=== PATIENT | female | born 2000 | race Caucasian/White ===

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

== ENCOUNTER → 2018-05-08 11:21 | Outpatient (CLI) | payer OTHER, SELFPAY ==
[2018-05-11 03:05] LABS: Clam <0.10 kU/L (Class 0); Codfish <0.10 kU/L (Class 0); Corn <0.10 kU/L (Class 0); Egg, White <0.10 kU/L (Class 0); Milk (Cow) <0.10 kU/L (Class 0); Peanut <0.10 kU/L (Class 0); SCALLOP <0.10 kU/L (Class 0); SESAME SEED <0.10 kU/L (Class 0); Shrimp <0.10 kU/L (Class 0); Soybean <0.10 kU/L (Class 0); Walnut, (Food) <0.10 kU/L (Class 0); Wheat <0.10 kU/L (Class 0)
[2018-05-11 16:38] LABS: Gluten <0.10 kU/L (Class 0)
== END ==
PROVIDERS: Family Provider Family Medicine; PCP Family Medicine; Visit Provider Otolaryngology Otolaryngology/Facial Plastic Surgery
DX: T78.40XA Allergy, unspecified, initial encounter (principal)
CPT/HCPCS: 36415; 86003

== ENCOUNTER 2018-09-22 10:00 | Outpatient (RCR) | payer OTHER, SELFPAY ==
--- NOTE | 2018-03-16 11:03 | HP.PTEVAL_ITS ---
Patient's Visit Information JOSE EDUARDO PRINCE is a 18 year old F referred to Physical Therapy by Nahid Fernandez with a diagnosis of TMJ syndrome. Date of Evaluation: 03/16/18 Physical Therapist: Vidal Nuñez - Visit Plan Frequency: 1x/Week Duration: 4-6 Weeks Plan: Start with rocobaddo exercises, DN, UT, SCM stretcing. Progressing to postural strengthening as tolerated. Pt. to start with rocobaddo exercises on own, cervical spine exercises. Progress DN and postural strengthening as tolerated. - Subjective Subjective: Pt. is here today for her initial evaluation with diagnosis of TMJ mostly on L side. Pt. has been having issues for ~1.5 years. Pt. has previously teated with stretching, exercise and DN with good success. She just finished up her college exams and already reports reduced symptoms. Pt. reports no JUNG, pain is mostly when she chews. Pt. also reports increased pain with studying. Pt. denies N/T. Pt. is hopeful to reduce symptoms in order to eat without pain, study without pain, get back to all recraetional activities without issues. - Pain L TMJ Pain Intensity (Out of 10): 3 Pain Intensity Range: 1, 7 - Objective POSTURE: Pt. has slight FH position in sitting. Pt. has slight rounded shoulders. Pt. is able to correct with Vcing. PALPATION: Pt. has increased tenderness at L UT, bilateral levator scapulea, bilateral sub occipitals, L SCM and L TMJ. NEUROLOGICAL: PT. has normal sensation throughout face and BUEs. Pt. has normal DTR of bilateral UEs. ROM: CERVICAL SPINE: flexion- nil loss NE , ext min loss NE, SB nil loss bilat NE, rotation nil loss NE. Pt. has full B shoulder ROM without increase in symptoms. Pt. has sight deviation of mandable to L side with opening. No clicking felt with opening and closing. - Special Tests Cervical Sitting: Protrusion - Mechanical Response: No effect Cervical Sitting: Protrusion - Symptoms During Testing: No effect Cervical Sitting: Protrusion - Symptoms After Testing: No effect Cervical Sitting: Retraction - Mechanical Response: No effect Cervical Sitting: Retraction - Symptoms During Testing: No effect Cervical Sitting: Retraction - Symptoms After Testing: No effect Comments:: tightness noted Cervical Sitting: Retraction-Extension - Mechanical Response: No effect Cerv Sitting: Retraction-Extension - Symptoms During Testing: No effect Cerv Sitting: Retraction-Extension - Symptoms After Testing: No effect Comments:: tightness noted - Goals Goal 1:: Pt. to be I with HEP. Goal Time Frame: 4-6 Weeks Goal 2:: Pt. to report 0/10 pain while sleeping increasing her quality of life. Goal Time Frame: 4-6 Weeks Goal 3:: Pt. to eat without increase in L TMJ symptoms. Goal Time Frame: 4-6 Weeks Goal 4:: Pt. to maintain improved posture of thoracic spine and cervical spine throughout therapy sessing indicating increased postural awareness. Goal Time Frame: 4-6 Weeks - Rehabilitation Potential Physical Therapy Diagnosis: Pt. has signs and symptoms consistent with TMD. Pt. most likely and a stress and postural component with her symptoms. Pt. tends to have increased pain during studying, but tends to flex forward with studying for longer periods of time. Pt. has tighness in B UT and bilateral SCM. Pt. would benefit from PT to progress rocobaddo exercises, DN, stretching and postural awareness to reduce symptoms. Rehabilitation Potential: Excellent - Anticipated Interventions Patient/Client Instruction: Educate patient on: Condition, Plan of Care, Risk Factors, Benefits of Fitness Program For the Purpose of:: To improve decision making, To facilitate caregiver knowledge, To improve self management, To prevent re-injury, To improve ability to perform tasks related to life management, To improve tolerance to ADL's Therapeutic Exercise to Include: Strength training, Postural training, Flexibilty training For the Purpose of:: To decrease pain, To increase ROM, To improve nutrient delivery to tissue, To increase oxygenation perfusion, To improve muscle performance and motor function, To improve health of tissue, To decrease soft tissue restriction, To increase flexibility/ROM Manual Therapy Techniques to Include: Trigger point massage, Mobilization, Passive ROM, Functional dry needling, Soft tissue mobilization For the Purpose of:: To decrease pain, To increase ROM, To improve nutrient delivery to tissue, To increase oxygenation perfusion, To improve muscle performance and motor function Thank you for the opportunity to evaluate your patient. For Medicare and Medicare HMO plans, please review the plan of care and approve it. It will need to be FAXED BACK to us at [phone] for Medicare purposes. Please let me know if there are questions or concerns regarding this plan of care. Physician Signature: Date:
--- NOTE | 2018-11-28 17:24 | HP.PT.NRP ---
HP - Discharge Summary (1) - Patient Information JOSE EDUARDO PRINCE was seen in my office for initial evaluation on 03/16/18. The following Plan of Care was established for this patient: Initial Frequency: 1x/Week Initial Duration: 4-6 Weeks - Anticipated Interventions Patient/Client Instruction: Educate patient on: Condition, Plan of Care, Risk Factors, Benefits of Fitness Program For the Purpose of:: To improve decision making, To facilitate caregiver knowledge, To improve self management, To prevent re-injury, To improve ability to perform tasks related to life management, To improve tolerance to ADL's Therapeutic Exercise to Include: Strength training, Postural training, Flexibilty training For the Purpose of:: To decrease pain, To increase ROM, To improve nutrient delivery to tissue, To increase oxygenation perfusion, To improve muscle performance and motor function, To improve health of tissue, To decrease soft tissue restriction, To increase flexibility/ROM Manual Therapy Techniques to Include: Trigger point massage, Mobilization, Passive ROM, Functional dry needling, Soft tissue mobilization For the Purpose of:: To decrease pain, To increase ROM, To improve nutrient delivery to tissue, To increase oxygenation perfusion, To improve muscle performance and motor function This patient was last seen in our office 09/22/18. Pertinent comments regarding their Physical therapy will appear below: Pt. was seen for her TMD issues. Pt. was treated with DN, manual PT and exercises. Pt. was seen for 3 visits. Pt. returned to school and has not been back to PT since. Pt. will be DC from PT at this point in time. At this point I will be discontinuing this patient from physical therapy. I would be happy to see this patient again in the future if found appropriate by the physician. Thank you! Vidal Nuñez, MICHAELT
== END 2018-09-22 19:00 | disposition home or self-care (01) ==
LOC: PT 10:00
PROVIDERS: Family Provider Family Medicine; PCP Family Medicine; Visit Provider Family Medicine
DX: M26.609 Unspecified temporomandibular joint disorder, unspecified side (principal)
CPT/HCPCS: 97161

== ENCOUNTER 2020-02-28 14:30 | Outpatient (RCR) | payer SELFPAY ==
[2019-06-05 09:24] VITALS: BMI 31.9
--- NOTE | 2020-04-08 08:41 | HP.PTDCNRP_ITS ---
JOSE EDUARDO PRINCE was seen in my office for initial evaluation on 09/05/19. The following Plan of Care was established for this patient: Patient/Client Instruction: Educate patient on: Condition, Plan of Care, Risk Factors, Benefits of Fitness Program For the Purpose of:: To facilitate caregiver knowledge, To improve self manageme nt, To prevent re-injury, To improve ability to perform tasks related to life management, To improve tolerance to ADL's Manual Therapy Techniques to Include: Mobilization, Passive ROM, Functional dry needling For the Purpose of:: To decrease pain, To decrease swelling/inflammation, To increase ROM, To improve nutrient delivery to tissue This patient was last seen in our office . Pertinent comments regarding their Physical therapy will appear below: Dry Needling d/c At this point I will be discontinuing this patient from physical therapy. I would be happy to see this patient again in the future if found appropriate by the physician. Thank you! MICHAEL CorneliusT
== END 2020-02-28 19:00 | disposition home or self-care (01) ==
LOC: PT 14:30
PROVIDERS: Family Provider Family Medicine; PCP Family Medicine
DX: S93.402D Sprain of unspecified ligament of left ankle, subsequent encounter (principal)

== ENCOUNTER 2021-03-26 14:30 | Outpatient (RCR) | payer OTHER, SELFPAY ==
[2020-04-02 12:48] VITALS: BMI 31.9
== END 2021-03-26 19:00 | disposition home or self-care (01) ==
LOC: PT 14:30
PROVIDERS: PCP Family Medicine
DX: R68.84 Jaw pain (principal); M54.2 Cervicalgia

== ENCOUNTER 2021-07-10 11:00 | Outpatient (RCR) | payer OTHER, SELFPAY ==
[2021-04-21 14:37] VITALS: BMI 31.9
--- NOTE | 2021-10-20 16:45 | HP.PT.NRP ---
JOSE EDUARDO PRINCE was seen in my office for initial evaluation on . The following Plan of Care was established for this patient: This patient was last seen in our office 07/10/21. Pertinent comments regarding their Physical therapy will appear below: Pt. was seen in PT for self pay DN. Pt. has not been seen in several months and will be DC from PT at this point in time. At this point I will be discontinuing this patient from physical therapy. I would be happy to see this patient again in the future if found appropriate by the physician. Thank you! Vidal Nuñez, MICHAELT
== END 2021-07-10 19:00 | disposition home or self-care (01) ==
LOC: PT 11:00
PROVIDERS: PCP Family Medicine
DX: Z00.00 Encounter for general adult medical examination without abnormal findings (principal)

== ENCOUNTER → 2021-07-17 11:04 | Outpatient (CLI) | payer OTHER, SELFPAY ==
[2021-07-17 15:43] LABS: Absolute Neutrophil Count 3.8 X10^3/uL (2.0-7.7); Basophil# 0.01 X10^3/uL; Basophil% 0.2 % (0-1); Eosinophil# 0.04 X10^3/uL; Eosinophils% 0.7 % (0-5); Hematocrit 39.8 % (37-47); Hemoglobin 12.8 g/dL (12.0-15.0); Lymphocyte % 25.6 % (19-41); Mean Corp Hgb Conc 32.2 g/dL (32-36); Mean Corpuscular Hgb 29.8 pg (27.0-32.0); Mean Corpuscular Volume 92.8 fL (81-99); Mean Platelet Vol. 10.9 fl (6.2-12.0); Monocyte# 0.49 X10^3/uL; Monocyte% 8.4 % (0-10); NRBC Flagged by Analyzer 0 % (0-5); Neutrophil # 3.79 X10^3/uL (2.7-7.7); Neutrophil % 64.8 % (47-70); Platelet Count 240 K/mm3 (150-450); RBC Distribution Width CV 12.8 % (11.6-14.6); RBC Distribution Width SD 43.7 fl (35.1-43.9); Red Blood Count 4.29 M/mm3 (4.2-5.4); White Blood Count 5.9 K/mm3 (4.4-11.0)
[2021-07-17 17:01] LABS: ALB/GLOB Ratio 0.9 RATIO (0.9-2.4); AST(SGOT) 16 U/L (15-37); Alanine Aminotransfer ALT/SGPT 25 U/L (13-56); Albumin, Serum 3.7 g/dL (3.2-5.0); Alkaline Phosphatase 46 U/L (45-117); Anion Gap 5 (5-15); BUN 15 mg/dL (7-18); BUN/Creat Ratio 22.8 RATIO (10-20); Calcium,Total 9.2 mg/dL (8.5-10.1); Chloride 106 mmol/L (98-107); Cholesterol 156 mg/dL (200); Creatinine, Serum 0.66 mg/dL (0.55-1.02); EST Glomerular Filtration Rate 118 mL/min (>60); Est Glom Filt Rate - Afr Amer 143 mL/min (>60); Glucose 86 mg/dL (74-106); High Density Lipoprotein 46 mg/dL; Potassium 3.7 mmol/L (3.5-5.1); Protein, Total 7.7 g/dL (6.4-8.2); Sodium Level 137 mmol/L (136-145); Thyroid Stim Hormone (TSH) 1.02 uIU/mL (0.358-3.74); Triglycerides 103 mg/dL; Very Low Density Lipoprotein 21 mg/dL (5-40)
== END ==
PROVIDERS: PCP Family Medicine; Referring Provider Family Medicine; Visit Provider Family Medicine
DX: Z00.00 Encounter for general adult medical examination without abnormal findings (principal)
CPT/HCPCS: 36415; 80053; 80061; 84443; 85025

== ENCOUNTER → 2022-08-13 | Outpatient (CLI) | payer OTHER, SELFPAY ==
[2022-08-13 15:53] LABS: Vitamin B12 301 pg/mL (211-911); Vitamin D,25 Hydroxy 39.3 ng/mL
[2022-08-13 16:23] LABS: Free T3 2.2 pg/mL (2.18-3.98); T4 Free Direct 0.93 ng/dL (0.76-1.46); Thyroid Stim Hormone (TSH) 1.26 uIU/mL (0.358-3.74)
== END | disposition home or self-care (01) ==
PROVIDERS: PCP Family Medicine
DX: R53.83 Other fatigue (principal)
CPT/HCPCS: 36415; 82306; 82607; 82746; 84439; 84443; 84481

== ENCOUNTER → 2023-07-07 | Outpatient (CLI) | payer OTHER, SELFPAY ==
[2023-07-07 15:24] LABS: Hematocrit 38.6 % (37-47); Hemoglobin 12.5 g/dL (12.0-15.0); Mean Corp Hgb Conc 32.4 g/dL (32-36); Mean Corpuscular Volume 92.6 fL (81-99); Mean Platelet Vol. 10.5 fl (6.2-12.0); Platelet Count 297 K/mm3 (150-450); RBC Distribution Width CV 12.7 % (11.6-14.6); RBC Distribution Width SD 43.1 fl (35.1-43.9); Red Blood Count 4.17 M/mm3 (4.2-5.4); White Blood Count 7.9 K/mm3 (4.4-11.0)
[2023-07-07 16:06] LABS: Vitamin D,25 Hydroxy 52.2 ng/mL
[2023-07-07 16:23] LABS: Hemoglobin A1c 4.9 % (3.8-5.6)
[2023-07-07 16:43] LABS: AST(SGOT) 18 U/L (15-37); Alanine Aminotransfer ALT/SGPT 24 U/L (13-56); Albumin, Serum 3.9 g/dL (3.2-5.0); Alkaline Phosphatase 61 U/L (45-117); Anion Gap 9 (5-15); BUN 13 mg/dL (7-18); BUN/Creat Ratio 15.9 RATIO (10-20); Chloride 110 mmol/L (98-107); Cholesterol 174 mg/dL (200); Creatinine, Serum 0.82 mg/dL (0.55-1.02); EST Glomerular Filtration Rate 90 mL/min (>60); Est Glom Filt Rate - Afr Amer 109 mL/min (>60); Globulin 3.9 g/dL (2.2-4.2); Glucose 90 mg/dL (74-106); High Density Lipoprotein 55 mg/dL; Potassium 3.6 mmol/L (3.5-5.1); Protein, Total 7.8 g/dL (6.4-8.2); Sodium Level 136 mmol/L (136-145); Thyroid Stim Hormone (TSH) 1.99 uIU/mL (0.358-3.74); Triglycerides 116 mg/dL; Very Low Density Lipoprotein 23 mg/dL (5-40)
[2023-07-08 09:10] LABS: Insulin 23.7 mU/L (2.6-37.6)
== END | disposition home or self-care (01) ==
PROVIDERS: PCP Family Medicine; Visit Provider Nurse Practitioner Family
DX: F41.9 Anxiety disorder, unspecified (principal); Z13.220 Encounter for screening for lipoid disorders; Z13.29 Encounter for screening for other suspected endocrine disorder; Z13.1 Encounter for screening for diabetes mellitus; E66.9 Obesity, unspecified; E28.2 Polycystic ovarian syndrome
CPT/HCPCS: 36415; 80053; 80061; 82306; 83036; 83525; 84443; 85027

== ENCOUNTER 2023-08-02 08:50 | Outpatient (RCR) | payer OTHER, SELFPAY | END 2023-08-06 23:59 | LOC: NS 08:50 | PROVIDERS: PCP Family Medicine; Referring Provider Nurse Practitioner Family; Visit Provider Nurse Practitioner Family | DX: E28.2 Polycystic ovarian syndrome (principal); F41.9 Anxiety disorder, unspecified; F32.A Depression, unspecified; E66.9 Obesity, unspecified; Z68.31 Body mass index [BMI] 31.0-31.9, adult | CPT/HCPCS: 97802 ==

== ENCOUNTER 2023-08-29 10:32 | Outpatient (RCR) | payer OTHER, SELFPAY | END 2023-09-06 23:59 | LOC: NS 10:32 | PROVIDERS: PCP Family Medicine; Referring Provider Nurse Practitioner Family; Visit Provider Nurse Practitioner Family | DX: Z71.3 Dietary counseling and surveillance (principal); E28.2 Polycystic ovarian syndrome; F41.9 Anxiety disorder, unspecified; F32.A Depression, unspecified; E66.9 Obesity, unspecified; Z68.31 Body mass index [BMI] 31.0-31.9, adult | CPT/HCPCS: 97803 ==

== ENCOUNTER → 2023-09-21 | Outpatient (CLI) | payer OTHER, SELFPAY ==
[2023-09-21 11:09] LABS: Rheumatoid Factor < 10.0 IU/mL (<15)
[2023-09-21 11:14] LABS: Erythrocyte Sedimentation Rate 25 mm/hr (0-30)
[2023-09-22 12:09] LABS: ANTINUCLEAR ANTIBODIES DIRECT Positive (Negative)
[2023-09-22 13:08] LABS: Lyme Scn Total Ab w/Rflx Negative (Negative)
== END | disposition home or self-care (01) ==
PROVIDERS: PCP Family Medicine; Visit Provider Nurse Practitioner Family
DX: M25.50 Pain in unspecified joint (principal)
CPT/HCPCS: 36415; 85652; 86038; 86431; 86618

== ENCOUNTER → 2023-12-06 | Outpatient (CLI) | payer OTHER, SELFPAY ==
[2023-12-06 15:28] LABS: EXAGEN MAILED SPECIMEN
[2023-12-06 18:04] LABS: Absolute Lymphocyte Count 2.87 X10^3/uL (0.83-4.51); Absolute Neutrophil Count 6.9 X10^3/uL (2.0-7.7); Basophil# 0.03 X10^3/uL; Basophil% 0.3 % (0-1); Eosinophil# 0.13 X10^3/uL; Eosinophils% 1.2 % (0-5); Hematocrit 39.6 % (37-47); Hemoglobin 12.9 g/dL (12.0-15.0); Lymphocyte # 2.87 X10^3/ul (0.83-4.51); Lymphocyte % 27.3 % (19-41); Mean Corp Hgb Conc 32.6 g/dL (32-36); Mean Platelet Vol. 10.7 fl (6.2-12.0); Monocyte% 5.7 % (0-10); NRBC Flagged by Analyzer 0 % (0-5); Neutrophil # 6.86 X10^3/uL (2.7-7.7); Neutrophil % 65.2 % (47-70); Platelet Count 299 K/mm3 (150-450); RBC Distribution Width SD 42.3 fl (35.1-43.9); Red Blood Count 4.45 M/mm3 (4.2-5.4); White Blood Count 10.5 K/mm3 (4.4-11.0)
[2023-12-06 18:11] LABS: International Normalized Ratio 0.9; Prothrombin Time (Protime)PT. 12.4 SECONDS (11.7-14.9)
[2023-12-06 18:12] LABS: Partial Thromboplast Time 28.4 Seconds (24.1-36.2)
[2023-12-06 18:16] LABS: Erythrocyte Sedimentation Rate 27 mm/hr (0-30)
[2023-12-06 18:24] LABS: ALB/GLOB Ratio 0.9 RATIO (0.9-2.4); AST(SGOT) 13 U/L (15-37); Alanine Aminotransfer ALT/SGPT 22 U/L (13-56); Albumin, Serum 3.9 g/dL (3.2-5.0); Alkaline Phosphatase 60 U/L (45-117); Anion Gap 7 (5-15); BUN 14 mg/dL (7-18); BUN/Creat Ratio 17.4 RATIO (10-20); Chloride 109 mmol/L (98-107); EST Glomerular Filtration Rate 92 mL/min (>60); Est Glom Filt Rate - Afr Amer 111 mL/min (>60); Globulin 4.2 g/dL (2.2-4.2); Glucose 90 mg/dL (74-106); Potassium 3.8 mmol/L (3.5-5.1); Protein, Total 8.1 g/dL (6.4-8.2); Sodium Level 136 mmol/L (136-145)
[2023-12-06 18:55] LABS: Hepatitis B Surface Antibody Reactive; Hepatitis B Surface Antigen Non-Reactive (Nonreactive); Hepatitis C Antibody Non-Reactive (Nonreactive)
[2023-12-09 06:10] LABS: Dilute Prothrombin Time (dPT) 40.3 sec (0.0-47.6); Dilute Russell Viper Venom 34.3 sec (0.0-47.0); Hexagonal Phase Phospholipid 3 sec (0-11); Interpretation Comment: (.); PTT-LA 33.5 sec (0.0-43.5); Thrombin Time 23.7 sec (0.0-23.0); dPT Confirm Ratio 1.79 Ratio (0.00-1.34)
== END | disposition home or self-care (01) ==
LOC: MTLAB 14:26
PROVIDERS: PCP Family Medicine; Referring Provider Internal Medicine Rheumatology; Visit Provider Internal Medicine Rheumatology
DX: M06.4 Inflammatory polyarthropathy (principal); M79.7 Fibromyalgia; R76.8 Other specified abnormal immunological findings in serum
CPT/HCPCS: 36415; 80053; 85025; 85598; 85610; 85652; 85670; 85730; 86140; 86706; 86803; 87340

== ENCOUNTER → 2023-12-09 | Outpatient (CLI) | payer OTHER, SELFPAY ==
[2023-12-09 12:40] LABS: Color, Urine Yellow (Yellow); Glucose, Dipstick Normal (Normal); Ketone-Dipstick Negative (Negative); Leukocyte Esterase-Dipstick 25 /ul (Negative); Nitrite-Dipstick Negative (Negative); Occult Blood-Urine Negative /ul (Negative); Protein-Dipstick Negative (Negative); Urine Bilirubin Dipstick Negative (Negative); Urine Clarity Sl. Cloudy (Clear); Urine Urobilinogen Normal (Normal)
[2023-12-09 12:49] LABS: Protein, Urine (Random) 15.8 mg/dL (<11.9); Protein:Creat Ratio 115 mg/g CRE (0-200)
== END | disposition home or self-care (01) ==
LOC: MTLAB 10:12
PROVIDERS: PCP Family Medicine; Referring Provider Internal Medicine Rheumatology; Visit Provider Internal Medicine Rheumatology
DX: M06.4 Inflammatory polyarthropathy (principal); M79.7 Fibromyalgia; R76.8 Other specified abnormal immunological findings in serum
CPT/HCPCS: 81002; 82570; 84156

== ENCOUNTER → 2024-01-03 | Outpatient (CLI) | payer OTHER, SELFPAY ==
--- NOTE | 2024-01-03 11:43 | RAD_ITS ---
EXAM: XR LEFT FOOT COMPLETE, 3 OR MORE VIEWS CLINICAL INDICATION: left foot injury TECHNIQUE: Frontal, lateral and oblique views of the left foot. COMPARISON: No relevant prior studies available. FINDINGS: BONES/JOINTS: No acute abnormality. SOFT TISSUES: Normal. No soft tissue swelling or gas. No radiopaque foreign body. RAD/Foot min 3 Views IMPRESSION: Intact left foot. Electronically Signed: Nathanael Cook MD at 11:57 EST ,
--- OUTSIDE RECORDS SUMMARY | 2024-01-03 21:01 | XMS RPT_ITS | CCD ---
Author Name Unknown Address [address] [place] [address] Organization [facility] Care Team Providers Care Epic [facility] Specialists Name Role Phone Kayley Winter LPN Unavailable Unavailab Kayley Schultz LPN Unavailable Unavailab le Dianna Peoples LPN Unavailable [phone] Kayley Winter LPN Unavailable Unavailab le Unavailable Primary Care Provider Unavailnatividad e Unavailable Primary Care Provider UnavailAugustina Bateman MD Primary Care Provider YANELI GAYLE Attending Unavailable AUGUSTINA ABRAHAM Primary Care Unavailable YANELI GAYLE Attending Unavailable AUGUSTINA ABRAHAM Primary Care Unavailable YANELI GAYLE Attending Unavailable AUGUSTINA ABRAHAM Primary Care Unavailable YANELI GAYLE Attending Unavailable YANELI GAYLE Attending Unavailable Allergies Allergy Classification Reported Allergen(s) Allergy Type Date of Onset Reaction(s) Facility (4 sources) acetaminophen / HYDROcodone drug allergy 7 [facility] Work Phone: (4 sources) STINGING INSECTS; Translations: [STINGING INSECTS] allergy to substance 7 [facility] Work Phone: (11 sources) Acetaminophen / HYDROcodone; Translations: [HYDROCODONE-ACETA MINOPHEN] Drug Allergy 3 Vomiting [facility] Work Phone: (11 sources) Bahraini elm pollen extract; Translations: [TREE POLLEN-GUINEAN ELM] Drug Allergy 8 Unknown [facility] (11 sources) Cat; Translations: [CATS] Allergy to substance 8 Unknown [facility] (11 sources) Dust; Translations: [DUST] Allergy to substance 8 Unknown [facility] (11 sources) Feather; Translations: [FEATHERS] Drug Allergy 8 Unknown [facility] (11 sources) [place] pollen; Translations: [WEED POLLEN] Drug Allergy 8 Unknown [facility] (11 sources) Bees; Translations: [BEES] Allergy to substance 8 Swelling [facility] (11 sources) [place]; Translations: [OAK] Drug Allergy 8 Unknown [facility] Medications Current Medications Medication Drug Class(es) Dates Sig (Normalized) Sig (Original) metFORMIN hydrochloride 500 mg oral tablet (4 sources) Biguanide Start: 08-26-2023 End: 03-20-2024 take 31-31.9 tablets by mouth twice daily metFORMIN (GLUCOPHAGE) 500 mg tablet Indications: Polycystic ovarian syndrome , Class 1 obesity with body mass index (BMI) of 31.0 to 31.9 in adult, unspecified obesity type, unspecified whether serious comorbidity present Take 2 tablets by mouth two times a day with meals. 360 tablet 1 09/22/2023 03/20/2024 Active Completed/Discontinued Medications Medication Drug Class(es) Dates Sig (Normalized) Sig (Original) [id number] 200 actuat albuterol 0.09 mg/actuat metered dose inhaler (6 sources) beta2-Adrenergic Agonist Start: 01-04-2018 End: 06-30-2023 take 1-2 puff(s) by inhalation every four hours as needed for wheezing albuterol HFA (PROAIR HFA) 90 mcg/actuation inhaler Inhale 1-2 Puffs as instructed every 4 hours as needed for Wheezing/Shortness of Breath. 1 Inhaler 0 01/04/2018 06/30/2023 Discontinued (Other) Problems Active Problems Problem Classification Problem Date Documented Da te Episodic/Chronic Anxiety disorders (15 sources) Mixed anxiety and depressive disorder; Translations: [Anxiety disorder, unspecified] Onset: 06-22-2018 03-17-2019 Chronic Asthma (12 sources) Exercise-induced asthma; Translations: [Exercise induced bronchospasm] Onset: 01-30-2014 01-30-2014 Chronic Contraceptive and procreative management (4 sources) Oral contraception; Translations: [Encounter for surveillance of contraceptive pills] Episodic Menstrual disorders (10 sources) Irregular periods; Translations: [Irregular menstruation, unspecified] Onset: 08-11-2012 08-11-2012 Chronic Miscellaneous mental health disorders (5 sources) Binge eating disorder; Translations: [Binge eating disorder] Onset: 12-15-2023 06-30-2023 Chronic Mood disorders (1 source) Seasonal affective disorder; Translations: [Other recurrent depressive disorders] 12-15-2023 Chronic Mood disorders (1 source) Mood disorders; Translations: [Anxiety and depression] Onset: 03-17-2019 Other endocrine disorders (14 sources) Polycystic ovary syndrome; Translations: [Polycystic ovarian syndrome] Onset: 03-17-2019 03-17-2019 Chronic Other endocrine disorders (1 source) Polycystic ovarian syndrome; Translations: [Polycystic ovarian syndrome] Onset: 03-17-2019 Chronic Other gastrointestinal disorders (10 sources) Irritable bowel syndrome; Translations: [Mixed irritable bowel syndrome] Onset: 03-17-2019 03-17-2019 Chronic Other nutritional; endocrine; and metabolic disorders (10 sources) Obese class II; Translations: [Obesity, unspecified] Onset: 04-16-2019 04-16-2019 Chronic Other nutritional; endocrine; and metabolic disorders (5 sources) Obesity; Translations: [Obesity, unspecified] 06-30-2023 Chronic Other nutritional; endocrine; and metabolic disorders (1 source) Obesity, unspecified; Translations: [Class 1 obesity with body mass index (BMI) of 31.0 to 31.9 in adult, unspecified obesity type, unspecified whether serious comorbidity present] Onset: 12-15-2023 Chronic Other nutritional; endocrine; and metabolic disorders (1 source) Body mass index (BMI) 31.0-31.9, adult; Translations: [Class 1 obesity with body mass index (BMI) of 31.0 to 31.9 in adult, unspecified obesity type, unspecified whether serious comorbidity present] Onset: 12-15-2023 Chronic Other upper respiratory infections (10 sources) Chronic sinusitis; Translations: [Chronic sinusitis, unspecified] Onset: 09-12-2017 06-08-2018 Chronic Past or Other Problems Problem Classification Problem Date Documented Date Episodic/Chronic Allergic reactions (10 sources) Nummular eczema; Translations: [Nummular dermatitis] Onset: 06-08-2018 06-08-2018 Episodic Disorders of teeth and jaw (10 sources) Temporomandibular joint disorder; Translations: [Unspecified temporomandibular joint disorder, unspecified side] Onset: 01-13-2018 06-08-2018 Episodic Immunizations and screening for infectious disease (7 sources) Patient encounter status; Translations: [Encounter for screening for infections with a predominantly sexual mode of transmission] Onset: 06-03-2023 Episodic Other nutritional; endocrine; and metabolic disorders (10 sources) Weight gain; Translations: [Abnormal weight gain] Onset: 03-17-2019 03-17-2019 Episodic Other screening for suspected conditions (not mental disorders or infectious disease) (6 sources) Encounter for screening for diseases of the blood and blood-forming organs and certain disorders involving the immune mechanism; Translations: [Encounter for screening for nutritional disorder] Onset: 06-03-2023 Episodic Other skin disorders (10 sources) Excessive sweating; Translations: [Generalized hyperhidrosis] Onset: 03-21-2012 03-21-2012 Episodic Other upper respiratory infections (4 sources) Sinusitis; Translations: [Chronic sinusitis, unspecified] Onset: 08-06-2017 08-06-2017 Episodic Otitis media and related conditions (4 sources) Acute secretory otitis media; Translations: [Other acute nonsuppurative otitis media, bilateral] Onset: 08-06-2017 08-06-2017 Episodic Ovarian cyst (20 sources) Cyst of ovary; Translations: [Unspecified ovarian cyst, unspecified side] Onset: 08-15-2012 08-15-2012 Episodic Residual codes; unclassified (10 sources) Family history of Factor V Leiden mutation; Translations: [Family history of diseases of the blood and blood-forming organs and certain disorders involving the immune mechanism] Onset: 06-19-2015 06-19-2015 Episodic Spondylosis; intervertebral disc disorders; other back problems (10 sources) Chronic low back pain; Translations: [Chronic left-sided low back pain without sciatica] Onset: 07-02-2016 07-02-2016 Episodic Results Test Name Value Interpretation Reference Range Facil ity Vital Signs Date Time Vital Sign Value Performing Clinician Cyndie benoit 12-15-2023 10:33-0500 Body weight 83.1 kg Yaneli Gayle APRN.DIRECTOR CARD Work Phone: [facility] 12-15-2023 10:33-0500 Diastolic blood pressure 66 mm[Hg] Yaneli Adamshrie HOU[employer]Y TE[employer].DIRECTOR CARD Work Phone: [facility] 12-15-2023 10:33-0500 Heart rate 95 /min Yaneli Adamshrie [employer].DIRECTOR CARD Work Phone: [facility] 12-15-2023 10:33-0500 SaO2% (BldA) [Mass fraction] 98 % Yaneli Adamshrie [employer].DIRECTOR CARD Work Phone: [facility] 12-15-2023 10:33-0500 Systolic blood pressure 108 mm[Hg] Yaneli Gayle [employer] TE[employer].DIRECTOR CARD Work Phone: [facility] 09-22-2023 08:24-0500 Body weight 84.82 kg Yaneli Gayle [employer].DIRECTOR CARD Work Phone: [facility] 09-22-2023 08:24-0500 Diastolic blood pressure 64 mm[Hg] Yaneli Gayle [employer].DIRECTOR CARD Work Phone: [facility] 09-22-2023 08:24-0500 Heart rate 95 /min Yaneli Gayle [employer].DIRECTOR CARD Work Phone: [facility] 09-22-2023 08:24-0500 SaO2% (BldA) [Mass fraction] 99 % Yaneli Adamshrie [employer].DIRECTOR CARD Work Phone: [facility] 09-22-2023 08:24-0500 Systolic blood pressure 106 mm[Hg] Yaneli Gayle [employer].DIRECTOR CARD Work Phone: [facility] 08-26-2023 07:59-0400 Body weight 88.45 kg Yaneli Admashrie [employer].DIRECTOR CARD Work Phone: [facility] 08-26-2023 07:59-0400 Diastolic blood pressure 76 mm[Hg] Yaneli Gayle [employer].DIRECTOR CARD Work Phone: [facility] 08-26-2023 07:59-0400 Heart rate 90 /min Yaneli Adamshrie [employer].DIRECTOR CARD Work Phone: [facility] 08-26-2023 07:59-0400 SaO2% (BldA) [Mass fraction] 98 % Yaneli Gayle APRN.DIRECTOR CARD Work Phone: [facility] 08-26-2023 07:59-0400 Systolic blood pressure 112 mm[Hg] Yaneli Gayle APRN.DIRECTOR CARD Work Phone: [facility] 06-30-2023 13:05-0400 Body height 165.1 cm Yaneli Gayle APRN.DIRECTOR CARD Work Phone: [facility] 06-30-2023 13:05-0400 Body weight 89.45 kg Yaneli Gayle APRN.DIRECTOR CARD Work Phone: [facility] 06-30-2023 13:05-0400 Diastolic blood pressure 70 mm[Hg] Yaneli Gayle APRN.DIRECTOR CARD Work Phone: [facility] 06-30-2023 13:05-0400 Heart rate 94 /min Yaneli Gayle APRN.DIRECTOR CARD Work Phone: [facility] 06-30-2023 13:05-0400 SaO2% (BldA) [Mass fraction] 96 % Yaneli Gayle APRN.DIRECTOR CARD Work Phone: [facility] 06-30-2023 13:05-0400 Systolic blood pressure 108 mm[Hg] Yaneli Gayle APRN.DIRECTOR CARD Work Phone: [facility] 05-19-2022 07:57-0400 Body height 162.6 cm Yaneli Gayle APRN.DIRECTOR CARD Work Phone: [facility] 05-19-2022 07:57-0400 Body weight 82.19 kg Yaneli Gayle APRN.DIRECTOR CARD Work Phone: [facility] 05-19-2022 07:57-0400 Diastolic blood pressure 70 mm[Hg] Yaneli Gayle APRN.DIRECTOR CARD Work Phone: [facility] 05-19-2022 07:57-0400 Systolic blood pressure 120 mm[Hg] Yaneli Gayle APRN.DIRECTOR CARD Work Phone: [facility] 08-06-2017 10:44-0400 BMI (Body Mass Index) 30.55 kg/m2 Kayley Winter LPN [facility] Work Phone: 08-06-2017 10:44-0400 Body Temperature 98.1 [degF] Kayley Winter LPN [facility] Work Phone: 08-06-2017 10:44-0400 BP Diastolic 68 mm[Hg] Kayley Winter LPN [facility] Work Phone: 08-06-2017 10:44-0400 BP Systolic 102 mm[Hg] Kayley Winter LPN [facility] Work Phone: 08-06-2017 10:44-0400 Height 165.1 cm Kayley Winter LPN [facility] Work Phone: 08-06-2017 10:44-0400 Pulse (Heart Rate) 101 /min Kayley Winter LPN [facility] Work Phone: 08-06-2017 10:44-0400 Respiratory Rate 16 /min Kayley Winter LPN [facility] Work Phone: 08-06-2017 10:44-0400 Weight 83.28 kg Kayley Winter LPN [facility] Work Phone: Encounters Encounter Date Encounter Type Care Provider Facility Start: 12-15-2023 End: 12-15-2023 ambulatory AUGUSTINA Rickey [facility] Facility:[facility] Start: 12-15-2023 End: 12-15-2023 Patient encounter procedure Yaneli Gayle APRN.CNP Work Phone: OB/Gynecology Procedures Date Procedure Procedure Detail Performing Clinician Start: 08-21-2019 Adult depression screening assessment Yaneli Gayle APRN.CNP Work Phone: Plan of Treatment Date Care Activity Detail Author Start: 06-20-2028 Urine microalbumin profile [facility] Start: 06-03-2026 PAP TESTING PAP TESTING [facility] Start: 06-03-2026 Screening for malignant neoplasm of cervix Pap Testing [facility] Start: 07-08-2023 Influenza vaccination [facility] Start: 06-10-2023 PAP TESTING PAP TESTING [facility] Start: 07-08-2022 Influenza vaccination [facility] Start: 02-24-2022 ANNUAL PCP TEAM CHRONIC DISEASE VISIT ANNUAL PCP TEAM CHRONIC DISEASE VISIT [facility] Start: 06-10-2021 CHLAMYDIA SCREENING (18-24) CHLAMYDIA SCREENING (18-24) [facility] Start: 06-10-2021 GC (GONORRHEA) SCREENING (18-24) GC (GONORRHEA) SCREENING (18-24) [facility] Start: 11-20-2020 ANNUAL PCP TEAM CHRONIC DISEASE VISIT ANNUAL PCP TEAM CHRONIC DISEASE VISIT [facility] Start: 08-21-2020 Adult depression screening assessment DEPRESSION SCREENING [facility] Start: 08-06-2017 End: 08-06-2017 Appointment Appointment [facility] Work Phone: Start: 2017 ONE PNEUMOVAX PRIOR TO AGE 65 ONE PNEUMOVAX PRIOR TO AGE 65 [facility] Start: 02-13-2016 HEPATITIS C SCREENING HEPATITIS C SCREENING [facility] Start: 02-13-2016 Hepatitis C screening Hepatitis C Screening [facility] Start: 02-13-2016 HIV SCREENING HIV SCREENING [facility] Start: 02-13-2016 HIV screening HIV Screening [facility] Start: 02-13-2012 PEDS TO ADULT TRANSITION ANNUAL ASSESSMENT PEDS TO ADULT TRANSITION ANNUAL ASSESSMENT [facility] Start: 2010 PEDS TO ADULT TRANSITION INITIAL DISCUSSION PEDS TO ADULT TRANSITION INITIAL DISCUSSION [facility] Start: 02-13-2008 MENINGOCOCCAL B: Consider based on risk (1 of 2 - Risk Bexsero 2-dose series) MENINGOCOCCAL B: Consider based on risk (1 of 2 - Risk Bexsero 2-dose series) [facility] Start: 02-13-2004 PNEUMOCOCCAL (1 - PCV) PNEUMOCOCCAL (1 - PCV) [facility] Start: 02-13-2004 [facility] Start: 2003 COVID-19 VACCINE (1) COVID-19 VACCINE (1) [facility] Start: 1998 COVID-19 VACCINE (#1) COVID-19 VACCINE (#1) [facility] Chlamydia trachomatis+Neisseria gonorrhoeae DNA [Presence] in Unspecified specimen by SANJEEV with probe detection GC/CHLAMYDIA DNA DET Lab Routine Screen for STD (sexually transmitted disease) Ordered: 05/19/2022 [facility] Work Phone: Immunizations Immunization Date Immunization Notes Care Provider Rufino millan 09-13-2022 influenza virus vacc ine, unspecified formulation Yaneli Gayle APRN.DIRECTOR CARD Work Phone: [facility] 08-22-2019 influenza, seasonal, injectable Yaneli Gayle APRN.DIRECTOR CARD Work Phone: [facility] 06-20-2018 tetanus toxoid, redu pati diphtheria toxoid, and acellular pertussis vaccine, adsorbed Yaneli Gayle APRN.DIRECTOR CARD Work Phone: [facility] 07-02-2016 meningococcal polysaccharide (groups A, C, Y and W-135) diphtheria toxoid conjugate vaccine (MCV4P) Yaneli Gayle APRN.DIRECTOR CARD Work Phone: [facility] 06-19-2015 human papilloma viru s vaccine, quadrivalent Yaneli Rowanie HOU[employer].DIRECTOR CARD Work Phone: [facility] 06-11-2014 human papilloma viru s vaccine, quadrivalent Yaneli Adamshrie [employer].DIRECTOR CARD Work Phone: [facility] Work Phone: 12-27-2013 human papilloma viru s vaccine, quadrivalent Yaneli Gayle [employer].DIRECTOR CARD Work Phone: [facility] 12-27-2013 varicella virus vaccine Yaneli Gayle APRN.DIRECTOR CARD Work Phone: [facility] 09-25-2013 influenza virus vacc ine, live, attenuated, for intranasal use Yaneli Gayle APRN.DIRECTOR CARD Work Phone: [facility] 10-25-2011 influenza virus vacc ine, unspecified formulation Yaneli Gayle [employer].DIRECTOR CARD Work Phone: [facility] 08-26-2010 influenza virus vacc ine, live, attenuated, for intranasal use Yaneli Gayle APRN.DIRECTOR CARD Work Phone: [facility] Work Phone: 04-20-2010 meningococcal polysaccharide vaccine (MPSV4) Yaneli Gayle APRN.DIRECTOR CARD Work Phone: [facility] 04-20-2010 tetanus toxoid, redu pati diphtheria toxoid, and acellular pertussis vaccine, adsorbed Yaneli Gayle APRN.DIRECTOR CARD Work Phone: [facility] 09-23-2009 influenza virus vacc ine, unspecified formulation Yaneli Gayle APRN.DIRECTOR CARD Work Phone: [facility] Work Phone: 08-27-2008 influenza virus vacc ine, unspecified formulation Yaneli Gayle APRN.DIRECTOR CARD Work Phone: [facility] 03-25-2005 haemophilus influenz ae type b vaccine, HbOC conjugate Yaneli Gayle APRN.DIRECTOR CARD Work Phone: [facility] 10-15-2003 influenza virus vacc ine, whole virus Yaneli Gayle APRN.DIRECTOR CARD Work Phone: [facility] 06-17-2003 diphtheria, tetanus toxoids and acellular pertussis vaccine Yaneli Gayle APRN.DIRECTOR CARD Work Phone: [facility] 06-17-2003 measles, mumps and rubella virus vaccine Yaneli Gayle APRN.DIRECTOR CARD Work Phone: [facility] 06-17-2003 poliovirus vaccine, inactivated Yaneli Gayle APRN.DIRECTOR CARD Work Phone: [facility] 05-16-2002 pneumococcal conjuga te vaccine, 7 valent Yaneli Gayle APRN.DIRECTOR CARD Work Phone: [facility] 08-21-1999 diphtheria, tetanus toxoids and acellular pertussis vaccine Yaneli Gayle APRN.DIRECTOR CARD Work Phone: [facility] 08-21-1999 poliovirus vaccine, inactivated Yaneli Gayle APRN.DIRECTOR CARD Work Phone: [facility] 06-01-1999 measles, mumps and rubella virus vaccine Yaneli Gayle APRN.DIRECTOR CARD Work Phone: [facility] 06-01-1999 varicella virus vaccine Yaneli Gayle APRN.DIRECTOR CARD Work Phone: [facility] 1998 diphtheria, tetanus toxoids and acellular pertussis vaccine Yaneli Gayle HOU[employer] TE[employer].DIRECTOR CARD Work Phone: [facility] 1998 haemophilus influenz ae type b vaccine, HbOC conjugate Yaneli Gayle HOU[employer].DIRECTOR CARD Work Phone: [facility] 1998 hepatitis B vaccine, pediatric or pediatric/adolescent dosage Yaneli Gayle HOU[employer] TE[employer].DIRECTOR CARD Work Phone: [facility] 1998 diphtheria, tetanus toxoids and acellular pertussis vaccine Yaneli Gayle HOURLY TE[employer].DIRECTOR CARD Work Phone: [facility] 1998 haemophilus influenz ae type b vaccine, HbOC conjugate Yaneli Gayle HOURLY TE[employer].DIRECTOR CARD Work Phone: [facility] 1998 poliovirus vaccine, inactivated Yaneli Gayle HOURLY TE[employer].DIRECTOR CARD Work Phone: [facility] 1998 diphtheria, tetanus toxoids and acellular pertussis vaccine Yaneli Gayle HOURLY TE[employer].DIRECTOR CARD Work Phone: [facility] 1998 haemophilus influenz ae type b vaccine, HbOC conjugate Yaneli Gayle HOU[employer] TE[employer].DIRECTOR CARD Work Phone: [facility] 1998 hepatitis B vaccine, pediatric or pediatric/adolescent dosage Yaneli Gayle HOURLY TE[employer].DIRECTOR CARD Work Phone: [facility] 1998 poliovirus vaccine, inactivated Yaneli Gayle HOU[employer] TE[employer].DIRECTOR CARD Work Phone: [facility] 1998 hepatitis B vaccine, pediatric or pediatric/adolescent dosage Yaneli Gayle HOU[employer]Y TE[employer].DIRECTOR CARD Work Phone: [facility] Payers Date Payer Category Payer Private Health Insurance CJ [employer]ATHI [facility] [id number] 2022-Present [phone] [address] [place] [address] [facility] [id number] 2022 Private Health Insurance [id number] 2021 Unknown MMO MMO TPA [id number] 2021-Present [address] [place] [address] PPO [id number] 2016 Unknown MMO MMO [employer] [id number] 2016-Present [phone] [address] [place] [address] PPO [id number] 2016 Unknown [id number] 2016 Unknown [id number] Social History Date Type Detail Facility Start: 03-26-2011 End: 06-03-2023 Tobacco smoking status NHIS Never smoked tobacco [facility] Work Phone: Start: 06-10-2020 End: 12-15-2023 Alcohol intake Current non-drinker of alcohol (finding) [facility] Start: 05-02-2020 End: 06-10-2020 History SDOH Alcohol Frequency 2 [facility] Start: 05-02-2020 End: 06-10-2020 History SDOH Alcohol Std Drinks 1 [facility] Start: 06-10-2020 History SDOH Social Connections Phone 5 [facility] Start: 06-10-2020 History SDOH Social Connections Living 7 [facility] Start: 06-10-2020 History SDOH Physica l Activity DPW 4 [facility] Start: 06-10-2020 Education 17 [facility] Start: 1998 Sex Assigned At Not on file C [facility] Start: 03-26-2011 End: 06-03-2023 Tobacco use and exposure Smokeless tobacco non-user [facility] Work Phone: Start: 06-10-2020 End: 06-30-2023 History of Social function [facility] Work Phone: Start: 06-10-2020 End: 06-30-2023 Social connection and isolation panel [facility] Work Phone: Do you belong to any clubs or organizations such as congregational groups, unions, fraternal or athletic groups, or school groups? Yes [facility] Work Phone: Are you now , , , , never or living with a partner? Never [facility] Work Phone: How often to you hav e a drink containing alcohol? Monthly or less [facility] Work Phone: How many standard dr inks containing alcohol do you have on a typical day? 1 or 2 [facility] Work Phone: How often do you hav e 6 or more drinks on 1 occasion? Never [facility] Work Phone: How hard is it for y ou to pay for the very basics like food, housing, medical care, and heating Not hard at all [facility] Work Phone: Do you feel stress - tense, restless, nervous, or anxious, or unable to sleep at night because your mind is troubled all the time - these days [OSQ] Not at all [facility] Work Phone: (I/We) worried wheth er (my/our) food would run out before (I/we) got money to buy more. Never true [facility] Work Phone: In the past 12 month s, was there a time when you were not able to pay the mortgage or rent on time? No [facility] Clinical Notes 06-08-2018 to 12-15-2023 Patient InstructionsYaneli Gayle APRN.DIRECTOR CARD - 12/15/2023 10:30 AM Yaneli Renee APRN.JOHN - 09/22/2023 8:30 AM ESTPatient Yaneli Guzmán APRN.CNP - 08/26/2023 8:00 AM EDT Note Date & Type Note Facility 12-15-2023 Note HNO ID: [id number] Author: YANELI GAYLE APRN.DIRECTOR CARD Service: ? Author Type: Nurse Practitioner Type: Progress Notes Filed: 12/15/2023 20:38 Note Text: Some documentation from previous visit of 09/22/2023 was copied and pasted, documentation has been reviewed and edited as necessary for today's visit. Patient Summary: Jose Eduardo is a 23 year old Female who presents for follow-up evaluation of obesity/weight management to treat PCOS, BED, anxiety., depression and prevent related co-morbidities. In our previous visits we have discussed lifestyle intervention including a nutrition recommendations and physical activity optimization. Her last office visit was 3 month ago. Assessment/plan from last visit: [facility] nutrition - seeing every 3 months Phentermine 37.5 mg every morning Topiramate 50 mg in the morning is most effective Metformin - 1 gm breakfast and dinner BED - no episodes with topiramate but feels increase in thoughts when depressed Has had some anxiety and depression but has worsening symptoms this winter and suspects she has seasonal affective disorder. Interval History B - Fairlife 30 gm protein shake or 3 eggs with 1/2 shake S - none or meat stick L - chicken and veg OR tuna packet and Triple Zero yogurt S - vegetables and sometimes yogurt with Ranch or cottage cheese D - chicken, vegetables occasional Soups S - none Fluids - Lemon water, Zevia She feels the medications is helping to decreases appetite. 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 Thinks may have a deviated septum to be evaluated by PCP Weight loss since last vist: 4 lbs for total of 14 lbs weight loss 12/15/2023 183 lbs phentermine 37.5 mg bupropion SAD 09/22/2023 187 lb BMI 31.12 08/26/2022 195 lb Phentermine 37.5 mg , Metformin 06/30/2023 197 lb BMI 32.82 WC 36 in Phentermine 15, Topiramate 5% weight loss = 187 lbs, 10% weight loss = 177 lbs Phentermine Start date: ?06/30/2023 Start weight: ?197 lbs. Dose: 15mg capsule. Increased to 37.5 mg 12/15/2023 -- Patient reports suppression of her appetite and increase in satiety since starting -- Patient reports no side effects Topiramate Start date: ?06/30/2023 Start weight: ?197 lbs. Dose:25 mg am and afternoon. Increased to 50 mg bid 12/15/2023 -- Patient reports suppression of her appetite and increase in satiety since starting with mild CrCl cannot be calculated (Patient's most recent lab result is older than the maximum 180 days allowed.). PAST MEDICAL HISTORY PAST MEDICAL HISTORY Diagnosis Date Anxiety state Cysts of both ovaries 03/17/2019 Excessive sweating 03/21/2012 Exercise-induced asthma 01/30/2014 Family history of factor V Leiden mutation 06/19/2015 Polycystic ovarian syndrome 03/17/2019 suspected Post concussion syndrome 09/17/2014 Visual disturbance 09/17/2014 CURRENT MEDICATIONS Current Outpatient Medications Medication Sig Dispense Refill flaxseed oil (OMEGA 3 ORAL) Take by mouth. loratadine (CLARITIN ORAL) Take by mouth. Phentermine HCl 37.5 mg tablet Take 1 tablet by mouth daily before breakfast for 30 days. 30 tablet 0 metFORMIN (GLUCOPHAGE) 500 mg tablet Take 1 tablet by mouth two times a day with meals. 180 tablet 0 topiramate (TOPAMAX) 50 mg tablet Take 0.5 tablets by mouth twice daily. 90 tablet 0 Drospirenone-Ethinyl Estradiol (JESUS, 28,) 3-0.03 mg per tablet Take 1 tablet by mouth once daily. 84 tablet 4 MULTI-VITAMIN TAB Take one(1) tablet daily. 0 No current facility-administered medications for this visit. 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 Assessment/Plan: Jose Eduardo Prince is a 23 year old yo with Class I obesity who presented today for follow up for supervised weight loss to treat and prevent related co-morbidities. ASSESSMENT/PLAN: 1. Polycystic ovarian syndrome - ICD9: 256.4, ICD10: E28.2 (primary diagnosis) - METFORMIN 500 MG TABLET 2. Binge-eating disorder, in full remission, mild - ICD9: 307.1, ICD10: F50.81 -Increased thoughts of binge eating so topiramate is increased to 50 mg twice a day - PHENTERMINE 37.5 MG TABLET - TOPIRAMATE 50 MG twice a day 3. Anxiety and depression - ICD9: 300.00, 311, ICD10: F41.9, F32.A -- BUPROPION HCL SR 150 MG TABLET,12 HR SUSTAINED-RELEASE 4. Seasonal affective disorder (HCC) - ICD9: 296.99, ICD10: F33.8 - BUPROPION HCL SR 150 MG TABLET,12 HR SUSTAINED-RELEASE 5. Class 1 obesity with body mass in (more content not included)... [facility] 12-15-2023 Instructions Yaneli Gayle APRN.DIRECTOR CARD - 12/15/2023 11:09 AM EST AM PM (early afternoon) Week 1 Bupropion SR 150 mg (1 tablet) None Week 2 Bupropion SR 150 mg (1 tablet) Bupropion SR 150 mg (1 tablet) Bupropion is a medicine that is used to treat depression and to prevent weight gain in people who are trying to quit smoking. -- avoid caffeinated beverages (i.e. coffee, tea, sports-drinks, etc) and be aware of the stimulant effects of inhalers, decongestants, etc. -- Take 1 tablet in the morning for 1-2 weeks, then increase to 1 tablet 2 times per day (in the morning and early afternoon). If you experience any adverse side effects you may decrease or stop at anytime. If you take it too late in the afternoon it may cause insomnia. Does Wellbutrin cause weight loss? It can. Bupropion (the generic form of Wellbutrin) was initially prescribed as an antidepressant. It is the only antidepressant associated with weight loss (Simone-Pedrero, 2019). Healthcare providers noticed that mostly pleasant side effect, and today bupropion is sometimes prescribed as part of a medication for weight loss (naltrexone/bupropion, brand name Contrave), as well as a stop-smoking aid (brand name Zyban). As far as the evidence that bupropion by itself causes weight loss: A 2016 study that analyzed the long-term weight loss effect of various antidepressant medications found that non-smokers who took bupropion lost 7.1 pounds over two years. (This effect was not seen in smokers). Users of the other antidepressants in the study gained weight (Guadalupe, 2016). Bupropion seems to be effective for weight-loss maintenance as well. A 2012 study found that obese adults who took bupropion SR (standard release) in 300mg or 400mg doses lost 7.2% and 10% of their body weight, respectively, over 24 weeks and maintained that weight loss at 48 weeks (Tl, 2012). And a 2019 review of 27 studies on antidepressants and weight gain found that antidepressant use increases body weight by an average of 5%--except bupropion, which is associated with weight loss (Karime, 2019). https://STWA.co/health-guide/ayahb rycoy-yzc-uznfmd-loss/ Bupropion: Patient drug information [employer] Online for additional drug information, tools, and databases. Copyright 6736-8071 [employer]. All rights reserved. Contributor Disclosures (For additional information see Bupropion: Drug information and see Bupropion: Pediatric drug information ) You must carefully read the Consumer Information Use and Disclaimer below in order to understand and correctly use this information. Brand Names: US Aplenzin; Forfivo XL; Wellbutrin SR; Wellbutrin XL; Zyban [DSC] Brand Names: Tierney MYLAN-BuPROPion XL; ODAN Bupropion SR; PMS-BuPROPion SR [DSC]; TARO-Bupropion XL; TEVA-Bupropion XL; Wellbutrin SR; Wellbutrin XL; Zyban Warning Drugs like this one have raised the chance of suicidal thoughts or actions in children and young adults. The risk may be greater in people who have had these thoughts or actions in the past. All people who take this drug need to be watched closely. Call the doctor right away if signs like low mood (depression), nervousness, restlessness, grouchiness, panic attacks, or changes in mood or actions are new or worse. Call the doctor right away if any thoughts or actions of suicide occur. What is this drug used for? It is used to treat low mood (depression). It is used to prevent seasonal affective disorder (SAD). It is used to help you stop smoking. It may be given to you for other reasons. Talk with the doctor. What do I need to tell my doctor BEFORE I take this drug? If you are allergic to this drug; any part of this drug; or any other drugs, foods, or substances. Tell your doctor about the allergy and what signs you had. If you have ever had seizures. If you drink a lot of alcohol and you stop drinking all of a sudden. If you use certain other drugs like drugs for seizures or anxiety and you stop using them all of a sudden. If you have ever had an eating problem like anorexia or bulimia. If you have any of these health problems: Kidney disease or liver disease. If you have taken certain drugs for depression or Parkinson's disease in the last 14 days. This includes isocarboxazid, phenelzine, tranylcypromine, selegiline, or rasagiline. Very high blood pressure may happen. If you are taking any of these drugs: Linezolid or methylene blue. If you are taking another drug that has the same drug in it. This is not a list of all drugs or health problems that interact with this drug. Tell your doctor and pharmacist about all of your drugs (prescription or OTC, natural products, vitamins) and health problems. You must check to make sure that it is safe for you to take this drug with all of your drugs and health problems. Do not start, stop, or change the dose of any drug without checking with your doctor. What are some things I need to know or do while I take this drug? For all patients taking this drug: Tell all of your health care providers that you take this drug. This includes your doctors, nurses, pharmacists, and dentists. Avoid driving and doing other tasks or actions that call for you to be alert or have clear eyesight until you see how this drug affects you. This drug may affect certain lab tests. Tell all of your health care providers and lab workers that you take this drug. Do not stop taking this drug all of a sudden without calling your doctor. You may have a greater risk of side effects. If you need to stop this drug, you will want to slowly stop it as ordered by your doctor. High blood pressure has happened with this drug. Have your blood pressure checked as you have been told by your doctor. This drug may raise the chance of seizures. The risk may be higher in people who take higher doses, have certain health problems, or take certain other drugs. People who suddenly stop drinking a lot of alcohol or suddenly stop taking certain drugs (like drugs used for anxiety, sleep, or seizures) may also have a higher risk. Talk to your doctor to see if you have a greater chance of seizures. Avoid drinking alcohol while taking this drug. Talk with your doctor before you use marijuana, other forms of cannabis, or prescription or OTC drugs that may slow your actions. It may take several weeks to see the full effects. This drug is not approved for use in children. Talk with the doctor. If you are 65 or older, use this drug with care. You could have more side effects. Tell your doctor if you are , plan on getting , or are breast-feeding. You will need to talk about the benefits and risks to you and the baby. If you smoke: Not all products are approved for use to help stop smoking. Talk with the doctor to make sure that you have the right product. New or worse mental, mood, or behavior problems have happened when bupropion has been used to stop smoking. These problems include thoughts of suicide or murder, depression, forceful actions, fury, anxiety, and anger. These problems have happened in people with and without a history of mental or mood problems. Talk with the doctor. What are some side effects that I need to call my doctor about right away? WARNING/CAUTION: Even though it may be rare, some people may have very bad and sometimes deadly side effects when taking a drug. Tell your doctor or get medical help right away if you have any of the following signs or symptoms that may be related to a very bad side effect: Signs of an allergic reaction, like rash; hives; itching; red, swollen, blistered, or peeling skin with or without fever; wheezing; tightness in the chest or throat; trouble breathing, swallowing, or talking; unusual hoarseness; or swelling of the mouth, face, lips, tongue, or throat. Signs of high blood pressure like very bad headache or dizziness, passing out, or change in eyesight. Feeling confused, not able to focus, or change in behavior. Hallucinations (seeing or hearing things that are not there). If seizures are new or worse after starting this drug. Chest pain or pressure, a fast heartbeat, or an abnormal heartbeat. Swelling. Shortness of breath. Change in hearing. Ringing in ears. Passing urine more often. Swollen gland. Trouble moving around. Some people may have a higher chance of eye problems with this drug. Your doctor may want you to have an eye exam to see if you have a higher chance of these eye problems. Call your doctor right away if you have eye pain, change in eyesight, or swelling or redness in or around the eye. A severe skin reaction (Schafer-Sunny syndrome/toxic epidermal necrolysis) may happen. It can cause severe health problems that may not go away, and sometimes . Get medical help right away if you have signs like red, swollen, blistered, or peeling skin (with or without fever); red or irritated eyes; or sores in your mouth, throat, nose, or eyes. What are some other side effects of this drug? All drugs may cause side effects. However, many people have no side effects or only have minor side effects. Call your doctor or get medical help if any of these side effects or any other side effects bother you or do not go away: All products: Dizziness or headache. Constipation, diarrhea, stomach pain, upset stomach, throwing up, or feeling less hungry. Shakiness. Feeling nervous and excitable. Strange or odd dreams. Gas. Dry mouth. Trouble sleeping. Muscle or joint pain. Nose or throat irritation. Sweating a lot. A change in weight without trying. Extended-release tablets: For some brands, you may see the tablet shell in your stool. For these brands, this is normal and not a cause for concern. If you have questions, talk with your doctor. These are not all of the side effects that may occur. If you have questions about side effects, call your doctor. Call your doctor for medical advice about side effects. You may report side effects to your national health agency. How is this drug best taken? Use this drug as ordered by your doctor. Read all information given to you. Follow all instructions closely. For all uses of this drug: Do not take this drug more often than you are told. This may raise the risk of seizures. Be sure you know how far apart to take your doses. Take in the morning if taking once a day. Take with or without food. If you are not able to sleep, do not take this drug too close to bedtime. Talk with your doctor. Swallow whole. Do not chew, break, or crush. Keep taking this drug as you have been told by your doctor or other health care provider, even if you feel well. If you have trouble swallowing, talk with your doctor. For stopping smoking: You may take this drug for 1 week before you stop smoking. Nicotine products and counseling may be used at the same time for best results. If you have not been able to quit smoking after taking this drug for 12 weeks, talk with your doctor. You may have signs of nicotine withdrawal when you try to quit smoking even when using drugs like this one to help you quit smoking. There are many signs of nicotine withdrawal. Rarely depression and suicidal thoughts have happened in people trying to quit smoking. Talk with your doctor. What do I do if I miss a dose? Skip the missed dose and go back to your normal time. Do not take 2 doses at the same time or extra doses. How do I store and/or throw out this drug? Store at room temperature protected from light. Store in a dry place. Do not store in a bathroom. Keep all drugs in a safe place. Keep all drugs out of the reach of children and pets. Throw away unused or drugs. Do not flush down a toilet or pour down a drain unless you are told to do so. Check with your pharmacist if you have questions about the best way to throw out drugs. There may be drug take-back programs in your area. General drug facts If your symptoms or health problems do not get better or if they become worse, call your doctor. Do not share your drugs with others and do not take anyone else's drugs. Some drugs may have another patient information leaflet. If you have any questions about this drug, please talk with your doctor, nurse, pharmacist, or other health care provider. If you think there has been an overdose, call your poison control center or get medical care right away. Be ready to tell or show what was taken, how much, and when it happened. Last Reviewed [id number] Consumer Information Use and Disclaimer This generalized information is a limited summary of diagnosis, treatment, and/or medication information. It is not meant to be comprehensive and should be used as a tool to help the user understand and/or assess potential diagnostic and treatment options. It does NOT include all information about conditions, treatments, medications, side effects, or risks that may apply to a specific patient. It is not intended to be medical advice or a substitute for the medical advice, diagnosis, or treatment of a health care provider based on the health care provider's examination and assessment of a patient's specific and unique circumstances. Patients must speak with a health care provider for complete information about their health, medical questions, and treatment options, including any risks or benefits regarding use of medications. This information does not endorse any treatments or medications as safe, effective, or approved for treating a specific patient. [employer] and its affiliates disclaim any warranty or liability relating to this information or the use thereof. The use of this information is governed by the Terms of Use, available at https://www.Gracious Eloise.Interview Rocket/en /know/tprbxkwm-demnqfliuwovt-mte ms. 2021 [employer]. and its affiliates and/or licensors. All rights reserved. documented in this encounter [facility] 12-15-2023 History of Presen t illness Narrative Some documentation from previous visit of 09/22/2023 was copied and pasted, documentation has been reviewed and edited as necessary for today's visit. Patient Summary: Jose Eduardo is a 23 year old Female who presents for follow-up evaluation of obesity/weight management to treat PCOS, BED, anxiety., depression and prevent related co-morbidities. In our previous visits we have discussed lifestyle intervention including a nutrition recommendations and physical activity optimization. Her last office visit was 3 month ago. Assessment/plan from last visit: [facility] nutrition - seeing every 3 months Phentermine 37.5 mg every morning Topiramate 50 mg in the morning is most effective Metformin - 1 gm breakfast and dinner BED - no episodes with topiramate but feels increase in thoughts when depressed Has had some anxiety and depression but has worsening symptoms this winter and suspects she has seasonal affective disorder. Interval History B - Fairlife 30 gm protein shake or 3 eggs with 1/2 shake S - none or meat stick L - chicken and veg OR tuna packet and Triple Zero yogurt S - vegetables and sometimes yogurt with Ranch or cottage cheese D - chicken, vegetables occasional Soups S - none Fluids - Lemon water, Zevia She feels the medications is helping to decreases appetite. 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 Thinks may have a deviated septum to be evaluated by PCP Weight loss since last vist: 4 lbs for total of 14 lbs weight loss 12/15/2023 183 lbs phentermine 37.5 mg bupropion SAD 09/22/2023 187 lb BMI 31.12 08/26/2022 195 lb Phentermine 37.5 mg , Metformin 06/30/2023 197 lb BMI 32.82 WC 36 in Phentermine 15, Topiramate 5% weight loss = 187 lbs, 10% weight loss = 177 lbs Phentermine Start date: ?06/30/2023 Start weight: ?197 lbs. Dose: 15mg capsule. Increased to 37.5 mg 12/15/2023 -- Patient reports suppression of her appetite and increase in satiety since starting -- Patient reports no side effects Topiramate Start date: ?06/30/2023 Start weight: ?197 lbs. Dose:25 mg am and afternoon. Increased to 50 mg bid 12/15/2023 -- Patient reports suppression of her appetite and increase in satiety since starting with mild CrCl cannot be calculated (Patient's most recent lab result is older than the maximum 180 days allowed.). PAST MEDICAL HISTORY PAST MEDICAL HISTORY Diagnosis Date Anxiety state Cysts of both ovaries 03/17/2019 Excessive sweating 03/21/2012 Exercise-induced asthma 01/30/2014 Family history of factor V Leiden mutation 06/19/2015 Polycystic ovarian syndrome 03/17/2019 suspected Post concussion syndrome 09/17/2014 Visual disturbance 09/17/2014 CURRENT MEDICATIONS Current Outpatient Medications Medication Sig Dispense Refill flaxseed oil (OMEGA 3 ORAL) Take by mouth. loratadine (CLARITIN ORAL) Take by mouth. Phentermine HCl 37.5 mg tablet Take 1 tablet by mouth daily before breakfast for 30 days. 30 tablet 0 metFORMIN (GLUCOPHAGE) 500 mg tablet Take 1 tablet by mouth two times a day with meals. 180 tablet 0 topiramate (TOPAMAX) 50 mg tablet Take 0.5 tablets by mouth twice daily. 90 tablet 0 Drospirenone-Ethinyl Estradiol (JESUS, 28,) 3-0.03 mg per tablet Take 1 tablet by mouth once daily. 84 tablet 4 MULTI-VITAMIN TAB Take one(1) tablet daily. 0 No current facility-administered medications for this visit. 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 ASSESSMENT/PLAN: 1. Polycystic ovarian syndrome - ICD9: 256.4, ICD10: E28.2 (primary diagnosis) - METFORMIN 500 MG TABLET 2. Binge-eating disorder, in full remission, mild - ICD9: 307.1, ICD10: F50.81 -Increased thoughts of binge eating so topiramate is increased to 50 mg twice a day - PHENTERMINE 37.5 MG TABLET - TOPIRAMATE 50 MG twice a day 3. Anxiety and depression - ICD9: 300.00, 311, ICD10: F41.9, F32.A -- BUPROPION HCL SR 150 MG TABLET,12 HR SUSTAINED-RELEASE 4. Seasonal affective disorder (HCC) - ICD9: 296.99, ICD10: F33.8 - BUPROPION HCL SR 150 MG TABLET,12 HR SUSTAINED-RELEASE 5. Class 1 obesity with body mass index (BMI) of 31.0 to 31.9 in adult, unspecified obesity type, unspecified whether serious comorbidity present - ICD9: 278.00, V85.31, ICD10: E66.9, Z68.31 Weight decreasing - TOPIRAMATE 50 MG twice a day - PHENTERMINE 37.5 MG TABLET Patient has met the weight loss requirement of 5% TBW in initial 3 months using phentermine without any adverse side effects. Pt has responded well and would like to continue use for weight management. She understands that continued use is off label for [facility] management of weight control. The patient is currently enrolled in a diet and exercise program The patient has no known history of contraindications The patient is free from drug or ETHO abuse The patient is not or and is aware not to become while using this medication OARS was reviewed. PDMP website checked and validated. All prescriptions have been APPROPRIATELY filled. No suspicious activity was identified. - METFORMIN 500 MG TABLET Agreeable to begin Metformin 500 mg with dinner daily x 1 week. If tolerating will increase to 2 tablets with dinner daily. - whole food low-carb diet with 30 g of protein 3 times a day and 30 g of carbs at lunch and dinner only. Given tracking log. - Given 15 gram carb whole food and protein suggestion list. - Given protein snack ideas - continue to include and increase exercise. Prescription instructions reviewed with patient as applicable. Potential red flag symptoms discussed with the patient. Reviewed appropriate action plan to take if red flag symptoms occur. Patient agreeable to treatment plan. Follow up in 3 months. Yaneli Gayle APRN.CNP Advanced Education from the [employer] Medical Decision Making: Problems: Moderate: 1+ chronic illnesses with change Risk: Moderate: Drug management and Moderate risk from testing/treatment Medical Decision Making Level: 4 - Moderate documented in this encounter [facility] 09-22-2023 Note HNO ID: [id number] Author: Yaneli Gayle APRN.CNP Service: ? Author Type: Nurse Practitioner Type: Progress Notes Filed: 09/22/2023 1:06 PM Note Text: Some documentation from previous visit of 08/26/2023 was copied and pasted, documentation has been reviewed and edited as necessary for today's visit. Patient Summary: Jose Eduardo is a 23 year old Female who presents for follow-up evaluation of obesity/weight management to treat PCOS, BED, anxiety., depression and prevent related co-morbidities. In our previous visits we have discussed lifestyle intervention including a nutrition recommendations and physical activity optimization. Her last office visit was 1 month ago. Assessment/plan from last visit: [facility] nutrition has had 2 visits Phentermine 37.5 mg Topiramate 25 mg am and afternoon Metformin - 500 mg bid BED - no episodes with topiramate Interval History B - Fairlife 30 gm protein shake or egg cups with cottage cheese S - none or meat stick L - Salad with chicken or steak Skinny Girl dressing OR tuna packet and Triple Zero yogurt S - vegetables and sometimes yogurt with Ranch or cottage cheese D - chicken, vegetables occasional Soups S - none Fluids - Lemon water, Diet Coke She feels the medications is helping to decreases appetite. 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 Thinks may have a deviated septum to be evaluated by PCP Weight loss since last vist: 8 lbs for total of 10 lbs 09/22/2023 187 lb BMI 31.12 08/26/2022 195 lb Phentermine 37.5 mg , Metformin 06/30/2023 197 lb BMI 32.82 WC 36 in Phentermine 15, Topiramate 5% weight loss = 187 lbs, 10% weight loss = 177 lbs Phentermine Start date: ?06/30/2023 Start weight: ?197 lbs. Dose: 15mg capsule -- Patient reports suppression of her appetite and increase in satiety since starting -- Patient reports no side effects Topiramate Start date: ?06/30/2023 Start weight: ?197 lbs. Dose:25 mg am and afternoon -- Patient reports suppression of her appetite and increase in satiety since starting with mild CrCl cannot be calculated (Patient's most recent lab result is older than the maximum 180 days allowed.). PAST MEDICAL HISTORY Diagnosis Date Anxiety state Cysts of both ovaries 03/17/2019 Excessive sweating 03/21/2012 Exercise-induced asthma 01/30/2014 Family history of factor V Leiden mutation 06/19/2015 Polycystic ovarian syndrome 03/17/2019 suspected Post concussion syndrome 09/17/2014 Visual disturbance 09/17/2014 Current Outpatient Medications Medication Sig Dispense Refill flaxseed oil (OMEGA 3 ORAL) Take by mouth. loratadine (CLARITIN ORAL) Take by mouth. Phentermine HCl 37.5 mg tablet Take 1 tablet by mouth daily before breakfast for 30 days. 30 tablet 0 metFORMIN (GLUCOPHAGE) 500 mg tablet Take 1 tablet by mouth two times a day with meals. 180 tablet 0 topiramate (TOPAMAX) 50 mg tablet Take 0.5 tablets by mouth twice daily. 90 tablet 0 Drospirenone-Ethinyl Estradiol (JESUS, 28,) 3-0.03 mg per tablet Take 1 tablet by mouth once daily. 84 tablet 4 MULTI-VITAMIN TAB Take one(1) tablet daily. 0 No current facility-administered medications for this visit. 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 Assessment/Plan: Jose Eduardo Prince is a 23 year old yo with Class I obesity who presented today for follow up for supervised weight loss to treat and prevent related co-morbidities. ASSESSMENT/PLAN: 1. Polycystic ovarian syndrome - ICD9: 256.4, ICD10: E28.2 (primary diagnosis) - METFORMIN 500 MG TABLET 2. Binge-eating disorder, in full remission, mild - ICD9: 307.1, ICD10: F50.81 - Continue topiramate - PHENTERMINE 37.5 MG TABLET 3. Anxiety and depression - ICD9: 300.00, 311, ICD10: F41.9, F32.A - follow with psychiatrist 4. Class 1 obesity with body mass index (BMI) of 31.0 to 31.9 in adult, unspecified obesity type, unspecified whether serious comorbidity present - ICD9: 278.00, V85.31, ICD10: E66.9, Z68.31 Weight decreasing - continue topiramate - PHENTERMINE 37.5 MG TABLET Patient has met the weight loss requirement of 5% TBW in initial 3 months using phentermine without any adverse side effects. Pt has responded well and would like to continue use for weight management. She understands that continued use is off label for intermediate manager management of weight control. The patient is currently enrolled in a diet and exercise program The patient has no known history (more content not included)... [facility] 09-22-2023 History of Presen t illness Narrative Some documentation from previous visit of 08/26/2023 was copied and pasted, documentation has been reviewed and edited as necessary for today's visit. Patient Summary: Jose Eduardo is a 23 year old Female who presents for follow-up evaluation of obesity/weight management to treat PCOS, BED, anxiety., depression and prevent related co-morbidities. In our previous visits we have discussed lifestyle intervention including a nutrition recommendations and physical activity optimization. Her last office visit was 1 month ago. Assessment/plan from last visit: [facility] nutrition has had 2 visits Phentermine 37.5 mg Topiramate 25 mg am and afternoon Metformin - 500 mg bid BED - no episodes with topiramate Interval History B - Fairlife 30 gm protein shake or egg cups with cottage cheese S - none or meat stick L - Salad with chicken or steak Skinny Girl dressing OR tuna packet and Triple Zero yogurt S - vegetables and sometimes yogurt with Ranch or cottage cheese D - chicken, vegetables occasional Soups S - none Fluids - Lemon water, Diet Coke She feels the medications is helping to decreases appetite. 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 Thinks may have a deviated septum to be evaluated by PCP Weight loss since last vist: 8 lbs for total of 10 lbs 09/22/2023 187 lb BMI 31.12 08/26/2022 195 lb Phentermine 37.5 mg , Metformin 06/30/2023 197 lb BMI 32.82 WC 36 in Phentermine 15, Topiramate 5% weight loss = 187 lbs, 10% weight loss = 177 lbs Phentermine Start date: ?06/30/2023 Start weight: ?197 lbs. Dose: 15mg capsule -- Patient reports suppression of her appetite and increase in satiety since starting -- Patient reports no side effects Topiramate Start date: ?06/30/2023 Start weight: ?197 lbs. Dose:25 mg am and afternoon -- Patient reports suppression of her appetite and increase in satiety since starting with mild CrCl cannot be calculated (Patient's most recent lab result is older than the maximum 180 days allowed.). PAST MEDICAL HISTORY Diagnosis Date Anxiety state Cysts of both ovaries 03/17/2019 Excessive sweating 03/21/2012 Exercise-induced asthma 01/30/2014 Family history of factor V Leiden mutation 06/19/2015 Polycystic ovarian syndrome 03/17/2019 suspected Post concussion syndrome 09/17/2014 Visual disturbance 09/17/2014 Current Outpatient Medications Medication Sig Dispense Refill flaxseed oil (OMEGA 3 ORAL) Take by mouth. loratadine (CLARITIN ORAL) Take by mouth. Phentermine HCl 37.5 mg tablet Take 1 tablet by mouth daily before breakfast for 30 days. 30 tablet 0 metFORMIN (GLUCOPHAGE) 500 mg tablet Take 1 tablet by mouth two times a day with meals. 180 tablet 0 topiramate (TOPAMAX) 50 mg tablet Take 0.5 tablets by mouth twice daily. 90 tablet 0 Drospirenone-Ethinyl Estradiol (JESUS, 28,) 3-0.03 mg per tablet Take 1 tablet by mouth once daily. 84 tablet 4 MULTI-VITAMIN TAB Take one(1) tablet daily. 0 No current facility-administered medications for this visit. 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 ASSESSMENT/PLAN: 1. Polycystic ovarian syndrome - ICD9: 256.4, ICD10: E28.2 (primary diagnosis) - METFORMIN 500 MG TABLET 2. Binge-eating disorder, in full remission, mild - ICD9: 307.1, ICD10: F50.81 - Continue topiramate - PHENTERMINE 37.5 MG TABLET 3. Anxiety and depression - ICD9: 300.00, 311, ICD10: F41.9, F32.A - follow with psychiatrist 4. Class 1 obesity with body mass index (BMI) of 31.0 to 31.9 in adult, unspecified obesity type, unspecified whether serious comorbidity present - ICD9: 278.00, V85.31, ICD10: E66.9, Z68.31 Weight decreasing - continue topiramate - PHENTERMINE 37.5 MG TABLET Patient has met the weight loss requirement of 5% TBW in initial 3 months using phentermine without any adverse side effects. Pt has responded well and would like to continue use for weight management. She understands that continued use is off label for intermediate manager management of weight control. The patient is currently enrolled in a diet and exercise program The patient has no known history of contraindications The patient is free from drug or ETHO abuse The patient is not or and is aware not to become while using this medication OARS was reviewed. PDMP website checked and validated. All prescriptions have been APPROPRIATELY filled. No suspicious activity was identified. - METFORMIN 500 MG TABLET Agreeable to begin Metformin 500 mg with dinner daily x 1 week. If tolerating will increase to 2 tablets with dinner daily. - whole food low-carb diet with 30 g of protein 3 times a day and 30 g of carbs at lunch and dinner only. Given tracking log. - Given 15 gram carb whole food and protein suggestion list. - Given protein snack ideas - continue to include and increase exercise. Prescription instructions reviewed with patient as applicable. Potential red flag symptoms discussed with the patient. Reviewed appropriate action plan to take if red flag symptoms occur. Patient agreeable to treatment plan. Follow up in 3 months. Yaneli Gayle APRN.CNP Advanced Education from the [employer]esity [employer] Medical Decision Making: Problems: Moderate: 1+ chronic illnesses with change Risk: Moderate: Drug management and Moderate risk from testing/treatment Medical Decision Making Level: 4 - Moderate documented in this encounter [facility] 08-26-2023 Note HNO ID: [id number] Author: Yaneli Gayle APRN.CNP Service: ? Author Type: Nurse Practitioner Type: Progress Notes Filed: 08/26/2023 5:29 PM Note Text: Some documentation from previous visit of 06/30/2023 was copied and pasted, documentation has been reviewed and edited as necessary for today's visit. Patient Summary: Jose Eduardo is a 23 year old Female who presents for follow-up evaluation of obesity/weight management to treat PCOS, BED, anxiety., depression and prevent related co-morbidities. In our previous visits we have discussed lifestyle intervention including a nutrition recommendations and physical activity optimization. Her last office visit was 2 months ago. Assessment/plan from last visit: [facility] nutrition Phentermine 15 mg Topiramate 25 mg am and afternoon BED - no episodes with topiramate Interval History B - Fairlife 30 gm protein shake S - none L - Salad with chicken or steak Skinny Girl dressing and Triple Zero yogurt S - vegetables and sometimes yogurt with Ranch or cottage cheese D - Zucchini lasagne homemade or beef vegetable soup or Taco soup or if home - vegetables, meat and cheese S - none Fluids - Lemon water, Diet Coke She feels the medications is helping to decreases appetite. 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 Thinks may have a deviated septum to be evaluated by PCP Weight loss since last vist: 2 lbs 08/26/2022 195 lb Phentermine 37.5 mg 06/30/2023 197 lb BMI 32.82 WC 36 in Phentermine 15, Topiramate 5% weight loss = 187 lbs, 10% weight loss = 177 lbs Phentermine Start date: ?06/30/2023 Start weight: ?197 lbs. Dose: 15mg capsule -- Patient reports suppression of her appetite and increase in satiety since starting -- Patient reports no side effects Topiramate Start date: ?06/30/2023 Start weight: ?197 lbs. Dose:25 mg am and afternoon -- Patient reports suppression of her appetite and increase in satiety since starting with mild CrCl cannot be calculated (Patient's most recent lab result is older than the maximum 180 days allowed.). PAST MEDICAL HISTORY Diagnosis Date Anxiety state Cysts of both ovaries 03/17/2019 Excessive sweating 03/21/2012 Exercise-induced asthma 01/30/2014 Family history of factor V Leiden mutation 06/19/2015 Polycystic ovarian syndrome 03/17/2019 suspected Post concussion syndrome 09/17/2014 Visual disturbance 09/17/2014 Current Outpatient Medications Medication Sig Dispense Refill flaxseed oil (OMEGA 3 ORAL) Take by mouth. loratadine (CLARITIN ORAL) Take by mouth. topiramate (TOPAMAX) 50 mg tablet Take 0.5 tablets by mouth twice daily. 90 tablet 0 Drospirenone-Ethinyl Estradiol (JESUS, 28,) 3-0.03 mg per tablet Take 1 tablet by mouth once daily. 84 tablet 4 MULTI-VITAMIN TAB Take one(1) tablet daily. 0 Phentermine HCl 37.5 mg tablet Take 1 tablet by mouth daily before breakfast for 30 days. 30 tablet 0 metFORMIN (GLUCOPHAGE) 500 mg tablet Take 1 tablet by mouth two times a day with meals. 180 tablet 0 No current facility-administered medications for this visit. 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 Office Visit on 06/03/2023 Component Date Value Ref Range Status Case Report 06/03/2023 Final Value:Gynecologic Cytology Report Case: [id number] Authorizing Provider: Yaneli Gayle APRN.DIRECTOR CARD Collected: 06/03/2023 11:57 AM Ordering Location: OB/Gynecology Received: 06/03/2023 12:27 PM First Screen: Kiya Ulrich, CT, ASCP Specimen: Pap Test, ThinPrep, Cervix Specimen Adequacy 06/03/2023 Satisfactory for interpretation Final Interpretation 06/03/2023 Negative for intraepithelial lesion or malignancy. Final Clinical History 06/03/2023 Routine Exam Final LMP 06/03/2023 Final Value:03/18/2023 HPV Reflex 06/03/2023 HPV if Atypical Final Pap Disclaimer 06/03/2023 Final Value:This result contains rich text formatting which cannot be displayed here. PAP Rotary Swaging Machine Operator Comment 06/03/2023 Final Value:This result contains rich text formatting which cannot be displayed here. Performing Lab 06/03/2023 Final Value:This result contains rich text formatting which cannot be displayed here. Assessment/Plan: Jose Eduardo Prince is a 23 year old yo with Class I obesity who presented today for follow up for supervised weight loss to treat and prevent related co-morbidities. ASSESSMENT/PLAN: 1. Polycystic ovarian syndrome - ICD9: 256.4, ICD10: E28.2 (primary diagnosi (more content not included)... [facility] 08-26-2023 Instructions Yaneli Gayle APRN.[facility] - 08/26/2023 8:34 AM EDT - Whole food low-carb diet with 30 g of protein 3 times a day and 30 g of carbs at lunch and dinner only. Meals - protein is a goal and carbohydrates are a limit. Snacks - all protein or more protein than carbs Use tracking log as a worksheet and bring with you to your next appointment. Protein - no carbs Egg 1 large - 6g Egg white 1 large 3.6g 3 oz is approximately the size of a deck of cards and equals 21 g protein Beef, Chicken, [place], Pork, Sylvester 1 oz 7g Fish, Tuna Fish 1 oz 7g Seafood (Crabmeat, Shrimp, Lobster) 1 oz 6g Protein shakes (read labels) Premier Protein or generic [employer] Equate, Aldi Elevate, [employer] High Performance- 30g protein & 1g carb - meal replacement Premier Protein plant protein powder - 25 gm protein, 0 suger/2 carb Vanilla and chocolate (not a meal replacement) Fairlife 30 gram protein - 30g protein & 3g carb BOOST Glucose Control Max 30g Protein Nutritional Drink - 30g protein & 1 carb - meal replacement Slimfast High Protein - 20g protein & 1g carb Ensure Max Protein Nutrition Shake 30g protein & 2 carb Protein AND carbs Beef/Laporte Jerky 1 oz dried 10-15g protein - check carb count, can be high if sugar added Slim Davy - 6 gm protein and 4 net carb Great Value original turkey sausage sticks - 7 gm protein and 2 gm carb Imitation Crab Meat 1 oz - 2g protein & 4g carb Milk, skim 2% or 1% 8 oz - 8g protein & 12g carb Chadian yogurt Full Fat Chadian Yogurt 1 cup - 20.4g protein & 9.1g carb 2% Chadian Yogurt 1 cup - 22.7g protein & 9.1g carb 0% (fat-free) Chadian Yogurt - 1 cup 24g protein & 9.3g carb :ratio, KETO Friendly Dairy Snack 1 single svg - 15g protein & 2g carb :ratio Protein 1 single svg - 25g protein & 8g carb Dannon Light + Fit 1 single csvg - 12g protein & 9g carb Two Good Lowfat [place] Yogurt, [place], Lower Sugar - 12g protein & 2g carb [place]os Triple Zero Chadian Nonfat Yogurt 1 single svg - 15g protein & 7g carb Cheese each oz Brie 5.9g protein & 0.1g carb Cheddar Cheese 7g protein & 0.4g carb Mozzarella Cheese 6.3g protein & 0.6g carb Gurdeep Cheese 6.7g protein & 0.7g carb Parmesan Cheese 10g protein & 0.9g carb Cream Cheese 1.7g protein & 1.2g carb Feta 4g protein & 1.2g carb Zambian Cheese 7.6g protein & 1.5g carb Velasquez s Low Fat Cottage Cheese 1/2cup 12g protein & 4g carb Legumes Lentils cup 9g protein & 20g carb Sierra beans cup 7g protein & 20g carb Kidney, Black, [place], Cannellini beans cup 8g protein & 20g carb Soybeans 1/2 c 14g protein & 8.5g carb Peanut butter, natural 2 Tbsp 7-8g protein & 4g net carbs, 190 calories [place] milk, unsweetened 8 oz 1g protein & 2g carb Soy milk 8 oz 3.5g protein & 1.6g carb Tofu 1/2 cup 10g protein & 2.3g carb Nuts and Seeds per oz Pumpkin Seeds - 6.9g protein & 5g carb Almonds - 5.9g protein & 6.1g carb Beadle Seeds - 5.8g protein & 5.6g carb Pistachios - 5.8g protein & 7.8g carb Cashews - 5.1g protein & 9.2g carb Walnuts - 4.3g protein & 3.8g carb Hazelnuts - 4.2g protein & 4.7g carb Kiester Nuts - 4.0g protein & 3.4g carb Pecans - 2.6g protein & 3.9g carb Peanuts - 7g protein & 4.6g carb 30 High Protein Snack Ideas 1. Jerky 2. Tornado mix without or minimal dried fruit 3. [place] roll-ups 4. Chadian yogurt 5. Veggies and yogurt dip 6. Tuna 7. Hard-boiled eggs 8. Peanut butter celery sticks 9. No-bake energy bites 10. Cheese slices/ Cheese Stick 11. Handful of almonds 12. Roasted chickpeas 13. Hummus and veggies 14. Cottage Cheese 15. Celery/fruit with peanut butter 16. Beef sticks (Grass-fed, natural ingredients) 17. Protein bars 18. Canned [place] 19. Aidan pudding 20. Homemade granola - rolled oats, nuts, and a little sweetener - 1/4 cup serving 21. Pumpkin seeds 22. Nut butter 23. Protein shakes 24. Edamame 25. Avocado and chicken salad 26. Fruit and nut bars - natural ingredients without added sugar. 27. Lentil salad 28. Overnight oatmeal 29. Egg muffins 30. Leftover protein or lunch meat <15 gram carb fruit options Berries have the lowest sugar content 1/2 cup diced honeydew melon - 8 carbs 1/2 cup diced watermelon - 6 carbs One half medium grapefruit - 10.5 carbs 1 medium orange -15.5 carbs 1 medium peach -14.5 carbs 1/2 cup fresh cranberries - 6.5 carbs 1 medium plum -7.5 carbs 1/2 cup raspberries -7.5 carbs 1 medium Elinor -9 carbs 1/2 cup fresh pineapple -11 carbs 1 medium nectarine - 15 carbs 1/2 cup blueberries - 11 carbs - may actually help you lose weight 1 medium kiwi without skin - 11 carbs 1/2 cup fresh cherries -11 carbs 1 medium tangerine -12 carbs 1/2 cup sliced latrell -14 carbs 1/2 medium banana 1/2 c grapes 1/2 medium apple - 12.5 carbs 1/2 c strawberries - 12.7 carbs 5 (FIVE) gram carb vegetable options 1 cup raw OR cup cooked: Asparagus Cabbage Spinach Peppers Green beans Carrots Tomato Pike Sharp sprouts Cauliflower Lettuce Snap peas Broccoli Eggplant Zucchini Turnips Spaghetti squash 15 gram carb vegetable options cup cooked green peas cup cooked corn or hominy corn on the cob, large (5 oz) cup cooked sweet potato, plain cup cooked potato, plain 1 small potato or sweet potato 1 cup winter squash (pumpkin, acorn, butternut) 1 cup marinara or pasta sauce - check label cup tomato juice cup tomato puree Beans, Seeds, Nuts cup cooked beans (kidney, turner, red, green, etc.) cup cooked lentils cup baked beans 4 tablespoons nut butter METFORMIN Dosing -- Begin Metformin 500 mg with dinner daily x 1 week. If you are experiencing any GI side effects, do not increase dose for 1-4 weeks. If tolerating, you can increase to 2 tablets with dinner daily. Taking the medication with food will help. -- if you experience any GI upset (Nausea, diarrhea, bloating, gas) you can go back to 1 tablet or hold the medication until it resolves. Once you are tolerating the medication you can try increasing it again. -- we can discuss increasing the dose further at your follow up visit. -- Metformin can interfere with the absorption of B12 in your food, please add a B12 1,000-2,400 mcg supplement and I suggest having it checked every 1-2 years Using Metformin for weight loss: Metformin helps to lower blood glucose levels by reducing the amount of glucose produced and released by the liver, and by increasing insulin sensitivity. It has now been proven to prevent or delay diabetes. Metformin and Type 2 Diabetes Prevention Diabetes Spectrum (diabetesjournals.org) Large cohort studies have shown weight loss benefits associated with metformin therapy. Emerging evidence suggests that metformin-associated weight loss is due to modulation of hypothalamic appetite-regulatory centers, alteration in the gut microbiome, and reversal of consequences of aging. Metformin is also being explored in the management of obesity s sequelae such as hepatic steatosis, obstructive sleep apnea and osteoarthritis. Effectiveness of metformin on weight loss in non-diabetic individuals with obesity - PubMed (nih.gov) Is metformin a wonder drug? - [facility] Common side effects of this medication include nausea, changes in bowel habits, abdominal discomfort, and flatulence. Taking the medication with food will help. Side effects also typically get better with time. Rarely, a severe side effect called lactic acidosis can occur. If you experience malaise, muscle aches, difficulty breathing, or severe abdominal pain, please seek immediate medical attention. Metformin: Patient drug information Warning Rarely, metformin may cause too much lactic acid in the blood (lactic acidosis). The risk is higher in people who have kidney problems, liver problems, heart failure, use alcohol, or take other drugs like topiramate. The risk is also higher in people who are 65 or older and in people who are having surgery, an exam or test with contrast, or other procedures. If lactic acidosis happens, it can lead to other health problems and can be deadly. Kidney tests may be done while taking this drug. Do not take this drug if you have a very bad infection, low oxygen, or a lot of fluid loss (dehydration). Call your doctor right away if you have signs of too much lactic acid in the blood (lactic acidosis) like fast breathing, fast or slow heartbeat, a heartbeat that does not feel normal, very bad upset stomach or throwing up, feeling very sleepy, shortness of breath, feeling very tired or weak, very bad dizziness, feeling cold, or muscle pain or cramps. What is this drug used for? It is used to lower blood sugar in patients with high blood sugar (diabetes), treatment for PCOS, What do I need to tell my doctor BEFORE I take this drug? If you are allergic to this drug; any part of this drug; or any other drugs, foods, or substances. Tell your doctor about the allergy and what signs you had. If you have any of these health problems: Acidic blood problem, kidney disease, or liver disease. If you have had a recent heart attack or stroke. If you are not able to eat or drink like normal, including before certain procedures or surgery. If you are having an exam or test with contrast or have had one within the past 48 hours, talk with your doctor. This is not a list of all drugs or health problems that interact with this drug. Tell your doctor and pharmacist about all of your drugs (prescription or OTC, natural products, vitamins) and health problems. You must check to make sure that it is safe for you to take this drug with all of your drugs and health problems. Do not start, stop, or change the dose of any drug without checking with your doctor. What are some things I need to know or do while I take this drug? All products: Tell all of your health care providers that you take this drug. This includes your doctors, nurses, pharmacists, and dentists. Talk with your doctor before you drink alcohol. Do not drive if your blood sugar has been low. There is a greater chance of you having a crash. Check your blood sugar as you have been told by your doctor. Have blood work checked as you have been told by the doctor. Talk with the doctor. It may be harder to control blood sugar during times of stress such as fever, infection, injury, or surgery. A change in physical activity, exercise, or diet may also affect blood sugar. Follow the diet and workout plan that your doctor told you about. If diarrhea happens or you are throwing up, call your doctor. You will need to drink more fluids to keep from losing too much fluid. Be careful in hot weather or while being active. Drink lots of fluids to stop fluid loss. Long-term treatment with metformin may lead to low vitamin B-12 levels. If you have ever had low vitamin B-12 levels, talk with your doctor. If you are 65 or older, use this drug with care. You could have more side effects. There is a chance of in people of childbearing age who have not been ovulating. If you want to avoid , use control while taking this drug. Tell your doctor if you are , plan on getting , or are breast-feeding. You will need to talk about the benefits and risks to you and the baby. What are some side effects that I need to call my doctor about right away? WARNING/CAUTION: Even though it may be rare, some people may have very bad and sometimes deadly side effects when taking a drug. Tell your doctor or get medical help right away if you have any of the following signs or symptoms that may be related to a very bad side effect: Signs of an allergic reaction, like rash; hives; itching; red, swollen, blistered, or peeling skin with or without fever; wheezing; tightness in the chest or throat; trouble breathing, swallowing, or talking; unusual hoarseness; or swelling of the mouth, face, lips, tongue, or throat. It is common to have stomach problems like upset stomach, throwing up, or diarrhea when you start taking this drug. If you have stomach problems later during treatment, call your doctor right away. This may be a sign of an acid health problem in the blood (lactic acidosis). Low blood sugar can happen. The chance may be raised when this drug is used with other drugs for diabetes. Signs may be dizziness, headache, feeling sleepy or weak, shaking, fast heartbeat, confusion, hunger, or sweating. Call your doctor right away if you have any of these signs. Follow what you have been told to do for low blood sugar. This may include taking glucose tablets, liquid glucose, or some fruit juices. What are some other side effects of this drug? All drugs may cause side effects. However, many people have no side effects or only have minor side effects. Call your doctor or get medical help if any of these side effects or any other side effects bother you or do not go away: Stomach pain or heartburn. Gas. Diarrhea, upset stomach, or throwing up. Feeling tired or weak. Headache. These are not all of the side effects that may occur. If you have questions about side effects, call your doctor. Call your doctor for medical advice about side effects. You may report side effects to your national health agency. How is this drug best taken? Use this drug as ordered by your doctor. Read all information given to you. Follow all instructions closely. All products: Take with meals. Keep taking this drug as you have been told by your doctor or other health care provider, even if you feel well. documented in this encounter [facility] 08-26-2023 History of Presen t illness Narrative Images from the original note were not included. Some documentation from previous visit of 06/30/2023 was copied and pasted, documentation has been reviewed and edited as necessary for today's visit. Patient Summary: Jose Eduardo is a 23 year old Female who presents for follow-up evaluation of obesity/weight management to treat PCOS, BED, anxiety., depression and prevent related co-morbidities. In our previous visits we have discussed lifestyle intervention including a nutrition recommendations and physical activity optimization. Her last office visit was 2 months ago. Assessment/plan from last visit: [facility] nutrition Phentermine 15 mg Topiramate 25 mg am and afternoon BED - no episodes with topiramate Interval History B - Fairlife 30 gm protein shake S - none L - Salad with chicken or steak Skinny Girl dressing and Triple Zero yogurt S - vegetables and sometimes yogurt with Ranch or cottage cheese D - Zucchini lasagne homemade or beef vegetable soup or Taco soup or if home - vegetables, meat and cheese S - none Fluids - Lemon water, Diet Coke She feels the medications is helping to decreases appetite. 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 Thinks may have a deviated septum to be evaluated by PCP Weight loss since last vist: 2 lbs 08/26/2022 195 lb Phentermine 37.5 mg 06/30/2023 197 lb BMI 32.82 WC 36 in Phentermine 15, Topiramate 5% weight loss = 187 lbs, 10% weight loss = 177 lbs Phentermine Start date: ?06/30/2023 Start weight: ?197 lbs. Dose: 15mg capsule -- Patient reports suppression of her appetite and increase in satiety since starting -- Patient reports no side effects Topiramate Start date: ?06/30/2023 Start weight: ?197 lbs. Dose:25 mg am and afternoon -- Patient reports suppression of her appetite and increase in satiety since starting with mild CrCl cannot be calculated (Patient's most recent lab result is older than the maximum 180 days allowed.). PAST MEDICAL HISTORY Diagnosis Date Anxiety state Cysts of both ovaries 03/17/2019 Excessive sweating 03/21/2012 Exercise-induced asthma 01/30/2014 Family history of factor V Leiden mutation 06/19/2015 Polycystic ovarian syndrome 03/17/2019 suspected Post concussion syndrome 09/17/2014 Visual disturbance 09/17/2014 Current Outpatient Medications Medication Sig Dispense Refill flaxseed oil (OMEGA 3 ORAL) Take by mouth. loratadine (CLARITIN ORAL) Take by mouth. topiramate (TOPAMAX) 50 mg tablet Take 0.5 tablets by mouth twice daily. 90 tablet 0 Drospirenone-Ethinyl Estradiol (JESUS, 28,) 3-0.03 mg per tablet Take 1 tablet by mouth once daily. 84 tablet 4 MULTI-VITAMIN TAB Take one(1) tablet daily. 0 Phentermine HCl 37.5 mg tablet Take 1 tablet by mouth daily before breakfast for 30 days. 30 tablet 0 metFORMIN (GLUCOPHAGE) 500 mg tablet Take 1 tablet by mouth two times a day with meals. 180 tablet 0 No current facility-administered medications for this visit. 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 [employer] Current Contraception: combined hormonal contraceptives Obesity ROS/ FHx GEN: Fatigue:yes Symptoms of PCOS: yes BP 112/76 Pulse 90 Wt 195 lb (88.5 kg) LMP 08/21/2023 (Exact Date) SpO2 98% BMI 32.45 kg/m Office Visit on 06/03/2023 Component Date Value Ref Range Status Case Report 06/03/2023 Final Value:Gynecologic Cytology Report Case: [id number] Authorizing Provider: Yaneli Gayle APRN.DIRECTOR CARD Collected: 06/03/2023 11:57 AM Ordering Location: OB/Gynecology Received: 06/03/2023 12:27 PM First Screen: Kiya Ulrich, YANA, ASCP Specimen: Pap Test, ThinPrep, Cervix Specimen Adequacy 06/03/2023 Satisfactory for interpretation Final Interpretation 06/03/2023 Negative for intraepithelial lesion or malignancy. Final Clinical History 06/03/2023 Routine Exam Final LMP 06/03/2023 Final Value:03/18/2023 HPV Reflex 06/03/2023 HPV if Atypical Final Pap Disclaimer 06/03/2023 Final Value:This result contains rich text formatting which cannot be displayed here. PAP Rotary Swaging Machine Operator Comment 06/03/2023 Final Value:This result contains rich text formatting which cannot be displayed here. Performing Lab 06/03/2023 Final Value:This result contains rich text formatting which cannot be displayed here. Assessment/Plan: Jose Eduardo Prince is a 23 year old yo with Class I obesity who presented today for follow up for supervised weight loss to treat and prevent related co-morbidities. ASSESSMENT/PLAN: 1. Polycystic ovarian syndrome - ICD9: 256.4, ICD10: E28.2 (primary diagnosis) - METFORMIN 500 MG TABLET 2. Binge-eating disorder, in full remission, mild - ICD9: 307.1, ICD10: F50.81 - Continue topiramate - PHENTERMINE 37.5 MG TABLET 3. Anxiety and depression - ICD9: 300.00, 311, ICD10: F41.9, F32.A - follow with psychiatrist 4. Class 1 obesity with body mass index (BMI) of 31.0 to 31.9 in adult, unspecified obesity type, unspecified whether serious comorbidity present - ICD9: 278.00, V85.31, ICD10: E66.9, Z68.31 Weight decreasing - continue topiramate - PHENTERMINE 37.5 MG TABLET The patient is currently enrolled in a diet and exercise program The patient has no known history of contraindications The patient is free from drug or ETHO abuse The patient is not or and is aware not to become while using this medication OARS was reviewed. PDMP website checked and validated. All prescriptions have been APPROPRIATELY filled. No suspicious activity was identified. - METFORMIN 500 MG TABLET Agreeable to begin Metformin 500 mg with dinner daily x 1 week. If tolerating will increase to 2 tablets with dinner daily. We discussed common side effects of this medication including nausea, changes in bowel habits, abdominal discomfort, and flatulence. Discussed taking it with food and complication of lactic acidosis and signs/symptoms and medication handout given. Further instructed that if she experiences malaise, muscle aches, difficulty breathing, or severe abdominal pain to seek immediate medical attention. - Recommended whole food low-carb diet with 30 g of protein 3 times a day and 30 g of carbs at lunch and dinner only. Given tracking log. - Given 15 gram carb whole food and protein suggestion list. - Given protein snack ideas - continue to include and increase exercise. Prescription instructions reviewed with patient as applicable. Potential red flag symptoms discussed with the patient. Reviewed appropriate action plan to take if red flag symptoms occur. Patient agreeable to treatment plan. Follow up in 4 weeks. Yaneli Gayle APRN.CNP Medical Decision Making: Problems: Moderate: 1+ chronic illnesses with change Risk: Moderate: Drug management and Moderate risk from testing/treatment Medical Decision Making Level: 4 - Moderate documented in this encounter [facility] 08-02-2023 Miscellaneous Notes Pt called and d/t scheduling conflict she had to cancel her appointment and had to reschedule. Pt will be out of medication prior to her appointment. See pending order below and further advise. Kandice Okeefe LPN documented in this encounter [facility] 06-30-2023 Note HNO ID: [id number] Author: Yaneli Gayle APRN.JOHN Service: ? Author Type: Nurse Practitioner Type: Progress Notes Filed: 06/30/2023 4:34 PM Note Text: Jose Eduardo Prince is a 23 year old female with obesity who presents for an initial evaluation of overweight/obesity to treat and prevent co-morbidities and is interested in combination of behavioral and pharmacological. Motivation for seeking treatment for the disease of overweight/obesity : Feels like weight is a large part of depression and wants to feel more comfortable in her body Goal weight: 170 then 150 Lowest recall weight: 175 Highest recall weight: 230 Patient identified barriers to weight loss: lack of energy, depression/anxierty Weight History: She reports a family history of obesity and adolescence weight gain. She states her weight gain is related to the following factors, including exposure to a weight gain promoting medication, Depo Provera, weight gain of 30 lbs with bupropion , reduced physical activity, and consumption of unhealthy foods. - Last Wt 06/03/23 : 189 lb 6.4 oz (85.9 kg) 5% weight loss = 180 lbs, 10% weight loss = 170 lbs WEIGHT GRAPH: Diet/Nutrition overview: Awake - 0530 or 0830 B - IF S - none L - [id number] Salad with vegetables, cheese, chicken, HB with Ranch dressing OR [employer] and raw vegetables and grapes at work; leftovers if at home Water or Diet Coke S - sometimes a granola bar D - 2000 Large variance- spaghetti, burgers/bun, green sharp casserole, Big Mac salad with sweet corn/veg and fruit. Water S - none Fluids - Water, Diet Coke 0 min carbonated drinks Quality of diet: 24hr recall suggests fairly healthy diet. Characterization of diet:Structured. Physical Testing Supervisor of impaired eating habits:excessive hunger, lack of satiety, mindlessness , boredom, emotion, and stress Craving: ice cream Eating Disorder binge eating - successfully treated with topiramate and fluoxetine by previous digital imaging specialist BINGE EATING ASSESSMENT: Before medications A. Recurrent episodes of binge eating. An episode is characterized by: 1. Eating a larger amount of food than normal during a short period of time (within any two hour period): Y 2. Lack of control over eating during the binge episode (i.e. the feeling that one cannot stop eating): Y B. Binge eating episodes are associated with three or more of the followin. Eating until feeling uncomfortably full: Y 2. Eating large amounts of food when not physically hungry: Y 3. Eating much more rapidly than normal: Y 4. Eating alone because you are embarrassed by how much you're eating: Y 5. Feeling disgusted, depressed, or guilty after overeating:Y THREE ASSOCIATED SYMPTOMS MET? Y C. Marked distress regarding binge eating is present: Y D. Binge eating occurs, on average, at least 1 days a week for three months: N E. The binge eating is not associated with the regular use of inappropriate compensatory behavior (i.e. purging, excessive exercise, etc.) and does not occur exclusively during the course of bulimia nervosa or anorexia nervosa.N PATIENT MEETS ABOVE CRITERIA FOR BINGE EATING DISORDER: Y in remission Severity: Mild 1-3 x per week Moderate 4-7 x per week Severe 8-13 x per week Extreme 14+ per week Sleep: Duration: 7-8 hours, wakes up a lot during night. Thinks may have a deviated septum to be evaluated by PCP. ISRRAEL NO ; CPAP NO Stress: Stress:yes , Cause:Work Obesity Related Comorbidities: Prior Weight Loss Surgery:No PAST MEDICAL HISTORY Diagnosis Date Anxiety state Cysts of both ovaries 03/17/2019 Excessive sweating 03/21/2012 Exercise-induced asthma 01/30/2014 Family history of factor V Leiden mutation 06/19/2015 Polycystic ovarian syndrome 03/17/2019 suspected Post concussion syndrome 09/17/2014 Visual disturbance 09/17/2014 PAST SURGICAL HISTORY Procedure Laterality Date PAST SURGICAL HISTORY OF 11/06/2009 ganglion cyst left wrist FAMILY HISTORY Problem Relation Age of Onset Hypothyroidism Mother Cancer Maternal Grandmother Thyroid CA Cancer Maternal Grandfather Thyroid CA Diabetes Maternal Grandfather other (factor V) Maternal Grandfather Colon Cancer Paternal Grandmother Heart Paternal Grandfather Asthma Maternal Aunt Asthma Paternal Uncle Social History Tobacco Use Smoking status: Never Smokeless tobacco: Never Vaping Use Vaping Use: Never used Substance Use Topics Alcohol use: No Drug use: No Medications: Topiramate discontinued 2 weeks ago by psychiatrist who wants to start over with evaluation and medications Weight Promoting Medications: Other antidepressants Diet/weight loss History: Past weight loss attempts? . Meter Maker and Low Carbohydrate diet, Qsymia - lost significant weight and then regained when discontinued. Also felt more focused on Qsymia Exercise: Regular exercise: yes treadmill 3 days a week for 30 minutes Strength/re (more content not included)... [facility] 06-30-2023 History of Presen t illness Narrative Images from the original note were not included. Jose Eduardo Prince is a 23 year old female with obesity who presents for an initial evaluation of overweight/obesity to treat and prevent co-morbidities and is interested in combination of behavioral and pharmacological. Motivation for seeking treatment for the disease of overweight/obesity : Feels like weight is a large part of depression and wants to feel more comfortable in her body Goal weight: 170 then 150 Lowest recall weight: 175 Highest recall weight: 230 Patient identified barriers to weight loss: lack of energy, depression/anxierty Weight History: She reports a family history of obesity and adolescence weight gain. She states her weight gain is related to the following factors, including exposure to a weight gain promoting medication, Depo Provera, weight gain of 30 lbs with bupropion , reduced physical activity, and consumption of unhealthy foods. - Last Wt 06/03/23 : 189 lb 6.4 oz (85.9 kg) 5% weight loss = 180 lbs, 10% weight loss = 170 lbs WEIGHT GRAPH: Diet/Nutrition overview: Awake - 0530 or 0830 B - IF S - none L - [id number] Salad with vegetables, cheese, chicken, HB with Ranch dressing OR [employer] and raw vegetables and grapes at work; leftovers if at home Water or Diet Coke S - sometimes a granola bar D - 2000 Large variance- spaghetti, burgers/bun, green sharp casserole, Big Mac salad with sweet corn/veg and fruit. Water S - none Fluids - Water, Diet Coke 0 min carbonated drinks Quality of diet: 24hr recall suggests fairly healthy diet. Characterization of diet:Structured. Physical Testing Supervisor of impaired eating habits:excessive hunger, lack of satiety, mindlessness , boredom, emotion, and stress Craving: ice cream Eating Disorder binge eating - successfully treated with topiramate and fluoxetine by previous digital imaging specialist BINGE EATING ASSESSMENT: Before medications A. Recurrent episodes of binge eating. An episode is characterized by: 1. Eating a larger amount of food than normal during a short period of time (within any two hour period): Y 2. Lack of control over eating during the binge episode (i.e. the feeling that one cannot stop eating): Y B. Binge eating episodes are associated with three or more of the followin. Eating until feeling uncomfortably full: Y 2. Eating large amounts of food when not physically hungry: Y 3. Eating much more rapidly than normal: Y 4. Eating alone because you are embarrassed by how much you're eating: Y 5. Feeling disgusted, depressed, or guilty after overeating:Y THREE ASSOCIATED SYMPTOMS MET? Y C. Marked distress regarding binge eating is present: Y D. Binge eating occurs, on average, at least 1 days a week for three months: N E. The binge eating is not associated with the regular use of inappropriate compensatory behavior (i.e. purging, excessive exercise, etc.) and does not occur exclusively during the course of bulimia nervosa or anorexia nervosa.N PATIENT MEETS ABOVE CRITERIA FOR BINGE EATING DISORDER: Y in remission Severity: Mild 1-3 x per week Moderate 4-7 x per week Severe 8-13 x per week Extreme 14+ per week Sleep: Duration: 7-8 hours, wakes up a lot during night. Thinks may have a deviated septum to be evaluated by PCP. ISRRAEL NO ; CPAP NO Stress: Stress:yes , Cause:Work Obesity Related Comorbidities: Prior Weight Loss Surgery:No PAST MEDICAL HISTORY Diagnosis Date Anxiety state Cysts of both ovaries 03/17/2019 Excessive sweating 03/21/2012 Exercise-induced asthma 01/30/2014 Family history of factor V Leiden mutation 06/19/2015 Polycystic ovarian syndrome 03/17/2019 suspected Post concussion syndrome 09/17/2014 Visual disturbance 09/17/2014 PAST SURGICAL HISTORY Procedure Laterality Date PAST SURGICAL HISTORY OF 11/06/2009 ganglion cyst left wrist FAMILY HISTORY Problem Relation Age of Onset Hypothyroidism Mother Cancer Maternal Grandmother Thyroid CA Cancer Maternal Grandfather Thyroid CA Diabetes Maternal Grandfather other (factor V) Maternal Grandfather Colon Cancer Paternal Grandmother Heart Paternal Grandfather Asthma Maternal Aunt Asthma Paternal Uncle Social History Tobacco Use Smoking status: Never Smokeless tobacco: Never Vaping Use Vaping Use: Never used Substance Use Topics Alcohol use: No Drug use: No Medications: Topiramate discontinued 2 weeks ago by psychiatrist who wants to start over with evaluation and medications Weight Promoting Medications: Other antidepressants Diet/weight loss History: Past weight loss attempts? . Meter Maker and Low Carbohydrate diet, Qsymia - lost significant weight and then regained when discontinued. Also felt more focused on Qsymia Exercise: Regular exercise: yes treadmill 3 days a week for 30 minutes Strength/resistance exercise:intermittently 3 days a week low amount of weight Barriers to regular exercise? no Work-related activity:Active. 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 Contraception: combined hormonal contraceptives Obesity ROS/ FHx GEN: Fatigue:yes CV: h/o palpitations/cardiac arrhythmia, Chest pain: no HTN: no PULM: Asthma:no GI: GERD:no ; Gallstones:no ; Fatty liver disease:no Pancreatitis: no MSK: Joint Pain:no : Nephrolithiasis: no Symptoms of PCOS: yes NEURO: Migraines/JUNG: no; H/o seizures: no Glaucoma:no; Cataracts no Symptoms of or History of pseudotumor cerebri:no Family or personal History of MEN2 or Medullary thyroid cancer: no PE BP 108/70 Pulse 94 Ht 5' 5 (1.651 m) Wt 197 lb 3.2 oz (89.4 kg) LMP 03/18/2022 SpO2 96% BMI 32.82 kg/m Weight Circumference: 36 inches GENERAL: Female in NAD. Mixed central and gluteofemoral adiposity. SKIN: acanthosis nigricans no, Skin tags: no Hirsutism: no HEENT: PERRL, No supraclavicular adiposity. No dorsal adiposity. RESPIRATORY: CBTA CARDIAC: RRR ABDOMEN: Protuberant ; EXTREMITIES: peripheral edema: no Results: reviewed with the patient Office Visit on 06/03/2023 Component Date Value Ref Range Status Case Report 06/03/2023 Final Value:Gynecologic Cytology Report Case: [id number] Authorizing Provider: Yaneli Gayle APRN.DIRECTOR CARD Collected: 06/03/2023 11:57 AM Ordering Location: OB/Gynecology Received: 06/03/2023 12:27 PM First Screen: Mojgan, Kiya, CT, ASCP Specimen: Pap Test, ThinPrep, Cervix Specimen Adequacy 06/03/2023 Satisfactory for interpretation Final Interpretation 06/03/2023 Negative for intraepithelial lesion or malignancy. Final Clinical History 06/03/2023 Routine Exam Final LMP 06/03/2023 Final Value:03/18/2023 HPV Reflex 06/03/2023 HPV if Atypical Final Pap Disclaimer 06/03/2023 Final Value:This result contains rich text formatting which cannot be displayed here. PAP Rotary Swaging Machine Operator Comment 06/03/2023 Final Value:This result contains rich text formatting which cannot be displayed here. Performing Lab 06/03/2023 Final Value:This result contains rich text formatting which cannot be displayed here. Impression: Jose Eduardo Prince is a 23 year old Female with Class I obesity (Body mass index is 32.82 kg/m .) who has adolescent obesity with several periods of weight loss followed by weight gain . The causes of her obesity are multifactorial, biological, psychological and social and environmental. Specific factors include exposure to weight gain promoting medication(s) , increased consumption of high calorie/process foods, suboptimal physical activity, and inadequate sleep duration. She has no weight-related medical comorbidities which increase her cardiovascular mortality risk. There are additional metabolic obesity complications including PCOS. Other medical conditions as above. Regarding her lifestyle, as above, she has a few behavioral contributors ; her physical activity is suboptimal. Overall, it is clear that her quality of life is mildly compromised by her weight. It is likely a combination of weight loss therapies will be needed. She appears motivated today. 1. Polycystic ovarian syndrome - ICD9: 256.4, ICD10: E28.2 (primary diagnosis) Hemoglobin A1c, CMP, insulin assay -Consider metformin - CONSULT TO NUTRITION THERAPY - Whole food balanced protein low-carb nutrition 2. Binge-eating disorder, in full remission, mild - ICD9: 307.1, ICD10: F50.81 - TOPIRAMATE 50 MG TABLET 3. Anxiety and depression - ICD9: 300.00, 311, ICD10: F41.9, F32.A - CONSULT TO NUTRITION THERAPY -Her psychiatric [facility] is no longer practicing and she is now seeing a psychiatrist in same office and wants to start over with her medications. All medications were discontinued and she has a follow-up with psychiatrist in 1 month. 4. Screening for deficiency anemia - ICD9: V78.1, ICD10: Z13.0 -CBC 5. Encounter for vitamin deficiency screening - ICD9: V77.99, ICD10: Z13.21 Vitamin D level 6. Screening for diabetes mellitus - ICD9: V77.1, ICD10: Z13.1 Hemoglobin A1c, CMP, insulin assay 7. Exercise-induced asthma - ICD9: 493.81, ICD10: J45.990 -Well-controlled 8. Screening cholesterol level - ICD9: V77.91, ICD10: Z13.220 Lipid panel 9. Screening for thyroid disorder - ICD9: V77.0, ICD10: Z13.29 TSH 10. Class 1 obesity with body mass index (BMI) of 31.0 to 31.9 in adult, unspecified obesity type, unspecified whether serious comorbidity present - ICD9: 278.00, V85.31, ICD10: E66.9, Z68.31 - TOPIRAMATE 50 MG TABLET -restarted to manage binge eating disorder. May need to resume fluoxetine which was discontinued by the psychiatrist. Topiramate. Discussed risks/benefits with the patient. Patient aware that this is an off-label use of the medication. Begin with 25 mg at bedtime and will increase to 2 tablets as tolerated. Will notify me if experiencing any adverse effects. Denies history of kidney stones, seizures or glaucoma. No hx of migraines No history of poor sleep. Advised not to mix with alcohol. Educated on increased risk for drowsiness, dizziness, fatigue, kidney stones, osteoporosis and increased eye pressure. Patient of childbearing age. Discussed the risk of defects with topiramate and the need for double control methods as well as regular tests. Contraception: RAPHAEL - PHENTERMINE 15 MG CAPSULE Phentermine. Risk/benefits discussed at length including potential side effects of increased anxiety, insomnia, increased heart rate, and increased blood pressure. I have asked the patient to monitor blood pressure and avoid any stimulants (in the form of caffeinated beverages like coffee, tea, sports drinks) initially. Patient denies history of arrhythmias, coronary artery disease (atherosclerosis), heart failure, pulmonary hypertension, stroke, valvular heart disease (prolapse, regurgitation, stenosis). The patient is currently enrolled in a diet and exercise program The patient has no known history of contraindications The patient is free from drug or ETHO abuse The patient is not or and is aware not to become while using this medication OARS was reviewed. PDMP website checked and validated. All prescriptions have been APPROPRIATELY filled. No suspicious activity was identified. - CONSULT TO NUTRITION THERAPY -consult [facility] nutrition Whole food balanced protein low-carb nutrition -- Based on the severity and resistance of the obesity/overweight with co-morbidities, I believe a combination of behavioral and pharmacological intervention is the best and most appropriate intermediate manager therapeutic option. -- We discussed several strategies to track food intake and increase mindfulness around eating while will decrease calorie intake. She was counseled on the following: Eating primarily whole foods. Limit carbs, especially processed carbs. Do not drink your calories 30 grams of protein for breakfast decreases your hunger during the day by up to 40 % Premier Protein or generic 30 gm protein 1 gm sugar Walk for 15 minutes immediately a meal. -- Encouraged the patient to improve her physical activity. Although cardiovascular exercise is most beneficial for weight loss initially, we discussed healthy muscle from a combination of resistance training and cardiovascular exercise is the best mcfp plan. An overall goal of 150-200 minutes per week of exercise has been effective in weight loss and maintenance. -- Reviewed that monitoring weight daily and food intake can have a positive impact on overall weight loss and maintenance of weight loss. Activity tracking can be used to stay on target for exercise however should not be used to reward oneself She understands that there can be limitations of pharmacotherapy due to contraindications, side effects and cost. Patient was told to contact her insurance company to see what AOMs and supervised behavioral medical appointments are currently covered. Patient understands she will have more success when following a healthy lifestyle. We reviewed continued use of online tracking of daily weights, food journal and if desired physical activity. We reviewed that during management she is to report any concerning side effects of any pharmacotherapy she is placed on. She understands that she will need routine follow up in the office. Prior to any virtual visits in the future she will need to check her Blood pressure, weight, and pulse. -- follow-up visit in 4 weeks for management of above interventions Yaneli Gayle APRN.JOHN I spent a total of 75 minutes on the date of the service which included preparing to see the patient, [id number] patient care, completing clinical documentation, obtaining and/or reviewing separately obtained history, performing a medically appropriate examination, counseling and educating the patient/family/caregiver, and ordering medications, tests, or procedures. documented in this encounter [facility] 06-30-2023 Instructions Yaneli Gayle APRN.CNP - 06/30/2023 7:04 AM EDT Images from the original note were not included. Weight Management: You have taken the initiative to become a healthier version of yourself and to decrease the risks that come with the diagnosis of obesity or being overweight. We are happy to help you along this journey but know this is a lifetime commitment to yourself. Losing just 3-10 % of your body weight can decrease your risks of many other serious diseases like diabetes, heart disease, osteoarthritis, hypertension, cancer and so many others. During this time you will have triumphs, setbacks and plateaus- your body will fight against you but we are here to give you the tools and the resources to continue to reach your goals. We recommend during this time that you track your weight daily or at least five times per week as well as tracking your nutrition. You may track your activity but do not use hitting your fitness goals as a reward system as this can derail your success. We recommend weekly physical activity of 150-200 min/week-although physical exercise can help with maintaining weight loss it adds only a little benefit for intermediate manager weight loss success. However, exercise can have many other benefits including improving mental health and cardiovascular health. Do not feel overwhelmed- we will discuss this more at your visits. Our time will be limited with each visit but we will try to touch on factors that are important to you and to your overall goals. We will try to set a goal at the end of each visit and then decide on what we want to accomplish with your upcoming visits. On your After Visit Summary (AVS), we will provide you with information that may be useful during this journey so please remember to read the information given. Check your AVS a few days after your appointment because we may have added more information specifically for you. Remember that if you are placed on medications, they are tools that can help you succeed but you must put in the work. Your nutrition will be the main factor. There are medications that work well for some and not for others- so it may take time to find the right combination for your body's needs. Please remember that factors such as other health co-morbidities one might have, as well as insurance coverage, will play a factor in determining which medications you can take. Most of the newer medications that are all the craze ,injectables, may not be covered or will only be covered if you fail months of oral medications- so please be patient with the process. It would be beneficial for you to determine what your insurance covers as far as Anti-Obesity Medications (AOMs), Nutritional Counseling, behavioral intervention and weight loss surgery. Please call your health insurance prior to your first appointment and write down coverage for each of those therapies. Most importantly, remember that ultimately our goal is to help you get to a healthier weight which will decrease your overall health risks. We will work together as a team and try to reach your personalized goals as well. We appreciate that you have entrusted us with your health and know that we are committed to this process with you. Obesity Obesity is a disease that affects nearly one-third of the adult [place] population (approximately 60 million). The number of overweight and obese Americans has continued to increase since 1960, a trend that is not slowing down. Today, 64.5 percent of adult Americans (about 127 million) are categorized as being overweight or obese. Each year, obesity causes at least 300,000 excess deaths in the [place] and healthcare costs of [place] adults with obesity amount to approximately $100 billion. (AOA) Obesity is a complex, multi-factorial chronic disease involving: Environmental (social and cultural) The tendency toward obesity is a result of our environment: lack of physical activity along with high-calorie, low-cost foods. Home, work, school, and even the community can inhibit a healthy lifestyle. Genetic (Hereditary plays a large role in determining how susceptible people are to overweight and obesity). Genes also influence how the body ferrer calories for energy and stores fat. Physiologic, metabolic, behavioral (eating too many calories while not getting enough exercise) and psychological components. It is the second leading cause of preventable in the [place] Behavioral changes brought on by economic development, modernization and urbanization have been linked to the rise in global obesity. Calculating BMI Body Mass Index (BMI) is a measurement tool used to determine excess body weight. Overweight is defined as a BMI of 25 or more, obesity is 30 or more, and severe obesity is 40 or more. You can visit www.nhlbi.nih.gov to estimate your BMI. Obesity Related Health Conditions The morbidity and mortality risk from being overweight is proportional to its degree. Individuals with morbid obesity, therefore, have the highest risk for developing numerous illnesses that often reduce mobility and quality of life due to their excess weight. In particular, type 2 diabetes, gallbladder disease and osteoarthritis have been found to increase concurrently with higher BMI. Premature , a 20-year shorter life span, has also been found in individuals with morbid obesity. All of the systems that make the body function are affected by morbid obesity. Type 2 diabetes Gallbladder disease and gallstones Liver disease Osteoarthritis, a disease in which the joints deteriorate. This is possibly the result of excess weight on the joints. Gout, another disease affecting the joints Pulmonary (breathing) problems, including sleep apnea in which a person can stop breathing for a short time during sleep Reproductive problems in women, including menstrual irregularities and infertility Gastroesophageal reflux/heartburn Hypertension Heart Disease Depression Psychological disorders/social impairments Urinary Stress Incontinence Obesity is also linked to higher rates of certain types of cancer. Obese men are more likely than non-obese men to from cancer of the colon, rectum, or prostate. Obese women are more likely than non-obese women to from cancer of the gallbladder, breast, uterus, cervix, or ovaries https://my.[facility].org/h ealt/diseases/61666-bxcmnx-wcec balwqb-usadbot-nnmrleclr Nutrition - Eat primarily whole foods. Limit carbs, especially processed carbs. - Do not drink your calories - 30 grams of protein for first meal of the day decreases your hunger during the day by up to 40 % Premier Protein or generic 30 gm protein 1 gm sugar - Walk for 15 minutes immediately a meal. Sincerely, Gillian Miller MD, FACOG & Yaneli Gayle, DIRECTOR CARD TOPIRAMATE -- Take one tablet (25mg) every night for 2 weeks -- Then increase to 2 tablets at bedtime (50 mg) if there is no change in your appetite, cravings or weight. Or can move them up to dinner time- or you can do 25 mg in the am and 25 mg in the evening if it doesn't make you tired. -- You can take the tablet it at night at first (because of potential sleepiness side effects), but then you can take earlier around dinner after you have started the medication for a few days. You also may be able to take it in the morning if easier. -- We may increase the dose to 3 tablets (75mg) a few weeks later if there is no change with 2 tablets (50mg), either 1 in the morning, then 2 in the evening at dinner or bedtime or 3 (75 mg) in the evening. The maximum is usually 50 mg in the am and 50 mg in the evening or 100 mg in the evening and continue to increase the medication in this way (usually no more than 150mg). If at any point you are feeling the effects of the medication you can stay at that dose or if you experience side effects you can decrease it to the previous dose. -- Please see the handout to review the potential side effects and to explain this further -- Please let me know if you experience any changes in your vision, worsening depression or mood problems, or an increase in suicidal thoughts or behaviors. --This medication should NOT be combined with alcohol. Risks of drinking alcohol while taking this medication include mental and psychological side effects, including confusion, dizziness, drowsiness, and depression. -- There is an increased risk for oral clefts when topiramate is used in the first trimester of . -- There is a possible decrease in contraceptive efficacy when using estrogen-containing control with topiramate, please use a back up form of control such as condoms and monitor for throughout treatment. -- If you decide that you would like to get or if you have any of these side effects please let me know and we can safely discontinue the medication. - If you are on loop diuretic or thiazide diuretic we will want to monitor your potassium level, especially if you have a history of low potassium. - It is important to taper off of this medication when we finished with treatment, typically decreasing the dose 25 mg a week. Stopping Topiramate abruptly can cause irritability, anxiety and difficulty concentrating. -- The exact mechanism of topiramate on energy balance regulation is not clearly understood. Topiramate affects body mass index, fasting krndoeu-bn-ulhuetn ratio, and serum leptin and cortisol levels. It has shown to improve hypothalamic insulin and leptin signaling and action and reduce obesity in mice. These changes may be nguyễn factors in weight loss due to topiramate. Topiramate (toe pyre a mate) What are the common names? Topamax Why is this medication prescribed? Topiramate is an anti-epileptic medications which has been approved by the FDA for patients 10 years of age or older for treatment of seizures. However, topiramate also has other uses such as the treatment of migraines. It also causes decrease in appetite and weight loss. The mechanism of weight loss is thought to be through inhibition of mitochondrial enzymes involved in energy expenditure and metabolism. Topiramate may work by helping you feel less hungry, less driven to eat, more satisfied with less food. What special precautions should I follow? Before having topiramate prescribed, tell your doctor and pharmacist: If you have allergies to any component of topiramate If you are , plan to become , are breast-feeding, or if you become while taking topiramate What are the warnings and precautions for this medication? Immediately discontinue the medicine and seek medical help if you have severe cognitive/neuropsychiatric adverse symptoms or eye symptoms. Cognitive/neuropsychiatric adverse events: symptoms may include confusion, psychomotor slowing, difficulty with concentration/attention, difficulty with memory, speech or language problems, particularily word-finding difficulties, somnolence or fatigue Acute myopia and secondary angle closure glaucoma, usually within 1 month of starting treatment: symptoms may include blurred vision, redness and/or pain in the eye Oligohydrosis (decrease sweating) and hyperthermia (elevation in body temperature) Increase in suicidal behavior or ideation Metabolic acidosis, non-gap hyperchloremic (decreased serum bicarbonate below normal levels) resulting in hyperventilation or fatigue Kidney stones Paresthesias (numbness or tingling in hands or feet) Ataxia Dizziness Increase in urination frequency Drug interactions. Use of monamine oxidase inhibitors (MAOI s), valproic acid, Caution use with dehydration or diarrheal illness, hepatic or renal impairment In case of emergency/overdose In case of overdose, call your local poison control center at or call local emergency services at [phone]. What other information should I know? Keep all appointments with your doctor and the laboratory. Do not let anyone else take your medication. Topiramate use needs to be monitored closely. Prescriptions may be refilled only a limited number of times. Keep a written list of all of your prescription and nonprescription (nhvl-rhy-bqryyxa) medicines, in addition to vitamins, minerals, or other dietary supplements. How should I monitor while on this medication? Your doctor will check your baseline kidney function and electrolytes prior to starting this medication, then periodically. Continue to improve your dietary and physical activity habits as the combination works best while on this medication. Start out by taking the medication at bedtime as it can cause fatigue and sleepiness. Be sure to eat regular meals. Less hunger does not make it appropriate to skip meals. Make sure to have an eye exam, including the pressure in your eyes (intra-ocular pressure), once a year. What should I do if I forget a dose? Skip the missed dose and continue your regular dosing schedule the next day. Do not take a double dose to make up for a missed one. Sources [facility]: http://www.ncbi.nlm.nih.gov/pubm edhealth/ONS7931922/ Drugs.com http://www.drugs.com/pro/topiram ate.html PHENTERMINE -- Please take tablet or capsule as directed. May need to decrease dose or stop if uncontrolled BP or sustained elevated pulse. -- Please monitor your blood pressure (either purchase BP cuff, or go to pharmacy to check your BP at a local pharmacy). Please avoid any stimulants (in the form of caffeinated beverages like coffee, tea, sports drinks) and caution with decongestants. We will require an updated blood pressure and heart rate at follow up visits (this includes virtual visits). -- Please monitor for , if at any point you become please stop the medication. THIS IS A SUMMARY OF OUR DISCUSSION ABOUT THIS MEDICATION. PLEASE READ IT IS IMPORTANT FOR YOUR WEIGHT LOSS PLAN Per updated [place] state rules, initially, a one month supply of phentermine is prescribed. You will need to be seen every month for the first 3 months for follow-up and to assess effectiveness with a total 5% weight loss in that 3 month period. If the phentermine is effective for you, treatment with phentermine can continue with a one month supply of phentermine prescribed at a time with 2 refills. You, the patient, are responsible for making an appointment to see a provider within 12 weeks in order to get a refill of this medication. It is imperative that you get this (and future) phentermine prescriptions within 7 days as pharmacists will NOT refill prescriptions outside this 7 day window per State law. Phentermine can only be prescribed for a 3 month interval at a time. You are aware of the following statements per the [facility] pharmacy board rules. 1. Timely refills are required 2. Every 12 weeks office visits are required. 3. ALL prescriptions need to be filled within 7 days of the written prescription 4. Refills need to be done EVEN IF there is medication still available ? Phentermine (fen ter meen) What are the common names? Adipex-P, Ionamin Why is this medication prescribed? Phentermine was approved by the FDA in 1959 for short term weight loss. It works by decreasing appetite. Phentermine is absorbed by the body and travels to the appetite center of the brain. It works by helping you feel less hungry, less driven to eat, more satisfied with less food. I ve heard about fen-phen. Will phentermine affect my heart? The two drug combination fenfluramine/phentermine, usually called fen-phen, became popular in the early as a diet pill. However, it was withdrawn by the FDA in late 1996 after studies which showed that fenfluramine can cause fatal pulmonary hypertension and heart valve problems. Phentermine is not a combination medication and does not contain the compound fenfluramine. What special precautions should I follow? Before having phentermine prescribed, tell your doctor and pharmacist: If you have allergies to any component of phentermine If you are , plan to become , are breast-feeding, or if you become while taking phentermine What are the absolute contraindications? Stroke or Transient Ischemic Attacks Cardiac arrhythmias or Atrial fibrillation Coronary artery disease Seizure Disorder Uncontrolled blood pressure Angina Congestive Heart Failure Valvular Heart Disease or primary pulmonary hypertension Drug interactions. Use of monamine oxidase inhibitors (MAOI s) What are the side effects of phentermine? Immediately discontinue the medicine and seek medical help if you have severe symptoms such as chest pain, shortness of breath, feeling faint, ability to think clearly, eye pain or other visual symptoms: Palpitations (strong or rapid heartbeat) Difficulty sleeping or falling asleep Elevated blood pressure Dry mouth Anxiety or agitation Getting a stimulant/or hyper effect or jitteriness-(Usually goes away after a few days or weeks) Glaucoma In case of emergency/overdose In case of overdose, call your local poison control center at or call local emergency services at [phone]. What other information should I know? Keep all appointments with your doctor and the laboratory. Do not let anyone else take your medication. Phentermine is a controlled substance. It is FDA approved for up to 3 months. Prescriptions may be refilled only a limited number of times. Keep a written list of all of your prescription and nonprescription (khlt-jon-bcbgxre) medicines, in addition to vitamins, minerals, or other dietary supplements. If you are taking the extended-release (long-acting) tablets, do not split, chew, or crush them tablet. There are some tablets that can be crushed and mixed with food Alcohol can make the side effects of phentermine worse How should I monitor while on this medication? Please check your blood pressure (BP) and resting pulse weekly (twice a week in the first 2 weeks). If the BP is over 140/90 (either one), or if the resting pulse is over 96 per minute (count for 10 seconds and multiply by 6), then stop the medication and call your doctor. Continue to improve your dietary and physical activity habits as the combination works best while on this medication. Start out by taking the medication in the morning at least 30 minutes prior to meals. If the effect seems to wear off by dinner time, try taking it later in the morning, but taking too late may result in trouble falling asleep. Be sure to eat regular meals. Less hunger does not make it appropriate to skip meals. Monitor your caffeine intake and use of decongestants as they may worsen the effects of phentermine Make sure to have an eye exam, including the pressure in your eyes (intra-ocular pressure), once a year. What should I do if I forget a dose? Skip the missed dose and continue your regular dosing schedule the next day. Do not take a double dose to make up for a missed one. Sources [facility] Consumer Medication Info: http://www.ncbi.nlm.nih.gov/pubm edhealth/NXS5418197/ AMA patient handouts: http://www.amaassn.org/ama1/pub/ upload/mm/433/phrxsurgery.pdf Drugs.com: http://www.drugs.com/pro/phenter mine.html documented in this encounter [facility] 06-03-2023 Note HNO ID: [id number] Author: Yaneli Gayle APRN.JOHN Service: ? Author Type: Nurse Practitioner Type: Progress Notes Filed: 06/03/2023 12:16 PM Note Text: User Experience Lead offered: Patient declines. Zamudio is a 23 year old who presents for an annual gynecologic exam with complaints, some spotting after fluoxetine was added to venlafaxine . 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 Menses: cycles every 3 months and 5 days of flow. Mild cramping Contraception: combined hormonal contraceptives HPV vaccine: Yes Last Pap: 2019 normal HPV: NA History of abnormal pap: No Last mammogram: never Sexually active: Not x 1.5 year History of STDS: None Patient concerns for STD exposure: No. Time with current partner: no current partner Some documentation from previous visit of 05/19/2022 was copied and pasted, documentation has been reviewed and edited as necessary for today's visit. OB History T0 L0 SAB0 IAB0 Ectopic0 Multiple0 Live Births0 Prawn Trawler Hand History LMP: 03/18/2022, Having periods Age at Menarche: Age at First : Age at Menopause: Prawn Trawler Hand History Comments: Sexual Activity: Not Currently; Male Contraception: Pill, Condom PAST MEDICAL HISTORY Diagnosis Date Anxiety state Excessive sweating 03/21/2012 Exercise-induced asthma 01/30/2014 Post concussion syndrome 09/17/2014 Visual disturbance 09/17/2014 PAST SURGICAL HISTORY Procedure Laterality Date PAST SURGICAL HISTORY OF 11/06/2009 ganglion cyst left wrist FAMILY HISTORY Problem Relation Age of Onset Hypothyroidism Mother Cancer Maternal Grandmother Thyroid CA Cancer Maternal Grandfather Thyroid CA Diabetes Maternal Grandfather other (factor V) Maternal Grandfather Colon Cancer Paternal Grandmother Heart Paternal Grandfather Asthma Maternal Aunt Asthma Paternal Uncle SOCIAL HISTORY Social History Tobacco Use Smoking status: Never Smokeless tobacco: Never Vaping Use Vaping Use: Never used Substance Use Topics Alcohol use: No Drug use: No REVIEW OF SYSTEMS Abdomen: No abdominal pain, nausea, vomiting, diarrhea, or constipation. No bloating, early satiety, indigestion, or increased flatulence. Bladder: No dysuria, gross hematuria, urinary frequency, urinary urgency, or incontinence. Breast: No breast lumps, nipple d/c, overlying skin changes, redness or skin retraction. Allergies and current medication updated:Yes EXAM: BP 100/60 Ht 5' 5 (1.65m) Wt 189 lb 6.4 oz (85.9kg) LMP 03/18/2022 BMI 31.52 kg/(m2). GENERAL: pleasant, female in no apparent distress HEENT: Normocephalic, atraumatic, mucus membranes moist, and no lesions NECK: Supple, full range of motion, no adenopathy, and thyroid normal DERMATOLOGY: Normal, without lesions, non-icteric, and non-hirsute BREAST: soft, non-tender, symmetric, no dominant mass, normal nipple-areolar complex, no lymphadenopathy, and no nipple discharge CHEST: Normal inspiratory effort ABDOMEN: soft, non-tender, and no masses PELVIC: external genitalia normal, normal Bartholin's glands, urethra, [place]'s glands, no vulvar lesions, no cervical lesions, good vaginal support, physiologic discharge present, normal appearing perineal body and perianal region BIMANUAL: uterus normal size, shape and consistency, no adnexal masses, and non-tender RECTOVAGINAL: deferred. NEURO: alert and oriented x3,exam grossly non-focal EXTREMITIES: normal ASSESSMENT/PLAN: 1) Health maintenance: Pap done with reflex HPV. Nutrition, exercise and routine health maintenance exams reviewed. HPV vaccine: completed series 2. Class 1 obesity with body mass index (BMI) of 31.0 to 31.9 in adult, unspecified obesity type, unspecified whether serious comorbidity present - ICD9: 278.00, V85.31, ICD10: E66.9, Z68.31 - weight increasing. Taking venlafaxine and fluoxetine. - Discussed medical weight management. 3) Contraception: combined hormonal contraceptives. Contraceptive options reviewed and information provided. 4) STD screening: Declined STD check. 5) Follow up one year or sooner as needed Yaneli Gayle APRN.CNP [facility] 11-30-2022 Miscellaneous Notes Last annual with AG 05/19/22. Needs mail order pharmacy now for insurance. Requested Prescriptions Pending Prescriptions Disp Refills ENSKYCE 0.15-0.03 mg per tablet 84 tablet 1 Sig: Take 1 tablet by mouth once daily. RX INSTRUCTIONS: Patient aware RX will be sent to pharmacy. No need to notify patient. Clarisa Duron RN documented in this encounter [facility] 05-19-2022 Miscellaneous Notes Noted. 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 Patient called and states she always got her prescription through [facility] previously. Patient is going to call [facility] and find out the singh difference and will then call us back and let us know how she would like to proceed. Ebonie Jordan RN Please clarify with pt. The prescription was marked LUCIO, I asked her if this what she wanted and she said yes. But please explain about the difference in singh. Yaneli Gayle APRN.DIRECTOR CARD Henrry from [facility] pharmacy calling about Enskyce rx today. Asking if that really was meant to be LUCIO? Patient was previously on Apri and Enskyce is a lot more expensive for patient. Call pharmacy back at [phone]. Clarisa Duron RN documented in this encounter [facility] 05-19-2022 History of Presen t illness Narrative Jose Eduardo is a 22 year old who presents for an annual gynecologic exam without complaints. 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 Menses: cycles every 3 months and 5 days of flow. Mild cramping Contraception: combined hormonal contraceptives HPV vaccine: Yes Last Pap: 2019 normal HPV: NA History of abnormal pap: No Last mammogram: never Sexually active: Not x 6 months History of STDS: None Patient concerns for STD exposure: No. Time with current partner: no current partner Pain with intercourse: No Postcoital bleeding: No documentation from previous visit of 06/10/2020 was copied and pasted, documentation has been reviewed and edited as necessary for today's visit. OB History T0 L0 SAB0 IAB0 Ectopic0 Multiple0 Live Births0 Prawn Trawler Hand History LMP: 05/19/2022, Having periods Age at Menarche: Age at First : Age at Menopause: Prawn Trawler Hand History Comments: Sexual Activity: Yes; Male Contraception: Pill, Condom PAST MEDICAL HISTORY Diagnosis Date Anxiety state Excessive sweating 03/21/2012 Exercise-induced asthma 01/30/2014 NEGATIVE MEDICAL HISTORY Post concussion syndrome 09/17/2014 Visual disturbance 09/17/2014 PAST SURGICAL HISTORY Procedure Laterality Date PAST SURGICAL HISTORY OF 11/06/2009 ganglion cyst left wrist FAMILY HISTORY Problem Relation Age of Onset Thyroid Mother Cancer Maternal Grandmother Thyroid CA Cancer Maternal Grandfather Thyroid CA Diabetes Maternal Grandfather other (factor V) Maternal Grandfather Colon Cancer Paternal Grandmother Heart Paternal Grandfather Asthma Maternal Aunt Asthma Paternal Uncle SOCIAL HISTORY Social History Tobacco Use Smoking status: Never Smoker Smokeless tobacco: Never Used Vaping Use Vaping Use: Never used Substance Use Topics Alcohol use: No Drug use: No REVIEW OF SYSTEMS Abdomen: No abdominal pain, nausea, vomiting, diarrhea, or constipation. No bloating, early satiety, indigestion, or increased flatulence. Bladder: No dysuria, gross hematuria, urinary frequency, urinary urgency, or incontinence. Breast: No breast lumps, nipple d/c, overlying skin changes, redness or skin retraction. Allergies and current medication updated:Yes EXAM: BP 120/70 Ht 5' 4 (1.63m) Wt 181 lb 3.2 oz (82.2kg) LMP 05/19/2022 BMI 31.09 kg/(m^2). GENERAL: pleasant, female in no apparent distress HEENT: Normocephalic, atraumatic, mucus membranes moist and no lesions NECK: Supple, full range of motion, no adenopathy and thyroid normal DERMATOLOGY: Normal, without lesions, non-icteric and non-hirsute BREAST: soft, non-tender, symmetric, no dominant mass, normal nipple-areolar complex, no lymphadenopathy and no nipple discharge CHEST: Normal inspiratory effort ABDOMEN: soft, non-tender and no masses PELVIC: external genitalia normal, normal Bartholin's glands, urethra, [place]'s glands, no vulvar lesions, no cervical lesions, good vaginal support, physiologic discharge present, normal appearing perineal body and perianal region BIMANUAL: uterus normal size, shape and consistency, no adnexal masses and non-tender RECTOVAGINAL: deferred. NEURO: alert and oriented x3,exam grossly non-focal EXTREMITIES: normal ASSESSMENT/PLAN: 1) Health maintenance: Pap/HPV up to date. Nutrition, exercise and routine health maintenance exams reviewed. HPV vaccine: completed series 2) Contraception: combined hormonal contraceptives. Contraceptive options reviewed and information provided. 3) STD screening: Accepted STD check for Gonorrhea and Chlamydia. 4) Follow up one year or sooner as needed Yaneli Gyale APRN.JOHN documented in this encounter [facility] 05-11-2022 Miscellaneous Notes rx sent to pharmacy listed. Kandice Okeefe LPN Pt calling and stated that she has an appt for her yearly exam on 05/19/22 but is needing to start a new pack of pills this weekend. Pt asking to have an rx sent to pharmacy listed. Kandice Okeefe LPN documented in this encounter [facility] 2022 Miscellaneous Notes Patient has yearly exam scheduled ob 03/02/2022. Will need 1 pack of ocp to get her through to appointment. documented in this encounter [facility] documented as of this encounter (statuses as of 2022) [facility]08-02-2018 History of Past illness Narrative* Problem Noted Date Resolved Date Tinea corporis 06/08/2018 06/08/2018 Acute nonsuppurative otitis media 08/06/2017 06/08/2018 Sinusitis 08/06/2017 06/08/2018 Post concussion syndrome 09/17/2014 015 Visual disturbance 09/17/2014 06/19/2015 Heart murmur 04/20/2010 06/19/2015 Closed fracture of unspecified phalanx or phalan ges of hand 02/16/2010 06/19/2015 Ganglion, unspecified 06/24/2008 06/19/2015 Cervicalgia 06/16/2007 06/19/2015 documented as of this encounter (statuses as of 05/11/2022) [facility] History of Past illness Narrative* Problem Noted Date Resolved Date Tinea corporis 06/08/2018 06/08/2018 Acute nonsuppurative otitis media 08/06/2017 06/08/2018 Sinusitis 08/06/2017 06/08/2018 Post concussion syndrome 09/17/2014 015 Visual disturbance 09/17/2014 06/19/2015 Heart murmur 04/20/2010 06/19/2015 Closed fracture of unspecified phalanx or phalan ges of hand 02/16/2010 06/19/2015 Ganglion, unspecified 06/24/2008 06/19/2015 Cervicalgia 06/16/2007 06/19/2015 documented as of this encounter (statuses as of 05/19/2022) [facility] History of Past illness Narrative* Problem Noted Date Resolved Date Tinea corporis 06/08/2018 06/08/2018 Acute nonsuppurative otitis media 08/06/2017 06/08/2018 Sinusitis 08/06/2017 06/08/2018 Post concussion syndrome 09/17/2014 015 Visual disturbance 09/17/2014 06/19/2015 Heart murmur 04/20/2010 06/19/2015 Closed fracture of unspecified phalanx or phalan ges of hand 02/16/2010 06/19/2015 Ganglion, unspecified 06/24/2008 06/19/2015 Cervicalgia 06/16/2007 06/19/2015 documented as of this encounter (statuses as of 05/19/2022) [facility] History of Past illness Narrative* Problem Noted Date Resolved Date Tinea corporis 06/08/2018 06/08/2018 Acute nonsuppurative otitis media 08/06/2017 06/08/2018 Sinusitis 08/06/2017 06/08/2018 Post concussion syndrome 09/17/2014 015 Visual disturbance 09/17/2014 06/19/2015 Heart murmur 04/20/2010 06/19/2015 Closed fracture of unspecified phalanx or phalan ges of hand 02/16/2010 06/19/2015 Ganglion, unspecified 06/24/2008 06/19/2015 Cervicalgia 06/16/2007 06/19/2015 documented as of this encounter (statuses as of 11/30/2022) [facility] History of Past illness Narrative* Problem Noted Date Diagnosed Date Resolved Date Tinea corporis 06/08/2018 06/08/2018 Acute nonsuppurative otitis media 08/06/2017 06/08/2018 Sinusitis 08/06/2017 06/08/2018 Post concussion syndrome 09/17/2014 Visual disturbance 09/17/2014 5 Heart murmur 04/20/2010 06/19/2015 Closed fracture of unspecifi ed phalanx or phalanges of hand 02/16/2010 06/19/2015 Ganglion, unspecified 06/24/20082014 Cervicalgia 06/16/2007 06/19/2015 documented as of this encounter (statuses as of 07/01/2023) [facility] History of Past illness Narrative* Problem Noted Date Diagnosed Date Resolved Date Tinea corporis 06/08/2018 06/08/2018 Acute nonsuppurative otitis media 08/06/2017 06/08/2018 Sinusitis 08/06/2017 06/08/2018 Post concussion syndrome 09/17/2014 Visual disturbance 09/17/2014 5 Heart murmur 04/20/2010 06/19/2015 Closed fracture of unspecifi ed phalanx or phalanges of hand 02/16/2010 06/19/2015 Ganglion, unspecified 06/24/20082014 Cervicalgia 06/16/2007 06/19/2015 documented as of this encounter (statuses as of 08/06/2023) [facility] History of Past illness Narrative* Problem Noted Date Diagnosed Date Resolved Date Tinea corporis 06/08/2018 06/08/2018 Acute nonsuppurative otitis media 08/06/2017 06/08/2018 Sinusitis 08/06/2017 06/08/2018 Post concussion syndrome 09/17/2014 Visual disturbance 09/17/2014 5 Heart murmur 04/20/2010 06/19/2015 Closed fracture of unspecifi ed phalanx or phalanges of hand 02/16/2010 06/19/2015 Ganglion, unspecified 06/24/20082014 Cervicalgia 06/16/2007 06/19/2015 documented as of this encounter (statuses as of 08/27/2023) [facility] History of Past illness Narrative* Problem Noted Date Diagnosed Date Resolved Date Tinea corporis 06/08/2018 06/08/2018 Acute nonsuppurative otitis media 08/06/2017 06/08/2018 Sinusitis 08/06/2017 06/08/2018 Post concussion syndrome 09/17/2014 Visual disturbance 09/17/2014 5 Heart murmur 04/20/2010 06/19/2015 Closed fracture of unspecifi ed phalanx or phalanges of hand 02/16/2010 06/19/2015 Ganglion, unspecified 06/24/20082014 Cervicalgia 06/16/2007 06/19/2015 documented as of this encounter (statuses as of 09/22/2023) [facility] History of Past illness Narrative* Problem Noted Date Diagnosed Date Resolved Date Tinea corporis 06/08/2018 06/08/2018 Acute nonsuppurative otitis media 08/06/2017 06/08/2018 Sinusitis 08/06/2017 06/08/2018 Post concussion syndrome 09/17/2014 Visual disturbance 09/17/2014 5 Heart murmur 04/20/2010 06/19/2015 Closed fracture of unspecifi ed phalanx or phalanges of hand 02/16/2010 06/19/2015 Ganglion, unspecified 06/24/20082014 Cervicalgia 06/16/2007 06/19/2015 documented as of this encounter (statuses as of 12/16/2023) [facility] Diagnosis Surveillance for control, oral contraceptives Surveillance of previously prescribed contraceptive pill [facility] Diagnosis Surveillance for control, oral contraceptives Surveillance of previously prescribed contraceptive pill [facility] Diagnosis Encounter for gynecological examination (general) (routine) without abnormal findings- Primary Surveillance for control, oral contraceptives Surveillance of previously prescribed contraceptive pill Screen for STD (sexually transmitted disease) Screening examination for venereal disease [facility] Diagnosis Surveillance for control, oral contraceptives Surveillance of previously prescribed contraceptive pill [facility] Diagnosis Polycystic ovarian syndrome- Primary Polycystic ovaries Binge-eating disorder, in full remission, mild Anxiety and depression Dysthymic disorder Screening for deficiency anemia Screening for other and unspecified deficiency anemia Encounter for vitamin deficiency screening Screening for other and unspecified endocrine, nutritional, metabolic, and immunity disorders Screening for diabetes mellitus Exercise-induced asthma Exercise induced bronchospasm Screening cholesterol level Screening for lipoid disorders Screening for thyroid disorder Class 1 obesity with body mass index (BMI) of 31.0 to 31.9 in adult, unspecified obesity type, unspecified whether serious comorbidity present [facility] Diagnosis Class 1 obesity with body mass index (BMI) of 31.0 to 31.9 in adult, unspecified obesity type, unspecified whether serious comorbidity present documented in this encounter [facility] note* Diagnosis Polycystic ovarian syndrome- Primary Polycystic ovaries Binge-eating disorder, in full remission, mild Anxiety and depression Dysthymic disorder Class 1 obesity with body mass index (BMI) of 31.0 to 31.9 in adult, unspecified obesity type, unspecified whether serious comorbidity present documented in this encounter [facility] note* Diagnosis Polycystic ovarian syndrome- Primary Polycystic ovaries Binge-eating disorder, in full remission, mild Anxiety and depression Dysthymic disorder Class 1 obesity with body mass index (BMI) of 31.0 to 31.9 in adult, unspecified obesity type, unspecified whether serious comorbidity present [facility] Diagnosis Polycystic ovarian syndrome- Primary Polycystic ovaries Binge-eating disorder, in full remission, mild Anxiety and depression Dysthymic disorder Seasonal affective disorder (HCC) Other specified episodic mood disorder Class 1 obesity with body mass index (BMI) of 31.0 to 31.9 in adult, unspecified obesity type, unspecified whether serious comorbidity present documented in this encounter [facility] Reason for Referral Specialty Diagnoses / Procedures Referred By Nellie t Referred To Contact Nutrition Diagnoses Polycystic ovarian syndrome Anxiety and depression Class 1 obesity with body mass index (BMI) of 31.0 to 31.9 in adult, unspecified obesity type, unspecified whether serious comorbidity present Procedures CONSULT TO NUTRITION THERAPY MEDICAL NUTRITION ASSMT&IVNTJ INDIV EACH 15 [place] MEDICAL NUTRITION ASSMT&IVNTJ INDIV EACH 15 [place] MEDICAL NUTRITION ASSMT&IVNTJ INDIV EACH 15 [place] MEDICAL NUTRITION ASSMT&IVNTJ INDIV EACH 15 [place] Yaneli Gayle, JALEN.DIRECTOR CARD [address] [place] [address] Referral ID Status Reason Start Date Expiration Date Visits Requested Visits Authorized [id number] Authorized PCP Requested Referral 06/30/2023 06/29/2024 1 1 Summary Purpose Family History No Family History Records Found Advance Directives No Advanced Directives Records Found Additional Source Comments Source Comments (unrecognize d section and content) In the event this informatio n is protected by the Federal Confidentiality of Alcohol and Drug Abuse Patient Records regulations: The Federal rules restrict any use of the information to criminally investigate or prosecute any alcohol or drug abuse patient.[facility] event this information is protected by the Federal Confidentiality of Alcohol and Drug Abuse Patient Records regulations: The Federal rules restrict any use of the information to criminally investigate or prosecute any alcohol or drug abuse patient.[facility] HospitalIn the event this information is protected by the Federal Confidentiality of Alcohol and Drug Abuse Patient Records regulations: The Federal rules restrict any use of the information to criminally investigate or prosecute any alcohol or drug abuse patient.[facility] HospitalIn the event this information is protected by the Federal Confidentiality of Alcohol and Drug Abuse Patient Records regulations: The Federal rules restrict any use of the information to criminally investigate or prosecute any alcohol or drug abuse patient.[facility] HospitalIn the event this information is protected by the Federal Confidentiality of Alcohol and Drug Abuse Patient Records regulations: The Federal rules restrict any use of the information to criminally investigate or prosecute any alcohol or drug abuse patient.[facility] HospitalIn the event this information is protected by the Federal Confidentiality of Alcohol and Drug Abuse Patient Records regulations: The Federal rules restrict any use of the information to criminally investigate or prosecute any alcohol or drug abuse patient.[facility] HospitalIn the event this information is protected by the Federal Confidentiality of Alcohol and Drug Abuse Patient Records regulations: The Federal rules restrict any use of the information to criminally investigate or prosecute any alcohol or drug abuse patient.[facility] HospitalIn the event this information is protected by the Federal Confidentiality of Alcohol and Drug Abuse Patient Records regulations: The Federal rules restrict any use of the information to criminally investigate or prosecute any alcohol or drug abuse patient.[facility] HospitalIn the event this information is protected by the Federal Confidentiality of Alcohol and Drug Abuse Patient Records regulations: The Federal rules restrict any use of the information to criminally investigate or prosecute any alcohol or drug abuse patient.[facility] HospitalIn the event this information is protected by the Federal Confidentiality of Alcohol and Drug Abuse Patient Records regulations: The Federal rules restrict any use of the information to criminally investigate or prosecute any alcohol or drug abuse patient.[facility] Reason for Visit (unrecogniz ed section and content) Reason Onset Date Comments Refill Request 05/07/2022 Refill Request 05/11/2022 Reason Comments [facility] Specialty Diagnoses / Procedures Referred By Nellie parker Referred To Contact [facility] Diagnoses Annual exam Procedures OFFICE/OUTPATIENT ESTABLISHED HIGH MDM 40-54 MIN Ashlie Olson MD [facility] [address] [place] [address] Referral ID Status Reason Start Date Expiration Date Visits Re quested Visits Authorized [id number] Closed 05/07/2022 11/06/2022 1 1 Reason Comments Medication Question Reason Onset Date Comments Refill Request 11/30/2022 Reason Onset Date Comments Weight Management 06/30/2023 Reason Onset Date Comments Refill Request 08/02/2023 Refill Request 08/05/2023 Reason Comments Weight Management Follow up Reason Comments Weight Management Care Teams (unrecognized sec tion and content) [facility] Relationship Specialty Start Date End Date Augustina Abraham MD [address] [place] [address] PCP - General Family Medicine 06/30/23 [facility] Relationship Specialty Start Date End Date Augustina Abraham MD [address] [place] [address] PCP - General Family Medicine 06/30/23 [facility] Relationship Specialty Start Date End Date Augustina Abraham MD [address] [place] [address] PCP - General Family Medicine 06/30/23 [facility] Relationship Specialty Start Date End Date Augustina Abraham MD [address] [place] [address] PCP - General Family Medicine 06/30/23 INFORMATION SOURCE (unrecogn ized section and content) FOR RECORDS PERTAINING TO PATIENTS WHO ARE OR HAVE BEEN ENROLLED IN A CHEMICAL DEPENDENCY/SUBSTANCEABUSE PROGRAM, SOME INFORMATION MAY BE OMITTED. This clinical summary was aggregated from multiple sources. Caution should be exercised in using it in the provision of clinical care. This summary normalizes information from multiple sources, and as a consequence, information in this document may materially change the coding, format and clinical context of patient data. In addition, data may be omitted in some cases. CLINICAL DECISIONS SHOULD BE BASED ON THE PRIMARY CLINICAL RECORDS. [employer] [facility]. provides no warranty or guarantee of the accuracy or completeness of information in this document.
== END | disposition home or self-care (01) ==
PROVIDERS: PCP Family Medicine; Referring Provider Physician Assistant; Visit Provider Physician Assistant
DX: S99.922A Unspecified injury of left foot, initial encounter (principal); X58.XXXA Exposure to other specified factors, initial encounter
CPT/HCPCS: 73630

== ENCOUNTER 2024-02-16 13:00 | Outpatient (RCR) | payer SELFPAY ==
--- NOTE | 2024-02-14 10:14 | HP.PT.NRP ---
Patient Information Patient Information: JOSE EDUARDO PRINCE was seen in my office for initial evaluation on . The following Plan of Care was established for this patient: Last Seen Last Seen: This patient was last seen in our office 09/20/23. Pertinent comments regarding their Physical therapy will appear below: Pt. was seen for self pay DN. Pt. has not been back in several months and will be DC at this point in time. At this point I will be discontinuing this patient from physical therapy. I would be happy to see this patient again in the future if found appropriate by the physician. Thank you! Vidal Nuñez, MICHAELT
== END 2024-02-16 19:00 | disposition home or self-care (01) ==
LOC: PT 13:00
PROVIDERS: PCP Family Medicine
DX: M26.602 Left temporomandibular joint disorder, unspecified (principal)

== ENCOUNTER 2024-04-10 08:37 | Outpatient (RCR) | payer SELFPAY ==
--- NOTE | 2024-07-10 18:03 | HP.PT.NRP ---
Patient Information Patient Information: JOSE EDUARDO PRINCE was seen in my office for initial evaluation on . The following Plan of Care was established for this patient: Last Seen Last Seen: This patient was last seen in our office . Pertinent comments regarding their Physical therapy will appear below: Dry Needling- d/c chart At this point I will be discontinuing this patient from physical therapy. I would be happy to see this patient again in the future if found appropriate by the physician. Thank you! MICHAEL CorneliusT
== END 2024-04-10 19:00 | disposition home or self-care (01) ==
LOC: PT 08:37
PROVIDERS: PCP Family Medicine
DX: M54.2 Cervicalgia (principal); R68.84 Jaw pain

== ENCOUNTER 2024-10-23 11:30 | Outpatient (RCR) | payer OTHER, SELFPAY | END 2024-10-23 19:00 | disposition home or self-care (01) | LOC: PT 11:30 | PROVIDERS: PCP Family Medicine | DX: Z00.00 Encounter for general adult medical examination without abnormal findings (principal) ==

== ENCOUNTER → 2025-08-07 | Outpatient (CLI) | payer OTHER, SELFPAY ==
[2025-08-07 18:02] LABS: Hematocrit 37.9 % (37-47); Hemoglobin 12.4 g/dL (12.0-15.0); Immature Granulocytes Count 0.050 X10^3/uL (0.0-0.0); Mean Corp Hgb Conc 32.7 g/dL (32-36); Mean Corpuscular Volume 91.3 fL (81-99); Mean Platelet Vol. 10.1 fl (6.2-12.0); NRBC Flagged by Analyzer 0 % (0-5); Platelet Count 332 K/mm3 (150-450); RBC Distribution Width CV 13.2 % (11.6-14.6); RBC Distribution Width SD 43.8 fl (35.1-43.9); Red Blood Count 4.15 M/mm3 (4.2-5.4); White Blood Count 11.3 K/mm3 (4.4-11.0)
[2025-08-07 18:30] LABS: AST(SGOT) 21 U/L (<=31); Alanine Aminotransfer ALT/SGPT 17 U/L (<=34); Albumin, Serum 4.3 g/dL (3.5-5.0); Alkaline Phosphatase 48 U/L (35-104); Anion Gap 12 (5-15); BUN 9 mg/dL (4-19); BUN/Creat Ratio 10.7 RATIO (10-20); Calcium,Total 9.3 mg/dL (7.6-11.0); Carbon Dioxide 20.5 mmol/L (21.0-32.0); Chloride 105 mmol/L (98-108); Globulin 2.8 g/dL (2.2-4.2); Glucose 76 mg/dL (70-99); Magnesium 2.2 mg/dL (1.5-2.2); Potassium 4.3 mmol/L (3.3-5.1)
== END | disposition home or self-care (01) ==
LOC: MFPLAB 14:44
PROVIDERS: PCP Family Medicine; Visit Provider Nurse Practitioner Family
DX: R00.2 Palpitations (principal)
CPT/HCPCS: 36415; 80053; 83735; 84443; 85025

== ENCOUNTER → 2025-09-22 11:19 | Outpatient (REF) | payer OTHER, SELFPAY ==
[2025-09-22 11:19] VITALS: BP 124/82; PULSE 92; RESP 16; TEMP 526.1; TEMP 979; O2SAT 100; BMI 28.3
--- NOTE | 2025-09-22 11:43 | EDS_ITS ---
HPI History of Present Illness Chief Complaint: Occup Expose Narrative Narrative: Patient is a 25-year-old female with no known significant past medical history who presents to the emergency department with a chief complaint of having applesauce and Prozac spit in her face from a patient upstairs. States that her work made her come down here to be evaluated. She has no complaints at this point time states that she rinsed her eye out well. To her knowledge the patient does not have HIV or hepatitis. PFSH PFS Medical History Contusion of left foot Home Medications Medication Instructions Recorded Last Taken Type amoxicillin 500 mg capsule 500 mg PO Q12H #14 caps Unknown Rx Allergy/AdvReac Type Severity Reaction Status Date / Time acetaminophen (From Vicodin) Allergy Unknown Verified 09/22/25 11:19 hydrocodone (From Vicodin) Allergy Unknown Verified 09/22/25 11:19 Social History Smoking Status: Never smoker alcohol intake: never ROS ROS ED ROS Narrative Constitutional: Denies any fevers or chills Eyes: Denies eye pain or double vision Neurological: Denies any numbness, weeks, tingling Skin: Denies any rashes or lesions EXAM Physical Exam Narrative Exam Narrative: General: Patient was lying in bed rest comfortably did not appear to be in acute distress Head: Atraumatic, normocephalic Eyes: PERRL bilaterally, EOMI bilateral, no conjunctival injection noted Neck: Soft, supple, trachea midline Cardiovascular: Regular rate Extremities: +5/5 strength in the bilateral lower extremities Neurological: Patient following commands that she was at [facility] years 2024 Skin: Warm, dry, tact no rashes or lesions noted Const Vital Signs: 09/22/25 11:19 Temperature 979 F H Temperature Source Oral Pulse Rate 92 Respiratory Rate 16 Blood Pressure 124/82 H Blood Pressure Mean 96 Pulse Ox 100 Oxygen Delivery Method Room Air MDM MDM MDM Narrative Medical decision making narrative: Patient is a 25-year-old female who presents to the emergency department with a chief complaint of occupational exposure to the patient's spit. On the differential diagnose includes but not limited to applesauce to the eye, conjunctival irritation, HIV exposure although low suspicion for this based on patient's description. Patient was advised to follow-up on the blood work that was obtained here in the emergency department and return with worsening symptoms or any concerns. She is agreeable to plan all question concerns answered she was discharged home in stable condition Discharge Plan Triage Chief Complaint: Occup Expose ED Provider: Henrry Porter Dx/Rx/DC Orders Clinical Impression: Occupational exposure in workplace, Encounter for medical screening examination Instructions: ED Eye Exposure, Chemical Prescriptions: No Action amoxicillin 500 mg capsule 500 mg PO Q12H Qty: 14 0RF Primary Care Provider: Arnoldo Cunningham Referrals: Arnoldo Cunningham MD [Primary Care Provider, Family Practice] Activity Restrictions/Additional Instructions: Follow-up with your doctor in outpatient setting. Follow-up on blood work results. Return with worsening symptoms or other concerns Print Language: Burmese Disposition Disposition: Home, Self Care
--- OUTSIDE RECORDS SUMMARY | 2025-09-22 11:56 | XMS RPT_ITS | CCD ---
Author Organization [facility] Care Team Providers Care Ball Points Inspector Name Role Phone Kayley Winter LPN Unavailable Unavailab le Kayley Winter LPN Unavailable Unavailab le [place] PROGRAM ASSOCIATE, Dianna N Unavailable Kayley Winter LPN Unavailable Unavailab le Unavailable Primary Care Provider Unavailnatividad reyes Unavailable Primary Care Provider UnavailAugustina Bateman MD Primary Care Provider Dr. Augustina Abraham Primary Care Provider [phone] Dr. Augustina Abraham Referring Provider YUNIER Genao Attending Provider Dr. Augustina Abraham Primary Care Provider Dr. Augustina Abraham Referring Provider YUNIER Genao Attending Provider Augustina Abraham MD Primary Care Provider Dr. Augustina Abraham MD Primary Care Provider [phone] Referred, Self Attending Provider Unavailable Referred, Self Referring Provider Unavailable YANELI DOWLING Attending Unavailable AUGUSTINA ABRAHAM Primary Care Unavailable YANELI DOWLING Referring Unavailable AUGUSTINA ABRAHAM Primary Care Unavailable AUGUSTINA ABRAHAM Primary Care Unavailable YANELI DOWLING Attending Unavailable YANELI DOWLING Attending Unavailable AUGUSTINA ABRAHAM Primary Care Unavailable YANELI DOWLING Attending Unavailable AUGUSTINA ABRAHAM Primary Care Unavailable AUGUSTINA ABRAHAM Primary Care Unavailable GINA CARRILLO Attending Unavailable YANELI DOWLING Referring Unavailable YANELI DOWLING Attending Unavailable AUGUSTINA ABRAHAM Primary Care Unavailable Dr. Augustina Abraham MD Primary Care Physician Assessment, Health Risk Attending Physician Unav ailable Bernadette CAR WORKER-C, Se[place] Attending Physician [phone] Referred, Self Attending Unavailable Referred, Self Referring Unavailable Augustina Abraham Primary Care Unavailable Seble Fleming NP Attending Unavailable Augustina Abraham Primary Care Unavailable Assessment, Health Risk Attending Unavaila ble Augustina Abraham Primary Care Unavailable Allergies Allergy Classification Reported Allergen(s) Allergy Type Date of Onset Reaction(s) Facility (4 sources) acetaminophen / HYDROcodone drug allergy 7 [facility] Work Phone: (4 sources) STINGING INSECTS; Translations: [STINGING INSECTS] allergy to substance 7 [facility] Work Phone: (9 sources) Acetaminophen Drug Allergy 1 Unknown [facility] (9 sources) HYDROcodone Drug Allergy 1 Unknown [facility] (20 sources) Acetaminophen / HYDROcodone; Translations: [HYDROCODONE-ACETA MINOPHEN] Drug Allergy 3 Vomiting [facility] Work Phone: (20 sources) Citizen Of [place] elm pollen extract; Translations: [TREE POLLEN-GIBRALTARIAN ELM] Drug Allergy 8 Unknown [facility] (20 sources) Cat; Translations: [CATS] Allergy to substance 8 [facility] (20 sources) Dust; Translations: [DUST] Allergy to substance 8 Unknown [facility] (20 sources) Feather; Translations: [FEATHERS] Drug Allergy 8 Unknown [facility] (20 sources) Walnut pollen; Translations: [WEED POLLEN] Drug Allergy 8 Unknown [facility] (20 sources) Bees; Translations: [BEES] Allergy to substance 8 Swelling [facility] (20 sources) [place]; Translations: [OAK] Drug Allergy 8 Unknown [facility] (1 source) Acetaminophen Drug Allergy 4 [facility] Repository (1 source) HYDROcodone Drug Allergy 4 [facility] Repository Medications Current Medications Medication Drug Class(es) Dates Sig (Normalized) Sig (Original) amoxicillin 500 mg oral capsule (2 sources) Penicillin-class Antibacterial Start: 04-26-2024 take 1 capsule by mouth every twelve hours 12 hr buPROPion hydrochloride 150 mg extended release oral tablet (15 sources) Aminoketone Start: 06-21-2025 End: 12-18-2025 take 1 tablet by mouth twice daily buPROPion SR (WELLBUTRIN SR) 150 mg 12 hr tablet Indications: Anxiety and depression , Seasonal affective disorder , History of obesity Take 1 tablet by mouth two times a day. 180 tablet 1 06/21/2025 12/18/2025 Active Start: 03-14-2024 End: 10-02-2025 take 1 tablet by mouth once daily in the morning buPROPion SR (WELLBUTRIN SR) 150 mg 12 hr tablet Indications: Anxiety and depression , Seasonal affective disorder , History of obesity Take 1 tablet by mouth every morning. 90 tablet 1 04/05/2025 06/21/2025 Discontinued Start: 12-15-2023 End: 03-14-2024 take 31-31.9 tablets by mouth twice daily buPROPion SR (WELLBUTRIN SR) 150 mg 12 hr tablet Indications: Anxiety and depression , Class 1 obesity with body mass index (BMI) of 31.0 to 31.9 in adult, unspecified obesity type, unspecified whether serious comorbidity present , Seasonal affective disorder (HCC) Take 1 tablet by mouth two times a day. 180 tablet 0 12/15/2023 03/14/2024 Discontinued Comment on above: Take 1 tablet by fernanda th two times a day. celecoxib 100 mg oral capsule (8 sources) Nonsteroidal Anti-inflammatory Drug Start: 07-30-20 24 take 1 capsule by mouth once daily celecoxib (CELEBREX) 100 mg capsule Take 100 mg by mouth once daily. 07/30/2024 Active drospirenone / Ethinyl Estradiol (17 sources) Progestin, Estrogen Start: 06-06-20 25 take 1 tablet by mouth once daily Drospirenone-Ethinyl Estradiol (ANNIA, Ysabel,) 3-0.03 mg per tablet Indications: Surveillance for control, oral contraceptives Take 1 tablet by mouth once daily. FOR CONTINUOUS USE. 112 tablet 5 06/06/2025 Active Start: 06-05-2024 End: 06-06-2025 take 1 tablet by mouth once daily Drospirenone-Ethinyl Estradiol (ANNIA, 28,) 3-0.03 mg per tablet Indications: Surveillance for control, oral contraceptives Take 1 tablet by mouth once daily. FOR CONTINUOUS USE. 112 tablet 5 06/05/2024 06/06/2025 Discontinued Start: 06-05-2024 take 1 tablet by fernanda th once daily Drospirenone-Ethinyl Estradiol (ANNIA, 28,) 3-0.03 mg per tablet Indications: Surveillance for control, oral contraceptives Take 1 tablet by mouth once daily. FOR CONTINUOUS USE. 112 tablet 5 06/05/2024 Active Start: 06-03-2023 End: 06-05-2024 take 1 tablet by mouth once daily Drospirenone-Ethinyl Estradiol (ANNIA, 28,) 3-0.03 mg per tablet Indications: Surveillance for control, oral contraceptives Take 1 tablet by mouth once daily. 84 tablet 4 06/03/2023 06/05/2024 Discontinued Start: 06-03-2023 take 1 tablet by fernanda th once daily Drospirenone-Ethinyl Estradiol (ANNIA, 28,) 3-0.03 mg per tablet Indications: Surveillance for control, oral contraceptives Take 1 tablet by mouth once daily. 84 tablet 4 06/03/2023 Active Comment on above: Take 1 tablet by fernanda th once daily. Loratadine (14 sources) loratadine (CLAR ITIN ORAL) Take by mouth. Active loratadine (CLAR ITIN ORAL) Take by mouth. 0 Active Comment on above: Take by mouth. 24 hr metFORMIN hydrochloride 750 mg extended release oral tablet (18 sources) Biguanide Start: 09-26-2024 End: 10-02-2025 take 1 tablet by mouth twice daily at mealtime metFORMIN ER (GLUCOPHAGE XR) 750 mg 24 hr tablet Indications: Polycystic ovarian syndrome , History of obesity Take 1 tablet by mouth two times a day with meals. 180 tablet 1 04/05/2025 10/02/2025 Active Start: 08-26-2023 End: 09-26-2024 take 31-31.9 tablets by mouth twice daily metFORMIN (GLUCOPHAGE) 500 mg tablet Indications: Polycystic ovarian syndrome , Class 1 obesity with body mass index (BMI) of 31.0 to 31.9 in adult, unspecified obesity type, unspecified whether serious comorbidity present Take 2 tablets by mouth two times a day with meals. 360 tablet 1 03/14/2024 09/26/2024 Discontinued Comment on above: Take 1 tablet by fernanda th two times a day with meals. Take 2 tablets by mo uth two times a day with meals. MULTI-VITAMIN TAB (20 sources) Start: 02-17-2007 MULTI-VITAMIN TAB Take one(1) tablet daily. 0 02/17/2007 Active Comment on above: Take one(1) tablet d aily. [place] (Nk) (6 sources) Start: 04-21-2021 [place] (Nk) A ctive April 21, 2021 12:00am Start: 04-21-2021 [place] (Nk) A ctive April 20, 2021 11:00pm oxymetazoline hydrochloride 10 mg/ml topical cream (10 sources) Start: 05-31-2024 RHOFADE 1 % crea once daily. 05/31/2024 Active phentermine hydrochloride 37.5 mg oral tablet (20 sources) Sympathomimetic Amine Anorectic Start: 04-05-2025 End: 10-02-2025 take 1 tablet by mouth once daily before breakfast Phentermine HCl 37.5 mg tablet Indications: Binge-eating disorder, in full remission, mild , Anxiety and depression , History of obesity Take 1 tablet by mouth daily before breakfast for 90 days. Patient should start on July 04, 2025. 90 tablet 07/04/2025 10/02/2025 Active Start: 09-26-2024 End: 12-25-2024 take 1 tablet by mouth once daily before breakfast Phentermine HCl 37.5 mg tablet Indications: Binge-eating disorder, in full remission, mild , Anxiety and depression , History of obesity Take 1 tablet by mouth daily before breakfast for 90 days. 90 tablet 09/26/2024 12/25/2024 Active Start: 08-26-2023 End: 09-11-2024 take 31-31.9 tablets by mouth once daily Phentermine HCl 37.5 mg tablet Indications: Binge-eating disorder, in full remission, mild , Anxiety and depression , Class 1 obesity with body mass index (BMI) of 31.0 to 31.9 in adult, unspecified obesity type, unspecified whether serious comorbidity present Take 1 tablet by mouth daily before breakfast for 90 days. 90 tablet 0 03/14/2024 06/13/2024 Discontinued Start: 08-02-2023 End: 09-01-2023 take 31-31.9 capsules by mouth once daily Phentermine HCl 15 mg capsule Indications: Class 1 obesity with body mass index (BMI) of 31.0 to 31.9 in adult, unspecified obesity type, unspecified whether serious comorbidity present Take 1 capsule by mouth daily before breakfast for 30 days. 30 capsule 0 08/02/2023 08/26/2023 Discontinued Start: 06-30-2023 End: 07-30-2023 take 31-31.9 capsules by mouth once daily Phentermine HCl 15 mg capsule Indications: Class 1 obesity with body mass index (BMI) of 31.0 to 31.9 in adult, unspecified obesity type, unspecified whether serious comorbidity present Take 1 capsule by mouth daily before breakfast for 30 days. 30 capsule 0 06/30/2023 07/30/2023 Active End: 09-26-2024 take 1 capsule by mouth once daily before breakfast Phentermine HCl 37.5 mg capsule Take 37.5 mg by mouth daily before breakfast. 09/26/2024 Discontinued Comment on above: Take 1 capsule by mo uth daily before breakfast for 30 days. Take 1 tablet by fernanda th daily before breakfast for 30 days. Take 1 tablet by fernanda th daily before breakfast for 90 days. topiramate 25 mg oral tablet (20 sources) Start: 03-14-2024 End: 10-02-2025 take 1 tablet by mouth twice daily topiramate (TOPAMAX) 25 mg tablet Indications: Binge-eating disorder, in full remission, mild , History of obesity Take 1 tablet by mouth two times a day. 180 tablet 1 04/05/2025 10/02/2025 Active Start: 12-15-2023 End: 03-14-2024 take 31-31.9 tablets by mouth twice daily topiramate (TOPAMAX) 50 mg tablet Indications: Binge-eating disorder, in full remission, mild , Class 1 obesity with body mass index (BMI) of 31.0 to 31.9 in adult, unspecified obesity type, unspecified whether serious comorbidity present Take 1 tablet by mouth two times a day. 180 tablet 0 12/15/2023 03/14/2024 Discontinued Start: 09-22-2023 End: 12-21-2023 take 31-31.9 tablets by mouth twice daily topiramate (TOPAMAX) 25 mg tablet Indications: Binge-eating disorder, in full remission, mild , Class 1 obesity with body mass index (BMI) of 31.0 to 31.9 in adult, unspecified obesity type, unspecified whether serious comorbidity present Take 1 tablet by mouth two times a day. 180 tablet 0 09/22/2023 12/15/2023 Discontinued Start: 06-02-2023 End: 09-28-2023 take 31-31.9 tablets by mouth twice daily topiramate (TOPAMAX) 50 mg tablet Indications: Class 1 obesity with body mass index (BMI) of 31.0 to 31.9 in adult, unspecified obesity type, unspecified whether serious comorbidity present , Binge-eating disorder, in full remission, mild Take 0.5 tablets by mouth twice daily. 90 tablet 0 06/30/2023 09/22/2023 Discontinued Comment on above: Take 0.5 tablets by mouth twice daily. Take 1 tablet by fernanda th two times a day. Completed/Discontinued Medications Medication Drug Class(es) Dates Sig (Normalized) Sig (Original) [id number] 200 actuat albuterol 0.09 mg/actuat metered dose inhaler (6 sources) beta2-Adrenergic Agonist Start: 01-04-2018 End: 06-30-2023 take 1-2 puff(s) by inhalation every four hours as needed for wheezing albuterol HFA (PROAIR HFA) 90 mcg/actuation inhaler Inhale 1-2 Puffs as instructed every 4 hours as needed for Wheezing/Shortness of Breath. 1 Inhaler 0 01/04/2018 06/30/2023 Discontinued (Other) Comment on above: Inhale 1-2 Puffs as instructed every 4 hours as needed for Wheezing/Shortness of Breath. amoxicillin 875 mg / clavulanate 125 mg oral tablet (4 sources) Penicillin-class Antibacterial Start: 08-06-2017 AUGMENTIN 875-125 MG TABS 1 pill q 12 hours AMOXICILLIN-POT CLAVULANATE [id number] Celestine Hilton PA-C Start: 08-06-2017 AUGMENTIN 875- 125 MG TABS 1 pill q 12 hours AMOXICILLIN-POT CLAVULANATE [id number] Celestine Hilton PA-C azithromycin 250 mg oral tablet (8 sources) Macrolide Antimicrobial Start: 04-21-2021 End: 04-26-2024 take 2-5 tablets by mouth once daily Azithromycin 250 mg tablet Discontinued 0 PO .COMPLEX 6 0 April 21, 2021 12:00am April 26, 2024 2:22pm take 500 mg today (day 1), then 250 mg for 4 days (days 2-5) PO betamethasone 0.5 mg/ml / clotrimazole 10 mg/ml topical lotion (8 sources) Azole Antifungal, Corticosteroid Start: 12-19-2017 End: 01-16-2018 Clotrimazole-Beta methasone 1-0.05 % lotion Discontinued 1 NMA TOPICAL TWICE A DAY December 19, 2017 1:00am January 15, 2018 1:00am January 16, 2018 12:07am Start: 12-19-2017 End: 01-16-2018 Clotrimazole-Betamethasone D iscontinued 1 APPLIC TOPICAL TWICE A DAY December 19, 2017 1:00am January 16, 2018 12:07am Desogestrel / Ethinyl Estradiol (9 sources) Progestin, Estrogen Start: 11-30-2022 take 1 tablet by mouth once daily ENSKYCE 0.15-0.03 mg per tablet Indications: Surveillance for control, oral contraceptives Take 1 tablet by mouth once daily. 84 tablet 1 11/30/2022 Active Start: 05-19-2022 End: 11-30-2022 take 1 tablet by mouth once daily ENSKYCE 0.15-0.03 mg per tablet Indications: Surveillance for control, oral contraceptives Take 1 tablet by mouth once daily. 84 tablet 4 05/19/2022 11/30/2022 Discontinued Start: 05-19-2022 take 1 tablet by fernanda th once daily ENSKYCE 0.15-0.03 mg per tablet Indications: Surveillance for control, oral contraceptives Take 1 tablet by mouth once daily. 84 tablet 4 05/19/2022 Active Start: 05-07-2022 End: 05-19-2022 take 1 tablet by mouth once daily ENSKYCE 0.15-0.03 mg per tablet Indications: Surveillance for control, oral contraceptives Take 1 tablet by mouth once daily. 84 tablet 0 05/07/2022 05/19/2022 Discontinued Start: 05-07-2022 take 1 tablet by fernanda th once daily ENSKYCE 0.15-0.03 mg per tablet Indications: Surveillance for control, oral contraceptives Take 1 tablet by mouth once daily. 84 tablet 0 05/07/2022 Active Start: 03-02-2022 End: 05-07-2022 take 1 tablet by mouth once daily ENSKYCE 0.15-0.03 mg per tablet Indications: Surveillance for control, oral contraceptives Take 1 tablet by mouth once daily. 84 tablet 3 03/02/2022 05/07/2022 Discontinued Start: 2022 take 1 tablet by fernanda th once daily ENSKYCE 0.15-0.03 mg per tablet Indications: Surveillance for control, oral contraceptives Take 1 tablet by mouth once daily. 28 tablet 0 2022 Active Start: 11-20-2021 End: 2022 take 1 tablet by mouth once daily ENSKYCE 0.15-0.03 mg per tablet Indications: Surveillance for control, oral contraceptives Take 1 tablet by mouth once daily. 84 tablet 0 11/20/2021 2022 Discontinued Comment on above: Take 1 tablet by fernanda th once daily. flaxseed oil (OMEGA 3 ORAL) (5 sources) End: 06-05-2024 flaxseed oil (OMEGA 3 ORAL) Take by mouth. 0 06/05/2024 Discontinued (Other) flaxseed oil (OM EGA 3 ORAL) Take by mouth. 0 Active Comment on above: Take by mouth. fluconazole 150 mg oral tablet (4 sources) Azole Antifungal Start: 7 DIFLUCAN 150 MG TABS 1 pill as needed FLUCONAZOLE [id number] Celestine Hilton PA-C FLUoxetine 20 mg oral capsule (9 sources) Serotonin Reuptake Inhibitor Start: 0 End: 3 take 1 capsule by mouth once daily FLUoxetine (PROZAC) 20 mg capsule Indications: Situational mixed anxiety and depressive disorder Take 1 capsule by mouth once daily. 30 capsule 11 09/25/2020 08/26/2023 Discontinued (Other) Start: 09-18-2020 take 1 capsule by mo uth once daily FLUoxetine (PROZAC) 10 mg capsule Indications: Situational mixed anxiety and depressive disorder Take 1 capsule by mouth once daily for 7 days. 7 capsule 0 09/18/2020 Active Comment on above: Take 1 capsule by mo ut once daily for 7 days. Take 1 capsule by mo ut once daily. hydroxychloroquine sulfate 200 mg oral tablet (4 sources) Antimalarial, Antirheumatic Agent Start: 05-31-2024 End: 12-20-2024 PLAQUENIL 200 mg tablet two times a day. 05/31/2024 12/20/2024 Discontinued hydrOXYzine hydrochloride 10 mg oral tablet (6 sources) Antihistamine Start: 04-07-2023 End: 08-26-2023 hydrOXYzine HCl (ATARAX) 10 mg tablet End: 08-26-2023 hydroxyzine pamoate (VISTARI L ORAL) Take by mouth. 10-40mg tid, as needed 0 08/26/2023 Discontinued (Other) hydroxyzine pamo ate (VISTARIL ORAL) Take by mouth. 10-40mg tid, as needed 0 Active Comment on above: Take by mouth. 10-40 mg tid, as needed oseltamivir 75 mg oral capsule (8 sources) Neuraminidase Inhibitor Start: 01-11-20 End: 01-16-20 20 take 1 capsule by mouth once daily Oseltamivir (Tamiflu) 75 mg capsule Discontinued 75 mg PO DAILY 5 5 0 January 11, 2020 1:00am January 15, 2020 12:00am January 16, 2020 12:07am 24 hr phentermine 7.5 mg / topiramate 46 mg extended release oral capsule (4 sources) Sympathomimetic Amine Anorectic Start: 02-01-20 take 1 capsule by mouth once daily phentermine-topirama te ER (QSYMIA) 7.5-46 mg 24 Hr Capsule Indications: Obesity, Class II, BMI 35-39.9 Take 1 capsule by mouth once daily for 30 days. Do not start before March 31, 2021. 30 capsule 0 03/31/2021 Active Comment on above: Take 1 capsule by mo [facility] once daily for 30 days. Do not start before January 31, 2021. Take 1 capsule by mo [facility] once daily for 30 days. Do not start before March 01, 2021. Take 1 capsule by mo [facility] once daily for 30 days. Do not start before April 30, 2021. Take 1 capsule by [facility] once daily for 30 days. Do not start before March 31, 2021. PROBIOTIC PRODUCT (1 source) Start: 08-06-20 17 PROBIOTIC DAILY CAPS as directed PROBIOTIC PRODUCT [id number] Kayley N Moy PROGRAM ASSOCIATE PROBIOTIC PRODUCT (3 sources) Start: 08-06-20 17 PROBIOTIC DAILY CAPS as directed PROBIOTIC PRODUCT [id number] Kayley N Moy PROGRAM ASSOCIATE Start: 08-06-2017 PROBIOTIC MAEVE Y CAPS as directed PROBIOTIC PRODUCT [id number] Kayley N Moy PROGRAM ASSOCIATE venlafaxine 100 mg oral tablet (3 sources) Serotonin and Norepinephrine Reuptake Inhibitor End: 08-26-2023 venlafaxine (EFFEXOR) 100 mg tablet Take 100 mg by mouth once daily. Patient takes 125mg at night 0 08/26/2023 Discontinued (Other) Comment on above: Take 100 mg by mouth once daily. Patient takes 125mg at night Problems Active Problems Problem Classification Problem Date Documented Da te Episodic/Chronic Abdominal pain (6 sources) Left lower quadrant pain; Translations: [Left lower quadrant pain] Onset: 05-20-2025 05-20-2025 Episodic Acute bronchitis (9 sources) Acute bronchitis; Translations: [Acute bronchitis, unspecified] 04-21-2021 Episodic Allergic reactions (20 sources) Nummular eczema; Translations: [Nummular dermatitis] Onset: 06-08-2018 06-08-2018 Episodic Anxiety disorders (20 sources) Mixed anxiety and depressive disorder; Translations: [Anxiety disorder, unspecified] Onset: 06-22-2018 03-17-2019 Chronic Asthma (20 sources) Exercise-induced asthma; Translations: [Exercise induced bronchospasm] Onset: 01-30-2014 01-30-2014 Chronic Cardiac dysrhythmias (1 source) Palpitations; Translations: [Palpitations] Onset: 08-14-2025 Episodic Contraceptive and procreative management (7 sources) Oral contraception; Translations: [Encounter for surveillance of contraceptive pills] Onset: 06-06-2025 Episodic Genitourinary symptoms and ill-defined conditions (2 sources) Dysuria; Translations: [Dysuria] Onset: 05-20-2025 05-20-2025 Episodic Headache; including migraine (9 sources) Headache; Translations: [Headache] 09-27-2021 Episodic Immunizations and screening for infectious disease (10 sources) Contact with and (suspected) exposure to other viral communicable diseases; Translations: [Exposure to influenza] Episodic Menstrual disorders (20 sources) Irregular periods; Translations: [Irregular menstruation, unspecified] Onset: 08-11-2012 08-11-2012 Chronic Miscellaneous mental health disorders (20 sources) Psychogenic headache; 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] Onset: 06-13-2024 09-27-2018 Chronic Mood disorders (18 sources) Seasonal affective disorder; Translations: [Other recurrent depressive disorders] Onset: 06-13-2024 12-15-2023 Chronic Mood disorders (1 source) Mood disorders; Translations: [Anxiety and depression] Onset: 03-17-2019 Mycoses (20 sources) Tinea corporis; Translations: [Tinea corporis] Onset: 06-08-2018 Resolved: 06-08-2018 12-19-2017 Episodic Other aftercare (1 source) Long-term current use of drug therapy; Translations: [Other senior marketing data analyst (current) drug therapy] 09-25-2024 Episodic Other endocrine disorders (20 sources) Polycystic ovary syndrome; Translations: [Polycystic ovarian syndrome] Onset: 03-17-2019 03-17-2019 Chronic Other endocrine disorders (1 source) Polycystic ovarian syndrome; Translations: [Polycystic ovarian syndrome] Onset: 03-17-2019 Chronic Other female genital disorders (1 source) Vaginal discharge; Translations: [Other specified noninflammatory disorders of vagina] 05-20-2025 Episodic Other female genital disorders (1 source) Vaginal odor; Translations: [Other specified noninflammatory disorders of vagina] 05-20-2025 Episodic Other female genital disorders (1 source) Pruritus of vagina; Translations: [Other specified noninflammatory disorders of vagina] 05-20-2025 Episodic Other female genital disorders (3 sources) Other specified noninflammatory disorders of vagina; Translations: [Vaginal discharge] Onset: 05-20-2025 Episodic Other gastrointestinal disorders (20 sources) Irritable bowel syndrome; Translations: [Mixed irritable bowel syndrome] Onset: 03-17-2019 03-17-2019 Chronic Other nutritional; endocrine; and metabolic disorders (20 sources) Obese class II; Translations: [Obesity, unspecified] Onset: 04-16-2019 04-16-2019 Chronic Other nutritional; endocrine; and metabolic disorders (6 sources) Obesity; Translations: [Obesity, unspecified] 06-30-2023 Chronic Other screening for suspected conditions (not mental disorders or infectious disease) (5 sources) Patient encounter status; Translations: [Encounter for screening for diseases of the blood and blood-forming organs and certain disorders involving the immune mechanism] 06-30-2023 Episodic Other upper respiratory infections (20 sources) Sinusitis; Translations: [Chronic sinusitis, unspecified] Onset: 08-06-2017 Resolved: 06-08-2018 06-08-2018 Chronic Other upper respiratory infections (20 sources) Sinusitis; Translations: [Upper respiratory infection] Onset: 08-06-2017 08-06-2017 Episodic Otitis media and related conditions (17 sources) Acute secretory otitis media; Translations: [Other acute nonsuppurative otitis media, unspecified ear] Onset: 08-06-2017 Resolved: 06-08-2018 08-06-2017 Episodic Sprains and strains (18 sources) Sprain of ankle; Translations: [Sprain of unspecified ligament of left ankle, initial encounter] 03-29-2019 Episodic Superficial injury; contusion (6 sources) Contusion of left foot; Translations: [Contusion of left foot, initial encounter] 01-03-2024 Episodic Unclassified (1 source) Binge-eating disorder, in full remission, mild; Translations: [Binge-eating disorder, in full remission, mild] Onset: 06-13-2024 Viral infection (9 sources) Disease caused by 2019-nCoV; Translations: [COVID-19] 09-27-2021 Episodic Past or Other Problems Problem Classification Problem Date Documented Date Episodic/Chronic Blindness and vision defects (11 sources) Visual disturbance; Translations: [Unspecified visual disturbance] Onset: 09-17-2014 Resolved: 06-19-2015 06-19-2015 Episodic Delirium, dementia, and amnestic and other cognitive disorders (11 sources) Postconcussion syndrome; Translations: [Postconcussional syndrome] Onset: 09-17-2014 Resolved: 06-19-2015 06-19-2015 Chronic Disorders of teeth and jaw (20 sources) Temporomandibular joint disorder; Translations: [Unspecified temporomandibular joint disorder, unspecified side] Onset: 01-13-2018 06-08-2018 Episodic Fracture of upper limb (11 sources) Closed fracture of one or more phalanges of hand; Translations: [Fracture of unspecified phalanx of unspecified finger, initial encounter for closed fracture] Onset: 02-16-2010 Resolved: 06-19-2015 06-19-2015 Episodic Heart valve disorders (11 sources) Heart murmur; Translations: [Cardiac murmur, unspecified] Onset: 04-20-2010 Resolved: 06-19-2015 06-19-2015 Episodic Other aftercare (1 source) Other longterm (current) drug therapy; Translations: [Encounter for long-term (current) use of medications] Onset: 09-26-2024 Episodic Other connective tissue disease (11 sources) Ganglion cyst; Translations: [Ganglion, unspecified site] Onset: 06-24-2008 Resolved: 06-19-2015 06-19-2015 Episodic Other nutritional; endocrine; and metabolic disorders (13 sources) Weight gain; Translations: [Abnormal weight gain] Onset: 03-17-2019 03-17-2019 Episodic Other nutritional; endocrine; and metabolic disorders (14 sources) H/O: obesity; Translations: [Personal history of other endocrine, nutritional and metabolic disease] Onset: 06-13-2024 06-13-2024 Episodic Other nutritional; endocrine; and metabolic disorders (8 sources) Weight increased; Translations: [Abnormal weight gain] Onset: 03-17-2019 03-17-2019 Episodic Other nutritional; endocrine; and metabolic disorders (1 source) Personal history of other endocrine, nutritional and metabolic disease; Translations: [History of obesity] Onset: 06-13-2024 Episodic Other skin disorders (20 sources) Excessive sweating; Translations: [Generalized hyperhidrosis] Onset: 03-21-2012 03-21-2012 Episodic Ovarian cyst (20 sources) Cyst of ovary; Translations: [Unspecified ovarian cyst, unspecified side] Onset: 08-15-2012 08-15-2012 Episodic Residual codes; unclassified (20 sources) Family history of Factor V Leiden mutation; Translations: [Family history of diseases of the blood and blood-forming organs and certain disorders involving the immune mechanism] Onset: 06-19-2015 06-19-2015 Episodic Spondylosis; intervertebral disc disorders; other back problems (20 sources) Chronic low back pain; Translations: [Chronic left-sided low back pain without sciatica] Onset: 06-16-2007 Resolved: 06-19-2015 07-02-2016 Episodic Results Test Name Value Interpretation Reference Range Facility Absolute lymphocyte countOrd ered By: Seble Fleming on 08-07-2025 Lymphocytes Auto (Unsp spec) [#/Vol] 2.60 10*3/uL 0.83-4.51 [facility] Absolute neutrophil countOrd ered By: Seblestu Fleming on 08-07-2025 Neutrophils (Bld) [#/Vol] 8.0 10*3/uL High 2.0-7.7 [facility] Anion gap in Serum or Plasma Ordered By: Seblestu Fleming on 08-07-2025 Anion gap [Moles/Vol] 12 mmol/L 5- [facility] Automated lymphocyte count a s percentage of total leukocytesOrdered By: Seble Fleming on 08-07-2025 Lymphocytes/100 WBC Auto (Unsp spec) 23.1 % 19- [facility] BUN/creatinine ratioOrdered By: [facility]-2025 Urea nitrogen/Creatinine [Mass ratio] 10.7 mg/mg 10- [facility] Basophil percentageOrdered B y: Seble Fleming on 08-07-2025 Basophils/100 WBC (Bld) 0.3 % 0-1 [facility] Bilirubin, totalOrdered By: Seblestu Fleming on 08-07-2025 Bilirubin [Mass/Vol] 0.25 mg/dL 0.00-1.30 [facility] CBC W/Diff, Automatedon Absolute Lymph 2.60 X10 3/uL Normal 0.83-4.51 [facility] Comment on above: Order Comment: Order Date: 08/07/25 Order Info: 0184-1 - CBCD Performed By: #### L 500.4050, L100.0100, L501.5200, L501.9520 #### [facility] Laboratory [facility] [place], [address] Absolute Neut 8.0 X10 3/uL High 2.0-7.7 [facility] Comment on above: Order Comment: Order Date: 08/07/25 Order Info: 0184-1 - CBCD Performed By: #### L 500.4050, L100.0100, L501.5200, [id number] #### [facility] [address] [place], [address] Basophils/100 WBC (Bld) 0.3 % Normal 0-1 [facility] Comment on above: Order Comment: Order Date: 08/07/25 Order Info: 0184-1 - CBCD Performed By: #### L 500.4050, L100.0100, L501.5200, [id number] #### [facility] [address] [place], [address] Eosinophils/100 WBC (Bld) 0.2 % Normal 0-5 [facility] Comment on above: Order Comment: Order Date: 08/07/25 Order Info: 0184-1 - CBCD Performed By: #### L 500.4050, L100.0100, L501.5200, [id number] #### [facility] [address] [place], [address] Erythrocyte distribution width (RBC) [Ratio] 13.2 % Normal 11.6-14.6 [facility] Comment on above: Order Comment: Order Date: 08/07/25 Order Info: 0184-1 - CBCD Performed By: #### L 500.4050, L100.0100, L501.5200, [id number] #### [facility] [address] [place], [address] Hematocrit (Bld) [Volume fraction] 37.9 % Normal 37-47 [facility] Comment on above: Order Comment: Order Date: 08/07/25 Order Info: 0184-1 - CBCD Performed By: #### L 500.4050, L100.0100, L501.5200, [id number] #### [facility] [address] [place], [address] Hemoglobin (Bld) [Mass/Vol] 12.4 g/dL Normal 12.0-15.0 [facility] Comment on above: Order Comment: Order Date: 08/07/25 Order Info: 0184-1 - CBCD Performed By: #### L 500.4050, L100.0100, L501.5200, [id number] #### [facility] [address] [place], [address] IG% 0.400 Normal 0.0-0.9 [facility] Comment on above: Order Comment: Order Date: 08/07/25 Order Info: [id number]- - CBCD Result Comment: IG% - Immature Granulocytes (promyelocytes, myelocytes and metamyelocytes) > 1% indicates that a LEFT SHIFT is Present. Performed By: #### L 500.4050, L100.0100, L501.5200, [id number] #### [facility] [address] [place], [address] Lymphocytes/100 WBC (Bld) 23.1 % Normal 19-41 [facility] Comment on above: Order Comment: Order Date: 08/07/25 Order Info: 0184-1 - CBCD Performed By: #### L 500.4050, L100.0100, L501.5200, [id number] #### [facility] [address] [place], [address] MCH (RBC) [Entitic mass] 29.9 pg Normal 27.0-32.0 [facility] Comment on above: Order Comment: Order Date: 08/07/25 Order Info: 0184-1 - CBCD Performed By: #### L 500.4050, L100.0100, L501.5200, [id number] #### [facility] [address] [place], [address] MCHC (RBC) [Mass/Vol] 32.7 g/dL Normal 32-36 [facility] Comment on above: Order Comment: Order Date: 08/07/25 Order Info: 0184-1 - CBCD Performed By: #### L 500.4050, L100.0100, L501.5200, [id number] #### [facility] [address] [place], [address] MCV (RBC) [Entitic vol] 91.3 fL Normal 81-99 [facility] Comment on above: Order Comment: Order Date: 08/07/25 Order Info: 0184-1 - CBCD Performed By: #### L 500.4050, L100.0100, L501.5200, [id number] #### [facility] [address] [place], [address] Monocytes/100 WBC (Bld) 5.2 % Normal 0-10 [facility] Comment on above: Order Comment: Order Date: 08/07/25 Order Info: 0184-1 - CBCD Performed By: #### L 500.4050, L100.0100, L501.5200, [id number] #### [facility] [address] [place], [address] Neutrophils/100 WBC (Bld) 70.8 % High 47-70 [facility] Comment on above: Order Comment: Order Date: 08/07/25 Order Info: 0184-1 - CBCD Performed By: #### L 500.4050, L100.0100, L501.5200, [id number] #### [facility] [address] [place], [address] Nucleated RBC (Bld) [#/Vol] 0 10*3/uL Normal 0-5 [facility] Comment on above: Order Comment: Order Date: 08/07/25 Order Info: 0184-1 - CBCD Performed By: #### L 500.4050, L100.0100, L501.5200, [id number] #### [facility] [address] [place], [address] Platelet mean volume (Bld) [Entitic vol] 10.1 fL Normal 6.2-12.0 [facility] Comment on above: Order Comment: Order Date: 08/07/25 Order Info: 0184-1 - CBCD Performed By: #### L 500.4050, L100.0100, L501.5200, [id number] #### [facility] [address] [place], [address] Platelets (Bld) [#/Vol] 332 10*3/uL Normal 150-450 [facility] Comment on above: Order Comment: Order Date: 08/07/25 Order Info: 0184-1 - CBCD Performed By: #### L 500.4050, L100.0100, L501.5200, [id number] #### [facility] [address] [place], [address] RBC (Bld) [#/Vol] 4.15 10*6/uL Low 4.2-5.4 [facility] Comment on above: Order Comment: Order Date: 08/07/25 Order Info: 0184-1 - CBCD Performed By: #### L 500.4050, L100.0100, L501.5200, [id number] #### [facility] [address] [place], [address] RDW SD 43.8 fl Normal 35.1-43.9 [facility] Comment on above: Order Comment: Order Date: 08/07/25 Order Info: 0184-1 - CBCD Performed By: #### L 500.4050, L100.0100, L501.5200, [id number] #### [facility] [address] [place], [address] WBC (Bld) [#/Vol] 11.3 10*3/uL High 4.4-11.0 [facility] Comment on above: Order Comment: Order Date: 08/07/25 Order Info: 0184-1 - CBCD Performed By: #### L 500.4050, L100.0100, L501.5200, [id number] #### [facility] [address] [place], [address] Carbon dioxide, total [Moles /volume] in Central venous bloodOrdered By: Seble Fleming on 08-07-2025 CO2 [Moles/Vol] 20.5 mmol/L Low 21.0-32.0 [facility] Chloride assayOrdered By: Mitchell Flmeing on 08-07-2025 Chloride [Moles/Vol] 105 mmol/L 98-108 [facility] Comprehensive Metabolic Prof ilon 08-07-2025 Albumin [Mass/Vol] 4.3 g/dL Normal 3.5-5.0 [facility] Comment on above: Order Comment: Order Date: 08/07/25 Order Info: 0786-1 - CMP Order Info: [id number] - MG Order Info: 3016-3 - TSH Performed By: #### L 500.4050, L100.0100, L501.5200, [id number] #### [facility] [address] [place], [address] Albumin/Globulin [Mass ratio] 1.6 {ratio} Normal 0.9-2.4 [facility] Comment on above: Order Comment: Order Date: 08/07/25 Order Info: 0786-1 - CMP Order Info: [id number] - MG Order Info: 3016-3 - TSH Performed By: #### L 500.4050, L100.0100, L501.5200, [id number] #### [facility] [address] [place], [address] ALK PHOS 48 U/L Normal 35-104 [facility] Comment on above: Order Comment: Order Date: 08/07/25 Order Info: 0786-1 - CMP Order Info: [id number] - MG Order Info: 3016-3 - TSH Performed By: #### L 500.4050, L100.0100, L501.5200, [id number] #### [facility] [address] [place], [address] ALT [Catalytic activity/Vol] 17 U/L Normal <=34 [facility] Comment on above: Order Comment: Order Date: 08/07/25 Order Info: 0786-1 - CMP Order Info: [id number] - MG Order Info: 3016-3 - TSH Performed By: #### L 500.4050, L100.0100, L501.5200, [id number] #### [facility] [address] [place], [place], [id number] AST [Catalytic activity/Vol] 21 U/L Normal <=31 [facility] Comment on above: Order Comment: Order Date: 08/07/25 Order Info: 0786-1 - CMP Order Info: [id number] - MG Order Info: 3016-3 - TSH Performed By: #### L 500.4050, L100.0100, L501.5200, [id number] #### [facility] [address] [place], [address] Bilirubin [Mass/Vol] 0.25 mg/dL Normal 0.00-1.30 [facility] Comment on above: Order Comment: Order Date: 08/07/25 Order Info: 0786-1 - CMP Order Info: [id number] - MG Order Info: 3016-3 - TSH Performed By: #### L 500.4050, L100.0100, L501.5200, [id number] #### [facility] [address] [place], [address] BUN/CRE 10.7 RATIO Normal 10-20 [facility] Comment on above: Order Comment: Order Date: 08/07/25 Order Info: 0786-1 - CMP Order Info: [id number] - MG Order Info: 3015-3 - TSH Performed By: #### L 500.4050, L100.0100, L501.5200, [id number] #### [facility] [address] [place], [address] Calcium [Mass/Vol] 9.3 mg/dL Normal 7.6-11.0 [facility] Comment on above: Order Comment: Order Date: 08/07/25 Order Info: [id number] - CMP Order Info: [id number] - MG Order Info: 3 - TSH Performed By: #### L 500.4050, L100.0100, L501.5200, [id number] #### [facility] [address] [place], [address] Chloride [Moles/Vol] 105 mmol/L Normal 98-108 [facility] Comment on above: Order Comment: Order Date: 08/07/25 Order Info: 0786-1 - CMP Order Info: [id number] - MG Order Info: 3013 - TSH Performed By: #### L 500.4050, L100.0100, L501.5200, [id number] #### [facility] [address] [place], [address] CO2 [Moles/Vol] 20.5 mmol/L Low 21.0-32.0 [facility] Comment on above: Order Comment: Order Date: 08/07/25 Order Info: 0786-1 - CMP Order Info: [id number] - MG Order Info: 301-3 - TSH Performed By: #### L 500.4050, L100.0100, L501.5200, L501.9520 #### [facility] [address] [place], [address] Creatinine [Mass/Vol] 0.86 mg/dL Normal 0.70-1.20 [facility] Comment on above: Order Comment: Order Date: 08/07/25 Order Info: 0786-1 - CMP Order Info: [id number] - MG Order Info: 3016-3 - TSH Performed By: #### L 500.4050, L100.0100, L501.5200, [id number] #### [facility] [address] [place], [address] GAP 12 Normal 5-15 [facility] Comment on above: Order Comment: Order Date: 08/07/25 Order Info: 0786-1 - CMP Order Info: [id number] - MG Order Info: 3015-3 - TSH Performed By: #### L 500.4050, L100.0100, L501.5200, L501.9520 #### [facility] [address] [place], [address] GFR/1.73 sq M.predicted among non-blacks MDRD (S/P/Bld) [Vol rate/Area] 95 mL/min/{1.73_m2} Normal >60 [facility] Comment on above: Order Comment: Order Date: 08/07/25 Order Info: 0786-1 - CMP Order Info: [id number] - MG Order Info: 3015-3 - TSH Result Comment: mL/m in/1.73m2 CKD-EPI Creatinine Equation (2020) Performed By: #### L 500.4050, L100.0100, L501.5200, L501.9520 #### [facility] [address] [place], [address] Globulin (S) [Mass/Vol] 2.8 g/dL Normal 2.2-4.2 [facility] Comment on above: Order Comment: Order Date: 08/07/25 Order Info: 0786-1 - CMP Order Info: [id number] - MG Order Info: 3016-3 - TSH Performed By: #### L 500.4050, L100.0100, L501.5200, L501.9520 #### [facility] [address] [place], [address] Glucose [Mass/Vol] 76 mg/dL Normal 70-99 [facility] Comment on above: Order Comment: Order Date: 08/07/25 Order Info: 0786-1 - CMP Order Info: [id number] - MG Order Info: 3015-3 - TSH Performed By: #### L 500.4050, L100.0100, L501.5200, L501.9520 #### [facility] [address] [place], [address] Potassium [Moles/Vol] 4.3 mmol/L Normal 3.3-5.1 [facility] Comment on above: Order Comment: Order Date: 08/07/25 Order Info: 0786-1 - CMP Order Info: [id number] - MG Order Info: 3 - TSH Performed By: #### L 500.4050, L100.0100, L501.5200, L501.9520 #### [facility] [address] [place], [address] Sodium [Moles/Vol] 137 mmol/L Normal 133-145 [facility] Comment on above: Order Comment: Order Date: 08/07/25 Order Info: 0786-1 - CMP Order Info: [id number] - MG Order Info: 3 - TSH Performed By: #### L 500.4050, L100.0100, L501.5200, L501.9520 #### [facility] [address] [place], [address] T PROT 7.1 g/dL Normal 5.9-8.4 [facility] Comment on above: Order Comment: Order Date: 08/07/25 Order Info: 0786-1 - CMP Order Info: [id number] - MG Order Info: 3 - TSH Performed By: #### L 500.4050, L100.0100, L501.5200, L501.9520 #### [facility] [address] [place], [address] Urea nitrogen [Mass/Vol] 9 mg/dL Normal 4-19 [facility] Comment on above: Order Comment: Order Date: 08/07/25 Order Info: 0786-1 - CMP Order Info: [id number] - MG Order Info: 3016-3 - TSH Performed By: #### L 500.4050, L100.0100, L501.5200, L501.9520 #### [facility] [address] [place], [address] Eosinophil percentageOrdered By: Seble Fleming on 08-07-2025 Eosinophils/100 WBC (Bld) 0.2 % 0-5 [facility] Erythrocyte distribution wid th ratioOrdered By: Seblestu Fleming on 08-07-2025 Erythrocyte distribution width (RBC) [Ratio] 13.2 % 11.6-14.6 [facility] Erythrocyte distribution wid th standard deviationOrdered By: Melvin Bernadette on 08-07-2025 Erythrocyte distribution width (RBC) [Ratio] 43.8 fl 35.1-43.9 [facility] Glomerular filtration rate ( GFR) estimation/1.73 sq m using serum, plasma, or whole bOrdered By: Seblestu Fleming on 08-07-2025 GFR/1.73 sq M.predicted among non-blacks MDRD (S/P/Bld) [Vol rate/Area] 95 mL/min/{1.73_m2} >60 [facility] Comment on above: mL/min/1.73m2 CKD-EP I Creatinine Equation (2020) Hematocrit Auto (Bld) [Volum e fraction]Ordered By: Seble Fleming on 08-07-2025 Hematocrit (Bld) [Volume fraction] 37.9 % 37-47 [facility] Hemoglobin measurementOrdere d By: Seblestu Fleming on 08-07-2025 Hemoglobin (Bld) [Mass/Vol] 12.4 g/dL 12.0-15.0 [facility] Immature granulocytes/100 WB C Auto (Bld)Ordered By: Seble Fleming on 08-07-2025 Immature granulocytes/100 WBC (Bld) 0.400 % 0.0-0.9 [facility] Comment on above: IG% - Immature Granu locytes (promyelocytes, myelocytes and metamyelocytes) > 1% indicates that a LEFT SHIFT is Present. Laboratory - Chemistry and C hemistry - challengeOrdered By: Seble Fleming on 08-07-2025 AST [Catalytic activity/Vol] 21 U/L <32 [facility] MCV (mean corpuscular volume ) determinationOrdered By: Seble Fleming on 08-07-2025 MCV (RBC) [Entitic vol] 91.3 fL 81-99 [facility] Magnesiumon 08-07-2025 Magnesium [Mass/Vol] 2.2 mg/dL Normal 1.5-2.2 [facility] Comment on above: Order Comment: Order Date: 08/07/25 Order Info: [id number] - CMP Order Info: [id number] - MG Order Info: [id number] - TSH Performed By: #### L 500.4050, L100.0100, L501.5200, L501.9520 #### [facility] [address] [place] [address], [address] Magnesium measurement (mass/ volume)Ordered By: Seble Fleming on 08-07-2025 Magnesium (Unsp spec) [Mass/Vol] 2.2 mg/dL 1.5-2.2 [facility] Mean corpuscular hemoglobin (MCH) determinationOrdered By: Seble Fleming on 08-07-2025 MCH (RBC) [Entitic mass] 29.9 pg 27.0-32.0 [facility] Mean corpuscular hemoglobin concentration (MCHC) determinationOrdered By: Seble Fleming on 08-07-2025 MCHC (RBC) [Mass/Vol] 32.7 g/dL 32-36 [facility] Mean platelet volume determi nationOrdered By: Seble Fleming on 08-07-2025 Platelet mean volume (Bld) [Entitic vol] 10.1 fL 6.2-12.0 [facility] Monocyte percentageOrdered B y: Seble Fleming on 08-07-2025 Monocytes/100 WBC (Bld) 5.2 % 0-10 [facility] Neutrophil percentageOrdered By: Seble Fleming on 08-07-2025 Neutrophils/100 WBC (Bld) 70.8 % High 47-70 [facility] Nucleated red blood cell per centageOrdered By: Seble Fleming on 08-07-2025 Nucleated RBC/100 WBC (Bld) [Ratio] 0 % 0-5 [facility] Platelet countOrdered By: Mitchell Fleming on 08-07-2025 Platelets (Bld) [#/Vol] 332 10*3/uL 150-450 [facility] Potassium measurement (mass/ volume)Ordered By: Seble Fleming on 08-07-2025 Potassium (Unsp spec) [Mass/Vol] 4.3 mmol/L 3.3-5.1 [facility] RBC Auto (Bld) [#/Vol]Ordere d By: Seble Fleming on 08-07-2025 RBC (Bld) [#/Vol] 4.15 10*6/uL Low 4.2-5.4 [facility] Serum creatinine measurement (mass/volume)Ordered By: Seble Fleming on 08-07-2025 Creatinine [Mass/Vol] 0.86 mg/dL 0.70-1.20 [facility] Serum globulin measurementOr dered By: Seble Fleming on 08-07-2025 Globulin (S) [Mass/Vol] 2.8 g/dL 2.2-4.2 [facility] Serum glucose measurement (m ass/volume)Ordered By: Seble Fleming on 08-07-2025 Glucose [Mass/Vol] 76 mg/dL 70-99 [facility] Serum or plasma alanine palma otransferase (ALT) measurementOrdered By: Seble Fleming on 08-07-2025 ALT [Catalytic activity/Vol] 17 U/L <35 [facility] Serum or plasma albumin iveth urement (mass/volume)Ordered By: Seble Fleming on 08-07-2025 Albumin [Mass/Vol] 4.3 g/dL 3.5-5.0 [facility] Serum or plasma albumin/glob ulin mass ratioOrdered By: Seble Fleming on 08-07-2025 Albumin/Globulin [Mass ratio] 1.6 {ratio} 0.9-2.4 [facility] Serum or plasma alkaline tiffanie sphatase measurementOrdered By: Seble Fleming on 08-07-2025 ALP [Catalytic activity/Vol] 48 U/L 35-104 [facility] Serum or plasma calcium iveth urement (mass/volume)Ordered By: Seble Fleming on 08-07-2025 Calcium [Mass/Vol] 9.3 mg/dL 7.6-11.0 [facility] Serum or plasma urea nitroge n measurement (mass/volume)Ordered By: Seble Fleming on 08-07-2025 Urea nitrogen [Mass/Vol] 9 mg/dL 4-19 [facility] Sodium levelOrdered By: Seble Fleming on 08-07-2025 Sodium [Moles/Vol] 137 mmol/L 133-145 [facility] TSH DL <= 0.005 mIU/L QnOrde red By: Seble Fleming on 08-07-2025 TSH Qn 1.760 uIU/mL 0.300-4.200 [facility] Thyroid Stim Hormone (TSH)on 08-07-2025 TSH 1.760 uIU/mL Normal 0.300-4.200 [facility] Comment on above: Order Comment: Order Date: 08/07/25 Order Info: [id number] - CMP Order Info: [id number] - MG Order Info: [id number] - TSH Performed By: #### L 500.4050, L100.0100, L501.5200, L501.9520 #### [facility] [place], [address] Total proteinOrdered By: Nena Fleming on 08-07-2025 Protein [Mass/Vol] 7.1 g/dL 5.9-8.4 [facility] White blood cell (WBC) count Ordered By: Seble Fleming on 08-07-2025 WBC (Bld) [#/Vol] 11.3 10*3/uL High 4.4-11.0 [facility] Absolute lymphocyte countOrd ered By: HEALTH ASSESSMENT on 07-01-2025 Lymphocytes Auto (Unsp spec) [#/Vol] 2.32 10*3/uL 0.83-4.51 [facility] Absolute neutrophil countOrd ered By: HEALTH ASSESSMENT on 07-01-2025 Neutrophils (Bld) [#/Vol] 5.2 10*3/uL 2.0-7.7 [facility] Absolute nucleated red blood cell countOrdered By: HEALTH ASSESSMENT on 07-01-2025 Nucleated RBC (Bld) [#/Vol] 0.00 10*3/uL 0-5 [facility] Anion gap in Serum or Plasma Ordered By: HEALTH ASSESSMENT on 07-01-2025 Anion gap [Moles/Vol] 12 mmol/L 5- [facility] BUN/creatinine ratioOrdered By: HEALTH ASSESSMENT on 07-01-2025 Urea nitrogen/Creatinine [Mass ratio] 14.8 mg/mg 10- [facility] Bilirubin directOrdered By: HEALTH ASSESSMENT on 07-01-2025 Bilirubin.direct [Mass/Vol] 0.10 mg/dL 0.00-0.30 [facility] Bilirubin, totalOrdered By: HEALTH ASSESSMENT on 07-01-2025 Bilirubin [Mass/Vol] 0.25 mg/dL 0.00-1.30 [facility] CBC, Employeeon 07-01-2025 Absolute Lymph 2.32 X10 3/uL Normal 0.83-4.51 [facility] Comment on above: Performed By: #### L 100.0200, L400.0100, L500.2900 #### [facility] [address] [place], [address] Absolute Neut 5.2 X10 3/uL Normal 2.0-7.7 [facility] Comment on above: Performed By: #### L 100.0200, L400.0100, L500.2900 #### [facility] [address] [place], [address] Basophils/100 WBC (Bld) 0.4 % Normal 0-1 [facility] Comment on above: Performed By: #### L 100.0200, L400.0100, L500.2900 #### [facility] [address] [place], [address] Eosinophils/100 WBC (Bld) 0.6 % Normal 0-5 [facility] Comment on above: Performed By: #### L 100.0200, L400.0100, L500.2900 #### [facility] [address] [place], [address] Erythrocyte distribution width (RBC) [Ratio] 12.5 % Normal 11.6-14.6 [facility] Comment on above: Performed By: #### L 100.0200, L400.0100, L500.2900 #### [facility] [address] [place], [address] Hematocrit (Bld) [Volume fraction] 39.0 % Normal 37-47 [facility] Comment on above: Performed By: #### L 100.0200, L400.0100, L500.2900 #### [facility] [address] [place], [address] Hemoglobin (Bld) [Mass/Vol] 12.9 g/dL Normal 12.0-15.0 [facility] Comment on above: Performed By: #### L 100.0200, L400.0100, L500.2900 #### [facility] [address] [place], [address] Lymphocytes/100 WBC (Bld) 28.6 % Normal 19-41 [facility] Comment on above: Performed By: #### L 100.0200, L400.0100, L500.2900 #### [facility] [address] [place], [address] MCH (RBC) [Entitic mass] 30.1 pg Normal 27.0-32.0 [facility] Comment on above: Performed By: #### L 100.0200, L400.0100, L500.2900 #### [facility] [address] [place], [address] MCHC (RBC) [Mass/Vol] 33.1 g/dL Normal 32-36 [facility] Comment on above: Performed By: #### L 100.0200, L400.0100, L500.2900 #### [facility] [address] [place], [address] MCV (RBC) [Entitic vol] 91.1 fL Normal 81-99 [facility] Comment on above: Performed By: #### L 100.0200, L400.0100, L500.2900 #### [facility] [address] [place], [address] Monocytes/100 WBC (Bld) 6.5 % Normal 0-10 [facility] Comment on above: Performed By: #### L 100.0200, L400.0100, L500.2900 #### [facility] [address] [place], [address] Neutrophils/100 WBC (Bld) 63.7 % Normal 47-70 [facility] Comment on above: Performed By: #### L 100.0200, L400.0100, L500.2900 #### [facility] [address] [place], [address] NRBC # 0.00 10 3/uL Normal 0-5 [facility] Comment on above: Performed By: #### L 100.0200, L400.0100, L500.2900 #### [facility] [address] [place], [address] Nucleated RBC (Bld) [#/Vol] 0 10*3/uL Normal 0-5 [facility] Comment on above: Performed By: #### L 100.0200, L400.0100, L500.2900 #### [facility] [address] [place], [address] Platelet mean volume (Bld) [Entitic vol] 10.3 fL Normal 6.2-12.0 [facility] Comment on above: Performed By: #### L 100.0200, L400.0100, L500.2900 #### [facility] [address] [place], [address] Platelets (Bld) [#/Vol] 284 10*3/uL Normal 150-450 [facility] Comment on above: Performed By: #### L 100.0200, L400.0100, L500.2900 #### [facility] [address] [place], [address] RBC (Bld) [#/Vol] 4.28 10*6/uL Normal 4.2-5.4 [facility] Comment on above: Performed By: #### L 100.0200, L400.0100, L500.2900 #### [facility] [address] [place], [address] RDW SD 41.4 fl Normal 35.1-43.9 [facility] Comment on above: Performed By: #### L 100.0200, L400.0100, L500.2900 #### [facility] [address] [place], [address] WBC (Bld) [#/Vol] 8.1 10*3/uL Normal 4.4-11.0 [facility] Comment on above: Performed By: #### L 100.0200, L400.0100, L500.2900 #### [facility] [address] [place], [address] Calculated very low density lipoprotein (VLDL) cholesterol measurementOrdered By: HEALTH ASSESSMENT on 07-01-2025 Calculated very low density lipoprotein (VLDL) cholesterol measurement 20 mg/dL 5-40 [facility] Carbon dioxide, total [Moles /volume] in Central venous bloodOrdered By: HEALTH ASSESSMENT on 07-01-2025 CO2 [Moles/Vol] 21.9 mmol/L 21.0-32.0 [facility] Chloride assayOrdered By: ALTH ASSESSMENT on 07-01-2025 Chloride [Moles/Vol] 106 mmol/L 98-108 [facility] Employee Profileon LDH 133 U/L Normal 84-246 [facility] Comment on above: Performed By: #### L 100.0200, L400.0100, L500.2900 #### [facility] [address] [place], [address] Phosphate [Mass/Vol] 2.7 mg/dL Normal 2.7-4.5 [facility] Comment on above: Performed By: #### L 100.0200, L400.0100, L500.2900 #### [facility] [address] [place], [address] URIC 3.5 mg/dL Normal 2.6-6.0 [facility] Comment on above: Result Comment: The drugs N-Acetylcysteine and Metamizole may falsely depress this assay. Performed By: #### L 100.0200, L400.0100, L500.2900 #### [facility] [address] [place], [address] Erythrocyte distribution wid th ratioOrdered By: HEALTH ASSESSMENT on 07-01-2025 Erythrocyte distribution width (RBC) [Ratio] 12.5 % 11.6-14.6 [facility] Erythrocyte distribution wid th standard deviationOrdered By: HEALTH ASSESSMENT on 07-01-2025 Erythrocyte distribution width (RBC) [Ratio] 41.4 fl 35.1-43.9 [facility] Glomerular filtration rate ( GFR) estimation/1.73 sq m using serum, plasma, or whole bOrdered By: HEALTH ASSESSMENT on 07-01-2025 GFR/1.73 sq M.predicted among non-blacks MDRD (S/P/Bld) [Vol rate/Area] 98 mL/min/{1.73_m2} >60 [facility] Comment on above: mL/min/1.73m2 CKD-EP I Creatinine Equation (2020) Hematocrit Auto (Bld) [Volum e fraction]Ordered By: HEALTH ASSESSMENT on 07-01-2025 Hematocrit (Bld) [Volume fraction] 39.0 % 37-47 [facility] Hemoglobin measurementOrdere d By: HEALTH ASSESSMENT on 07-01-2025 Hemoglobin (Bld) [Mass/Vol] 12.9 g/dL 12.0-15.0 [facility] LDL calc ser/plasOrdered By: HEALTH ASSESSMENT on 07-01-2025 Cholesterol in LDL [Mass/Vol] 80 mg/dL [facility] Comment on above: Xqbtitfwjw=774-970 m g/dL & Higher Bytd=260 mg/dL or greaterFriedwald Equation for LDL-C Laboratory - Chemistry and C hemistry - challengeOrdered By: HEALTH ASSESSMENT on 07-01-2025 AST [Catalytic activity/Vol] 17 U/L <32 [facility] Lactate dehydrogenase (LDH) measurementOrdered By: HEALTH ASSESSMENT on 07-01-2025 LDH [Catalytic activity/Vol] 133 U/L 84-246 [facility] MCV (mean corpuscular volume ) determinationOrdered By: HEALTH ASSESSMENT on 07-01-2025 MCV (RBC) [Entitic vol] 91.1 fL 81-99 [facility] Mean corpuscular hemoglobin (MCH) determinationOrdered By: HEALTH ASSESSMENT on 07-01-2025 MCH (RBC) [Entitic mass] 30.1 pg 27.0-32.0 [facility] Mean corpuscular hemoglobin concentration (MCHC) determinationOrdered By: HEALTH ASSESSMENT on 07-01-2025 MCHC (RBC) [Mass/Vol] 33.1 g/dL 32-36 [facility] Mean platelet volume determi nationOrdered By: HEALTH ASSESSMENT on 07-01-2025 Platelet mean volume (Bld) [Entitic vol] 10.3 fL 6.2-12.0 [facility] Neutrophil percentageOrdered By: HEALTH ASSESSMENT on 07-01-2025 Neutrophils/100 WBC (Bld) 63.7 % 47-70 [facility] Nucleated red blood cell per centageOrdered By: HEALTH ASSESSMENT on 07-01-2025 Nucleated RBC/100 WBC (Bld) [Ratio] 0 % 0-5 [facility] Platelet countOrdered By: HE ALTH ASSESSMENT on 07-01-2025 Platelets (Bld) [#/Vol] 284 10*3/uL 150-450 [facility] Potassium measurement (mass/ volume)Ordered By: HEALTH ASSESSMENT on 07-01-2025 Potassium (Unsp spec) [Mass/Vol] 4.2 mmol/L 3.3-5.1 [facility] RBC Auto (Bld) [#/Vol]Ordere d By: HEALTH ASSESSMENT on 07-01-2025 RBC (Bld) [#/Vol] 4.28 10*6/uL 4.2-5.4 [facility] Screening total cholesterol/ high density lipoprotein (HDL) cholesterol ratioOrdered By: HEALTH ASSESSMENT on 07-01-2025 Cholesterol.total/Karina sterol in HDL [Mass ratio] 2.62 {ratio} [facility] Serum creatinine measurement (mass/volume)Ordered By: HEALTH ASSESSMENT on 07-01-2025 Creatinine [Mass/Vol] 0.84 mg/dL 0.70-1.20 [facility] Serum globulin measurementOr dered By: HEALTH ASSESSMENT on 07-01-2025 Globulin (S) [Mass/Vol] 2.9 g/dL 2.2-4.2 [facility] Serum glucose measurement (m ass/volume)Ordered By: HEALTH ASSESSMENT on 07-01-2025 Glucose [Mass/Vol] 79 mg/dL 70-99 [facility] Serum or plasma alanine palma otransferase (ALT) measurementOrdered By: HEALTH ASSESSMENT on 07-01-2025 ALT [Catalytic activity/Vol] 15 U/L <35 [facility] Serum or plasma albumin iveth urement (mass/volume)Ordered By: HEALTH ASSESSMENT on 07-01-2025 Albumin [Mass/Vol] 4.3 g/dL 3.5-5.0 [facility] Serum or plasma albumin/glob ulin mass ratioOrdered By: HEALTH ASSESSMENT on 07-01-2025 Albumin/Globulin [Mass ratio] 1.4 {ratio} 0.9-2.4 [facility] Serum or plasma alkaline tiffanie sphatase measurementOrdered By: HEALTH ASSESSMENT on 07-01-2025 ALP [Catalytic activity/Vol] 51 U/L 35-104 [facility] Serum or plasma calcium iveth urement (mass/volume)Ordered By: HEALTH ASSESSMENT on 07-01-2025 Calcium [Mass/Vol] 9.3 mg/dL 7.6-11.0 [facility] Serum or plasma cholesterol in HDL measurement (mass/volume)Ordered By: HEALTH ASSESSMENT on 07-01-2025 Cholesterol in HDL [Mass/Vol] 62 mg/dL >40 [facility] Comment on above: National Cholesterol Education Program (NCEP) guidelines:<40 mg/dL: Low HDL-cholesterol (major risk factor for CHD)>= 60 mg/dL: High HDL-cholesterol (negative risk factor for CHD)HDL-cholesterol is affected by a number of factors, e.g. smoking, exercise, hormones, sex and age. Serum or plasma cholesterol measurement (mass/volume)Ordered By: HEALTH ASSESSMENT on 07-01-2025 Cholesterol [Mass/Vol] 162 mg/dL <[address] [facility] Comment on above: Cholesterol level, D esirable <200 mg/dLBorderline high cholesterol 200-239 mg/dLHigh cholesterol >=240 mg/dLRecommendations of the NCEP Adult Treatment Panel for the following risk-cutoff thresholds for the [place] population. Serum or plasma urea nitroge n measurement (mass/volume)Ordered By: HEALTH ASSESSMENT on 07-01-2025 Urea nitrogen [Mass/Vol] 12 mg/dL 4-19 [facility] Serum or plasma uric acid me asurement (mass/volume)Ordered By: [facility] ASSESSMENT on 07-01-2025 Urate [Mass/Vol] 3.5 mg/dL 2.6-6.0 [facility] Comment on above: The drugs N-Acetylcy steine and Metamizole may falsely depress this assay. Sodium levelOrdered By: [facility] ASSESSMENT on 07-01-2025 Sodium [Moles/Vol] 140 mmol/L 133-145 [facility] Total proteinOrdered By: [facility] ASSESSMENT on 07-01-2025 Protein [Mass/Vol] 7.2 g/dL 5.9-8.4 [facility] Triglycerides measurementOrd ered By: HEALTH ASSESSMENT on 07-01-2025 Triglyceride [Mass/Vol] 100 mg/dL <199 [facility] Comment on above: The drugs N-Acetylcy steine and Metamizole may falsely depress this assay. Normal range: <150 mg/dLBorderline High: 150-199 mg/dLHigh: 200-499 mg/dLVery High: >500 mg/dL Urinalysis, Employeeon 07-01 BILIRUBIN URINE Normal Negative [facility] Comment on above: Order Comment: Urine , Random Result Comment: UTO Performed By: #### L 100.0200, L400.0100, L500.2900 #### [facility] [address] [place], [address] Clarity (U) Normal Clear [facility] Comment on above: Order Comment: Urine , Random Result Comment: UTO Performed By: #### L 100.0200, L400.0100, L500.2900 #### [facility] [address] [place], [address] Color (U) Normal Yellow [facility] Comment on above: Order Comment: Urine , Random Result Comment: UTO Performed By: #### L 100.0200, L400.0100, L500.2900 #### [facility] [address] [place], [address] GLUCOSE, UR Normal Normal [facility] Comment on above: Order Comment: Urine , Random Result Comment: UTO Performed By: #### L 100.0200, L400.0100, L500.2900 #### [facility] [address] [place], [address] KETONE UR Normal Negative [facility] Comment on above: Order Comment: Urine , Random Result Comment: UTO Performed By: #### L 100.0200, L400.0100, L500.2900 #### [facility] [address] [place], [address] LEUK ESTERASE Normal Negative [facility] Comment on above: Order Comment: Urine , Random Result Comment: UTO Performed By: #### L 100.0200, L400.0100, L500.2900 #### [facility] [address] [place], [address] Nitrite Ql (U) Normal Negative [facility] Comment on above: Order Comment: Urine , Random Result Comment: UTO Performed By: #### L 100.0200, L400.0100, L500.2900 #### [facility] [address] [place], [address] OCCULT BLOOD-UR Normal Negative [facility] Comment on above: Order Comment: Urine , Random Result Comment: UTO Performed By: #### L 100.0200, L400.0100, L500.2900 #### [facility] [address] [place], [address] pH UR Normal 5.0 - 8.0 [facility] Comment on above: Order Comment: Urine , Random Result Comment: UTO Performed By: #### L 100.0200, L400.0100, L500.2900 #### [facility] [address] [place], [address] PROT DIPSTX Normal Negative [facility] Comment on above: Order Comment: Urine , Random Result Comment: UTO Performed By: #### L 100.0200, L400.0100, L500.2900 #### [facility] [address] [place], [address] SP.GR. DIPSTX Normal 1.002-1.030 [facility] Comment on above: Order Comment: Urine , Random Result Comment: UTO Performed By: #### L 100.0200, L400.0100, L500.2900 #### [facility] [address] [place], [address] UR Preservative Normal [facility] Comment on above: Order Comment: Urine , Random Result Comment: UTO Performed By: #### L 100.0200, L400.0100, L500.2900 #### [facility] [address] [place], [address] UROBILI Normal Normal [facility] Comment on above: Order Comment: Urine , Random Result Comment: UTO Performed By: #### L 100.0200, L400.0100, L500.2900 #### [facility] [place], [address] White blood cell (WBC) count Ordered By: HEALTH ASSESSMENT on 07-01-2025 WBC (Bld) [#/Vol] 8.1 10*3/uL 4.4-11.0 [facility] CNOVon 06-21-2025 CNOV Office Visit (BILL) JOSE EDUARDO PRINCE ([id number]) 2000 F Date Time Provider Department 06/21/25 9:30 AM YANELI DOWLING During your visit today, we recorded the following information about you: Pulse Blood pressure Weight 94/minute 115/78 74.4 kg Yaneli Dowling APRN.DICE TABLE PERSON 06/21/2025 9:17 AM Signed - Whole food balanced protein, controlled carbohydrate nutrition plan - 30 g of protein 3 times a day and up to 30 g of carbs at lunch and dinner only. 1st meal of the day- 30g protein with limit of 2 gm carbohydrates. Premier Protein or generic 30 gm protein 1 gm sugar 2. 2-3 eggs and some unbreaded meat and/or cheese. 3. 2-3 eggs and 1/2 of protein shake or one of the yogurts below: :ratio, KETO Friendly Dairy Snack 1 single svg - 15g protein AND 2g carb Two Good Lowfat Thai Yogurt, Lower Sugar - 12g protein AND 2g carb No fruit, vegetables, bread, grain, other brands of yogurt, Smoothies, etc. Lunch and dinner - 30 gm protein is the goal with less than 30 gm carbohydrates All snacks and meals - all protein or more protein than carbs Protein - no carbs Egg 1 large - 6g Egg white 1 large 3.6g 3 oz is approximately the size of a deck of cards and equals 21 g protein so 4 oz is 28 gm protein Beef, Chicken, Avon, Pork, Sylvester 1 oz 7g Fish, Tuna Fish 1 oz 7g (Starkist tuna packet 2.6 oz 17 gm protein) Seafood (Crabmeat, Shrimp, Lobster) 1 oz 6g Protein shakes (read labels) Premier Protein or generic [employer] Equate, [employer] High Performance- 30g protein AND 2g carb Premier Protein powder or generic- 30 g protein, 1g carb Fairlife 30 gram protein - 30g protein AND 3g carb BOOST Glucose Control Max 30g Protein Nutritional Drink - 30g protein AND 1g carb Nurri 30g protein 2g carb Slimfast High Protein - 20g protein AND 1g carb Ensure Max Protein Nutrition Shake 30g protein AND 2g carb OWYN plant based 100 % vegan no dairy, soy, wheat/gluten 32g protein 0 net carb Premier Protein plant protein powder - 25g protein, 0 sugar/2g carb Vanilla and chocolate Genius Gourmet Sparkling Clear water ([employer]) 30g protein <1 carb Protein AND carbs Beef/Avon Jerky 1 oz dried 10-15g protein - check carb count, can be high if sugar added Slim Davy - 6 gm protein and 4 net carb Great Value original turkey sausage sticks - 7 gm protein and 2 gm carb Eddie (at [employer]) Original smoked sausage sticks - 8 gm protein and 0 carb Imitation Crab Meat 1 oz - 2g protein AND 4g carb Milk, skim 2% or 1% 8 oz - 8g protein AND 12g carb Fairlife 2% milk 8 oz -13g protein AND 6g carb Thai yogurt Full Fat Thai Yogurt 1 cup - 20.4g protein AND 9.1g carb 2% Thai Yogurt 1 cup - 22.7g protein AND 9.1g carb 0% (fat-free) Thai Yogurt - 1 cup 24g protein AND 9.3g carb Aldi Protein Thai yogurt single svg - 13/g15g protein AND 7g carb Chobani Zero Sugar single svg: - 12g protein AND 5g carb Dannon Thai Light + Fit 1 single svg - 12g protein AND 9g carb Oikos Pro single svg - 20g protein AND 8g carb Oikos Triple Zero Thai Nonfat Yogurt 1 single svg - 15g protein AND 7g carb :ratio, KETO Friendly Dairy Snack 1 single svg - 15g protein AND 2g carb :ratio Protein 1 single svg - 25g protein AND 8g carb Two Good Lowfat Thai Yogurt, [place], Lower Sugar - 12g protein AND 2g carb Yoplait Protein 1 single svg 15g protein AND 5g carb Dairy Free - [place] unsweetened Thai almond/soy 15g protein AND 3g carb Dairy Free - True Goodness by [employer] coconut-based yogurt alternative 1 g protein 1 g net carb 180 min Drinkable yogurts: Chobani drinkable 15g, 20g and 30g protein AND 18 carb (too many carbs for breakfast) Chobani Zero Sugar 10g protein 6g carbs 50 calories Oikos Pro drinkable yogurt 1 single svg - 23g protein AND 8g carb :ratio Protein 26g protein 9g carb Cheese each oz Brie 5.9g protein AND 0.1g carb Cheddar 7g protein AND 0.4g carb Gurdeep 6.7g protein AND 0.7g carb Cream Cheese 1.7g protein AND 1.2g carb DATAllegro Farms whipped Thai cream cheese (WM) 2 T 3g protein 2g carb Feta 4g protein AND 1.2g carb Mozzarella 6.3g protein AND 0.6g carb Parmesan 10g protein AND 0.9g carb Emir[place] 7.6g protein AND 1.5g carb Cottage Cheese 1/2 c Breakstone 2% 13g protein 7g carb Dorina 2% 13g protein 5 g carb Good Culture 2% 14g protein 3g carb Lactaid 13g protein 5g carb Velasquez?s Low Fat 12g protein AND 4g carb Legumes Lentils ? cup 9g protein AND 20g carb Carrasco beans ? cup 7g protein AND 20g carb Kidney, Black, [place], Cannellini beans ? cup 8g protein AND 20g carb Chickpeas 1/2 c 6g protein AND 15g carb Soybeans 1/2 c 14g complete protein AND 8.5g carb Vandergrift milk, unsweetened 8 oz 1g protein AND 2g carb Soy milk 8 oz 3.5g protein AND 1.6g carb Tofu 1/2 cup 10g protein AND 2.3g carb Peanut butter, natural 2 Tbsp 7-8g protein AND 4g ne (more content not included)... Normal [facility] Bacteria Ur Culton 5 Bacteria identified Cx Nom (U) ORGANISM ID: 1 10,000 -<50,000 CFU/ml Normal urogenital angela Normal [facility] Comment on above: Performed By: #### 6 30-4 ####[facility] LABCLIA [id number] [address] CNOVon 06-06-2025 CNOV Office Visit (OBPARISHWPrashanth) JOSE EDUARDO PRINCE ([id number]) 2000 F Date Time Provider Department 06/06/25 1:00 PM YANELI DOWLING During your visit today, we recorded the following information about you: Blood pressure Weight Height 126/84 76.2 kg 1.62 m Yaneli Dowling APRN.DICE TABLE PERSON 06/06/2025 6:43 PM Signed [employer] offered: Patient declines. Zamudio is a 25 year old who presents for an annual gynecologic exam with complaints of lleft-sided plate left lower quadrant pain which is improving but still present. Left-Sided Pain: - Reports experiencing left-sided pain, particularly when her bladder is full; pain subsides after emptying her bladder. Evaluated by Dr. Carrillo 2 weeks ago. (05/20/2025) Gonorrhea, Chlamydia, and Trichomonas: Negative Pelvic ultrasound was ordered - needs order faxed to [facility]. - Pain is more pronounced at work, where she often holds her bladder; less noticeable when not working. - Engages in weightlifting exercises. - Feels she may not be fully emptying her bladder at times. - Trace amounts of blood in her urine during the last two samples, not associated with her menstrual period. Menses: cycles every 4 months and 4-5 days of flow. Mild cramping. Contraception: combined hormonal contraceptives and condoms HPV vaccine: Yes Last Pap: 06/03/2023 normal HPV: NA History of abnormal pap: No Last mammogram: never Sexually active: Yes Time with current partner: 2 months History of STDS: None Patient concerns for STD exposure: No. STD testing negative 2 weeks ago Bothersome pelvic pain: Yes Some documentation from previous visit of 06/05/2024 was copied and pasted, documentation has been reviewed and edited as necessary for today's visit OB History Gravida0 Para0 Term0 Preterm0 AB0 Living0 SAB0 IAB0 Ectopic0 Multiple0 Live Births0 Applications Scientist History LMP: 04/03/2025 (Approximate), Having periods Age at Menarche: Age at First : Age at Menopause: Applications Scientist History Comments: Sexual Activity: Yes; Male Contraception: Pill, Condom PAST MEDICAL HISTORY Diagnosis Date Anxiety state Cysts of both ovaries 03/17/2019 Excessive sweating 03/21/2012 Exercise-induced asthma (HCC) 01/30/2014 Family history of factor V Leiden mutation 06/19/2015 Polycystic ovarian syndrome 03/17/2019 suspected Post concussion syndrome 09/17/2014 Visual disturbance 09/17/2014 PAST SURGICAL HISTORY Procedure Laterality Date ORAL SURGERY PROCEDURE PAST SURGICAL HISTORY OF 11/06/2009 ganglion cyst left wrist FAMILY HISTORY Problem Relation Age of Onset Hypothyroidism Mother Obesity Mother other (overweight) Father Cancer Maternal Grandmother Thyroid CA Cancer Maternal Grandfather Thyroid CA Diabetes Maternal Grandfather other (factor V) Maternal Grandfather Obesity Maternal Grandfather Colon Cancer Paternal Grandmother Obesity Paternal Grandfather Asthma Maternal Aunt Asthma Paternal Uncle SOCIAL HISTORY Social History Tobacco Use Smoking status: Never Smokeless tobacco: Never Vaping Use Vaping status: Never Used Substance Use Topics Alcohol use: No Drug use: No REVIEW OF SYSTEMS Gastrointestinal: (+) left lower abdominal pain, (-) constipation Genitourinary: (+) mild menstrual cramping, (+) hematuria, (+) sensation of incomplete bladder emptying Breast: No breast lumps, nipple d/c, overlying skin changes, redness or skin retraction. Allergies and current medication updated:Yes SENSITIVE EXAM: The sensitive examination was discussed with the Patient or Patient's Authorized Fixed Assets Accountant. As applicable, any other physician, advance practice provider, medical student, or other health professional student that will be observing or involved in the sensitive examination for educational or training purposes was discussed with the Patient or Authorized Fixed Assets Accountant. The Patient or Authorized Fixed Assets Accountant has agreed to proceed with the sensitive examination. (Sensitive examination includes inspection and/or palpation of the breasts, pelvis, prostate and anorectal regions). EXAM: BP 126/84 Ht 5' 3.78" (1.62m) Wt 168 lb (76.2kg) LMP 04/03/2025 BMI 29.04 kg/(m2). GENERAL: pleasant, female in no apparent [...] external genitalia normal, normal Bartholin's glands, urethra, Ozark's glands, no vulvar lesions, no cervical lesions, good vaginal support, physiologic discharge present, normal appearing perine (more content not included)... Normal [facility] Urinalysis complete panel (U )on 06-06-2025 Bacteria LM.HPF (Urine sed) [#/Area] Negative Negative /HPF [facility] Bilirubin Ql (U) Negative Negative [facility] Clarity (Unsp spec) Clear Clear [facility] Color (U) Yellow Yellow [facility] Epithelial cells LM.HPF (Urine sed) [#/Area] None Seen /HPF [facility] Glucose Test strip (U) [Mass/Vol] Negative Negative [facility] Hemoglobin Ql (U) Negative Negative [facility] Hyaline casts (Urine sed) [#/Area] 0 /[LPF] 0 /LPF [facility] Ketones Ql (U) Negative Negative [facility] Leukocyte esterase Test strip Ql (U) Negative Negative [facility] Nitrite Ql (U) Negative Negative [facility] pH (U) 6.5 [pH] 5.0 - 8.0 [facility] Protein (U) [Mass/Vol] Negative Negative Cl [facility] RBC LM.HPF (Urine sed) [#/Area] 0-2 /HPF 0-2 /HPF [facility] Specific gravity (U) [Rel density] 1.019 1.005 - 1.030 [facility] Urobilinogen Ql (U) 0.2 EU/dL 0.2-1.0 EU/dL [facility] WBC LM.HPF (Urine sed) [#/Area] 0-5 /HPF 0-5 /HPF [facility] This test was developed and its performance characteristics determined by [facility]'s [facility] [place] [facility] It has not been cleared or approved by the FDA. [facility] is regulated under CLIA as qualified to perform high-complexity testing. This test is used for clinical purposes. It should not be regarded as investigational or for research. [facility] Bacteria LM.HPF (Urine sed) [#/Area] Negative Normal Negative [facility] Comment on above: Order Comment: Speci men Type: URINE SPECIMENOrdering Facility: [facility] Address: [address] [place] [address] Performed By: #### 2 4356-8 ####[facility] LABIA [id number] [place] [address] [place] Bilirubin Ql (U) Negative Normal Negative [facility] Comment on above: Order Comment: Speci men Type: URINE SPECIMENOrdering Facility: [facility] Address: [address] [place] [address] Performed By: #### 2 4356-8 ####[facility] LABIA [id number] [place] [id number] [place] Clarity (Unsp spec) Clear Normal Clear [facility] Comment on above: Order Comment: Speci men Type: URINE SPECIMENOrdering Facility: [facility] Address: [address] [place] [address] Performed By: #### 2 4356-8 ####[facility] LABIA [id number] [place] [address] [place] Color (U) Yellow Normal Yellow [facility] Comment on above: Order Comment: Speci men Type: URINE SPECIMENOrdering Facility: [facility] Address: [address] [place] [address] Performed By: #### 2 4356-8 ####[facility] LABCLIA [id number] [address] [place] Epithelial cells LM.HPF (Urine sed) [#/Area] None Seen Normal [facility] Comment on above: Order Comment: Speci men Type: URINE SPECIMENOrdering Facility: [facility] Address: [address] [place] [address] Performed By: #### 2 4356-8 ####[facility] LABCLIA [id number] [address] [place] Glucose Test strip (U) [Mass/Vol] Negative Normal Negative [facility] Comment on above: Order Comment: Speci men Type: URINE SPECIMENOrdering Facility: [facility] Address: [address] [place] [address] Performed By: #### 2 4356-8 ####[facility] LABCLIA [id number] [address] [place] Hemoglobin Ql (U) Negative Normal Negative [facility] Comment on above: Order Comment: Speci men Type: URINE SPECIMENOrdering Facility: [facility] Address: [address] [place] [address] Performed By: #### 2 4356-8 ####[facility] LABCLIA [id number] [place] [address] [place] Hyaline casts (Urine sed) [#/Area] 0 /[LPF] Normal 0 /LPF [facility] Comment on above: Order Comment: Speci men Type: URINE SPECIMENOrdering Facility: [facility] Address: [address] [place] [address] Performed By: #### 2 4356-8 ####[facility] LABCLIA [id number] [address] [place] [address] [place] Ketones Ql (U) Negative Normal Negative [facility] Comment on above: Order Comment: Speci men Type: URINE SPECIMENOrdering Facility: [facility] Address: [address] [place] [address] Performed By: #### 2 4356-8 ####[facility] LABCLIA [id number] [address], [place] [address] [place] Leukocyte esterase Test strip Ql (U) Negative Normal Negative [facility] Comment on above: Order Comment: Speci men Type: URINE SPECIMENOrdering Facility: [facility] Address: [address] [place] [address] Performed By: #### 2 4356-8 ####[facility] LABCLIA [id number] [place] [address] [place] Nitrite Ql (U) Negative Normal Negative [facility] Comment on above: Order Comment: Speci men Type: URINE SPECIMENOrdering Facility: [facility] Address: [address] [place] [address] Performed By: #### 2 4356-8 ####[facility] LABCLIA [id number] [place] [address] [place] pH (U) 6.5 [pH] Normal 5.0-8.0 [facility] Comment on above: Order Comment: Speci men Type: URINE SPECIMENOrdering Facility: [facility] Address: [address] [place] [address] Performed By: #### 2 4356-8 ####[facility] LABCLIA [id number] [place] [address] [place] Protein (U) [Mass/Vol] Negative Normal Negative [facility] Comment on above: Order Comment: Speci men Type: URINE SPECIMENOrdering Facility: [facility] Address: [address] [place] [address] Performed By: #### 2 4356-8 ####[facility] LABCLIA [id number] [place] [address] [place] RBC LM.HPF (Urine sed) [#/Area] 0-2 /HPF Normal 0-2 /HPF [facility] Comment on above: Order Comment: Speci men Type: URINE SPECIMENOrdering Facility: [facility] Address: [address] [place] [address] Performed By: #### 2 4356-8 ####[facility] LABIA [id number] [place] [address] [place] Specific gravity (U) [Rel density] 1.019 Normal 1.005-1.030 [facility] Comment on above: Order Comment: Speci men Type: URINE SPECIMENOrdering Facility: [facility] Address: [address] [place] [address] Performed By: #### 2 4356-8 ####[facility] LABIA [id number] [place] [address] [place] Urobilinogen Ql (U) 0.2 EU/dL Normal 0.2-1.0 EU/dL [facility] Comment on above: Order Comment: Speci men Type: URINE SPECIMENOrdering Facility: [facility] Address: [address] [place] [address] Performed By: #### 2 4356-8 ####[facility] LABIA [id number] [place] [address] [place] WBC LM.HPF (Urine sed) [#/Area] 0-5 /HPF Normal 0-5 /HPF [facility] Comment on above: Order Comment: Speci men Type: URINE SPECIMENOrdering Facility: [facility] Address: [address] [place] [address] Performed By: #### 2 4356-8 ####[facility] LABIA [id number] [place] [id number] [facility] [place] 05-21-2025 CNPN Telephone (OBGYWM) PRINCEJOSE EDUARDO ([id number]) 2000 F Date Time Provider Department 05/21/25 GINA CARRILLO OBGYWPrashanth During your visit today, we recorded the following information about you: Allergies As of Date: 05/21/2025 Noted Allergy Reaction BEES 01/17/2018 7 - Swelling CATS 06/08/2018 16 - Unknown Comments: Had allergy testing done DUST 06/08/2018 16 - Unknown FEATHERS 06/08/2018 16 - Unknown OAK 06/08/2018 16 - Unknown TREE POLLEN-GIBRALTARIAN ELM 06/08/2018 16 - Unknown VICODIN (HYDROCODONE-ACETAMI NOPHE*02/20/2013 11 - Vomiting WEED POLLEN 06/08/2018 16 - Unknown Date Reviewed: 05/20/2025 Reviewed by: Gina Carrillo MD - Fully Assessed Reason for Visit: Orders [681] Primary Visit Diagnosis:Pelvic pain [R10.2] Order(s):URINALYSIS, WITH MICROSCOPIC [SQUAWMIC] Order #: [id number] FUTURE BACTERIAL CULTURE, URINE [SQURCUL] Order #: [id number] FUTURE Prescriptions as of 05/21/2025 - topiramate (TOPAMAX) 25 mg tablet Take 1 tablet by mouth two times a day. - buPROPion SR (WELLBUTRIN SR) 150 mg 12 hr tablet Take 1 tablet by mouth every morning. - metFORMIN ER (GLUCOPHAGE XR) 750 mg 24 hr tablet Take 1 tablet by mouth two times a day with meals. - Phentermine HCl 37.5 mg tablet Take 1 tablet by mouth daily before breakfast for 90 days. - celecoxib (CELEBREX) 100 mg capsule Take 100 mg by mouth once daily. - RHOFADE 1 % crea once daily. - Drospirenone-Ethinyl Estradiol (ANNIA, 28,) 3-0.03 mg per tablet Take 1 tablet by mouth once daily. FOR CONTINUOUS USE. - loratadine (CLARITIN ORAL) Take by mouth. - MULTI-VITAMIN TAB Take one(1) tablet daily. Problem List As Of Date 05/21/2025 Noted Resolved Cervicalgia [M54.2] 06/16/2007 06/19/2015 Ganglion, unspecified [M67.40] 06/24/2008 06/19/2015 Closed fracture of unspecified phalanx or phala*02/16/2010 06/19/2015 Heart murmur [R01.1] 04/20/2010 06/19/2015 Excessive sweating [R61] 03/21/2012 Irregular menses [N92.6] 08/11/2012 Ovarian cyst [N83.209] 08/15/2012 Well adolescent visit [Z00.129] 12/27/2013 Exercise-induced asthma [J45.990] 01/30/2014 Post concussion syndrome [F07.81] 09/17/2014 06/19/2015 Visual disturbance [H53.9] 09/17/2014 06/19/2015 Family history of factor V Leiden mutation [Z83*06/19/2015 Chronic left-sided low back pain without sciati*07/02/2016 Chronic sinusitis, unspecified [J32.9] 09/12/2017 Temporomandibular joint disorder [M26.609] 01/13/2018 Acute nonsuppurative otitis media [H65.199] 08/06/2017 06/08/2018 Sinusitis [J32.9] 08/06/2017 06/08/2018 Tinea corporis [B35.4] 06/08/2018 06/08/2018 Nummular eczema [L30.0] 06/08/2018 Anxiety and depression [F41.9, F32.A] 06/22/2018 Weight gain [R63.5] 03/17/2019 Irritable bowel syndrome with both constipation* 019 Cysts of both ovaries [N83.201, N83.202] 03/17/2019 Polycystic ovarian syndrome [E28.2] 03/17/2019 Obesity, Class II, BMI 35-39.9 [E66.812] 04/16/2019 Binge-eating disorder, in full remission, mild *06/13/2024 Seasonal affective disorder (HCC) [F33.8] 06/13/2024 History of obesity [Z86.39] 06/13/2024 Encounter Status:Closed by GINA CARRILLO on 05/21/25 Normal [facility] BACTERIAL VAGINOSIS NAATon 0 05-20-2025 Lactobacillus crispatus+gasseri+jense bianca + Gardnerella vaginalis + Atopobium vaginae rRNA SANJEEV+probe Ql (Vag fld) Not detected Normal Not detected [facility] Comment on above: Order Comment: Speci men Type: SWABOrdering Facility: [facility] Address: [address] [place] [address] Performed By: #### 3 6902-5, BVAMP ####[facility] LABCLIA [id number] [address] [place] C. trachomatis+N. gonorrhoea e DNA SANJEEV+probe Ql (Unsp spec)on 05-20-2025 C. trachomatis rRNA SANJEEV+probe Ql (Unsp spec) Not detected Normal Not detected [facility] Comment on above: Order Comment: Speci men Type: SWABOrdering Facility: [facility] Address: [address] [place] [address] Performed By: #### 3 6902-5, BVAMP ####[facility] LABCLIA [id number] [place] [address] [place] N. gonorrhoeae rRNA SANJEEV+probe Ql (Unsp spec) Not detected Normal Not detected [facility] Comment on above: Order Comment: Speci men Type: SWABOrdering Facility: [facility] Address: [address] [place] [address] Performed By: #### 3 6902-5, BVAMP ####[facility] LABCLIA [id number] [place] [address] [place] DILCIA/TRICHOMONAS NAATon 0 05-20-2025 C. glabrata RNA SANJEEV+probe Ql (Vag fld) Not detected Normal Not detected [facility] Comment on above: Order Comment: Speci men Type: SWABOrdering Facility: [facility] Address: [address] [place] [address] Performed By: #### C VTV ####[facility] LABCLIA [id number] [address] [place] Dilcia sp DNA SANJEEV+probe Ql (Vag fld) Not detected Normal Not detected [facility] Comment on above: Order Comment: Speci men Type: SWABOrdering Facility: [facility] Address: [address] [place] [address] Result Comment: The Dilcia species group target includes C. albicans, C. tropicalis, C. parapsilosis, and C. dubliniensis. Performed By: #### C VTV ####[facility] LABCLIA [id number] [address] [place] T. vaginalis DNA SANJEEV+probe Ql (Unsp spec) Not detected Normal Not detected [facility] Comment on above: Order Comment: Speci men Type: SWABOrdering Facility: [facility] Address: [address] [place] [address] Performed By: #### C VTV ####[facility] LABCLIA [id number] [address] [place] CNOVon 05-20-2025 CNOV Office Visit (OBGYWM) JOSE EDUARDO PRINCE ([id number]) 2000 F Date Time Provider Department 05/20/25 9:00 AM GINA CARRILLO OBROCIO During your visit today, we recorded the following information about you: Blood pressure Weight Last Period 120/78 75.7 kg 04/03/25 Gina Carrillo MD 05/20/2025 9:29 AM Signed Sweeper Brush Maker Machine offered: Patient declines. Jose Eduardo Prince is a 25 year old female who presents for problem visit - vaginal discharge. HPI: Had a new sexual partner 2 weeks ago. Experiencing a change in vaginal discharge. Vaginal itching and odor as well. 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 LLQ pain when her bladder is full. Once she voids the pain resolves. No pain today. No dysuria or hematuria. Denies fevers, chills, malaise, nausea, vomiting. On Annia for contraception. OB History Gravida0 Para0 Term0 Preterm0 AB0 Living0 SAB0 IAB0 Ectopic0 Multiple0 Live Births0 Applications Scientist History LMP: 04/03/2025 (Approximate), Having periods Age at Menarche: Age at First : Age at Menopause: Applications Scientist History Comments: Sexual Activity: Not Currently; Male Contraception: Pill, Condom PAST MEDICAL HISTORY Diagnosis Date Anxiety state Cysts of both ovaries 03/17/2019 Excessive sweating 03/21/2012 Exercise-induced asthma (HCC) 01/30/2014 Family history of factor V Leiden mutation 06/19/2015 Polycystic ovarian syndrome 03/17/2019 suspected Post concussion syndrome 09/17/2014 Visual disturbance 09/17/2014 PAST SURGICAL HISTORY Procedure Laterality Date ORAL SURGERY PROCEDURE PAST SURGICAL HISTORY OF 11/06/2009 ganglion cyst left wrist FAMILY HISTORY Problem Relation Age of Onset Hypothyroidism Mother Obesity Mother other (overweight) Father Cancer Maternal Grandmother Thyroid CA Cancer Maternal Grandfather Thyroid CA Diabetes Maternal Grandfather other (factor V) Maternal Grandfather Obesity Maternal Grandfather Colon Cancer Paternal Grandmother Obesity Paternal Grandfather Asthma Maternal Aunt Asthma Paternal Uncle Social History Tobacco Use Smoking status: Never Smokeless tobacco: Never Vaping Use Vaping status: Never Used Substance Use Topics Alcohol use: No Drug use: No Current Outpatient Medications Medication Sig topiramate (TOPAMAX) 25 mg tablet Take 1 tablet by mouth two times a day. buPROPion SR (WELLBUTRIN SR) 150 mg 12 hr tablet Take 1 tablet by mouth every morning. metFORMIN ER (GLUCOPHAGE XR) 750 mg 24 hr tablet Take 1 tablet by mouth two times a day with meals. Phentermine HCl 37.5 mg tablet Take 1 tablet by mouth daily before breakfast for 90 days. celecoxib (CELEBREX) 100 mg capsule Take 100 mg by mouth once daily. RHOFADE 1 % crea once daily. Drospirenone-Ethinyl Estradiol (ANNIA, 28,) 3-0.03 mg per tablet Take 1 tablet by mouth once daily. FOR CONTINUOUS USE. loratadine (CLARITIN ORAL) Take by mouth. MULTI-VITAMIN TAB Take one(1) tablet daily. No current facility-administere d medications for this visit. Allergies As of Date: 05/20/2025 Allergen Noted Reaction BEES 01/17/2018 Swelling CATS 06/08/2018 Unknown DUST 06/08/2018 Unknown FEATHERS 06/08/2018 Unknown OAK 06/08/2018 Unknown TREE POLLEN-GIBRALTARIAN ELM 06/08/2018 Unknown VICODIN [HYDROCODONE-ACETAMI NOPHE*02/20/2013 Vomiting WEED POLLEN 06/08/2018 Unknown Fully Assessed 05/20/2025 REVIEW OF SYSTEMS Expanded ROS: See HPi Allergies and current medication updated:Yes SENSITIVE EXAM: The sensitive examination was discussed with the Patient or Patient's Authorized Fixed Assets Accountant. As applicable, any other physician, advance practice provider, medical student, or other health professional student that will be observing or involved in the sensitive examination for educational or training purposes was discussed with the Patient or Authorized Fixed Assets Accountant. The Patient or Authorized Fixed Assets Accountant has agreed to proceed with the sensitive examination. (Sensitive examination includes inspection and/or palpation of the breasts, pelvis, prostate and anorectal regions). EXAM: BP 120/78 Wt 166 lb 12.8 oz (75.7kg) LMP 04/03/2025 GENERAL: pleasant, female in no apparent distress HEENT: Normocephalic and atraumatic NECK: full range of motion CHEST: Normal inspiratory effort ABDOMEN: soft, non-tender, and no masses PELVIC: external genitalia normal, normal Bartholin's glands, urethra, Ozark's glands, no vulvar lesions, no cervical lesions, good vaginal support, physiologic discharge present, normal appearing perineal body and perianal region BIMANUAL: uterus normal size, shape and consistency, no adnexal masses, non-tender, and no cervical motion tenderness NEURO: exam grossly non-focal EXTREMITIES: normal ASSESSMENT AND PLAN: Assessment AND Plan Vaginal discharge Orders: BACTERIAL VAGINOSIS NAAT DILCIA/TRICHOMONAS NAAT GO (more content not included)... Normal [facility] UA DIP, URINE (POC)on 2024 BILIRUBIN UA (POCT) Negative Negative [facility] CLARITY UA (POCT) Clear [facility] COLOR UA (POCT) Yellow [facility] GLUCOSE UA (POCT) Negative Negative mg/dL [facility] Hemoglobin Ql (U) Trace-intact Abnormal Negative [facility] Interpretation and review of laboratory results Abnormal [facility] KETONE UA (POCT) Negative Negative mg/dL [facility] LEUKOCYTES UA (POCT) Negative Negative [facility] NITRITE UA (POCT) Negative Negative [facility] PH UA (POCT) 7 4.5 - 8.0 [facility] Protein Ql (U) Negative Negative mg/dL [facility] SPECIFIC GRAVITY UA (POCT) 1.01 1.005 - 1.030 [facility] UROBILINOGEN UA (POCT) 0.2 Normal E.U./d L [facility] Location:[facility], [address], [place], [place], [id number] [place] [address] POINT OF CARE [facility] CNOVon 04-05-2025 CNOV Office Visit (OBGYWM) SURESHGRAYJOSE EDUARDO L ([id number]) 2000 F Date Time Provider Department 04/05/25 11:00 AM YANELI DOWLING During your visit today, we recorded the following information about you: Pulse Blood pressure Weight Last Period 90/minute 118/79 78.5 kg 02/01/25 Yaneli Dowling APRN.DICE TABLE PERSON 04/05/2025 7:57 PM Signed Some documentation from previous visit of 12/20/2024 was copied and pasted, documentation has been reviewed and edited as necessary for today's visit. Patient Summary: Jose Eduardo is a 25 year old Female who presents for follow-up evaluation of obesity/weight management to treat PCOS, BED, anxiety., depression and prevent related co-morbidities. In our previous visits we have discussed lifestyle intervention including a nutrition recommendations and physical activity optimization. Her last office visit was 3 months ago. Assessment/plan from last visit: - Metformin ER 750 mg twice a day - Phentermine 37.5 mg - sometimes takes 1/2 tablet - Topiramate 25-50 mg evening - Bupropion 150 mg -1 tablet in morning Mood improved with some cravings if she allows herself to get hungry. - BED - no episodes with topiramate Interval History A few times finds she is easily giving in to cravings or family going for ice cream and joining in. Is not mindful of choice of ice cream. Feels like she has gained muscle so not disappointed at weight gain Vacation - did not work out on vacation. Mindful of nutrition - happy with her choices. Diet changes B - Usually protein powder 25 gm with 4-5 carb and 1 egg and sometimes Fairlife 30 gm protein shake S - sometimes TZ yogurt or rare vegetables and yogurt with Ranch or cottage cheese or Quest chips or 17 gm protein bar L - chicken or tuna packet and lettuce and Quest chips and usually a raw veg, occasional Triple Zero yogurt if she did not have it as a snack S - occasionally TZ yogurt or rare vegetables and Thai yogurt with Ranch or cottage cheese or Quest chips or turkey sticks with cheese crisps D - protein, vegetables both low carb and starchy/zoodles or rare Bird's Eye Veggie Pasta with sauce or portion of protein pasta/rice S - none Fluids - Lemon water, [place], diet Coke, SF electrolyte drink Current Barriers: stress eating, grazing/irregular meal patterns on some work days, and food cue over-responsiveness if someone mentions ordering food or going out to eat/get ice cream She feels the medications help to control BED, increase fullness, decrease hunger. No SE. 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 Sleep: stable 7 hours, except for this week working some nights Weight loss since last vist: +2 lbs for total of 24 lbs weight loss Date: Weight: BMI: Medications: 03/15/2025 173 lb 29.54 12/20/2024 171 lb 29.19 09/26/2024 173 lb 29.54 Metformin ER 06/13/2024 169 lb 28.85 03/14/2024 172 lb 28.62 12/15/2023 183 lb phentermine 37.5 mg bupropion SAD 09/22/2023 187 lb 31.12 08/26/2023 195 lb Phentermine 37.5 mg , Metformin 06/30/2023 197 lb 32.82 WC 36 in Phentermine 15, Topiramate 5% weight loss = 187 lbs, 10% weight loss = 177 lbs Phentermine Start date: ?06/30/2023 Start weight: ?197 lbs. Dose: 15mg capsule, increased to 37.5 mg 12/15/2023 -- Patient reports suppression of her appetite and increase in satiety since starting -- Patient reports no side effects Topiramate Dose:25 mg -- Patient reports suppression of her appetite and increase in satiety since starting. Remission of BED SE: paresthesia if dose increased CrCl cannot be calculated (Patient's most recent lab result is older than the maximum 180 days allowed.). PAST MEDICAL HISTORY Diagnosis Date Anxiety state Cysts of both ovaries 03/17/2019 Excessive sweating 03/21/2012 Exercise-induced asthma 01/30/2014 Family history of factor V Leiden mutation 06/19/2015 Polycystic ovarian syndrome 03/17/2019 suspected Post concussion syndrome 09/17/2014 Visual disturbance 09/17/2014 Current Outpatient Medications Medication Sig Dispense Refill buPROPion SR (WELLBUTRIN SR) 150 mg 12 hr tablet Take 1 tablet by mouth every morning. 90 tablet 1 topiramate (TOPAMAX) 25 mg tablet Take 1 tablet by mouth two times a day. 180 tablet 1 metFORMIN ER (GLUCOPHAGE XR) 750 mg 24 hr tablet Take 1 tablet by mouth two times a day with meals. 180 tablet 1 celecoxib (CELEBREX) 100 mg capsule Take 100 mg by mouth once daily. RHOFADE 1 % crea once daily. Drospirenone-Ethinyl Estradiol (ANNIA, 28,) 3-0.03 mg per tablet Take 1 tablet by mouth once daily. FOR CONTINUOUS USE. 112 tablet 5 loratadine (CLARITIN OR (more content not included)... Normal [facility] CNOVon 12-20-2024 CNOV Office Visit (OBGYWM) JOSE EDUARDO PRINCE ([id number]) 2000 F Date Time Provider Department 12/20/24 10:00 AM YANELI DOWLING During your visit today, we recorded the following information about you: Pulse Blood pressure Weight Last Period 100/minute 124/84 77.6 kg 11/29/24 Yaneli Dowling APRN.CNP 12/20/2024 12:55 PM Signed Some documentation from previous visit of 09/26/2024 was copied and pasted, documentation has been reviewed and edited as necessary for today's visit. Patient Summary: Jose Eduardo is a 24 year old Female who presents for follow-up evaluation of obesity/weight management to treat PCOS, BED, anxiety., depression and prevent related co-morbidities. In our previous visits we have discussed lifestyle intervention including a nutrition recommendations and physical activity optimization. Her last office visit was 3 months ago. Assessment/plan from last visit: - Metformin ER 750 mg twice a day - Phentermine 37.5 mg - sometimes takes 1/2 tablet - Topiramate 25 mg evening - Bupropion 150 mg -1 tablet in evening. Mood improved with no cravings is having some cravings now. - BED - no episodes with topiramate Interval History B - Usually protein powder 25 gm with 4-5 carb and 1 egg and sometimes Fairlife 30 gm protein shake S - occasionally TZ yogurt or rare vegetables and yogurt with Ranch or cottage cheese or Quest chips L - chicken or tuna packet and lettuce and Quest chips and usually a raw veg, occasional Triple Zero yogurt if she did not have it as a snack S - occasionally TZ yogurt or rare vegetables and yogurt with Ranch or cottage cheese or Quest chips D - protein, vegetables both low carb and starchy/zoodles or Bird's Eye Veggie Pasta with sauce. Sometimes portion of protein pasta/rice or turkey sticks with cheese crisps S - rare popcorn Fluids - Lemon water, [place] Current Barriers: emotional eating and stress eating She feels the medications help to control BED, increase fullness, decrease hunger. No SE. 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 Sleep: stable 7 hours, except for this week working some nights Weight loss since last vist: -2 lbs for total of 26 lbs weight loss Date: Weight: BMI: Medications: 12/20/2024 171 lb 29.19 09/26/2024 173 lb 29.54 Metformin ER 06/13/2024 169 lb 28.85 03/14/2024 172 lb 28.62 12/15/2023 183 lb phentermine 37.5 mg bupropion SAD 09/22/2023 187 lb 31.12 08/26/2023 195 lb Phentermine 37.5 mg , Metformin 06/30/2023 197 lb 32.82 WC 36 in Phentermine 15, Topiramate 5% weight loss = 187 lbs, 10% weight loss = 177 lbs Phentermine Start date: ?06/30/2023 Start weight: ?197 lbs. Dose: 15mg capsule, increased to 37.5 mg 12/15/2023 -- Patient reports suppression of her appetite and increase in satiety since starting -- Patient reports no side effects Topiramate Dose:25 mg -- Patient reports suppression of her appetite and increase in satiety since starting. Remission of BED SE: paresthesia if dose increased Estimated Creatinine Clearance: 108.5 mL/min (based on SCr of 0.8 mg/dL). PAST MEDICAL HISTORY Diagnosis Date Anxiety state Cysts of both ovaries 03/17/2019 Excessive sweating 03/21/2012 Exercise-induced asthma 01/30/2014 Family history of factor V Leiden mutation 06/19/2015 Polycystic ovarian syndrome 03/17/2019 suspected Post concussion syndrome 09/17/2014 Visual disturbance 09/17/2014 Current Outpatient Medications Medication Sig Dispense Refill buPROPion SR (WELLBUTRIN SR) 150 mg 12 hr tablet Take 1 tablet by mouth every morning. 90 tablet 1 topiramate (TOPAMAX) 25 mg tablet Take 1 tablet by mouth two times a day. 180 tablet 1 Phentermine HCl 37.5 mg tablet Take 1 tablet by mouth daily before breakfast for 90 days. 90 tablet 0 metFORMIN ER (GLUCOPHAGE XR) 750 mg 24 hr tablet Take 1 tablet by mouth two times a day with meals. 180 tablet 1 celecoxib (CELEBREX) 100 mg capsule Take 100 mg by mouth once daily. RHOFADE 1 % crea once daily. Drospirenone-Ethinyl Estradiol (ANNIA, 28,) 3-0.03 mg per tablet Take 1 tablet by mouth once daily. FOR CONTINUOUS USE. 112 tablet 5 loratadine (CLARITIN ORAL) Take by mouth. MULTI-VITAMIN TAB Take one(1) tablet daily. 0 PLAQUENIL 200 mg tablet two times a day. (Patient not taking: Reported on 09/26/2024) No current facility-administere d medications for this visit. 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 Normal [facility] CNOVon 09-26-2024 JASENOV Office Visit (OBGYWPrashanth) JOSE EDUARDO PRINCE ([id number]) 2000 F Date Time Provider Department 09/26/24 9:30 AM YANELI DOWLING During your visit today, we recorded the following information about you: Pulse Blood pressure Weight Last Period 108/minute 122/64 78.5 kg 09/09/24 Yaneli Dowling APRN.JOHN 09/27/2024 6:55 AM Addendum Some documentation from previous visit of 06/13/2024 was copied and pasted, documentation has been reviewed and edited as necessary for today's visit. Patient Summary: Jose Eduardo is a 24 year old Female who presents for follow-up evaluation of obesity/weight management to treat PCOS, BED, anxiety., depression and prevent related co-morbidities. In our previous visits we have discussed lifestyle intervention including a nutrition recommendations and physical activity optimization. Her last office visit was 3 months ago. Assessment/plan from last visit: -Metformin 500 mg twice a day -Phentermine 37.5 mg - occasionally feels anxious so takes sometimes takes 1/2 tablet -Topiramate 25 mg evening -Bupropion 150 mg -1 tablet in morning. Mood improved with no cravings. - BED - no episodes with topiramate - increased anxiety, requests TSH Interval History Weight up 4 lbs but truly feels it is muscle B - Usually protein powder 25 gm with 4-5 carb and 1 egg and sometimes Fairlife 30 gm protein shake S - occasionally TZ yogurt L - chicken or tuna packet and lettuce and Quest chips and usually a raw veg, occasional Triple Zero yogurt if she did not have it as a snack S - rare vegetables and sometimes yogurt with Ranch or cottage cheese or Quest chips D - protein, vegetables both low carb and starchy/zoodles or Bird;s Eye Veggie Pasta with sauce. Sometimes portion of protein pasta/rice S - none Fluids - Lemon water, [place] Current Barriers: weather changes and therefore, food preferences She feels the medications help to decrease appetite. 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 Dose: 15mg capsule, increased to 37.5 mg 12/15/2023 -- Patient reports suppression of her appetite and increase in satiety since starting -- Patient reports no side effects Topiramate Dose:25 mg -- Patient reports suppression of her appetite and increase in satiety since starting. Remission of BED SE: paresthesia if dose increased CrCl cannot be calculated (Patient's most recent lab result is older than the maximum 180 days allowed.). PAST MEDICAL HISTORY Diagnosis Date Anxiety state Cysts of both ovaries 03/17/2019 Excessive sweating 03/21/2012 Exercise-induced asthma 01/30/2014 Family history of factor V Leiden mutation 06/19/2015 Polycystic ovarian syndrome 03/17/2019 suspected Post concussion syndrome 09/17/2014 Visual disturbance 09/17/2014 Current Outpatient Medications Medication Sig Dispense Refill PLAQUENIL 200 mg tablet two times a day. RHOFADE 1 % crea once daily. Drospirenone-Ethinyl Estradiol (ANNIA, 28,) 3-0.03 mg per tablet Take 1 tablet by mouth once daily. FOR CONTINUOUS USE. 112 tablet 5 topiramate (TOPAMAX) 25 mg tablet Take 1 tablet by mouth two times a day. 180 tablet 1 buPROPion SR (WELLBUTRIN SR) 150 mg 12 hr tablet Take 1 tablet by mouth every morning. 90 tablet 1 metFORMIN (GLUCOPHAGE) 500 mg tablet Take 2 tablets by mouth two times a day with meals. 360 tablet 1 loratadine (CLARITIN ORAL) Take by mouth. MULTI-VITAMIN TAB Take one(1) tablet daily. 0 No current facility-administere d medications for this visit. 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 Assessment/Plan: Jose Eduardo Prince is a 24 year old yo with Class I obesity who presented today for follow up for supervised weight loss to treat and prevent related co-morbidities. 1. Polycystic ovaria (more content not included)... Normal [facility] Comprehensive metabolic 2000 panelOrdered By: Bernie Jackson on 09-26-2024 Albumin [Mass/Vol] 4.7 g/dL 3.9 - 4.9 g/dL [facility] ALP [Catalytic activity/Vol] 57 U/L 34 - 123 U/L [facility] ALT [Catalytic activity/Vol] 12 U/L 7 - 38 U/L [facility] Anion gap [Moles/Vol] 17 mmol/L High 8 - 15 mmol/L [facility] AST [Catalytic activity/Vol] 17 U/L 13 - 35 U/L [facility] Bilirubin [Mass/Vol] 0.2 mg/dL 0.2 - 1 .3 mg/dL [facility] Calcium [Mass/Vol] 10.1 mg/dL 8.5 - 10. 2 mg/dL [facility] Chloride [Moles/Vol] 101 mmol/L 98 - 10 7 mmol/L [facility] CO2 [Moles/Vol] 15 mmol/L Low 22 - 30 mmol/L [facility] Creatinine [Mass/Vol] 0.80 mg/dL 0.58 - 0.96 mg/dL [facility] GFR/1.73 sq M.predicted among non-blacks MDRD (S/P/Bld) [Vol rate/Area] 104 mL/min/{1.73_m2} - PINF [facility] Comment on above: Estimated Glomerular Filtration Rate (eGFR) is calculated using the 2020 CKD-EPI creatinine equation. This equation utilizes serum creatinine, sex, and age as parameters. The creatinine assay has traceable calibration to isotope dilution-mass spectrometry. Refer to KDIGO guidelines for clinical interpretation. In patients with unstable renal function, e.g. those with acute kidney injury, the eGFR may not accurately reflect actual GFR. Glucose [Mass/Vol] 81 mg/dL 74 - 99 mg/dL [facility] Comment on above: The [place] Diabete s Association (ADA) provides guidance for cutoff values for fasting glucose and random glucose. The ADA defines fasting as no caloric intake for at least 8 hours. Fasting plasma glucose results between 100 to 125 mg/dL indicate increased risk for diabetes (prediabetes). Fasting plasma glucose results greater than or equal to 126 mg/dL meet the criteria for diagnosis of diabetes. In the absence of unequivocal hyperglycemia, results should be confirmed by repeat testing. In a patient with classic symptoms of hyperglycemia or hyperglycemic crisis, random plasma glucose results greater than or equal to 200 mg/dL meet the criteria for diagnosis of diabetes. Reference: Standards of Medical Care in Diabetes 2016, [place] Diabetes Association. Diabetes Care. 2016.39(Suppl 1). Interpretation and review of laboratory results Abnormal [facility] Potassium [Moles/Vol] 4.1 mmol/L 3.7 - 5.1 mmol/L [facility] Protein [Mass/Vol] 8.0 g/dL 6.3 - 8.0 g/dL [facility] Sodium [Moles/Vol] 133 mmol/L Low 136 - 144 mmol/L [facility] Urea nitrogen [Mass/Vol] 16 mg/dL 7 - 21 mg/dL [facility] Comprehensive metabolic 2000 panelon 09-26-2024 Albumin [Mass/Vol] 4.7 g/dL Normal 3.9-4.9 [facility] Comment on above: Order Comment: Speci men Type: BLOOD SPECIMENOrdering Facility: [facility] Address: [address] [place] [address] Performed By: #### 2 4323-8 ####[facility] [id number] [place] [address] [place] ALP [Catalytic activity/Vol] 57 U/L Normal 34-123 [facility] Comment on above: Order Comment: Speci men Type: BLOOD SPECIMENOrdering Facility: [facility] Address: [address] [place] [address] Performed By: #### 2 4323-8 ####[facility] [id number] [place] [address] [place] ALT [Catalytic activity/Vol] 12 U/L Normal 7-38 [facility] Comment on above: Order Comment: Speci men Type: BLOOD SPECIMENOrdering Facility: [facility] Address: [address] [place] [address] Performed By: #### 2 4323-8 ####[facility] [id number] [place] [address] [place] Anion gap [Moles/Vol] 17 mmol/L High 8-15 [facility] Comment on above: Order Comment: Speci men Type: BLOOD SPECIMENOrdering Facility: [facility] Address: [address] [place] [address] Performed By: #### 2 4323-8 ####[facility] MILLWNCLIA [id number] [place] [address] [place] AST [Catalytic activity/Vol] 17 U/L Normal 13-35 [facility] Comment on above: Order Comment: Speci men Type: BLOOD SPECIMENOrdering Facility: [facility] Address: [address] [place] [address] Performed By: #### 2 4323-8 ####[facility]ITALWNCL[facility] [id number] [place] [address] [place] Bilirubin [Mass/Vol] 0.2 mg/dL Normal 0.2-1.3 [facility] Comment on above: Order Comment: Speci men Type: BLOOD SPECIMENOrdering Facility: [facility] Address: [address] [place] [address] Performed By: #### 2 4323-8 ####[facility] [id number] [place] [address] [place] Calcium [Mass/Vol] 10.1 mg/dL Normal 8.5-10.2 [facility] Comment on above: Order Comment: Speci men Type: BLOOD SPECIMENOrdering Facility: [facility] Address: [address] [place] [address] Performed By: #### 2 4323-8 ####[facility] TIMWNCLIA [id number] [place] [address] [place] Chloride [Moles/Vol] 101 mmol/L Normal 98-107 [facility] Comment on above: Order Comment: Speci men Type: BLOOD SPECIMENOrdering Facility: [facility] Address: [address] [place] [address] Performed By: #### 2 4323-8 ####[facility] [id number] [place] [address] [place] CO2 [Moles/Vol] 15 mmol/L Low 22-30 [facility] Comment on above: Order Comment: Speci men Type: BLOOD SPECIMENOrdering Facility: [facility] Address: [address] [place] [address] Performed By: #### 2 4323-8 ####[facility] [id number] [place] [address] [place] Creatinine [Mass/Vol] 0.80 mg/dL Normal 0.58-0.96 [facility] Comment on above: Order Comment: Speci men Type: BLOOD SPECIMENOrdering Facility: [facility] Address: [address] [place] [address] Performed By: #### 2 4323-8 ####[facility] [id number] [place] [address] [facility] [place] Creatinine and Glomerular filtration rate.predicted panel (S/P/Bld) 104 mL/min/1.73m??? Normal >=60 [facility] Comment on above: Order Comment: Speci men Type: BLOOD SPECIMENOrdering Facility: [facility] Address: [address] [place] [address] Result Comment: Elysia mated Glomerular Filtration Rate (eGFR) is calculated using the 2020 CKD-EPI creatinine equation. This equation utilizes serum creatinine, sex, and age as parameters. The creatinine assay has traceable calibration to isotope dilution-mass spectrometry. Refer to KDIGO guidelines for clinical interpretation. In patients with unstable renal function, e.g. those with acute kidney injury, the eGFR may not accurately reflect actual GFR. Performed By: #### 2 4323-8 ####[facility] [id number] [place] [address] [place] Glucose [Mass/Vol] 81 mg/dL Normal 74-99 [facility] Comment on above: Order Comment: Remi tijerina Type: BLOOD SPECIMENOrdering Facility: [facility] Address: [address] [place] [address] Result Comment: The [place] Diabetes Association (ADA) provides guidance for cutoff values for fasting glucose and random glucose. The ADA defines fasting as no caloric intake for at least 8 hours. Fasting plasma glucose results between 100 to 125 mg/dL indicate increased risk for diabetes (prediabetes). Fasting plasma glucose results greater than or equal to 126 mg/dL meet the criteria for diagnosis of diabetes. In the absence of unequivocal hyperglycemia, results should be confirmed by repeat testing. In a patient with classic symptoms of hyperglycemia or hyperglycemic crisis, random plasma glucose results greater than or equal to 200 mg/dL meet the criteria for diagnosis of diabetes. Reference: Standards of Medical Care in Diabetes 2016, [place] Diabetes Association. Diabetes Care. 2016.39(Suppl 1). Performed By: #### 2 4323-8 ####[facility] [id number] [place] [address] [place] Potassium [Moles/Vol] 4.1 mmol/L Normal 3.7-5.1 [facility] Comment on above: Order Comment: Remi tijerina Type: BLOOD SPECIMENOrdering Facility: [facility] Address: [address] [place] [address] Performed By: #### 2 4323-8 ####[facility] [id number] [place] [address] [place] Protein [Mass/Vol] 8.0 g/dL Normal 6.3-8.0 [facility] Comment on above: Order Comment: Speci men Type: BLOOD SPECIMENOrdering Facility: [facility] Address: [address] [place] [address] Performed By: #### 2 4323-8 ####[facility] MILLWNCLIA [id number] [place] [address] [place] Sodium [Moles/Vol] 133 mmol/L Low 136-144 [facility] Comment on above: Order Comment: Speci men Type: BLOOD SPECIMENOrdering Facility: [facility] Address: [address] [place] [address] Performed By: #### 2 4323-8 ####[facility] [id number] [place] [address] [place] Urea nitrogen [Mass/Vol] 16 mg/dL Normal 7-21 [facility] Comment on above: Order Comment: Speci men Type: BLOOD SPECIMENOrdering Facility: [facility] Address: [address] [place] [address] Performed By: #### 2 4323-8 ####[facility] [id number] [place] [address] [place] THYROID STIMULATING HORMONEo n 09-26-2024 TSH Qn 1.740 m[IU]/L [facility] Comment on above: If the patient is pr egnant, TSH reference range varies by gestational period: First Trimester (weeks 9-12): 0.180-2.990 mIU/L Second Trimester: 0.110-3.980 mIU/L Third Trimester: 0.480-4.710 mIU/L Juan Carlos Webber et al. A Practical Approach for the Verifications and Determination of Site- and Trimester-Specific Reference Intervals for Thyroid Function tests in . Thyroid, 2019:29:3:412-420. Tanner E, et al. 2017 Guidelines of the [place] Thyroid Association for the Diagnosis and Management of Thyroid Disease during and the . Thyroid, 2017:27:3:315-389. TSH Qnon 09-26-2024 Interpretation and review of laboratory results Normal [facility] TSH SerPl-aCncon 09-26-2024 TSH Qn 1.740 m[IU]/L Normal 0.270-4.200 [facility] Comment on above: Order Comment: Speci men Type: BLOOD SPECIMENOrdering Facility: [facility] Address: [address] [place] [address] Result Comment: If t he patient is , TSH reference range varies by gestational period: First Trimester (weeks 9-12): 0.180-2.990 mIU/L Second Trimester: 0.110-3.980 mIU/L Third Trimester: 0.480-4.710 mIU/L Juan Carlos Webber et al. A Practical Approach for the Verifications and Determination of Site- and Trimester-Specific Reference Intervals for Thyroid Function tests in . Thyroid, 2019:29:3:412-420. Tanner Reyes et al. 2017 Guidelines of the Citizen [place] Thyroid Association for the Diagnosis and Management of Thyroid Disease during and the . Thyroid, 2017:27:3:315-389. Performed By: #### 3 016-3 ####[facility] LABCLIA [id number] [place] [address] [place] Bilirubin Test strip Ql (U)O rdered By: Stefanie Vidal on 12-09-2023 Bilirubin Ql (U) Negative Negative [facility] Ketones Test strip Ql (U)Ord ered By: Stefanie Vidal on 12-09-2023 Ketones Ql (U) Negative Negative [facility] Nitrite Test strip Ql (U)Ord ered By: Stefanie Vidal on 12-09-2023 Nitrite Ql (U) Negative Negative [facility] Protein Test strip Ql (U)Ord ered By: Stefanie Vidal on 12-09-2023 Protein Ql (U) Negative Negative [facility] Thin prep Papanicolaou smear with manual screeningOrdered By: Stefanie Vidal on 12-09-2023 Protein (U) [Mass/Vol] 15.8 mg/dL 0.0-11.8 [facility] Urine blood detectionOrdered By: Stefanie Vidal on 12-09-2023 RBC Ql (U) Negative Negative [facility] Urine clarityOrdered By: Werner Vidal on 12-09-2023 Clarity (U) Sl. Cloudy Clear [facility] Urine color determinationOrd ered By: Stefanie Vidal on 12-09-2023 Color (U) Yellow Yellow [facility] Urine creatinine measurement (mass/volume)Ordered By: Stefanie Vidal on 12-09-2023 Creatinine (U) [Mass/Vol] 137.00 mg/dL NO RANGE EST. [facility] Urine glucose detectionOrder ed By: Stefanie Vidal on 12-09-2023 Glucose Ql (U) Normal mg/dl Normal [facility] Urine leukocyte esterase det ection by dipstickOrdered By: Stefanie Vidal on 12-09-2023 Leukocyte esterase Test strip Ql (U) 25 /ul Negative [facility] Urine pHOrdered By: Stefanie beck on 12-09-2023 pH (U) 6.0 [pH] 5.0 - 8.0 [facility] Urine protein/creatinine mas s ratioOrdered By: Stefanie Vidal on 12-09-2023 Protein/Creatinine (U) [Mass ratio] 115 mg/g CRE 0-200 [facility] Urine specific gravity measu rementOrdered By: Stefanie Vidal on 12-09-2023 Specific gravity (U) [Rel density] 1.020 1.002-1.030 [facility] Urine urobilinogen measureme ntOrdered By: Stefanie Vidal on 12-09-2023 Urobilinogen Ql (U) Normal mg/dl Normal [facility] Absolute lymphocyte countOrd ered By: Stefanie Vidal on 12-06-2023 Lymphocytes Auto (Unsp spec) [#/Vol] 2.87 10*3/uL 0.83-4.51 [facility] Activated partial thrombopla stin time (aPTT) in platelet poor plasma by coagulation aOrdered By: Stefanie Vidal on 12-06-2023 aPTT Coag (PPP) [Time] 28.4 s 24.1-36.2 [facility] Automated lymphocyte count a s percentage of total leukocytesOrdered By: Stefanie Vidal on 12-06-2023 Lymphocytes/100 WBC Auto (Unsp spec) 27.3 % 19-41 [facility] Basophil percentageOrdered B y: Stefanie Vidal on 12-06-2023 Basophils/100 WBC (Bld) 0.3 % 0-1 [facility] Bilirubin [Mass/Vol] 0.30 mg/dL 0.20-1.00 [facility] Comment on above: For patients on eltr ombopag therapy, use of Dimension [place] TBIL is not recommended. Chloride [Moles/Vol] 109 mmol/L 98-107 [facility] Eosinophils/100 WBC (Bld) 1.2 % 0-5 [facility] Glucose [Mass/Vol] 90 mg/dL 74-106 [facility] Hemoglobin (Bld) [Mass/Vol] 12.9 g/dL 12.0-15.0 [facility] Monocytes/100 WBC (Bld) 5.7 % 0-10 [facility] Neutrophils (Bld) [#/Vol] 6.9 10*3/uL 2.0-7.7 [facility] Neutrophils/100 WBC (Bld) 65.2 % 47-70 [facility] Potassium [Moles/Vol] 3.8 mmol/L 3.5-5.1 [facility] Protein [Mass/Vol] 8.1 g/dL 6.4-8.2 [facility] Sodium [Moles/Vol] 136 mmol/L 136-145 [facility] WBC (Bld) [#/Vol] 10.5 10*3/uL 4.4-11.0 [facility] Determination of erythrocyte mean corpuscular volume (MCV)Ordered By: Stefanie Vidal on 12-06-2023 MCV (RBC) [Entitic vol] 89.0 fL 81-99 [facility] Dilute John's viper venom timeOrdered By: Stefanie Vidal on 12-06-2023 dRVVT Coag (PPP) [Time] 34.3 s 0.0-47.0 [facility] Erythrocyte distribution wid th ratioOrdered By: Stefanie Vidal on 12-06-2023 Erythrocyte distribution width (RBC) [Ratio] 13.0 % 11.6-14.6 [facility] Erythrocyte distribution wid th standard deviationOrdered By: Stefanie Vidal on 12-06-2023 Erythrocyte distribution width (RBC) [Entitic vol] 42.3 fL 35.1-43.9 [facility] Erythrocyte sedimentation ra teOrdered By: Stefanie Vidal on 12-06-2023 ESR (Bld) [Velocity] 27 mm/h 0-30 [facility] Hematocrit Auto (Bld) [Volum e fraction]Ordered By: Stefanie Vidal on 12-06-2023 Hematocrit (Bld) [Volume fraction] 39.6 % 37-47 [facility] Immature granulocytes/100 WB C Auto (Bld)Ordered By: Stefanie Vidal on 12-06-2023 Immature granulocytes/100 WBC (Bld) 0.300 % 0.0-0.9 [facility] Comment on above: IG% - Immature Granu locytes (promyelocytes, myelocytes and metamyelocytes) > 1% indicates that a LEFT SHIFT is Present. International normalized rat io (INR) calculationOrdered By: Stefanie Vidal on 12-06-2023 INR Coag (PPP) [Relative time] 0.9 {INR} [facility] Laboratory - Chemistry and C hemistry - challengeOrdered By: Stefaniegregory Vidal 12-06-2023 Albumin/Globulin [Mass ratio] 0.9 {ratio} 0.9-2.4 [facility] ALP [Catalytic activity/Vol] 60 U/L 45-117 [facility] ALT [Catalytic activity/Vol] 22 U/L 13-56 [facility] CO2 [Moles/Vol] 20.0 mmol/L 21.0-32.0 [facility] Globulin (S) [Mass/Vol] 4.2 g/dL 2.2-4.2 [facility] Urea nitrogen/Creatinine [Mass ratio] 17.4 mg/mg 10-20 [facility] Laboratory - CoagulationOrde red By: Stefanie Vidal on 12-06-2023 PT Coag (PPP) [Time] 12.4 s 11.7-14.9 [facility] Laboratory - Hematology and Cell countsOrdered By: Stefanie Vidal on 12-06-2023 MCH (RBC) [Entitic mass] 29.0 pg 27.0-32.0 [facility] MCHC (RBC) [Mass/Vol] 32.6 g/dL 32-36 [facility] Nucleated RBC/100 WBC (Bld) [Ratio] 0 % 0-5 [facility] Platelets (Bld) [#/Vol] 299 10*3/uL 150-450 [facility] Laboratory - Miscellaneous t estsOrdered By: Stefanie Vidal on 12-06-2023 Service comment (Unsp spec) [Interp] Comment . [facility] Comment on above: Results do not indic ate the presence of a LupusAnticoagulant: abnormal high screening results (PTT-LA,dRVVT, mixing studies), may be due to medication (heparin,warfarin, aspirin), Factor inhibitors, anticardiolipinantibodies, or poor specimen integrity.Performed at: [facility] [id number] Director: Alden Morales MD, Phone: [phone] No Panel InformationOrdered By: Stefanie Vidal on 12-06-2023 C-Reactive Protein Extended Range 10.20 mg/L 0.0-3.0 [facility] Comment on above: C-Reactive Protein ( CRP) provides useful information for thediagnosis, therapy and monitoring of inflammatory processesand associated diseases. For the evaluation of Relative Riskfor Cardiovascular Disease, a High Sensitivity CRP (HSCRP)should be ordered. Estimated GFR (MDRD) Amer 111 mL/min >60 [facility] Comment on above: GFR Calc Estimated GFR (MDRD) Non-Af Amer 92 mL/min >60 [facility] Comment on above: Non- GFR Calc Hepatitis B Surface Antigen Non-Reactive Nonreactive [facility] Hepatitis C Antibody Non-Reactive Nonreactive [facility] Comment on above: Non Reactive: < 0.8 Equivocal: >/= 0.8 to < 1.0 Reactive: >/= 1.0The CDC recommends that a reactive/equivocal HCV antibody result be followed up by the HCV Nucleic Acid Amplificationtest (808290) Miscellaneous Test Comment MAILED SPECIMEN [facility] Platelet mean volume Ulises-Ec ker (Bld) [Entitic vol]Ordered By: Stefanie Vidal on 12-06-2023 Platelet mean volume (Bld) [Entitic vol] 10.7 fL 6.2-12.0 [facility] RBC Auto (Bld) [#/Vol]Ordere d By: Stefanie Vidal on 12-06-2023 RBC (Bld) [#/Vol] 4.45 10*6/uL 4.2-5.4 [facility] Serum hepatitis B virus surf jamie antibody IgG detectionOrdered By: Stefanie Vidal on 12-06-2023 HBV surface IgG Ql (S) Reactive [facility] Comment on above: Non Reactive: Incons istent with immunity less than <10 mIU/mL Reactive: Consistent with immunity greater than or equal to 10 mIU/mL Serum or plasma calcium iveth urement (mass/volume)Ordered By: Stefanie Vidal on 12-06-2023 Calcium [Mass/Vol] 10.0 mg/dL 8.5-10.1 [facility] Serum or plasma creatinine m easurement (mass/volume)Ordered By: Stefanie Vidal on 12-06-2023 Creatinine [Mass/Vol] 0.80 mg/dL 0.55-1.02 [facility] Comment on above: The validity of the calculated GFR & GFRAA in patients over 70 years has not been determined. Clinical correlation is essential. Serum or plasma urea nitroge n measurement (mass/volume)Ordered By: Stefanie Vidal on 12-06-2023 Urea nitrogen [Mass/Vol] 14 mg/dL 7-18 [facility] Thin prep Papanicolaou smear with manual screeningOrdered By: Stefanie Vidal on 12-06-2023 Thin prep Papanicolaou smear with manual screening 3.9 g/dL 3.2-5.0 [facility] Thin prep Papanicolaou smear with manual screening 13 U/L 15-37 [facility] Thin prep Papanicolaou smear with manual screening 7 5-15 [facility] Thin prep Papanicolaou smear with manual screening 40.3 sec 0.0-47.6 [facility] Thin prep Papanicolaou smear with manual screening 1.79 Ratio 0.00-1.34 [facility] Thin prep Papanicolaou smear with manual screening 33.5 sec 0.0-43.5 [facility] Thin prep Papanicolaou smear with manual screening Comment: . [facility] Comment on above: The dPT confirm rati o is consistent with the presence of a lupusanticoagulant. As only persistent lupus anticoagulant (LA) positivitymeets laboratory diagnostic criteria for antiphospholipid syndrome, repeattesting in 12 or more weeks is recommended, ideally in the absence ofanticoagulant therapy. Results of lupus anticoagulant tests may be falselypositive in the presence of certain anticoagulant therapies. Thrombin time in platelet po or plasmaOrdered By: Stefanie Vidal on 12-06-2023 Thrombin time Coag (PPP) [Time] 23.7 sec 0.0-23.0 [facility] Erythrocyte sedimentation ra teOrdered By: Yanelis Ambrose on 09-21-2023 ESR (Bld) [Velocity] 25 mm/h 030 [facility] No Panel InformationOrdered By: Yanelis Ambrose on 09-21-2023 Anti-Nuclear Antibody Screen Positive Negative [facility] Comment on above: Performed at: [address] [id number] Director: Cornel Arias PhD, Phone: [phone] CSF Lyme Disease IgM Antibody Not Reportable [facility] Lyme Disease IgG Antibody Not Reportable [facility] Serum rheumatoid factor dete ctionOrdered By: Yanelis Ambrose on 09-21-2023 Rheumatoid factor Ql (S) < 10.0 IU/mL <15 [facility] Thin prep Papanicolaou smear with manual screeningOrdered By: Yanelis Ambrose on 09-21-2023 Thin prep Papanicolaou smear with manual screening Negative Negative [facility] Comment on above: Lyme antibodies not detected. Reflex testing is notindicated.No laboratory evidence of infection with B. burgdorferi(Lyme disease). Negative results may occur in patientsrecently infected (less than or equal to 14 days) with B.burgdorferi. If recent infection is suspected, repeattesting on a new sample collected in 7 to 14 days isrecommended.Performed at: - [facility] [id number] Director: Cornel Arias PhD, Phone: [phone] Absolute lymphocyte countOrd ered By: HEALTH ASSESSMENT on 07-07-2023 Lymphocytes Auto (Unsp spec) [#/Vol] 2.49 10*3/uL 0.83-4.51 [facility] Absolute reticulocyte countO rdered By: HEALTH ASSESSMENT on 07-07-2023 Reticulocytes (Bld) [#/Vol] 0.00 10*3/uL 0-5 [facility] Basophil percentageOrdered B y: Yaneli Dowling on 07-07-2023 Bilirubin [Mass/Vol] 0.30 mg/dL 0.20-1.00 [facility] Comment on above: For patients on eltr ombopag therapy, use of Dimension [place] TBIL is not recommended. Chloride [Moles/Vol] 110 mmol/L 98-107 [facility] Cholesterol [Mass/Vol] 174 mg/dL <200 [facility] Comment on above: <200 mg/dL Desirable 200-240 mg/dL Borderline >240 mg/dL High Risk Glucose [Mass/Vol] 90 mg/dL 74-106 [facility] Potassium [Moles/Vol] 3.6 mmol/L 3.5-5.1 [facility] Protein [Mass/Vol] 7.8 g/dL 6.4-8.2 [facility] Sodium [Moles/Vol] 136 mmol/L 136-145 [facility] Triglyceride [Mass/Vol] 116 mg/dL <199 [facility] Comment on above: The drugs N-Acetylcy steine and Metamizole may falsely depress this assay.Serum Triglycerides Reference Interval Normal <150 mg/dL Borderline high 150 - 199 mg/dL High 200 - 499 mg/dL Very High > or = 500 mg/dL WBC (Bld) [#/Vol] 7.9 10*3/uL 4.4-11.0 [facility] Basophil percentageOrdered B y: HEALTH ASSESSMENT on 07-07-2023 Basophil percentage 2.5 mg/dL 2.5-4.9 [facility] Bilirubin [Mass/Vol] 0.40 mg/dL 0.20-1.00 [facility] Comment on above: For patients on eltr ombopag therapy, use of Dimension [place] TBIL is not recommended. Chloride [Moles/Vol] 110 mmol/L 98-107 [facility] Cholesterol [Mass/Vol] 180 mg/dL <200 [facility] Comment on above: <200 mg/dL Desirable 200-240 mg/dL Borderline >240 mg/dL High Risk Glucose [Mass/Vol] 89 mg/dL 74-106 [facility] LDH [Catalytic activity/Vol] 127 U/L 84-246 [facility] Neutrophils (Bld) [#/Vol] 4.7 10*3/uL 2.0-7.7 [facility] Potassium [Moles/Vol] 3.5 mmol/L 3.5-5.1 [facility] Protein [Mass/Vol] 7.6 g/dL 6.4-8.2 [facility] Sodium [Moles/Vol] 136 mmol/L 136-145 [facility] Triglyceride [Mass/Vol] 124 mg/dL <199 [facility] Comment on above: The drugs N-Acetylcy steine and Metamizole may falsely depress this assay.Serum Triglycerides Reference Interval Normal <150 mg/dL Borderline high 150 - 199 mg/dL High 200 - 499 mg/dL Very High > or = 500 mg/dL WBC (Bld) [#/Vol] 7.8 10*3/uL 4.4-11.0 [facility] Blood erythrocytes count (nu mber/volume)Ordered By: Yaneli Dowling on 07-07-2023 RBC (Bld) [#/Vol] 4.17 10*6/uL 4.2-5.4 [facility] Blood erythrocytes count (nu mber/volume)Ordered By: HEALTH ASSESSMENT on 07-07-2023 RBC (Bld) [#/Vol] 4.14 10*6/uL 4.2-5.4 [facility] Blood hemoglobin measurement (mass/volume)Ordered By: Yaneli Dowling on 07-07-2023 Hemoglobin (Bld) [Mass/Vol] 12.5 g/dL 12.0-15.0 [facility] Blood hemoglobin measurement (mass/volume)Ordered By: HEALTH ASSESSMENT on 07-07-2023 Hemoglobin (Bld) [Mass/Vol] 12.4 g/dL 12.0-15.0 [facility] Blood leukocytes count corre cted for nucleated erythrocytes (number/volume)Ordered By: HEALTH ASSESSMENT on 07-07-2023 WBC corrected for nucl RBC (Bld) [#/Vol] [employer] [facility] Blood platelet mean volumeOr dered By: Yaneli Dowling on 07-07-2023 Platelet mean volume (Bld) [Entitic vol] 10.5 fL 6.2-12.0 [facility] Blood platelet mean volumeOr dered By: HEALTH ASSESSMENT on 07-07-2023 Platelet mean volume (Bld) [Entitic vol] 10.3 fL 6.2-12.0 [facility] Determination of erythrocyte mean corpuscular volume (MCV)Ordered By: Yaneli Dowling on 07-07-2023 MCV (RBC) [Entitic vol] 92.6 fL 81-99 [facility] Determination of erythrocyte mean corpuscular volume (MCV)Ordered By: HEALTH ASSESSMENT on 07-07-2023 MCV (RBC) [Entitic vol] 90.8 fL 81-99 [facility] Direct bilirubinOrdered By: HEALTH ASSESSMENT on 07-07-2023 Bilirubin.direct [Mass/Vol] 0.08 mg/dL 0.00-0.30 [facility] Hematocrit Auto (Bld) [Volum e fraction]Ordered By: Yaneli Dowling on 07-07-2023 Hematocrit (Bld) [Volume fraction] 38.6 % 37-47 [facility] Hematocrit Auto (Bld) [Volum e fraction]Ordered By: HEALTH ASSESSMENT on 07-07-2023 Hematocrit (Bld) [Volume fraction] 37.6 % 37-47 [facility] Laboratory - Chemistry and C hemistry - challengeOrdered By: Yaneli Dowling on 07-07-2023 ALP [Catalytic activity/Vol] 61 U/L 45-117 [facility] ALT [Catalytic activity/Vol] 24 U/L 13-56 [facility] CO2 [Moles/Vol] 17.0 mmol/L 21.0-32.0 [facility] Globulin (S) [Mass/Vol] 3.9 g/dL 2.2-4.2 [facility] Urea nitrogen/Creatinine [Mass ratio] 15.9 mg/mg 08-26 [facility] Laboratory - Chemistry and C hemistry - challengeOrdered By: HEALTH ASSESSMENT on 07-07-2023 ALP [Catalytic activity/Vol] 62 U/L 45-117 [facility] ALT [Catalytic activity/Vol] 23 U/L 13-56 [facility] Cholesterol.total/Karina sterol in HDL [Mass ratio] 3.20 {ratio} [facility] CO2 [Moles/Vol] 17.0 mmol/L 21.0-32.0 [facility] Globulin (S) [Mass/Vol] 3.8 g/dL 2.2-4.2 [facility] Urea nitrogen/Creatinine [Mass ratio] 15.1 mg/mg 08-26 [facility] Laboratory - Hematology and Cell countsOrdered By: Yaneli Dowling on 07-07-2023 Erythrocyte distribution width (RBC) [Entitic vol] 43.1 fL 35.1-43.9 [facility] Erythrocyte distribution width (RBC) [Ratio] 12.7 % 11.6-14.6 [facility] MCH (RBC) [Entitic mass] 30.0 pg 27.0-32.0 [facility] Laboratory - Hematology and Cell countsOrdered By: HEALTH ASSESSMENT on 07-07-2023 Erythrocyte distribution width (RBC) [Entitic vol] 42.3 fL 35.1-43.9 [facility] Erythrocyte distribution width (RBC) [Ratio] 12.8 % 11.6-14.6 [facility] MCH (RBC) [Entitic mass] 30.0 pg 27.0-32.0 [facility] Nucleated RBC/100 WBC (Bld) [Ratio] 0 % 0-5 [facility] MCHC Auto (RBC) [Mass/Vol]Or dered By: Yaneli Dowling on 07-07-2023 MCHC (RBC) [Mass/Vol] 32.4 g/dL [facility] MCHC Auto (RBC) [Mass/Vol]Or dered By: HEALTH ASSESSMENT on 07-07-2023 MCHC (RBC) [Mass/Vol] 33.0 g/dL - [facility] No Panel InformationOrdered By: Yaneli Dowling on 07-07-2023 Estimated GFR (MDRD) Amer 109 mL/min >60 [facility] Comment on above: GFR Calc Estimated GFR (MDRD) Non-Af Amer 90 mL/min >60 [facility] Comment on above: Non- GFR Calc Insulin Level 23.7 mU/L 2.6-37.6 [facility] Thyroid Stimulating Hormone (TSH) 1.99 uIU/mL 0.358-3.74 [facility] Vitamin D 25-Hydroxy 52.2 ng/mL [facility] Comment on above: Vitamin D 25(OH) Sta tus Range Deficiency <20 ng/mL (50nmol/L) Insufficiency 20 - 30 ng/mL (50 - 75 nmol/L) Sufficiency 30 - 100 ng/mL (75 - 250 nmol/L) Toxicity >100 ng/mL (>250 nmol/L) No Panel InformationOrdered By: HEALTH ASSESSMENT on 07-07-2023 Estimated Creatinine Clearance Calc [employer] [facility] Estimated GFR (MDRD) Amer 103 mL/min >60 [facility] Comment on above: GFR Calc Estimated GFR (MDRD) Non-Af Amer 85 mL/min >60 [facility] Comment on above: Non- GFR Calc Immature Granulocyte % (Auto) [employer] [facility] Platelets bldOrdered By: Yaneli Dowling on 07-07-2023 Platelets (Bld) [#/Vol] 297 10*3/uL 150-450 [facility] Platelets bldOrdered By: [facility] ASSESSMENT on 07-07-2023 Platelets (Bld) [#/Vol] 289 10*3/uL 150-450 [facility] Review by pathologistOrdered By: HEALTH ASSESSMENT on 07-07-2023 Pathologist review Jaquan (Unsp spec) [Interp] [employer] WORK[employer] [facility] Segmented neutrophils/100 WB C Auto (Bld)Ordered By: HEALTH ASSESSMENT on 07-07-2023 Segmented neutrophils/100 WBC (Bld) 60.4 % 47-70 [facility] Serum or plasma albumin iveth urement (mass/volume)Ordered By: Yaneli Dowling on 07-07-2023 Albumin [Mass/Vol] 3.9 g/dL 3.2-5.0 [facility] Serum or plasma albumin iveth urement (mass/volume)Ordered By: HEALTH ASSESSMENT on 07-07-2023 Albumin [Mass/Vol] 3.8 g/dL 3.2-5.0 [facility] Serum or plasma albumin/glob ulin mass ratioOrdered By: Yaneli Dowling on 07-07-2023 Albumin/Globulin [Mass ratio] 1.0 {ratio} 0.9-2.4 [facility] Serum or plasma albumin/glob ulin mass ratioOrdered By: HEALTH ASSESSMENT on 07-07-2023 Albumin/Globulin [Mass ratio] 1.0 {ratio} 0.9-2.4 [facility] Serum or plasma calcium iveth urement (mass/volume)Ordered By: Yaneli Dowling on 07-07-2023 Calcium [Mass/Vol] 9.0 mg/dL 8.5-10.1 [facility] Serum or plasma calcium iveth urement (mass/volume)Ordered By: HEALTH ASSESSMENT on 07-07-2023 Calcium [Mass/Vol] 9.0 mg/dL 8.5-10.1 [facility] Serum or plasma cholesterol in HDL measurement (mass/volume)Ordered By: Yaneli Dowling on 07-07-2023 Cholesterol in HDL [Mass/Vol] 55 mg/dL >40 [facility] Comment on above: The drugs N-Acetylcy steine and Metamizole may falsely depress this assay. Reference Range HDL <40 mg/dL Low HDL Cholesterol HDL >or= 60 mg/dL High HDL Cholesterol Serum or plasma cholesterol in HDL measurement (mass/volume)Ordered By: HEALTH ASSESSMENT on 07-07-2023 Cholesterol in HDL [Mass/Vol] 56 mg/dL >40 [facility] Comment on above: The drugs N-Acetylcy steine and Metamizole may falsely depress this assay. Reference Range HDL <40 mg/dL Low HDL Cholesterol HDL >or= 60 mg/dL High HDL Cholesterol Serum or plasma cholesterol in VLDL measurement (mass/volume)Ordered By: Yaneli Dowling on 07-07-2023 Cholesterol in VLDL [Mass/Vol] 23 mg/dL 5-40 [facility] Serum or plasma cholesterol in VLDL measurement (mass/volume)Ordered By: HEALTH ASSESSMENT on 07-07-2023 Cholesterol in VLDL [Mass/Vol] 25 mg/dL 5-40 [facility] Serum or plasma creatinine m easurement (mass/volume)Ordered By: Yaneli Dowling on 07-07-2023 Creatinine [Mass/Vol] 0.82 mg/dL 0.55-1.02 [facility] Comment on above: The validity of the calculated GFR & GFRAA in patients over 70 years has not been determined. Clinical correlation is essential. Serum or plasma creatinine m easurement (mass/volume)Ordered By: HEALTH ASSESSMENT on 07-07-2023 Creatinine [Mass/Vol] 0.86 mg/dL 0.55-1.02 [facility] Comment on above: The validity of the calculated GFR & GFRAA in patients over 70 years has not been determined. Clinical correlation is essential. Serum or plasma low density lipoprotein (LDL) cholesterol measurement (mass/volume)Ordered By: Yaneli Dowling on 07-07-2023 Cholesterol in LDL [Mass/Vol] 96 mg/dL 0-130 [facility] Serum or plasma low density lipoprotein (LDL) cholesterol measurement (mass/volume)Ordered By: HEALTH ASSESSMENT on 07-07-2023 Cholesterol in LDL [Mass/Vol] 99 mg/dL 0-130 [facility] Serum or plasma urea nitroge n measurement (mass/volume)Ordered By: Yaneli Dowling on 07-07-2023 Urea nitrogen [Mass/Vol] 13 mg/dL 7-18 [facility] Serum or plasma urea nitroge n measurement (mass/volume)Ordered By: [facility] ASSESSMENT on 07-07-2023 Urea nitrogen [Mass/Vol] 13 mg/dL 7-18 [facility] Serum or plasma uric acid me asurement (mass/volume)Ordered By: [facility] ASSESSMENT on 07-07-2023 Urate [Mass/Vol] 4.1 mg/dL 2.6-6.0 [facility] Comment on above: The drugs N-Acetylcy steine and Metamizole may falsely depress this assay. Thin prep Papanicolaou smear with manual screeningOrdered By: Yaneli Dowling on 07-07-2023 Thin prep Papanicolaou smear with manual screening 18 U/L 15-37 [facility] Thin prep Papanicolaou smear with manual screening 9 5-15 [facility] Thin prep Papanicolaou smear with manual screeningOrdered By: HEALTH ASSESSMENT on 07-07-2023 Thin prep Papanicolaou smear with manual screening 20 U/L 15-37 [facility] Thin prep Papanicolaou smear with manual screening 9 5-15 [facility] Whole blood hemoglobin A1c/t otal hemoglobin ratio (mass fraction)Ordered By: Yaneli Dowling on 07-07-2023 HbA1c (Bld) [Mass fraction] 4.9 % 3.8-5.6 [facility] Comment on above: Normal < 5.7 % Predi abetic 5.7 - 6.4 % Diabetic >or= 6.5 % Please note range changes. Office Visit: UC: sinusitis, earacheon 08-06-2017 Documentation of current medications (procedure) Done Invalid Interpretation Code [facility] Work Phone: Fall risk assessment No Invalid Interpretation Code [facility] Work Phone: Protein mass conc Done Invalid Interpretation Code [facility] Work Phone: Tobacco smoking status NHIS Never smoker Invalid Interpretation Code [facility] Work Phone: Tobacco use CPHS Never smoker Invalid Interpretation Code [facility] Work Phone: Vital Signs Date Time Vital Sign Value Performing Clinician Cyndie benoit 06-21-2025 09:18-0400 Body mass index (BMI) [Ratio] 28.35 kg/m2 Yaneli Dowling APRN.DICE TABLE PERSON Work Phone: [facility] 06-21-2025 09:18-0400 Body weight 74.39 kg Yaneli Dowling APRN.DICE TABLE PERSON Work Phone: [facility] 06-21-2025 09:18-0400 Diastolic blood pressure 78 mm[Hg] Yaneli Dowling APRN.DICE TABLE PERSON Work Phone: [facility] 06-21-2025 09:18-0400 Heart rate 94 /min Yaneli Dowling APRN.DICE TABLE PERSON Work Phone: [facility] 06-21-2025 09:18-0400 SaO2% (BldA) [Mass fraction] 100 % Yaneli Dowling APRN.DICE TABLE PERSON Work Phone: [facility] 06-21-2025 09:18-0400 Systolic blood pressure 115 mm[Hg] Yaneli Adamshrie CAR SEAT UPHOLSTERER.DICE TABLE PERSON Work Phone: [facility] 06-06-2025 13:00-0400 Body height 162 cm Yaneli Dowling APRN.DICE TABLE PERSON Work Phone: [facility] 06-06-2025 13:00-0400 Body mass index (BMI) [Ratio] 29.04 kg/m2 Yaneli Dowling CAR SEAT UPHOLSTERER.DICE TABLE PERSON Work Phone: [facility] 06-06-2025 13:00-0400 Body weight 76.2 kg Yaneli Dowling CAR SEAT UPHOLSTERER.DICE TABLE PERSON Work Phone: [facility] 06-06-2025 13:00-0400 Diastolic blood pressure 84 mm[Hg] Yaneli Adamshrie CAR SEAT UPHOLSTERER.DICE TABLE PERSON Work Phone: [facility] 06-06-2025 13:00-0400 Systolic blood pressure 126 mm[Hg] Yaneli Dowling CAR SEAT UPHOLSTERER.DICE TABLE PERSON Work Phone: [facility] 05-20-2025 09:06-0400 Body mass index (BMI) [Ratio] 28.48 kg/m2 Gina Carrillo MD Work Phone: [facility] 05-20-2025 09:06-0400 Body weight 75.66 kg Gina Carrillo MD Work Phone: [facility] 05-20-2025 09:06-0400 Diastolic blood pressure 78 mm[Hg] Gina Carrillo MD Work Phone: [facility] 05-20-2025 09:06-0400 Systolic blood pressure 120 mm[Hg] Gina Carrillo MD Work Phone: [facility] 04-05-2025 10:54-0400 Body mass index (BMI) [Ratio] 29.54 kg/m2 Yaneli Adamshrie CAR SEAT UPHOLSTERER.DICE TABLE PERSON Work Phone: [facility] 04-05-2025 10:54-0400 Body weight 78.47 kg Yaneli Dowling CAR SEAT UPHOLSTERER.DICE TABLE PERSON Work Phone: [facility] 04-05-2025 10:54-0400 Diastolic blood pressure 79 mm[Hg] Yaneli Dowling APRN.DICE TABLE PERSON Work Phone: [facility] 04-05-2025 10:54-0400 Heart rate 90 /min Yaneli Dowling APRN.DICE TABLE PERSON Work Phone: [facility] 04-05-2025 10:54-0400 SaO2% (BldA) [Mass fraction] 99 % Yaneli Dowling APRN.DICE TABLE PERSON Work Phone: [facility] 04-05-2025 10:54-0400 Systolic blood pressure 118 mm[Hg] Yaneli Dowling APRN.DICE TABLE PERSON Work Phone: [facility] 12-20-2024 09:56-0500 Body mass index (BMI) [Ratio] 29.19 kg/m2 Yaneli Dowling APRN.DICE TABLE PERSON Work Phone: [facility] 12-20-2024 09:56-0500 Body weight 77.56 kg Yaneli Dowling APRN.DICE TABLE PERSON Work Phone: [facility] 12-20-2024 09:56-0500 Diastolic blood pressure 84 mm[Hg] Yaneli Dowling APRN.DICE TABLE PERSON Work Phone: [facility] 12-20-2024 09:56-0500 Heart rate 100 /min Yaneli Dowling APRN.DICE TABLE PERSON Work Phone: [facility] 12-20-2024 09:56-0500 SaO2% (BldA) [Mass fraction] 100 % Yaneli Dowling APRN.DICE TABLE PERSON Work Phone: [facility] 12-20-2024 09:56-0500 Systolic blood pressure 124 mm[Hg] Yaneli Dowling APRN.DICE TABLE PERSON Work Phone: [facility] 09-26-2024 09:33-0500 Body mass index (BMI) [Ratio] 29.54 kg/m2 Yaneli Dowling APRN.DICE TABLE PERSON Work Phone: [facility] 09-26-2024 09:33-0500 Body weight 78.47 kg Yaneli Dowling APRN.DICE TABLE PERSON Work Phone: [facility] 09-26-2024 09:33-0500 Diastolic blood pressure 64 mm[Hg] Yaneli Dowling APRN.DICE TABLE PERSON Work Phone: [facility] 09-26-2024 09:33-0500 Heart rate 108 /min Yaneli Dowling APRN.DICE TABLE PERSON Work Phone: [facility] 09-26-2024 09:33-0500 SaO2% (BldA) [Mass fraction] 98 % Yaneli Dowling APRN.DICE TABLE PERSON Work Phone: [facility] 09-26-2024 09:33-0500 Systolic blood pressure 122 mm[Hg] Yaneli Dowling APRN.DICE TABLE PERSON Work Phone: [facility] 06-13-2024 09:32-0400 Body mass index (BMI) [Ratio] 28.85 kg/m2 Yaneli Dowling APRN.DICE TABLE PERSON Work Phone: [facility] 06-13-2024 09:32-0400 Body weight 76.66 kg Yaneli Dowling APRN.DICE TABLE PERSON Work Phone: [facility] 06-13-2024 09:32-0400 Diastolic blood pressure 70 mm[Hg] Yaneli Dowling APRN.DICE TABLE PERSON Work Phone: [facility] 06-13-2024 09:32-0400 Heart rate 93 /min Yaneli Dowling APRN.DICE TABLE PERSON Work Phone: [facility] 06-13-2024 09:32-0400 SaO2% (BldA) [Mass fraction] 99 % Yaneli Dowling APRN.DICE TABLE PERSON Work Phone: [facility] 06-13-2024 09:32-0400 Systolic blood pressure 120 mm[Hg] Yaneli Dowling APRN.DICE TABLE PERSON Work Phone: [facility] 06-05-2024 14:03-0400 Body height 163 cm Yaneli Dowling APRN.DICE TABLE PERSON Work Phone: [facility] 06-05-2024 14:03-0400 Body mass index (BMI) [Ratio] 29.88 kg/m2 Yaneli Dowling APRN.DICE TABLE PERSON Work Phone: [facility] 06-05-2024 14:03-0400 Body weight 79.38 kg Yaneli Dowling APRN.DICE TABLE PERSON Work Phone: [facility] 06-05-2024 14:03-0400 Diastolic blood pressure 74 mm[Hg] Yaneli Dowling APRN.DICE TABLE PERSON Work Phone: [facility] 06-05-2024 14:03-0400 Systolic blood pressure 112 mm[Hg] Yaneli Dowling APRN.DICE TABLE PERSON Work Phone: [facility] 03-14-2024 09:09-0400 Body mass index (BMI) [Ratio] 28.62 kg/m2 Ynaeli Dowling APRN.DICE TABLE PERSON Work Phone: [facility] 03-14-2024 09:09-0400 Body weight 78.02 kg Yaneli Dowling APRN.DICE TABLE PERSON Work Phone: [facility] 03-14-2024 09:09-0400 Diastolic blood pressure 70 mm[Hg] Yaneli Dowling APRN.DICE TABLE PERSON Work Phone: [facility] 03-14-2024 09:09-0400 Heart rate 100 /min Yaneli Dowling APRN.DICE TABLE PERSON Work Phone: [facility] 03-14-2024 09:09-0400 Systolic blood pressure 110 mm[Hg] Yaneli Dowling APRN.DICE TABLE PERSON Work Phone: [facility] 01-03-2024 12:13-0500 Body height 165.[address] Augustina Abraham Work Phone: [facility] 01-03-2024 12:13-0500 Body mass index (BMI) [Ratio] 29.9 kg/m2 Dr. Augustina Abraham Work Phone: [facility] 01-03-2024 12:13-0500 Body temperature 98.7 [degF] Dr. Augustina Abraham Work Phone: [facility] 01-03-2024 12:13-0500 Body weight 81.[address] Augustina Abraham Work Phone: [facility] 01-03-2024 12:13-0500 Diastolic blood pressure 78 mm[Hg] Dr. Augustina Abraham Work Phone: [facility] 01-03-2024 12:13-0500 Heart rate 109 /min Dr. Augustina Abraham Work Phone: [facility] 01-03-2024 12:13-0500 Respiratory rate 12 /min Dr. Augustina Abraham Work Phone: [facility] 01-03-2024 12:13-0500 SaO2% (BldA) [Mass fraction] 100 % Dr. Augustina Abraham Work Phone: [facility] 01-03-2024 12:13-0500 Systolic blood pressure 114 mm[Hg] Dr. Augustina Abraham Work Phone: [facility] 12-15-2023 10:33-0500 Body weight 83.1 kg Yaneli Dowling APRN.DICE TABLE PERSON Work Phone: [facility] 12-15-2023 10:33-0500 Diastolic blood pressure 66 mm[Hg] Yaneli Dowling APRN.DICE TABLE PERSON Work Phone: [facility] 12-15-2023 10:33-0500 Heart rate 95 /min Yaneli Dowling APRN.DICE TABLE PERSON Work Phone: [facility] 12-15-2023 10:33-0500 SaO2% (BldA) [Mass fraction] 98 % Yaneli Dowling APRN.DICE TABLE PERSON Work Phone: [facility] 12-15-2023 10:33-0500 Systolic blood pressure 108 mm[Hg] Yaneli Dowling APRN.DICE TABLE PERSON Work Phone: [facility] 09-22-2023 08:24-0500 Body weight 84.82 kg Yaneli Dowling APRN.DICE TABLE PERSON Work Phone: [facility] 09-22-2023 08:24-0500 Diastolic blood pressure 64 mm[Hg] Yaneli Dowling APRN.DICE TABLE PERSON Work Phone: [facility] 09-22-2023 08:24-0500 Heart rate 95 /min Yaneli Dowling APRN.DICE TABLE PERSON Work Phone: [facility] 09-22-2023 08:24-0500 SaO2% (BldA) [Mass fraction] 99 % Yaneli Dowling APRN.DICE TABLE PERSON Work Phone: [facility] 09-22-2023 08:24-0500 Systolic blood pressure 106 mm[Hg] Yaneli Dowling APRN.DICE TABLE PERSON Work Phone: [facility] 08-29-2023 10:30-0400 Body height 165.1 cm [facility] 08-29-2023 10:30-0400 Body weight 89.08 kg [facility] 08-26-2023 07:59-0400 Body weight 88.45 kg Yaneli Dowling APRN.DICE TABLE PERSON Work Phone: [facility] 08-26-2023 07:59-0400 Diastolic blood pressure 76 mm[Hg] Yaneli Dowling APRN.DICE TABLE PERSON Work Phone: [facility] 08-26-2023 07:59-0400 Heart rate 90 /min Yaneli Dowling APRN.DICE TABLE PERSON Work Phone: [facility] 08-26-2023 07:59-0400 SaO2% (BldA) [Mass fraction] 98 % Yaneli Dowling APRN.DICE TABLE PERSON Work Phone: [facility] 08-26-2023 07:59-0400 Systolic blood pressure 112 mm[Hg] Yaneli Dowling APRN.DICE TABLE PERSON Work Phone: [facility] 08-02-2023 09:00-0400 Body height 165.1 cm [facility] 08-02-2023 09:00-0400 Body weight 88.08 kg [facility] 06-30-2023 13:05-0400 Body height 165.1 cm Yaneli Dowling APRN.DICE TABLE PERSON Work Phone: [facility] 06-30-2023 13:05-0400 Body weight 89.45 kg Yaneli Dowling APRN.DICE TABLE PERSON Work Phone: [facility] 06-30-2023 13:05-0400 Diastolic blood pressure 70 mm[Hg] Yaneli Dowling APRN.DICE TABLE PERSON Work Phone: [facility] 06-30-2023 13:05-0400 Heart rate 94 /min Yaneli Dowling APRN.DICE TABLE PERSON Work Phone: [facility] 06-30-2023 13:05-0400 SaO2% (BldA) [Mass fraction] 96 % Yaneli Dowling APRN.DICE TABLE PERSON Work Phone: [facility] 06-30-2023 13:05-0400 Systolic blood pressure 108 mm[Hg] Yaneli Dowling APRN.DICE TABLE PERSON Work Phone: [facility] 05-19-2022 07:57-0400 Body height 162.6 cm Yaneli Dowling APRN.DICE TABLE PERSON Work Phone: [facility] 05-19-2022 07:57-0400 Body weight 82.19 kg Yaneli Dowling APRN.DICE TABLE PERSON Work Phone: [facility] 05-19-2022 07:57-0400 Diastolic blood pressure 70 mm[Hg] Yaneli Dowling APRN.DICE TABLE PERSON Work Phone: [facility] 05-19-2022 07:57-0400 Systolic blood pressure 120 mm[Hg] Yaneli Dowling APRN.DICE TABLE PERSON Work Phone: [facility] 04-02-2020 12:48-0400 Body mass index (BMI) [Ratio] 31.9 kg/m2 [facility] Work Phone: 08-06-2017 10:44-0400 BMI (Body Mass Index) 30.55 kg/m2 Kayley Winter LPN [facility] Work Phone: 08-06-2017 10:44-0400 Body Temperature 98.1 [degF] Kayley Winter LPN [facility] Work Phone: 08-06-2017 10:44-0400 BP Diastolic 68 mm[Hg] Kayley Winter LPN [facility] Work Phone: 08-06-2017 10:44-0400 BP Systolic 102 mm[Hg] Kayley Winter LPN [facility] Work Phone: 08-06-2017 10:44-0400 Height 165.1 cm Kayley Winter LPN [facility] Work Phone: 08-06-2017 10:44-0400 Pulse (Heart Rate) 101 /min Kayley Winter LPN [facility] Work Phone: 08-06-2017 10:44-0400 Respiratory Rate 16 /min Kayley Winter LPN [facility] Work Phone: 08-06-2017 10:44-0400 Weight 83.28 kg Kayley Winter LPN [facility] Work Phone: Encounters Encounter Date Encounter Type Care Provider Facility Start: 08-07-2025 End: 08-07-[address] Augustina Abraham MD Work Phone: -Laboratory [facility] Start: 08-07-2025 End: 08-07-2025 Patient encounter procedure Seble Fleming CAR WORKER-C -Laboratory [facility] Start: 08-07-2025 End: 08-07-2025 ambulatory Seble Fleming NP Facility:[facility] Start: 07-01-2025 Registered Referred HEALTH RIS K ASSESSMENT -Laboratory Work Phone: Start: 07-01-2025 ambulatory Health Risk Assessment Facility:[facility] Start: 06-21-2025 End: 06-21-2025 Patient encounter procedure Yaneli Dowling APRN.DICE TABLE PERSON Work Phone: OB/Gynecology Comment on above: Polycystic ovarian s yndrome (Primary Dx); Binge-eating disorder, in full remission, mild; Anxiety and depression; Seasonal affective disorder; History of obesity Start: 06-21-2025 End: 06-21-2025 ambulatory YANELI DOWLING Facility:[facility] Start: 06-06-2025 End: 06-06-2025 Patient encounter procedure Yaneli Dowling APRN.CNP Work Phone: OB/Gynecology Comment on above: LLQ pain (Primary Dx ); Encounter for gynecological examination (general) (routine) without abnormal findings; Surveillance for control, oral contraceptives Start: 06-06-2025 End: 06-06-2025 Patient encounter status Yaneli Dowling APRN.DICE TABLE PERSON Work Phone: [facility] Work Phone: Start: 06-06-2025 End: 06-06-2025 ambulatory YANELI DOWLING Facility:[facility] Start: 06-06-2025 Encounter for gynecological examination (general) (routine) without abnormal findings YANELI DOWLING [facility] Start: 05-21-2025 End: 07-21-2025 Follow-up encounter Gina Carrillo MD Work Phone: OB/Gynecology Start: 05-21-2025 End: 05-21-2025 Telephone encounter Gina Carrillo MD Work Phone: OB/Gynecology Comment on above: Orders Start: 05-20-2025 End: 05-20-2025 Patient encounter procedure Gina Carrillo MD Work Phone: OB/Gynecology Comment on above: Vaginal discharge (P rimary Dx); Dysuria; Vaginal odor; Vaginal itching; LLQ pain Start: 05-20-2025 End: 05-20-2025 ambulatory AUGUSTINA ABRAHAM Facility:[facility] Start: 04-05-2025 End: 04-05-2025 Patient encounter procedure Yaneli Dowling APRN.DICE TABLE PERSON Work Phone: OB/Gynecology Comment on above: Polycystic ovarian s yndrome (Primary Dx); Binge-eating disorder, in full remission, mild; Anxiety and depression; Seasonal affective disorder; History of obesity Start: 04-05-2025 End: 04-05-2025 ambulatory YANELI DOWLING Facility:[facility] Start: 12-20-2024 End: 12-20-2024 ambulatory YANELI DOWLING Facility:[facility] Start: 12-20-2024 End: 12-20-2024 Patient encounter procedure Yaneli Dowling APRN.CNP Work Phone: OB/Gynecology Comment on above: Polycystic ovarian s yndrome (Primary Dx); Binge-eating disorder, in full remission, mild; Anxiety and depression; Seasonal affective disorder (HCC); History of obesity Start: 10-23-2024 End: 10-23-[address] Augustina Abraham MD Work Phone: [facility] Work Phone: Start: 10-23-2024 End: 10-23-2024 Discharged Recurring Self [facility] -Physical Therapy Work Phone: Start: 09-26-2024 End: 09-26-2024 ambulatory YANELI DOWLING Facility:[facility] Start: 09-26-2024 End: 09-26-2024 Patient encounter procedure Yaneli Dowling APRN.CNP Work Phone: OB/Gynecology Comment on above: Polycystic ovarian s yndrome (Primary Dx); Binge-eating disorder, in full remission, mild; Anxiety and depression; Seasonal affective disorder (HCC); Encounter for long-term (current) use of medications; History of obesity Start: 06-13-2024 End: 06-13-2024 Office outpatient visit 25 minutes Yaneli Dowling APRN.CNP Work Phone: OB/Gynecology Comment on above: Polycystic ovarian s yndrome (Primary Dx); Binge-eating disorder, in full remission, mild; Anxiety and depression; Seasonal affective disorder (HCC); History of obesity Start: 06-05-2024 End: 06-05-2024 Patient encounter procedure Yaneli Dowling APRN.CNP Work Phone: OB/Gynecology Comment on above: Encounter for gyneco logical examination (general) (routine) without abnormal findings (Primary Dx); Breakthrough bleeding on control pills; Surveillance for control, oral contraceptives Start: 06-05-2024 End: 06-05-2024 Patient encounter status Yaneli Dowling APRN.CNP Work Phone: [facility] Start: 03-14-2024 End: 03-14-2024 Office outpatient visit 25 minutes Yaneli Dowling APRN.DICE TABLE PERSON Work Phone: OB/Gynecology Comment on above: Polycystic ovarian s yndrome (Primary Dx); Binge-eating disorder, in full remission, mild; Anxiety and depression; Seasonal affective disorder (HCC); Class 1 obesity with body mass index (BMI) of 31.0 to 31.9 in adult, unspecified obesity type, unspecified whether serious comorbidity present Start: 02-16-2024 End: 02-16-[address] Augustina Abraham Work Phone: [facility] Work Phone: Start: 02-16-2024 End: 02-16-[address] Augustina Abraham Work Phone: [facility]-Physical Therapy Work Phone: Start: 01-03-2024 End: 01-03-[address] Augustina Abraham Work Phone: [facility] Work Phone: Start: 01-03-2024 End: 01-03-[address] Augustina Abraham Work Phone: [facility] Work Phone: Start: 12-15-2023 End: 12-15-2023 Patient encounter procedure Yaneli Dowling APRN.DICE TABLE PERSON Work Phone: OB/Gynecology Comment on above: Polycystic ovarian s yndrome (Primary Dx); Binge-eating disorder, in full remission, mild; Anxiety and depression; Seasonal affective disorder (HCC); Class 1 obesity with body mass index (BMI) of 31.0 to 31.9 in adult, unspecified obesity type, unspecified whether serious comorbidity present Start: 12-09-2023 End: 12-09-2023 Patient encounter procedure [facility] Work Phone: Start: 12-06-2023 End: 12-06-2023 ambulatory [facility] Work Phone: Start: 12-06-2023 End: 12-06-2023 [address] [facility] Work Phone: Start: 09-22-2023 End: 09-22-2023 Patient encounter procedure Yaneli Dowling APRN.DICE TABLE PERSON Work Phone: OB/Gynecology Comment on above: Polycystic ovarian s yndrome (Primary Dx); Binge-eating disorder, in full remission, mild; Anxiety and depression; Class 1 obesity with body mass index (BMI) of 31.0 to 31.9 in adult, unspecified obesity type, unspecified whether serious comorbidity present Start: 09-21-2023 End: 09-21-2023 ambulatory [facility] Work Phone: Start: 09-21-2023 End: 09-21-2023 Patient encounter procedure [facility] Start: 09-20-2023 Registered Recurring [facility]-Physical Therapy Work Phone: Start: 08-29-2023 End: 09-06-2023 [facility] Start: 08-26-2023 End: 08-26-2023 Patient encounter procedure Yaneli Dowling APRN.DICE TABLE PERSON Work Phone: OB/Gynecology Comment on above: Polycystic ovarian s yndrome (Primary Dx); Binge-eating disorder, in full remission, mild; Anxiety and depression; Class 1 obesity with body mass index (BMI) of 31.0 to 31.9 in adult, unspecified obesity type, unspecified whether serious comorbidity present Start: 08-02-2023 End: 08-06-2023 Refill Yaneli Dowling APRN.DICE TABLE PERSON Work Phone: OB/Gynecology Comment on above: Refill Request; Refi ll Request Start: 08-02-2023 End: 08-06-2023 [facility] Start: 07-07-2023 Registered Referred [facility] Start: 07-07-2023 End: 07-07-2023 Patient encounter procedure [facility] [place] Work Phone: Start: 06-30-2023 End: 06-30-2023 Patient encounter procedure Yaneli Dowling APRN.[facility] Work Phone: OB/Gynecology Comment on above: Polycystic ovarian s yndrome (Primary Dx); Binge-eating disorder, in full remission, mild; Anxiety and depression; Screening for deficiency anemia; Encounter for vitamin deficiency screening; Screening for diabetes mellitus; Exercise-induced asthma; Screening cholesterol level; Screening for thyroid disorder; Class 1 obesity with body mass index (BMI) of 31.0 to 31.9 in adult, unspecified obesity type, unspecified whether serious comorbidity present Start: 11-30-2022 Refill Yaneli LEWIS RN.[facility] Work Phone: OB/Gynecology Comment on above: Refill Request Start: 05-19-2022 Telephone encounter Yaneli reyes APRN.[employer] PERSON Work Phone: OB/Gynecology Comment on above: Medication Question Start: 05-19-2022 End: 05-19-2022 Patient encounter procedure Yaneli Dowling APRN.DICE TABLE PERSON Work Phone: OB/Gynecology Comment on above: Encounter for gyneco logical examination (general) (routine) without abnormal findings (Primary Dx); Surveillance for control, oral contraceptives; Screen for STD (sexually transmitted disease) Start: 05-19-2022 End: 05-19-2022 Patient encounter status Yaneli Dowling APRN.DICE TABLE PERSON Work Phone: OB/Gynecology Start: 05-07-2022 Refill Yaneli LEWIS RN.[employer] PERSON Work Phone: OB/Gynecology Comment on above: Refill Request; Refi ll Request Start: 2022 Refill Yaneli LEWIS RN.[employer] TABLE PERSON Work Phone: OB/Gynecology Comment on above: Refill Request Start: 12-29-2021 End: 12-29-2021 Discharged Recurring [facility] Start: 12-27-2013 Patient encounter status Yaneli workman APRN.[facility] Work Phone: [facility] Procedures Date Procedure Procedure Detail Performing Clinician Start: 07-01-2025 Serum inorganic phos phate measurement Dr. Augustina Abraham MD Work Phone: Start: 06-06-2025 Urnls dip stick/tabl et reagent auto microscopy Yaneli Dowling APRN.CNP Work Phone: Start: 05-20-2025 Urnls dip stick/tabl et rgnt auto w/o microscopy Gina Carrillo MD Work Phone: Start: 01-03-2024 X-ray of both feet Dr. Augustina Abraham Work Phone: Start: 08-21-2019 Adult depression scr eening assessment Yaneli Dowling APRN.[employer] PERSON Work Phone: Plan of Treatment Date Care Activity Detail Author Start: 06-20-2028 Urine microalbumin profile [facility] Start: 06-13-2026 End: 06-13-2026 Patient encounter procedure 06/13/2026 9:30 AM EDT Office Visit OB/Gynecology [address] [place] [address] Yaneli Dowling APRN.DICE TABLE PERSON [address] [place] [address] Annual OB/Gynecology Comment on above: Annual Start: 06-03-2026 PAP TESTING PAP TESTING [facility] Start: 06-03-2026 Screening for malign ant neoplasm of cervix [facility] Start: 09-20-2025 End: 09-20-2025 Patient encounter procedure 09/20/2025 7:30 AM EST Office Visit OB/Gynecology [address] [place] [address] Yaneli Dowling APRN.DICE TABLE PERSON [address] [place] [address] weight mgmt OB/Gynecology Comment on above: weight mgmt Start: 07-12-2025 End: 07-12-2025 Patient encounter procedure 07/12/2025 7:30 AM EDT Office Visit OB/Gynecology [address] [place] [address] Yaneli Dowling APRN.DICE TABLE PERSON [address] [place] [address] (Fax) weight mgmt OB/Gynecology Comment on above: weight mgmt Start: 07-08-2025 Influenza vaccination Influenza Vacc ine (#1) [facility] Start: 06-21-2025 End: 06-21-2025 Patient encounter procedure 06/21/2025 9:30 AM EDT Office Visit OB/Gynecology [address] [place] [address] Yaneli Dowling APRN.DICE TABLE PERSON [address] [place] [address] (Fax) WT MGT OB/Gynecology Comment on above: WT MGT Start: 06-06-2025 End: 06-06-2025 Patient encounter procedure 06/06/2025 1:00 PM EDT Office Visit OB/Gynecology [address] [place] [address] Yaneli Dowling APRN.DICE TABLE PERSON [address] [place] [address] (Fax) Annual OB/Gynecology Comment on above: Annual Start: 05-30-2025 End: 05-30-2025 ambulatory 05/30/2025 9:00 AM EDT Procedure OB/Gynecology [address] [place] [address] [facility] [address] [place] [address] : LLQ pain [R10.32] OB/Gynecology Comment on above: : LLQ pain [R10.32] Start: 05-21-2025 End: 08-20-2025 Bacteria identified in Urine by Culture BACTERIAL CULTURE, URINE Microbiology Routine Pelvic pain Expected: 05/21/2025, Expires: 08/20/2025 [facility] Comment on above: Expected: 05/21/2025 , Expires: 08/20/2025 Start: 05-21-2025 End: 08-20-2025 Urinalysis complete panel - Urine URINALYSIS, WITH MICROSCOPIC Lab Routine Pelvic pain Expected: 05/21/2025, Expires: 08/20/2025 [facility] Work Phone: Comment on above: Expected: 05/21/2025 , Expires: 08/20/2025 Start: 05-20-2025 End: 05-20-2026 US Pelvis PELVIC US [facility] Anc Imaging Routine LLQ pain Expected: 05/20/2025, Expires: 05/20/2026 [facility] Work Phone: Comment on above: Expected: 05/20/2025 , Expires: 05/20/2026 Start: 03-15-2025 End: 03-15-2025 Patient encounter procedure 03/15/2025 7:00 AM EDT Office Visit OB/Gynecology [address] [place] [address] Yaneli Dowling CAR SEAT UPHOLSTERER.DICE TABLE PERSON [address] [place] [address] Wt mgmt f/u OB/Gynecology Comment on above: Wt mgmt f/u Start: 12-20-2024 End: 12-20-2024 Patient encounter procedure 12/20/2024 10:00 AM EST Office Visit OB/Gynecology [address] [place] [address] Yaneli Dowling CAR SEAT UPHOLSTERER.DICE TABLE PERSON [address] [place] [address] wt mgmt f/u/ OK per AG OB/Gynecology Comment on above: wt mgmt f/u/ OK per AG Start: 09-26-2024 End: 09-26-2024 Patient encounter procedure 09/26/2024 9:30 AM EST Office Visit OB/Gynecology [address] [place] [address] Yaneli Dowling APRN.DICE TABLE PERSON [address] [place] [address] wt mgmt f/u OB/Gynecology Comment on above: wt mgmt f/u Start: 07-08-2024 Covid-19 Vaccine ( season) Covid-19 Vaccine ( season) [facility] Start: 07-08-2024 Influenza vaccination Influenza Vacc ine (#1) [facility] Start: 06-13-2024 End: 06-13-2024 Patient encounter procedure 06/13/2024 9:30 AM EDT Office Visit OB/Gynecology [address] [place] [address] Yaneli Dowling, CAR SEAT UPHOLSTERER.DICE TABLE PERSON [address] [place] [address] wt mgt F/up. OB/Gynecology Comment on above: wt mgt F/up. Start: 06-05-2024 End: 06-05-2024 Patient encounter procedure 06/05/2024 2:00 PM EDT Office Visit OB/Gynecology [address] [place] [address] Yaneli Dowling, CAR SEAT UPHOLSTERER.DICE TABLE PERSON [address] [place] [address] annual OB/Gynecology Comment on above: annual Start: 12-06-2023 Lupus anticoagulant assay [facility] Start: 07-08-2023 Covid-19 Vaccine ( season) Covid-19 Vaccine ( season) [facility] Start: 07-08-2023 Influenza vaccination C [facility] Start: 06-10-2023 PAP TESTING PAP TESTING [facility] Start: 07-08-2022 Influenza vaccination C [facility] Start: 02-24-2022 ANNUAL PCP TEAM GLASS FITTER PHI DISEASE VISIT ANNUAL PCP TEAM CHRONIC DISEASE VISIT [facility] Start: 06-10-2021 CHLAMYDIA SCREENING (18-24) CHLAMYDIA SCREENING (18-24) [facility] Start: 06-10-2021 GC (GONORRHEA) SCREE MICHAEL (18-24) GC (GONORRHEA) SCREENING (18-24) [facility] Start: 11-20-2020 ANNUAL PCP TEAM GLASS FITTER PHI DISEASE VISIT ANNUAL PCP TEAM CHRONIC DISEASE VISIT [facility] Start: 08-21-2020 Adult depression screening assessment DEPRESSION SCREENING [facility] Start: 08-06-2017 End: 08-06-2017 Appointment Appointment [facility] Work Phone: Start: 2017 ONE PNEUMOVAX PRIOR TO AGE 65 ONE PNEUMOVAX PRIOR TO AGE 65 [facility] Start: 02-13-2016 HEPATITIS C SCREENING HEPATITIS C [facility] Start: 02-13-2016 Hepatitis C screening Hepatitis C [facility] Start: 02-13-2016 HIV SCREENING HIV SCREENING [facility] Start: 02-13-2016 HIV screening HIV Screening [facility] Start: 02-13-2012 PEDS TO ADULT TRANSI TION ANNUAL ASSESSMENT PEDS TO ADULT TRANSITION ANNUAL ASSESSMENT [facility] Start: 2010 PEDS TO ADULT TRANSI TION INITIAL DISCUSSION PEDS TO ADULT TRANSITION INITIAL DISCUSSION [facility] Start: 02-13-2008 MENINGOCOCCAL B: Consider based on risk (1 of 2 - Risk Bexsero 2-dose series) MENINGOCOCCAL B: Consider based on risk (1 of 2 - Risk Bexsero 2-dose series) [facility] Start: 02-13-2004 PNEUMOCOCCAL (1 - PCV) PNEUMOCOCCAL (1 - PCV) [facility] Start: 02-13-2004 Pneumococcal vaccination [facility] Start: 2003 COVID-19 VACCINE (1) COVID-19 VACCIN E (1) [facility] Start: 1998 COVID-19 VACCINE (#1) COVID-19 VACCI NE (#1) [facility] Bacteria identified in Urine by Culture BACTERIAL CULTURE, URINE Microbiology Routine LLQ pain 06/06/2025 1:47 PM EDT [facility] Work Phone: BACTERIAL VAGINOSIS NAAT BACTERI AL VAGINOSIS NAAT Lab Routine Vaginal discharge 05/20/2025 9:35 AM EDT [facility] DILCIA/TRICHOMONAS NAAT DILCIA /TRICHOMONAS NAAT Lab Routine Vaginal discharge 05/20/2025 9:35 AM EDT [facility] Chlamydia trachomatis+Neisseria gonorrhoeae DNA [Presence] in Unspecified specimen by SANJEEV with probe detection GC/CHLAMYDIA DNA DET Lab Routine Screen for STD (sexually transmitted disease) Ordered: 05/19/2022 [facility] Work Phone: Comment on above: Ordered: 05/19/2022 Chlamydia trachomatis+Neisseria gonorrhoeae DNA [Presence] in Unspecified specimen by SANJEEV with probe detection GONORRHEA/CHLAMYDIA NAAT Lab Routine Vaginal discharge 05/20/2025 9:35 AM EDT [facility] Patient Education SINUSITIS [facility] Work Phone: Thrombin time [facility] Immunizations Immunization Date Immunization Notes Care Provider [facility] 09-13-2024 influenza, seasonal, injectable, preservative free Dr. Augustina Abraham MD Work Phone: [facility] 09-13-2024 influenza virus vacc ine, unspecified formulation Gina Carrillo MD Work Phone: [facility] 09-07-2023 influenza, injectabl e, quadrivalent, preservative free [facility] 09-07-2023 influenza virus vacc ine, unspecified formulation Yaneli Dowling APRN.DICE TABLE PERSON Work Phone: [facility] 09-13-2022 influenza, injectabl e, quadrivalent, preservative free [facility] 09-13-2022 influenza, seasonal, injectable [facility] 09-13-2022 influenza virus vacc ine, unspecified formulation Yaneli Dowling APRN.DICE TABLE PERSON Work Phone: [facility] 08-04-2021 hepatitis B vaccine, adult dosage [facility] 03-06-2021 hepatitis B vaccine, adult dosage [facility] 01-28-2021 hepatitis B vaccine, adult dosage [facility] 08-16-2020 influenza, injectable,quadrivalent, preservative free, pediatric [facility] 08-22-2019 influenza, seasonal, injectable Yaneli Dowling APRN.DICE TABLE PERSON Work Phone: [facility] 06-20-2018 tetanus toxoid, redu pati diphtheria toxoid, and acellular pertussis vaccine, adsorbed [facility] 07-02-2016 meningococcal polysaccharide (groups A, C, Y and W-135) diphtheria toxoid conjugate vaccine (MCV4P) Yaneli Dowling APRN.[facility] Work Phone: [facility] 06-19-2015 human papilloma viru s vaccine, quadrivalent Yaneli Dowling APRN.[employer]ICE TABLE PERSON Work Phone: [facility] 06-11-2014 human papilloma viru s vaccine, quadrivalent Yaneli Dowling APRN.DICE TABLE PERSON Work Phone: [facility] Work Phone: 12-27-2013 human papilloma viru s vaccine, quadrivalent Yaneli Dowling APRN.DICE TABLE PERSON Work Phone: [facility] 12-27-2013 varicella virus vaccine Yaneli Dowling APRN.DICE TABLE PERSON Work Phone: [facility] 09-25-2013 influenza virus vacc ine, live, attenuated, for intranasal use Yaneli Dowling APRN.DICE TABLE PERSON Work Phone: [facility] 10-25-2011 influenza virus vacc ine, unspecified formulation Yaneli Dowling APRN.DICE TABLE PERSON Work Phone: [facility] 08-26-2010 influenza virus vacc ine, live, attenuated, for intranasal use Yaneli Dowling APRN.DICE TABLE PERSON Work Phone: [facility] Work Phone: 04-20-2010 meningococcal polysaccharide vaccine (MPSV4) Yaneli Dowling APRN.DICE TABLE PERSON Work Phone: [facility] 04-20-2010 tetanus toxoid, redu pati diphtheria toxoid, and acellular pertussis vaccine, adsorbed Yaneli Dowling APRN.DICE TABLE PERSON Work Phone: [facility] 09-23-2009 influenza virus vacc ine, unspecified formulation Yaneli Dowling APRN.DICE TABLE PERSON Work Phone: [facility] Work Phone: 08-27-2008 influenza virus vacc ine, unspecified formulation Yaneli Dowling APRN.DICE TABLE PERSON Work Phone: [facility] 03-25-2005 haemophilus influenz ae type b vaccine, HbOC conjugate Yaneli Dowling APRN.DICE TABLE PERSON Work Phone: [facility] 10-15-2003 influenza virus vacc ine, whole virus Yaneli Dowling APRN.DICE TABLE PERSON Work Phone: [facility] 06-17-2003 diphtheria, tetanus toxoids and acellular pertussis vaccine Yaneli Dowling APRN.DICE TABLE PERSON Work Phone: [facility] 06-17-2003 measles, mumps and rubella virus vaccine Yaneli Dowling APRN.DICE TABLE PERSON Work Phone: [facility] 06-17-2003 poliovirus vaccine, inactivated Yaneli Dowling APRN.DICE TABLE PERSON Work Phone: [facility] 05-16-2002 pneumococcal conjuga te vaccine, 7 valent Yaneli Dowling APRN.DICE TABLE PERSON Work Phone: [facility] 08-21-1999 diphtheria, tetanus toxoids and acellular pertussis vaccine Yaneli Dowling APRN.DICE TABLE PERSON Work Phone: [facility] 08-21-1999 poliovirus vaccine, inactivated Yaneli Dowling APRN.DICE TABLE PERSON Work Phone: [facility] 06-01-1999 measles, mumps and rubella virus vaccine Yaneli Dowling APRN.DICE TABLE PERSON Work Phone: [facility] 06-01-1999 varicella virus vaccine Yaneli Dowling APRN.DICE TABLE PERSON Work Phone: [facility] 1998 diphtheria, tetanus toxoids and acellular pertussis vaccine Yaneli Dowling APRN.DICE TABLE PERSON Work Phone: [facility] 1998 haemophilus influenz ae type b vaccine, HbOC conjugate Yaneli Dowling APRN.DICE TABLE PERSON Work Phone: [facility] 1998 hepatitis B vaccine, pediatric or pediatric/adolescent dosage Yaneli Dowling APRN.DICE TABLE PERSON Work Phone: [facility] 1998 diphtheria, tetanus toxoids and acellular pertussis vaccine Yaneli Dowling CAR SEAT UPHOLSTERER.DICE TABLE PERSON Work Phone: [facility] 1998 haemophilus influenz ae type b vaccine, HbOC conjugate Yaneli Dowling CAR SEAT UPHOLSTERER.DICE TABLE PERSON Work Phone: [facility] 1998 poliovirus vaccine, inactivated Yaneli Dowling CAR SEAT UPHOLSTERER.DICE TABLE PERSON Work Phone: [facility] 1998 diphtheria, tetanus toxoids and acellular pertussis vaccine Yaneli Dowling CAR SEAT UPHOLSTERER.DICE TABLE PERSON Work Phone: [facility] 1998 haemophilus influenz ae type b vaccine, HbOC conjugate Yaneli Dowling CAR SEAT UPHOLSTERER.DICE TABLE PERSON Work Phone: [facility] 1998 hepatitis B vaccine, pediatric or pediatric/adolescent dosage Yaneli Dowling CAR SEAT UPHOLSTERER.DICE TABLE PERSON Work Phone: [facility] 1998 poliovirus vaccine, inactivated Yaneli Dowling CAR SEAT UPHOLSTERER.DICE TABLE PERSON Work Phone: [facility] 1998 hepatitis B vaccine, pediatric or pediatric/adolescent dosage Yaneli Dowling CAR SEAT UPHOLSTERER.DICE TABLE PERSON Work Phone: [facility] Payers Date Payer Category Payer Self-pay [id number] 2022 Private Health Insurance [id number] 2022 Unknown [id number] 2021 Unknown MMO MMO TPA [id number] 2021-Present [address] [place] [address] PPO [id number] 2016 Unknown MMO MMO [employer] [id number] 2016-Present [phone] [address] [place] [address] [facility] [id number] 2016 Unknown [id number] 2011 Unknown [id number] Unknown [id number] Unknown [facility] [id number] Unknown [facility] [id number] Unknown [id number] Unknown [id number] Unknown [id number] Social History Date Type Detail Facility Start: 09-27-2021 End: 01-03-2024 Tobacco smoking status MSIS Unknown if ever smoked [facility] Start: 1998 Sex Assigned At Female W [facility] Start: 03-26-2011 End: 01-03-2024 Tobacco smoking status NHIS Never smoked tobacco [facility] Work Phone: Start: 06-10-2020 End: 05-20-2025 Alcohol intake Current non-drinker of alcohol (finding) [facility] Start: 05-02-2020 End: 06-10-2020 History SDOH Alcohol Frequency 2 [facility] Start: 05-02-2020 End: 06-10-2020 History SDOH Alcohol Std Drinks 1 [facility] Start: 06-10-2020 History SDOH Social Connections Phone 5 [facility] Start: 06-10-2020 History SDOH Social Connections Living 7 [facility] Start: 06-10-2020 History SDOH Physica l Activity DPW 4 [facility] Start: 06-10-2020 Education 17 [facility] Start: 1998 Sex Assigned At Not on file C [facility] Start: 03-26-2011 End: 06-03-2023 Tobacco use and exposure Smokeless tobacco non-user [facility] Work Phone: Start: 06-10-2020 End: 06-30-2023 History of Social function [facility] phi Work Phone: Start: 06-10-2020 End: 06-30-2023 Social connection and isolation panel [facility] Work Phone: Do you belong to any clubs or organizations such as jehovah's witness groups, unions, fraternal or athletic groups, or school groups? Yes [facility] Work Phone: Are you now , , , , never or living with a partner? Never [facility] Work Phone: How often to you hav e a drink containing alcohol? Monthly or less [facility] Work Phone: How many standard dr inks containing alcohol do you have on a typical day? 1 or 2 [facility] Work Phone: How often do you hav e 6 or more drinks on 1 occasion? Never [facility] Work Phone: Start: 10-08-2012 How hard is it for y ou to pay for the very basics like food, housing, medical care, and heating Not hard at all [facility] Work Phone: Do you feel stress - tense, restless, nervous, or anxious, or unable to sleep at night because your mind is troubled all the time - these days [OSQ] Not at all [facility] Work Phone: (I/We) worried wheth er (my/our) food would run out before (I/we) got money to buy more. Never true [facility] Work Phone: In the past 12 month s, was there a time when you were not able to pay the mortgage or rent on time? No [facility] Start: 02-20-2025 Sex [facility] (finding) [facility] Functional Status Date Assessment Result Facility 03-05-2015 Are you deaf, or do you have serious difficulty hearing No 03/05/2015 6:17 PM EDT Stephany Purvis MA No [facility] 03-05-2015 Are you blind, or do you have serious difficulty seeing, even when wearing glasses No 03/05/2015 6:17 PM EDT Stephany Purvis MA No [facility] 03-05-2015 Do you have serious difficulty walking or climbing stairs No 03/05/2015 6:17 PM EDT Stephany Purvis MA No [facility] 03-05-2015 Do you have difficul ty dressing or bathing No 03/05/2015 6:17 PM EDT Stephany Purvis MA [facility] 03-05-2015 Because of a physica l, mental, or emotional condition, do you have difficulty doing errands alone such as visiting a physician's office or shopping No 03/05/2015 6:17 PM EDT Stephany Purvis MA [facility] Mental Status Date Assessment Result Facility 03-05-2015 Because of a physica l, mental, or emotional condition, do you have serious difficulty concentrating, remembering, or making decisions No 03/05/2015 6:17 PM EDT Stephany Purvis MA [facility] Clinical Notes 06-08-2018 to 06-21-2025 Yaneli Dowling APRN.DICE TABLE PERSON - 06/21/2025 9:30 AM EDTPatient InstructionsYaneli Dowling APRN.JOHN - 06/06/2025 12:51 PM Gina Ellis MD - 05/20/2025 9:05 AM EDTPatient InstructionsPatient Instructions Note Date & Type Note Facility 06-21-2025 History of Present illness Narrative Some documentation from previous visit of 04/05/2025 was copied and pasted, documentation has been reviewed and edited as necessary for today's visit. Patient Summary: Jose Eduardo is a 25 year old Female who presents for follow-up evaluation of obesity/weight management to treat PCOS, BED, anxiety., depression and prevent related co-morbidities. In our previous visits we have discussed lifestyle intervention including a nutrition recommendations and physical activity optimization. Her last office visit was 11 weeks ago. Assessment/plan from last visit: - Metformin ER 750 mg twice a day - Phentermine 37.5 mg - usually takes 1/2 tablet - Topiramate 25 in the morning and 25 mg in the afternoon - Bupropion 150 mg -1 tablet in morning Mood improved with some cravings if she allows herself to get hungry. Inquires about increasing to twice daily due to concerns about seasonal affective disorder. - BED - no episodes with topiramate Labs: - No recent labs performed; plans to have labs done next week for work and will forward results. Interval History Vibration plate has helped anxiety Diet changes B - Usually protein powder 25 gm with 4-5 carb and 1 egg and sometimes Fairlife 30 gm protein shake S - 2-4 days/week - sometimes TZ yogurt or rare vegetables and yogurt with Ranch or cottage cheese or Quest chips or 17 gm protein bar L - chicken or tuna packet and lettuce and Quest chips and usually a raw veg, occasional Triple Zero yogurt if she did not have it as a snack or chicken and veg if at home S - 2-4 days/week - occasionally TZ yogurt or rare vegetables and Thai yogurt with Ranch or cottage cheese or Quest chips or turkey sticks with cheese crisps D - protein, vegetables both low carb and starchy/zoodles or rare Bird's Eye Veggie Pasta with sauce or portion of protein pasta/rice S - none Fluids - Lemon water, [place], diet Coke, SF electrolyte drink Current Barriers: emotional eating, stress eating, and poor sleep hygiene She feels the medications help to control BED, increase fullness, decrease hunger. No SE. Exercise: - Reduced weightlifting due to a recent episode of side pain; has been focusing more on walking. - Walks approximately 40 minutes a day, 5-6 days a week. - Uses a vibration plate twice daily for 20 minutes, which she finds helps with anxiety. - Reports taking 10,000-15,000 steps on workdays and about 15,000 steps on days she walks for 40 minutes. 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 - Describes stress levels as high but stable. - Considers job change but finds it challenging. - Experiences significant anxiety; finds relief using a vibration plate and weighted blankets. Sleep: - Sleeps 6-7 hours per night but does not feel rested. Weight loss since last vist: 9 lbs for total of 33 lbs weight loss Date: Weight: BMI: Medications: 06/21/2025 164 lb 28.35 16.75% WC 32.5" bupropion increased to twice a day 03/15/2025 173 lb 29.54 12/20/2024 171 lb 29.19 09/26/2024 173 lb 29.54 Metformin ER 06/13/2024 169 lb 28.85 03/14/2024 172 lb 28.62 12/15/2023 183 lb phentermine 37.5 mg bupropion SAD 09/22/2023 187 lb 31.12 08/26/2023 195 lb Phentermine 37.5 mg , Metformin 06/30/2023 197 lb 32.82 WC 36 in Phentermine 15, Topiramate 5% weight loss = 187 lbs, 10% weight loss = 177 lbs Phentermine Start date: ?06/30/2023 Start weight: ?197 lbs. Dose: 15mg capsule, increased to 37.5 mg 12/15/2023 -- Patient reports suppression of her appetite and increase in satiety since starting -- Patient reports no side effects Topiramate Dose:25 mg -- Patient reports suppression of her appetite and increase in satiety since starting. Remission of BED SE: paresthesia if dose increased CrCl cannot be calculated (Patient's most recent lab result is older than the maximum 180 days allowed.). PAST MEDICAL HISTORY Diagnosis Date Anxiety state Cysts of both ovaries 03/17/2019 Excessive sweating 03/21/2012 Exercise-induced asthma (HCC) 01/30/2014 Family history of factor V Leiden mutation 06/19/2015 Polycystic ovarian syndrome 03/17/2019 suspected Post concussion syndrome 09/17/2014 Visual disturbance 09/17/2014 Current Outpatient Medications Medication Sig Dispense Refill Drospirenone-Ethinyl Estradiol (ANNIA, 28,) 3-0.03 mg per tablet Take 1 tablet by mouth once daily. FOR CONTINUOUS USE. 112 tablet 5 topiramate (TOPAMAX) 25 mg tablet Take 1 tablet by mouth two times a day. 180 tablet 1 buPROPion SR (WELLBUTRIN SR) 150 mg 12 hr tablet Take 1 tablet by mouth every morning. 90 tablet 1 metFORMIN ER (GLUCOPHAGE XR) 750 mg 24 hr tablet Take 1 tablet by mouth two times a day with meals. 180 tablet 1 Phentermine HCl 37.5 mg tablet Take 1 tablet by mouth daily before breakfast for 90 days. 90 tablet 0 celecoxib (CELEBREX) 100 mg capsule Take 100 mg by mouth once daily. RHOFADE 1 % crea once daily. loratadine (CLARITIN ORAL) Take by mouth. MULTI-VITAMIN TAB Take one(1) tablet daily. 0 No current facility-administered medications for this visit. 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 Current Contraception: combined hormonal contraceptives Obesity ROS/ FHx ROS Constitutional: (+) fatigue, (+) weight loss Psychiatric: (+) anxiety, (-) binge eating episodes GEN: Fatigue:yes Symptoms of PCOS: yes BP 115/78 Pulse 94 Wt 74.4 kg (164 lb) LMP 04/03/2025 (Approximate) SpO2 100% BMI 28.35 kg/m PE GENERAL: Pleasant; no acute distress PULMONARY: normal inspiratory effort NEURO: alert and oriented x3 MUSCULOSKELETAL: waist circumference 32.5 inches Assessment/Plan: Jose Eduardo Prince is a 25 year old yo with Class I obesity who presented today for follow up for supervised weight loss to treat and prevent related co-morbidities. 1. Polycystic ovarian syndrome (E28.2) - Whole food balanced protein low-carb nutrition - METFORMIN ER 750 MG TABLET 2. Binge-eating disorder, in full remission, mild (F50.814) - No binge eating episodes - Continue phentermine and topiramate. 3. Anxiety and depression (F41.9) 4. Seasonal affective disorder (F33.8) - On bupropion 1 tablet in the morning. - Increase bupropion to BID; instructed to take doses 12 hours apart. - Discussed that bupropion is a treatment for seasonal affective disorder; advised to monitor for changes in appetite and report if adjustments are needed. - Use of vibration plate has helped anxiety 5. History of obesity (Z86.39) Class 1 BMI 32.82 - Weight loss of 9 lbs since last visit; total body weight loss of 16.75%. - Waist circumference decreased by 3 inches. - Continue current diet and exercise regimen. - TOPIRAMATE 25 MG currently taking twice a day - PHENTERMINE 37.5 MG TABLET -usually takes 1/2 tablet. Patient has met the weight loss requirement of 5% TBW in initial 3 months using phentermine without any adverse side effects. Pt has responded well and would like to continue use for weight management. She understands that continued use is off label for longterm management of weight control. The patient is [...] filled. No suspicious activity was identified. - Continue METFORMIN ER 750 MG TABLET twice a day - continue Whole food balanced protein low-carb nutrition. Given personalized nutrition suggestions. - Given protein/whole food vegetable and fruit/high protein snack lists. - continue to include and increase exercise.to goal of 150-200 min/wk including cardio and resistance. Prescription instructions reviewed with patient as applicable. Potential red flag symptoms discussed with the patient. Reviewed appropriate action plan to take if red flag symptoms occur. Patient agreeable to treatment plan. Labs: - No recent labs performed; plans to have labs done next week for work and will forward results. Follow up in 3 months. Yaneli Dowling APRN.CNP Advanced Education from the [employer] Medical Decision Making: Problems: Moderate: 1+ chronic illnesses with change Risk: Moderate: Drug management and Moderate risk from testing/treatment Medical Decision Making Level: 4 - Moderate documented in this encounter [facility] 06-21-2025 Note HNO ID: [id number] Author: YANELI DOWLING APRN.CNP Service: ? Author Type: Nurse Practitioner Type: Progress Notes Filed: 06/21/2025 10:34 Note Text: Some documentation from previous visit of 04/05/2025 was copied and pasted, documentation has been reviewed and edited as necessary for today's visit. Patient Summary: Jose Eduardo is a 25 year old Female who presents for follow-up evaluation of obesity/weight management to treat PCOS, BED, anxiety., depression and prevent related co-morbidities. In our previous visits we have discussed lifestyle intervention including a nutrition recommendations and physical activity optimization. Her last office visit was 11 weeks ago. Assessment/plan from last visit: - Metformin ER 750 mg twice a day - Phentermine 37.5 mg - usually takes 1/2 tablet - Topiramate 25 in the morning and 25 mg in the afternoon - Bupropion 150 mg -1 tablet in morning Mood improved with some cravings if she allows herself to get hungry. Inquires about increasing to twice daily due to concerns about seasonal affective disorder. - BED - no episodes with topiramate Labs: - No recent labs performed; plans to have labs done next week for work and will forward results. Interval History Vibration plate has helped anxiety Diet changes B - Usually protein powder 25 gm with 4-5 carb and 1 egg and sometimes Fairlife 30 gm protein shake S - 2-4 days/week - sometimes TZ yogurt or rare vegetables and yogurt with Ranch or cottage cheese or Quest chips or 17 gm protein bar L - chicken or tuna packet and lettuce and Quest chips and usually a raw veg, occasional Triple Zero yogurt if she did not have it as a snack or chicken and veg if at home S - 2-4 days/week - occasionally TZ yogurt or rare vegetables and Thai yogurt with Ranch or cottage cheese or Quest chips or turkey sticks with cheese crisps D - protein, vegetables both low carb and starchy/zoodles or rare Bird's Eye Veggie Pasta with sauce or portion of protein pasta/rice S - none Fluids - Lemon water, [place], diet Coke, SF electrolyte drink Current Barriers: emotional eating, stress eating, and poor sleep hygiene She feels the medications help to control BED, increase fullness, decrease hunger. No SE. Exercise: - Reduced weightlifting due to a recent episode of side pain; has been focusing more on walking. - Walks approximately 40 minutes a day, 5-6 days a week. - Uses a vibration plate twice daily for 20 minutes, which she finds helps with anxiety. - Reports taking 10,000-15,000 steps on workdays and about 15,000 steps on days she walks for 40 minutes. 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 - Describes stress levels as high but stable. - Considers job change but finds it challenging. - Experiences significant anxiety; finds relief using a vibration plate and weighted blankets. Sleep: - Sleeps 6-7 hours per night but does not feel rested. Weight loss since last vist: 9 lbs for total of 33 lbs weight loss Date: Weight: BMI: Medications: 06/21/2025 164 lb 28.35 16.75% WC 32.5" bupropion increased to twice a day 03/15/2025 173 lb 29.54 12/20/2024 171 lb 29.19 09/26/2024 173 lb 29.54 Metformin ER 06/13/2024 169 lb 28.85 03/14/2024 172 lb 28.62 12/15/2023 183 lb phentermine 37.5 mg bupropion SAD 09/22/2023 187 lb 31.12 08/26/2023 195 lb Phentermine 37.5 mg , Metformin 06/30/2023 197 lb 32.82 WC 36 in Phentermine 15, Topiramate 5% weight loss = 187 lbs, 10% weight loss = 177 lbs Phentermine Start date: ?06/30/2023 Start weight: ?197 lbs. Dose: 15mg capsule, increased to 37.5 mg 12/15/2023 -- Patient reports suppression of her appetite and increase in satiety since starting -- Patient reports no side effects Topiramate Dose:25 mg -- Patient reports suppression of her appetite and increase in satiety since starting. Remission of BED SE: paresthesia if dose increased CrCl cannot be calculated (Patient's most recent lab result is older than the maximum 180 days allowed.). PAST MEDICAL HISTORY Diagnosis Date Anxiety state Cysts of both ovaries 03/17/2019 Excessive sweating 03/21/2012 Exercise-induced asthma (HCC) 01/30/2014 Family history of factor V Leiden mutation 06/19/2015 Polycystic ovarian syndrome 03/17/2019 suspected Post concussion syndrome 09/17/2014 Visual disturbance 09/17/2014 Current Outpatient Medications Medication Sig Dispense Refill Drospirenone-Ethinyl Estradiol (ANNIA, 28,) 3-0.03 mg per tablet Take 1 tablet by mouth once daily. FOR CONTINUOUS USE. 112 tablet 5 topiramate (TOPAMAX) 25 mg tablet Take 1 tablet by mouth two times a day. 180 tablet 1 buPROPion SR (WELLBUTRIN SR) 150 mg 12 hr tablet Take 1 tablet by mouth every morning. 90 tablet 1 metFORMIN ER (GLUCOPHAGE XR) 750 mg 24 hr tablet Take 1 tablet by mouth two times a day with meals. 180 tablet 1 Phentermine HCl 37.5 mg tablet Take 1 tablet by mouth daily before breakfast for 90 days (more content not included)... [facility] 06-20-2025 Instructions Yaneli Dowling APRN.[facility] - 06/20/2025 5:18 PM EDT - Whole food balanced protein, controlled carbohydrate nutrition plan - 30 g of protein 3 times a day and up to 30 g of carbs at lunch and dinner only. 1st meal of the day- 30g protein with limit of 2 gm carbohydrates. Premier Protein or generic 30 gm protein 1 gm sugar 2. 2-3 eggs and some unbreaded meat and/or cheese. 3. 2-3 eggs and 1/2 of protein shake or one of the yogurts below: :ratio, KETO Friendly Dairy Snack 1 single svg - 15g protein & 2g carb Two Good Lowfat Thai Yogurt, Lower Sugar - 12g protein & 2g carb No fruit, vegetables, bread, grain, other brands of yogurt, Smoothies, etc. Lunch and dinner - 30 gm protein is the goal with less than 30 gm carbohydrates All snacks and meals - all protein or more protein than carbs Protein - no carbs Egg 1 large - 6g Egg white 1 large 3.6g 3 oz is approximately the size of a deck of cards and equals 21 g protein so 4 oz is 28 gm protein Beef, Chicken, Avon, Pork, Sylvester 1 oz 7g Fish, Tuna Fish 1 oz 7g (Starkist tuna packet 2.6 oz 17 gm protein) Seafood (Crabmeat, Shrimp, Lobster) 1 oz 6g Protein shakes (read labels) Premier Protein or generic [employer] Equate, Meijer High Performance- 30g protein & 2g carb Premier Protein powder or generic- 30 g protein, 1g carb Fairlife 30 gram protein - 30g protein & 3g carb BOOST Glucose Control Max 30g Protein Nutritional Drink - 30g protein & 1g carb Nurri 30g protein 2g carb Slimfast High Protein - 20g protein & 1g carb Ensure Max Protein Nutrition Shake 30g protein & 2g carb OWYN plant based 100 % vegan no dairy, soy, wheat/gluten 32g protein 0 net carb Premier Protein plant protein powder - 25g protein, 0 sugar/2g carb Vanilla and chocolate Genius Gourmet Sparkling Clear water ([employer]) 30g protein <1 carb Protein AND carbs Beef/[place]on Jerky 1 oz dried 10-15g protein - check carb count, can be high if sugar added Slim Davy - 6 gm protein and 4 net carb Great Value original turkey sausage sticks - 7 gm protein and 2 gm carb Gurjit & Jake (at [facility]) Original smoked sausage sticks - 8 gm protein and 0 carb Imitation Crab Meat 1 oz - 2g protein & 4g carb Milk, skim 2% or 1% 8 oz - 8g protein & 12g carb Fairlife 2% milk 8 oz -13g protein & 6g carb Thai yogurt Full Fat Thai Yogurt 1 cup - 20.4g protein & 9.1g carb 2% Thai Yogurt 1 cup - 22.7g protein & 9.1g carb 0% (fat-free) Thai Yogurt - 1 cup 24g protein & 9.3g carb Aldi Protein Thai yogurt single svg - 13/g15g protein & 7g carb Chobani Zero Sugar single svg: - 12g protein & 5g carb Dannon Thai Light + Fit 1 single svg - 12g protein & 9g carb Oikos Pro single svg - 20g protein & 8g carb Oikos Triple Zero Thai Nonfat Yogurt 1 single svg - 15g protein & 7g carb :ratio, KETO Friendly Dairy Snack 1 single svg - 15g protein & 2g carb :ratio Protein 1 single svg - 25g protein & 8g carb Two Good Lowfat Thai Yogurt, [place], Lower Sugar - 12g protein & 2g carb Yoplait Protein 1 single svg 15g protein & 5g carb Dairy Free - [place] unsweetened Thai almond/soy 15g protein & 3g carb Dairy Free - True Goodness by Harmony coconut-based yogurt alternative 1 g protein 1 g net carb 180 min Drinkable yogurts: Chobani drinkable 15g, 20g and 30g protein & 18 carb (too many carbs for breakfast) Chobani Zero Sugar 10g protein 6g carbs 50 calories Oikos Pro drinkable yogurt 1 single svg - 23g protein & 8g carb :ratio Protein 26g protein 9g carb Cheese each oz Brie 5.9g protein & 0.1g carb Cheddar 7g protein & 0.4g carb Gurdeep 6.7g protein & 0.7g carb Cream Cheese 1.7g protein & 1.2g carb Jipio whipped Thai cream cheese (WM) 2 T 3g protein 2g carb Feta 4g protein & 1.2g carb Mozzarella 6.3g protein & 0.6g carb Parmesan 10g protein & 0.9g carb [place] 7.6g protein & 1.5g carb Cottage Cheese 1/2 c Breakstone 2% 13g protein 7g carb Dorina 2% 13g protein 5 g carb Good Culture 2% 14g protein 3g carb Lactaid 13g protein 5g carb Velasquez s Low Fat 12g protein & 4g carb Legumes Lentils cup 9g protein & 20g carb [place]rasco beans cup 7g protein & 20g carb Kidney, Black, [place], Cannellini beans cup 8g protein & 20g carb Chickpeas 1/2 c 6g protein & 15g carb Soybeans 1/2 c 14g complete protein & 8.5g carb [place] milk, unsweetened 8 oz 1g protein & 2g carb Soy milk 8 oz 3.5g protein & 1.6g carb Tofu 1/2 cup 10g protein & 2.3g carb Peanut butter, natural 2 Tbsp 7-8g protein & 4g net carbs, 190 calories PB2 powder 2 Tbsp 6g protein & 5g carb Nuts and Seeds per oz Almonds - 5.9g protein & 6.1g carb [place] Nuts - 4.0g protein & 3.4g carb Cashews - 5.1g protein & 9.2g carb Hazelnuts - 4.2g protein & 4.7g carb Hemp seeds/hearts 3 T/30 gms - 9.5 gm complete protein and 2.5 gm carb Peanuts - 7g protein & 4.6g carb Pecans - 2.6g protein & 3.9g carb Pistachios - 5.8g protein & 7.8g carb Pumpkin Seeds - 6.9g protein & 5g carb Dent Seeds - 5.8g protein & 5.6g carb Walnuts - 4.3g protein & 3.8g carb Edamame Beans (soybean) snack 1 pack 11 gm complete protein 2 carb 5 (FIVE) gram carb vegetable options 1 cup raw OR cup cooked: Asparagus Sharp sprouts Beets Broccoli Brussel sprouts Cabbage Carrots Cauliflower Celery [place] Eggplant Green beans Lettuce Peppers Snap peas Spaghetti squash Spinach Tomato Turnips Zucchini 15 gram carb vegetable options cup cooked corn or hominy corn on the cob, large (5 oz) cup cooked green peas 4.3 gm complete protein cup cooked carrasco beans 1 small potato or sweet potato cup cooked potato, plain cup cooked sweet potato, plain 1 cup winter squash (pumpkin, acorn, butternut) 1 cup marinara or pasta sauce - check label cup tomato juice cup tomato puree Beans, Seeds, Nuts cup cooked beans (kidney, turner, red, green, etc.) cup cooked lentils cup baked beans 4 tablespoons nut butter <15 gram carb fruit options Berries have the lowest sugar content 1/2 medium apple - 12.5 carbs 1/2 medium avocado - 6.5 gm carbs 1/2 medium banana - 15 carbs 1/2 cup blueberries - 11 carbs - may actually help you lose weight 1/2 cup fresh cherries -11 carbs 1 medium Elinor -9 carbs 1/2 cup fresh cranberries - 6.5 carbs 1 [place] date - 15-18 carbs 1/2 c grapes - 15 carbs 1/2 medium grapefruit - 10.5 carbs 1/2 cup diced honeydew melon - 8 carbs 1 medium kiwi without skin - 11 carbs 1/2 cup sliced latrell -14 carbs 1 medium nectarine - 15 carbs 1 medium orange -15.5 carbs 1 medium peach -14.5 carbs 1/2 cup fresh pineapple -11 carbs 1 medium plum -7.5 carbs 1 prune - 6 carbs 1/4 c raisins - 31.25 carbs 1/2 cup raspberries -7.5 carbs 1/2 c strawberries - 12.7 carbs 1 medium tangerine -12 carbs 1/2 cup diced watermelon - 6 carbs Grains Brown rice 1/2 c 5.5g protein 24 carb White long-grain rice 1/2 c 2g protein 22.5 carb Quinoa 1/2 c 4 gm complete protein 25 carb Oatmeal, old fashioned 1/2 c 5g protein 27g carb High Protein Snack Ideas 1. Jerky 2. [place] mix without dried fruit 3. Avon roll-ups 4. Thai yogurt 5. Veggies and yogurt dip 6. Tuna 7. Hard-boiled eggs 8. Peanut butter with celery 9. Cheese slices/ Cheese Stick 10. Handful of almonds, peanuts or walnuts 11. Cottage Cheese 12. Beef sticks 13. Protein bars 14. Canned [place] 15. Pumpkin seeds 16. Nut butter 17. Protein shake or protein bar 18. Avocado and chicken salad 19. Egg muffins 20. Leftover protein or lunch meat 21. 1/2 c blended cottage cheese or Thai yogurt with dry ranch/Mrs. Dash/herb seasoning mix to make protein dip- add raw veg 22. 1/2 c blended cottage cheese with 1 Tbsp sugar-free dry cheesecake pudding mix 12g protein 10 carb 23. Pudding - 1 30 gm protein shake with 1/2 pkg sugar-free pudding 4 svgs - 7.8 gm protein, 5 carb each svg 24. SF Sunkist or Root Beer with 1-2 Tablespoons heavy whipping cream 25. Mini frozen dessert bites - layer protein yogurt, skinny syrup and crushed nuts and freeze 26. Edamame Beans (soybean) snack 1 pack (O Beans) 11 gm complete protein 2 carb documented in this encounter [facility] 06-06-2025 Note HNO ID: [id number] Author: YANELI DOWLING APRN.JOHN Service: ? 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 Jose Eduardo is a 25 year old who presents for an annual gynecologic exam with complaints of lleft-sided plate left lower quadrant pain which is improving but still present. Left-Sided Pain: - Reports experiencing left-sided pain, particularly when her bladder is full; pain subsides after emptying her bladder. Evaluated by Dr. Carrillo 2 weeks ago. (05/20/2025) Gonorrhea, Chlamydia, and Trichomonas: Negative Pelvic ultrasound was ordered - needs order faxed to [facility]. - Pain is more pronounced at work, where she often holds her bladder; less noticeable when not working. - Engages in weightlifting exercises. - Feels she may not be fully emptying her bladder at times. - Trace amounts of blood in her urine during the last two samples, not associated with her menstrual period. Menses: cycles every 4 months and 4-5 days of flow. Mild cramping. Contraception: combined hormonal contraceptives and condoms HPV vaccine: Yes Last Pap: 06/03/2023 normal HPV: NA History of abnormal pap: No Last mammogram: never Sexually active: Yes Time with current partner: 2 months History of STDS: None Patient concerns for STD exposure: No. STD testing negative 2 weeks ago Bothersome pelvic pain: Yes Some documentation from previous visit of 06/05/2024 was copied and pasted, documentation has been reviewed and edited as necessary for today's visit OB History Gravida0 Para0 Term0 Preterm0 AB0 Living0 SAB0 IAB0 Ectopic0 Multiple0 Live Births0 Applications Scientist History LMP: 04/03/2025 (Approximate), Having periods Age at Menarche: Age at First : Age at Menopause: Applications Scientist History Comments: Sexual Activity: Yes; Male Contraception: Pill, Condom PAST MEDICAL HISTORY Diagnosis Date Anxiety state Cysts of both ovaries 03/17/2019 Excessive sweating 03/21/2012 Exercise-induced asthma (HCC) 01/30/2014 Family history of factor V Leiden mutation 06/19/2015 Polycystic ovarian syndrome 03/17/2019 suspected Post concussion syndrome 09/17/2014 Visual disturbance 09/17/2014 PAST SURGICAL HISTORY Procedure Laterality Date ORAL SURGERY PROCEDURE PAST SURGICAL HISTORY OF 11/06/2009 ganglion cyst left wrist FAMILY HISTORY Problem Relation Age of Onset Hypothyroidism Mother Obesity Mother other (overweight) Father Cancer Maternal Grandmother Thyroid CA Cancer Maternal Grandfather Thyroid CA Diabetes Maternal Grandfather other (factor V) Maternal Grandfather Obesity Maternal Grandfather Colon Cancer Paternal Grandmother Obesity Paternal Grandfather Asthma Maternal Aunt Asthma Paternal Uncle SOCIAL HISTORY Social History Tobacco Use Smoking status: Never Smokeless tobacco: Never Vaping Use Vaping status: Never Used Substance Use Topics Alcohol use: No Drug use: No REVIEW OF SYSTEMS Gastrointestinal: (+) left lower abdominal pain, (-) constipation Genitourinary: (+) mild menstrual cramping, (+) hematuria, (+) sensation of incomplete bladder emptying Breast: No breast lumps, nipple d/c, overlying skin changes, redness or skin retraction. Allergies and current medication updated:Yes SENSITIVE EXAM: The sensitive examination was discussed with the Patient or Patient's Authorized Fixed Assets Accountant. As applicable, any other physician, advance practice provider, medical student, or other health professional student that will be observing or involved in the sensitive examination for educational or training purposes was discussed with the Patient or Authorized Fixed Assets Accountant. The Patient or Authorized Fixed Assets Accountant has agreed to proceed with the sensitive examination. (Sensitive examination includes inspection and/or palpation of the breasts, pelvis, prostate and anorectal regions). EXAM: BP 126/84 Ht 5' 3.78" (1.62m) Wt 168 lb (76.2kg) LMP 04/03/2025 BMI 29.04 kg/(m2). GENERAL: pleasant, female in no apparent [...] external genitalia normal, normal Bartholin's glands, urethra, [place]'s glands, no vulvar lesions, no cervical lesions, good vaginal support, physiologic discharge present, normal appearing perineal body and perianal region BIMANUAL: uterus normal size, shape and consistency, no adnexal masses, and non-tender RECTOVAGINAL: deferred. NEURO: alert and oriented x3,exam grossly non-focal EXTREMITIES: normal ASSESSMEN (more content not included)... 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 Jose Eduardo is a 25 year old who presents for an annual gynecologic exam with complaints of lleft-sided plate left lower quadrant pain which is improving but still present. Left-Sided Pain: - Reports experiencing left-sided pain, particularly when her bladder is full; pain subsides after emptying her bladder. Evaluated by Dr. Carrillo 2 weeks ago. (05/20/2025) Gonorrhea, Chlamydia, and Trichomonas: Negative Pelvic ultrasound was ordered - needs order faxed to [facility]. - Pain is more pronounced at work, where she often holds her bladder; less noticeable when not working. - Engages in weightlifting exercises. - Feels she may not be fully emptying her bladder at times. - Trace amounts of blood in her urine during the last two samples, not associated with her menstrual period. Menses: cycles every 4 months and 4-5 days of flow. Mild cramping. Contraception: combined hormonal contraceptives and condoms HPV vaccine: Yes Last Pap: 06/03/2023 normal HPV: NA History of abnormal pap: No Last mammogram: never Sexually active: Yes Time with current partner: 2 months History of STDS: None Patient concerns for STD exposure: No. STD testing negative 2 weeks ago Bothersome pelvic pain: Yes Some documentation from previous visit of 06/05/2024 was copied and pasted, documentation has been reviewed and edited as necessary for today's visit OB History Gravida0 Para0 Term0 Preterm0 AB0 Living0 SAB0 IAB0 Ectopic0 Multiple0 Live Births0 Applications Scientist History LMP: 04/03/2025 (Approximate), Having periods Age at Menarche: Age at First : Age at Menopause: Applications Scientist History Comments: Sexual Activity: Yes; Male Contraception: Pill, Condom PAST MEDICAL HISTORY Diagnosis Date Anxiety state Cysts of both ovaries 03/17/2019 Excessive sweating 03/21/2012 Exercise-induced asthma (HCC) 01/30/2014 Family history of factor V Leiden mutation 06/19/2015 Polycystic ovarian syndrome 03/17/2019 suspected Post concussion syndrome 09/17/2014 Visual disturbance 09/17/2014 PAST SURGICAL HISTORY Procedure Laterality Date ORAL SURGERY PROCEDURE PAST SURGICAL HISTORY OF 11/06/2009 ganglion cyst left wrist FAMILY HISTORY Problem Relation Age of Onset Hypothyroidism Mother Obesity Mother other (overweight) Father Cancer Maternal Grandmother Thyroid CA Cancer Maternal Grandfather Thyroid CA Diabetes Maternal Grandfather other (factor V) Maternal Grandfather Obesity Maternal Grandfather Colon Cancer Paternal Grandmother Obesity Paternal Grandfather Asthma Maternal Aunt Asthma Paternal Uncle SOCIAL HISTORY Social History Tobacco Use Smoking status: Never Smokeless tobacco: Never Vaping Use Vaping status: Never Used Substance Use Topics Alcohol use: No Drug use: No REVIEW OF SYSTEMS Gastrointestinal: (+) left lower abdominal pain, (-) constipation Genitourinary: (+) mild menstrual cramping, (+) hematuria, (+) sensation of incomplete bladder emptying Breast: No breast lumps, nipple d/c, overlying skin changes, redness or skin retraction. Allergies and current medication updated:Yes SENSITIVE EXAM: The sensitive examination was discussed with the Patient or Patient's Authorized Fixed Assets Accountant. As applicable, any other physician, advance practice provider, medical student, or other health professional student that will be observing or involved in the sensitive examination for educational or training purposes was discussed with the Patient or Authorized Fixed Assets Accountant. The Patient or Authorized Fixed Assets Accountant has agreed to proceed with the sensitive examination. (Sensitive examination includes inspection and/or palpation of the breasts, pelvis, prostate and anorectal regions). EXAM: BP 126/84 Ht 5' 3.78" (1.62m) Wt 168 lb (76.2kg) LMP 04/03/2025 BMI 29.04 kg/(m^2). GENERAL: pleasant, female in no apparent [...] external genitalia normal, normal Bartholin's glands, urethra, Ozark's glands, no vulvar lesions, no cervical lesions, [...] exams reviewed. HPV vaccine: completed series 2. LLQ pain (R10.32) - Pain is intermittent, worse with a full bladder, and improves after voiding; no associated constipation. - Differential includes ovarian cysts (less likely due to Annia use), muscular strain, and round ligament pain. - Advised rest, anti-inflammatories, ice, and heat for symptom management. Pt weight lifts regularly. - Pelvic ultrasound already ordered o evaluate for ovarian cysts or other pathology per Dr. Carrillo. Order faxed to [facility] per patient request - Urinalysis and urine culture ordered to assess for hematuria and other urinary pathology. 3) Contraception: combined hormonal contraceptives. Contraceptive options reviewed and information provided. 4) STD screening: Declined STI check. Negative testing 05/20/2025 5) Follow up one year or sooner as needed Yaneli Dowling APRN.DICE TABLE PERSON documented in this encounter [facility] 05-20-2025 Note HNO ID: [id number] Author: GINA CARRILLO MD Service: ? Author Type: Physician Type: Progress Notes Filed: 05/20/2025 09:29 Note Text: Sweeper Brush Maker Machine offered: Patient declines. Jose Eduardo Prince is a 25 year old female who presents for problem visit - vaginal discharge. HPI: Had a new sexual partner 2 weeks ago. Experiencing a change in vaginal discharge. Vaginal itching and odor as well. 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 LLQ pain when her bladder is full. Once she voids the pain resolves. No pain today. No dysuria or hematuria. Denies fevers, chills, malaise, nausea, vomiting. On Annia for contraception. OB History Gravida0 Para0 Term0 Preterm0 AB0 Living0 SAB0 IAB0 Ectopic0 Multiple0 Live Births0 Applications Scientist History LMP: 04/03/2025 (Approximate), Having periods Age at Menarche: Age at First : Age at Menopause: Applications Scientist History Comments: Sexual Activity: Not Currently; Male Contraception: Pill, Condom PAST MEDICAL HISTORY Diagnosis Date Anxiety state Cysts of both ovaries 03/17/2019 Excessive sweating 03/21/2012 Exercise-induced asthma (HCC) 01/30/2014 Family history of factor V Leiden mutation 06/19/2015 Polycystic ovarian syndrome 03/17/2019 suspected Post concussion syndrome 09/17/2014 Visual disturbance 09/17/2014 PAST SURGICAL HISTORY Procedure Laterality Date ORAL SURGERY PROCEDURE PAST SURGICAL HISTORY OF 11/06/2009 ganglion cyst left wrist FAMILY HISTORY Problem Relation Age of Onset Hypothyroidism Mother Obesity Mother other (overweight) Father Cancer Maternal Grandmother Thyroid CA Cancer Maternal Grandfather Thyroid CA Diabetes Maternal Grandfather other (factor V) Maternal Grandfather Obesity Maternal Grandfather Colon Cancer Paternal Grandmother Obesity Paternal Grandfather Asthma Maternal Aunt Asthma Paternal Uncle Social History Tobacco Use Smoking status: Never Smokeless tobacco: Never Vaping Use Vaping status: Never Used Substance Use Topics Alcohol use: No Drug use: No Current Outpatient Medications Medication Sig topiramate (TOPAMAX) 25 mg tablet Take 1 tablet by mouth two times a day. buPROPion SR (WELLBUTRIN SR) 150 mg 12 hr tablet Take 1 tablet by mouth every morning. metFORMIN ER (GLUCOPHAGE XR) 750 mg 24 hr tablet Take 1 tablet by mouth two times a day with meals. Phentermine HCl 37.5 mg tablet Take 1 tablet by mouth daily before breakfast for 90 days. celecoxib (CELEBREX) 100 mg capsule Take 100 mg by mouth once daily. RHOFADE 1 % crea once daily. Drospirenone-Ethinyl Estradiol (ANNIA, 28,) 3-0.03 mg per tablet Take 1 tablet by mouth once daily. FOR CONTINUOUS USE. loratadine (CLARITIN ORAL) Take by mouth. MULTI-VITAMIN TAB Take one(1) tablet daily. No current facility-administered medications for this visit. Allergies As of Date: 05/20/2025 Allergen Noted Reaction BEES 01/17/2018 Swelling CATS 06/08/2018 Unknown DUST 06/08/2018 Unknown FEATHERS 06/08/2018 Unknown OAK 06/08/2018 Unknown TREE POLLEN-GIBRALTARIAN ELM 06/08/2018 Unknown VICODIN [HYDROCODONE-ACETAMINOPHE* 013 Vomiting WEED POLLEN 06/08/2018 Unknown Fully Assessed 05/20/2025 REVIEW OF SYSTEMS Expanded ROS: See HPi Allergies and current medication updated:Yes SENSITIVE EXAM: The sensitive examination was discussed with the Patient or Patient's Authorized Fixed Assets Accountant. As applicable, any other physician, advance practice provider, medical student, or other health professional student that will be observing or involved in the sensitive examination for educational or training purposes was discussed with the Patient or Authorized Fixed Assets Accountant. The Patient or Authorized Fixed Assets Accountant has agreed to proceed with the sensitive examination. (Sensitive examination includes inspection and/or palpation of the breasts, pelvis, prostate and anorectal regions). EXAM: BP 120/78 Wt 166 lb 12.8 oz (75.7kg) LMP 04/03/2025 GENERAL: pleasant, female in no apparent distress HEENT: Normocephalic and atraumatic NECK: full range of motion CHEST: Normal inspiratory effort ABDOMEN: soft, non-tender, and no masses PELVIC: external genitalia normal, normal Bartholin's glands, urethra, Ozark's glands, no vulvar lesions, no cervical lesions, good vaginal support, physiologic discharge present, normal appearing perineal body and perianal region BIMANUAL: uterus normal size, shape and consistency, no adnexal masses, non-tender, and no cervical motion tenderness NEURO: exam grossly non-focal EXTREMITIES: normal ASSESSMENT AND PLAN: Assessment AND Plan Vaginal discharge Orders: BACTERIAL VAGINOSIS NAAT DILCIA/TRICHOMONAS NAAT GONORRHEA/CHLAMYDIA NAAT Dysuria Orders: UA DIP, URINE (POC) Vaginal odor Vaginal itching LLQ pain Orders: PELVIC US WHI; Future Check BV, yeast, GC, CT Pelvic US ordered Urine dip Discussed reasons to call DO Prashanth Nelson (more content not included)... [facility] 05-20-2025 History of Present illness Narrative Sweeper Brush Maker Machine offered: Patient declines. Jose Eduardo Prince is a 25 year old female who presents for problem visit - vaginal discharge. HPI: Had a new sexual partner 2 weeks ago. Experiencing a change in vaginal discharge. Vaginal itching and odor as well. 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 LLQ pain when her bladder is full. Once she voids the pain resolves. No pain today. No dysuria or hematuria. Denies fevers, chills, malaise, nausea, vomiting. On Annia for contraception. OB History Gravida0 Para0 Term0 Preterm0 AB0 Living0 SAB0 IAB0 Ectopic0 Multiple0 Live Births0 Applications Scientist History LMP: 04/03/2025 (Approximate), Having periods Age at Menarche: Age at First : Age at Menopause: Applications Scientist History Comments: Sexual Activity: Not Currently; Male Contraception: Pill, Condom PAST MEDICAL HISTORY Diagnosis Date Anxiety state Cysts of both ovaries 03/17/2019 Excessive sweating 03/21/2012 Exercise-induced asthma (HCC) 01/30/2014 Family history of factor V Leiden mutation 06/19/2015 Polycystic ovarian syndrome 03/17/2019 suspected Post concussion syndrome 09/17/2014 Visual disturbance 09/17/2014 PAST SURGICAL HISTORY Procedure Laterality Date ORAL SURGERY PROCEDURE PAST SURGICAL HISTORY OF 11/06/2009 ganglion cyst left wrist FAMILY HISTORY Problem Relation Age of Onset Hypothyroidism Mother Obesity Mother other (overweight) Father Cancer Maternal Grandmother Thyroid CA Cancer Maternal Grandfather Thyroid CA Diabetes Maternal Grandfather other (factor V) Maternal Grandfather Obesity Maternal Grandfather Colon Cancer Paternal Grandmother Obesity Paternal Grandfather Asthma Maternal Aunt Asthma Paternal Uncle Social History Tobacco Use Smoking status: Never Smokeless tobacco: Never Vaping Use Vaping status: Never Used Substance Use Topics Alcohol use: No Drug use: No Current Outpatient Medications Medication Sig topiramate (TOPAMAX) 25 mg tablet Take 1 tablet by mouth two times a day. buPROPion SR (WELLBUTRIN SR) 150 mg 12 hr tablet Take 1 tablet by mouth every morning. metFORMIN ER (GLUCOPHAGE XR) 750 mg 24 hr tablet Take 1 tablet by mouth two times a day with meals. Phentermine HCl 37.5 mg tablet Take 1 tablet by mouth daily before breakfast for 90 days. celecoxib (CELEBREX) 100 mg capsule Take 100 mg by mouth once daily. RHOFADE 1 % crea once daily. Drospirenone-Ethinyl Estradiol (ANNIA, 28,) 3-0.03 mg per tablet Take 1 tablet by mouth once daily. FOR CONTINUOUS USE. loratadine (CLARITIN ORAL) Take by mouth. MULTI-VITAMIN TAB Take one(1) tablet daily. No current facility-administered medications for this visit. Allergies As of Date: 05/20/2025 Allergen Noted Reaction BEES 01/17/2018 Swelling CATS 06/08/2018 Unknown DUST 06/08/2018 Unknown FEATHERS 06/08/2018 Unknown OAK 06/08/2018 Unknown TREE POLLEN-GIBRALTARIAN ELM 06/08/2018 Unknown VICODIN [HYDROCODONE-ACETAMINOPHE* 013 Vomiting WEED POLLEN 06/08/2018 Unknown Fully Assessed 05/20/2025 REVIEW OF SYSTEMS Expanded ROS: See HPi Allergies and current medication updated:Yes SENSITIVE EXAM: The sensitive examination was discussed with the Patient or Patient's Authorized Fixed Assets Accountant. As applicable, any other physician, advance practice provider, medical student, or other health professional student that will be observing or involved in the sensitive examination for educational or training purposes was discussed with the Patient or Authorized Fixed Assets Accountant. The Patient or Authorized Fixed Assets Accountant has agreed to proceed with the sensitive examination. (Sensitive examination includes inspection and/or palpation of the breasts, pelvis, prostate and anorectal regions). EXAM: BP 120/78 Wt 166 lb 12.8 oz (75.7kg) LMP 04/03/2025 GENERAL: pleasant, female in no apparent distress HEENT: Normocephalic and atraumatic NECK: full range of motion CHEST: Normal inspiratory effort ABDOMEN: soft, non-tender, and no masses PELVIC: external genitalia normal, normal Bartholin's glands, urethra, Ozark's glands, no vulvar lesions, no cervical lesions, good vaginal support, physiologic discharge present, normal appearing perineal body and perianal region BIMANUAL: uterus normal size, shape and consistency, no adnexal masses, non-tender, and no cervical motion tenderness NEURO: exam grossly non-focal EXTREMITIES: normal ASSESSMENT AND PLAN: Assessment & Plan Vaginal discharge Orders: BACTERIAL VAGINOSIS NAAT DILCIA/TRICHOMONAS NAAT GONORRHEA/CHLAMYDIA NAAT Dysuria Orders: UA DIP, URINE (POC) Vaginal odor Vaginal itching LLQ pain Orders: PELVIC US WHI; Future Check BV, yeast, GC, CT Pelvic US ordered Urine dip Discussed reasons to call Gina Carrillo DO Medical Decision Making: Problems: Low: Acute, uncomplicated illness or injury Data: Unique test(s) ordered: 3+ Medical Decision Making Level: 3 - Low documented in this encounter [facility] 04-05-2025 Instructions Yaneli Dowling APRN.[facility] - 04/05/2025 11:35 AM EDT Bryce Protein bar - 28g prot 3g net carbs 150 min Quest 20-21 prot 4g net carbs 180-190 min IQ bars 12g prot 170 min - Whole food balanced protein, controlled carbohydrate nutrition plan - 30 g of protein 3 times a day and up to 30 g of carbs at lunch and dinner only. 1st meal of the day- 30g protein with limit of 2 gm carbohydrates. Premier Protein or generic 30 gm protein 1 gm sugar 2. 2-3 eggs and some unbreaded meat and/or cheese. 3. 2-3 eggs and 1/2 of protein shake or one of the yogurts below: :ratio, KETO Friendly Dairy Snack 1 single svg - 15g protein & 2g carb Two Good Lowfat Thai Yogurt, Lower Sugar - 12g protein & 2g carb No fruit, vegetables, bread, grain, other brands of yogurt, Smoothies, etc. Lunch and dinner - 30 gm protein is the goal with less than 30 gm carbohydrates All snacks and meals - all protein or more protein than carbs Protein - no carbs Egg 1 large - 6g Egg white 1 large 3.6g 3 oz is approximately the size of a deck of cards and equals 21 g protein so 4 oz is 28 gm protein Beef, Chicken, Avon, Pork, Sylvester 1 oz 7g Fish, Tuna Fish 1 oz 7g (Starkist tuna packet 2.6 oz 17 gm protein) Seafood (Crabmeat, Shrimp, Lobster) 1 oz 6g Protein shakes (read labels) Premier Protein or generic [employer] Equate, Meijer High Performance- 30g protein & 1g carb - meal replacement Premier Protein powder or generic- 30 g protein, 1g carb Fairlife 30 gram protein - 30g protein & 3g carb BOOST Glucose Control Max 30g Protein Nutritional Drink - 30g protein & 1 carb - meal replacement Slimfast High Protein - 20g protein & 1g carb Ensure Max Protein Nutrition Shake 30g protein & 2 carb OWYN plant based 100 % vegan no dairy, soy, wheat/gluten 32g protein 0 net carb (not a meal replacement) Premier Protein plant protein powder - 25g protein, 0 sugar/2g carb Vanilla and chocolate (not a meal replacement) Protein AND carbs Beef/Avon Jerky 1 oz dried 10-15g protein - check carb count, can be high if sugar added Slim Davy - 6 gm protein and 4 net carb Great Value original turkey sausage sticks - 7 gm protein and 2 gm carb Gurjit & Jake (at [facility]) Original smoked sausage sticks - 8 gm protein and 0 carb Imitation Crab Meat 1 oz - 2g protein & 4g carb Milk, skim 2% or 1% 8 oz - 8g protein & 12g carb Fairlife 2% milk 8 oz -13g protein & 6g car Thai yogurt Full Fat Thai Yogurt 1 cup - 20.4g protein & 9.1g carb 2% Thai Yogurt 1 cup - 22.7g protein & 9.1g carb 0% (fat-free) Thai Yogurt - 1 cup 24g protein & 9.3g carb Aldi Protein Thai yogurt single svg - 13/g15g protein & 7g carb Chobani Zero Sugar single svg: - 12g protein & 5g carb Dannon Thai Light + Fit 1 single svg - 12g protein & 9g carb Oikos Pro single svg - 20g protein & 8g carb Oikos Triple Zero Thai Nonfat Yogurt 1 single svg - 15g protein & 7g carb :ratio, KETO Friendly Dairy Snack 1 single svg - 15g protein & 2g carb :ratio Protein 1 single svg - 25g protein & 8g carb Two Good Lowfat Thai Yogurt, [place], Lower Sugar - 12g protein & 2g carb Yoplait Protein 1 single svg 15g protein & 5g carb Dairy Free - [place] unsweetened Thai almond/soy 15g protein & 3g carb Dairy Free - True Goodness by [facility] coconut-based yogurt alternative 1 g protein 1 g net carb 180 min Drinkable yogurts: Chobani drinkable 15g, 20g and 30g protein & 18 carb (too many carbs for breakfast) Chobani Zero Sugar 10g protein 6g carbs 50 calories Oikos Pro drinkable yogurt 1 single svg - 23g protein & 8g carb :ratio Protein 26g protein 9g carb Cheese each oz Brie 5.9g protein & 0.1g carb Cheddar 7g protein & 0.4g carb Gurdeep 6.7g protein & 0.7g carb Cream Cheese 1.7g protein & 1.2g carb DATAllegro Farms whipped Thai cream cheese (WM) 2 T 3g protein 2g carb Feta 4g protein & 1.2g carb Mozzarella 6.3g protein & 0.6g carb Parmesan 10g protein & 0.9g carb [place] 7.6g protein & 1.5g carb Cottage Cheese 1/2 c Breakstone 2% 13g protein 7g carb Dorina 2% 13g protein 5 g carb Good Culture 2% 14g protein 3g carb Lactaid 13g protein 5g carb Velasquez s Low Fat 12g protein & 4g carb Legumes Lentils cup 9g protein & 20g carb Carrasco beans cup 7g protein & 20g carb Kidney, Black, [place], Cannellini beans cup 8g protein & 20g carb Chickpeas 1/2 c 6g protein & 15g carb Soybeans 1/2 c 14g complete protein & 8.5g carb [place] milk, unsweetened 8 oz 1g protein & 2g carb Soy milk 8 oz 3.5g protein & 1.6g carb Tofu 1/2 cup 10g protein & 2.3g carb Peanut butter, natural 2 Tbsp 7-8g protein & 4g net carbs, 190 calories PB2 powder 2 Tbsp 6g protein & 5g carb Nuts and Seeds per oz Almonds - 5.9g protein & 6.1g carb [place] Nuts - 4.0g protein & 3.4g carb Cashews - 5.1g protein & 9.2g carb Hazelnuts - 4.2g protein & 4.7g carb Hemp seeds/hearts 3 T/30 gms - 9.5 gm complete protein and 2.5 gm carb Peanuts - 7g protein & 4.6g carb Pecans - 2.6g protein & 3.9g carb Pistachios - 5.8g protein & 7.8g carb Pumpkin Seeds - 6.9g protein & 5g carb Dent Seeds - 5.8g protein & 5.6g carb Walnuts - 4.3g protein & 3.8g carb Edamame Beans (soybean) snack 1 pack 11 gm complete protein 2 carb 5 (FIVE) gram carb vegetable options 1 cup raw OR cup cooked: Asparagus Sharp sprouts Beets Broccoli Brussel sprouts Cabbage Carrots Cauliflower Celery [place] Eggplant Green beans Lettuce Peppers Snap peas Spaghetti squash Spinach Tomato Turnips Zucchini 15 gram carb vegetable options cup cooked corn or hominy corn on the cob, large (5 oz) cup cooked green peas 4.3 gm complete protein cup cooked carrasco beans 1 small potato or sweet potato cup cooked potato, plain cup cooked sweet potato, plain 1 cup winter squash (pumpkin, acorn, butternut) 1 cup marinara or pasta sauce - check label cup tomato juice cup tomato puree Beans, Seeds, Nuts cup cooked beans (kidney, turner, red, green, etc.) cup cooked lentils cup baked beans 4 tablespoons nut butter <15 gram carb fruit options Berries have the lowest sugar content 1/2 medium apple - 12.5 carbs 1/2 medium avocado - 6.5 gm carbs 1/2 medium banana - 15 carbs 1/2 cup blueberries - 11 carbs - may actually help you lose weight 1/2 cup fresh cherries -11 carbs 1 medium Elinor -9 carbs 1/2 cup fresh cranberries - 6.5 carbs 1/2 c grapes - 15 carbs 1/2 medium grapefruit - 10.5 carbs 1/2 cup diced honeydew melon - 8 carbs 1 medium kiwi without skin - 11 carbs 1/2 cup sliced latrell -14 carbs 1 medium nectarine - 15 carbs 1 medium orange -15.5 carbs 1 medium peach -14.5 carbs 1/2 cup fresh pineapple -11 carbs 1 medium plum -7.5 carbs 1 prune - 6 carbs 1/4 c raisins - 31.25 carbs 1/2 cup raspberries -7.5 carbs 1/2 c strawberries - 12.7 carbs 1 medium tangerine -12 carbs 1/2 cup diced watermelon - 6 carbs Grains Brown rice 1/2 c 5.5g protein 24 carb White long-grain rice 1/2 c 2g protein 22.5 carb Quinoa 1/2 c 4 gm complete protein 25 carb Oatmeal, old fashioned 1/2 c 5g protein 27g carb High Protein Snack Ideas 1. Jerky 2. [place] mix without dried fruit 3. Avon roll-ups 4. Thai yogurt 5. Veggies and yogurt dip 6. Tuna 7. Hard-boiled eggs 8. Peanut butter with celery 9. Cheese slices/ Cheese Stick 10. Handful of almonds, peanuts or walnuts 11. Cottage Cheese 12. Beef sticks 13. Protein bars 14. Canned [place] 15. Pumpkin seeds 16. Nut butter 17. Protein shake or protein bar 18. Avocado and chicken salad 19. Egg muffins 20. Leftover protein or lunch meat 21. 1/2 c blended cottage cheese or Thai yogurt with dry ranch/Mrs. Dash/herb seasoning mix to make protein dip- add raw veg 22. 1/2 c blended cottage cheese with 1 Tbsp sugar-free dry cheesecake pudding mix 12g protein 10 carb 23. Pudding - 1 30 gm protein shake with 1/2 pkg sugar-free pudding 4 svgs - 7.8 gm protein, 5 carb each svg 24. SF Sunkist or Root Beer with 1-2 Tablespoons heavy whipping cream 25. Mini frozen dessert bites - layer protein yogurt, skinny syrup and crushed nuts and freeze 26. Edamame Beans (soybean) snack 1 pack (O Beans) 11 gm complete protein 2 carb Why Is Protein So Important for Weight loss? consuming more protein not only reduces body weight but enhances body composition by decreasing fat mass while preserving fat-free mass During weight loss phase protein consumption (with normal kidney function) should be 1-1.6g protein per Kilogram of body weight (1kg=2.2lbs) On average Women need to Aim for a minimum 90g protein per day Consuming higher protein can also prevent weight regain after weight loss Protein consumption increases hormones responsible for satiety (feeling full)- these include Gut hormones like Glucagon-like peptide-1 (GLP-1), Cholecystokinin (CCK), Peptide Tyrosine-Tyrosine (PYY) and decreasing the Gut hormone responsible for causing hunger Ghrelin Protein has an increased thermogenesis effect of food- which means it take more calories to break down protein when consumed compared to carbohydrates or fats Protein also prevents a losing lean mass during weight loss (lose more fat and preserve fat free mass) which helps to increase resting energy expenditure (resting metabolic rate) Every pound of muscle ferrer ~ 6 kcal per pound/day vs fat ferrer ~ 2kcal per pound/day Carbohydrates - Why do You Crave Them? Eating too many refined carbohyrdates (sugar beverages, pastries, bread, pizza) which raises your blood glucose levels and therefore releasing insulin which in turn causes increase in hunger Carbohydrates suppress Ghrelin quickly but does not maintain the suppression for very long therefore hunger returns more quickly Consuming carbohydrates leads to a release of Dopamine feel good hormone in our brain So how do you Curb these cravings? Eating Whole Foods with more fiber - High fiber carbs are absorbed and digested slowly so it does not impact blood sugar levels as much and will help in making you feel lomeli for longer; fiber also is healthy for your gut bacteria and can help with constipation. Remember- carbohydrates are not the enemy but know what a proper serving size is, choose nutritious carbohydrates and space them out between meals. Always- eat your protein first followed by your non starchy vegetables followed by your carbohydrates- it will help your body with your glucose and insulin regulation Processed Foods vs Whole Foods- Impact on Weight: People who eat Ultra Processed food tend to consume about 500 calories more per day Ultra Processed foods are considered Calorie Dense so when a person feels full they have typically already over eaten and consumed more calories Whole Foods (unprocessed foods) tend to be more more filling and more Nutrient Dense Unprocessed foods can be more expensive and not realistic for everyone however when you have the choice to consume unprocessed vs Ultra processed foods always pick unprocessed. Why can't people stop eating Ultra Processed foods? They are economical and optimized for taste by [employer] - they are designed to make you want to keep eating them- they feed common cravings and bypass the mechanisms that tell your brain you are full Benefits of eating Whole Foods and cutting out Ultra Processed Foods Increased concentration and focus (decreased brain fog), improved mood, better sleep, Decrease in fatigue, improvement in gut health, decreased inflammation, Likely WEIGHT LOSS documented in this encounter [facility] 04-05-2025 History of Present illness Narrative Some documentation from previous visit of 12/20/2024 was copied and pasted, documentation has been reviewed and edited as necessary for today's visit. Patient Summary: Jose Eduardo is a 25 year old Female who presents for follow-up evaluation of obesity/weight management to treat PCOS, BED, anxiety., depression and prevent related co-morbidities. In our previous visits we have discussed lifestyle intervention including a nutrition recommendations and physical activity optimization. Her last office visit was 3 months ago. Assessment/plan from last visit: - Metformin ER 750 mg twice a day - Phentermine 37.5 mg - sometimes takes 1/2 tablet - Topiramate 25-50 mg evening - Bupropion 150 mg -1 tablet in morning Mood improved with some cravings if she allows herself to get hungry. - BED - no episodes with topiramate Interval History A few times finds she is easily giving in to cravings or family going for ice cream and joining in. Is not mindful of choice of ice cream. Feels like she has gained muscle so not disappointed at weight gain Vacation - did not work out on vacation. Mindful of nutrition - happy with her choices. Diet changes B - Usually protein powder 25 gm with 4-5 carb and 1 egg and sometimes Fairlife 30 gm protein shake S - sometimes TZ yogurt or rare vegetables and yogurt with Ranch or cottage cheese or Quest chips or 17 gm protein bar L - chicken or tuna packet and lettuce and Quest chips and usually a raw veg, occasional Triple Zero yogurt if she did not have it as a snack S - occasionally TZ yogurt or rare vegetables and Thai yogurt with Ranch or cottage cheese or Quest chips or turkey sticks with cheese crisps D - protein, vegetables both low carb and starchy/zoodles or rare Bird's Eye Veggie Pasta with sauce or portion of protein pasta/rice S - none Fluids - Lemon water, [place], diet Coke, SF electrolyte drink Current Barriers: stress eating, grazing/irregular meal patterns on some work days, and food cue over-responsiveness if someone mentions ordering food or going out to eat/get ice cream She feels the medications help to control BED, increase fullness, decrease hunger. No SE. 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 Sleep: stable 7 hours, except for this week working some nights Weight loss since last vist: +2 lbs for total of 24 lbs weight loss Date: Weight: BMI: Medications: 03/15/2025 173 lb 29.54 12/20/2024 171 lb 29.19 09/26/2024 173 lb 29.54 Metformin ER 06/13/2024 169 lb 28.85 03/14/2024 172 lb 28.62 12/15/2023 183 lb phentermine 37.5 mg bupropion SAD 09/22/2023 187 lb 31.12 08/26/2023 195 lb Phentermine 37.5 mg , Metformin 06/30/2023 197 lb 32.82 WC 36 in Phentermine 15, Topiramate 5% weight loss = 187 lbs, 10% weight loss = 177 lbs Phentermine Start date: ?06/30/2023 Start weight: ?197 lbs. Dose: 15mg capsule, increased to 37.5 mg 12/15/2023 -- Patient reports suppression of her appetite and increase in satiety since starting -- Patient reports no side effects Topiramate Dose:25 mg -- Patient reports suppression of her appetite and increase in satiety since starting. Remission of BED SE: paresthesia if dose increased CrCl cannot be calculated (Patient's most recent lab result is older than the maximum 180 days allowed.). PAST MEDICAL HISTORY Diagnosis Date Anxiety state Cysts of both ovaries 03/17/2019 Excessive sweating 03/21/2012 Exercise-induced asthma 01/30/2014 Family history of factor V Leiden mutation 06/19/2015 Polycystic ovarian syndrome 03/17/2019 suspected Post concussion syndrome 09/17/2014 Visual disturbance 09/17/2014 Current Outpatient Medications Medication Sig Dispense Refill buPROPion SR (WELLBUTRIN SR) 150 mg 12 hr tablet Take 1 tablet by mouth every morning. 90 tablet 1 topiramate (TOPAMAX) 25 mg tablet Take 1 tablet by mouth two times a day. 180 tablet 1 metFORMIN ER (GLUCOPHAGE XR) 750 mg 24 hr tablet Take 1 tablet by mouth two times a day with meals. 180 tablet 1 celecoxib (CELEBREX) 100 mg capsule Take 100 mg by mouth once daily. RHOFADE 1 % crea once daily. Drospirenone-Ethinyl Estradiol (ANNIA, 28,) 3-0.03 mg per tablet Take 1 tablet by mouth once daily. FOR CONTINUOUS USE. 112 tablet 5 loratadine (CLARITIN ORAL) Take by mouth. MULTI-VITAMIN TAB Take one(1) tablet daily. 0 No current facility-administered medications for this visit. 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 1. Polycystic ovarian syndrome - ICD9: 256.4, ICD10: E28.2 (primary diagnosis) - Whole food balanced protein low-carb nutrition - METFORMIN ER 750 MG TABLET 2. Binge-eating disorder, in full remission, mild - ICD9: 307.1, ICD10: F50.81 - Topiramate 25-50 mg every pm mg - PHENTERMINE 37.5 MG TABLET 3. Anxiety and depression - ICD9: 300.00, 311, ICD10: F41.9, F32.A - established with psychiatrist - Continue bupropion 4. Seasonal affective disorder (HCC) - ICD9: 296.99, ICD10: F33.8 - continue bupropion 5. History of obesity - ICD9: V12.29, ICD10: Z86.39 Class 1 BMI 32.82 Weight increased - TOPIRAMATE 25 MG currently taking in evening. She may try taking a second dose or increasing to 50 mg at bedtime. - PHENTERMINE 37.5 MG TABLET -sometimes takes 1/2 tablet. Patient has met the weight loss requirement of 5% TBW in initial 3 months using phentermine without any adverse side effects. Pt has responded well and would like to continue use for weight management. She understands that continued use is off label for longterm management of weight control. The patient is [...] filled. No suspicious activity was identified. - Continue METFORMIN ER 750 MG TABLET twice a day - continue Whole food balanced protein low-carb nutrition. Given personalized nutrition suggestions. - Given protein/whole food vegetable and fruit/high protein snack lists. -Given information on nutritious protein bar options - Given information on proteins, carbs and processed versus Whole Foods - continue to include and increase exercise.to goal of 150-200 min/wk including cardio and resistance. Prescription instructions reviewed with patient as applicable. Potential red flag symptoms discussed with the patient. Reviewed appropriate action plan to take if red flag symptoms occur. Patient agreeable to treatment plan. Follow up in 3 months. Yaneli Dowling APRN.CNP Advanced Education from the [employer] Medical Decision Making: Problems: Moderate: 1+ chronic illnesses with change Risk: Moderate: Drug management and Moderate risk from testing/treatment Medical Decision Making Level: 4 - Moderate documented in this encounter [facility] 04-05-2025 Note HNO ID: [id number] Author: YANELI DOWLING APRN.CNP Service: ? Author Type: Nurse Practitioner Type: Progress Notes Filed: 04/05/2025 19:57 Note Text: Some documentation from previous visit of 12/20/2024 was copied and pasted, documentation has been reviewed and edited as necessary for today's visit. Patient Summary: Jose Eduardo is a 25 year old Female who presents for follow-up evaluation of obesity/weight management to treat PCOS, BED, anxiety., depression and prevent related co-morbidities. In our previous visits we have discussed lifestyle intervention including a nutrition recommendations and physical activity optimization. Her last office visit was 3 months ago. Assessment/plan from last visit: - Metformin ER 750 mg twice a day - Phentermine 37.5 mg - sometimes takes 1/2 tablet - Topiramate 25-50 mg evening - Bupropion 150 mg -1 tablet in morning Mood improved with some cravings if she allows herself to get hungry. - BED - no episodes with topiramate Interval History A few times finds she is easily giving in to cravings or family going for ice cream and joining in. Is not mindful of choice of ice cream. Feels like she has gained muscle so not disappointed at weight gain Vacation - did not work out on vacation. Mindful of nutrition - happy with her choices. Diet changes B - Usually protein powder 25 gm with 4-5 carb and 1 egg and sometimes Fairlife 30 gm protein shake S - sometimes TZ yogurt or rare vegetables and yogurt with Ranch or cottage cheese or Quest chips or 17 gm protein bar L - chicken or tuna packet and lettuce and Quest chips and usually a raw veg, occasional Triple Zero yogurt if she did not have it as a snack S - occasionally TZ yogurt or rare vegetables and Thai yogurt with Ranch or cottage cheese or Quest chips or turkey sticks with cheese crisps D - protein, vegetables both low carb and starchy/zoodles or rare Bird's Eye Veggie Pasta with sauce or portion of protein pasta/rice S - none Fluids - Lemon water, [place], diet Coke, SF electrolyte drink Current Barriers: stress eating, grazing/irregular meal patterns on some work days, and food cue over-responsiveness if someone mentions ordering food or going out to eat/get ice cream She feels the medications help to control BED, increase fullness, decrease hunger. No SE. 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 Sleep: stable 7 hours, except for this week working some nights Weight loss since last vist: +2 lbs for total of 24 lbs weight loss Date: Weight: BMI: Medications: 03/15/2025 173 lb 29.54 12/20/2024 171 lb 29.19 09/26/2024 173 lb 29.54 Metformin ER 06/13/2024 169 lb 28.85 03/14/2024 172 lb 28.62 12/15/2023 183 lb phentermine 37.5 mg bupropion SAD 09/22/2023 187 lb 31.12 08/26/2023 195 lb Phentermine 37.5 mg , Metformin 06/30/2023 197 lb 32.82 WC 36 in Phentermine 15, Topiramate 5% weight loss = 187 lbs, 10% weight loss = 177 lbs Phentermine Start date: ?06/30/2023 Start weight: ?197 lbs. Dose: 15mg capsule, increased to 37.5 mg 12/15/2023 -- Patient reports suppression of her appetite and increase in satiety since starting -- Patient reports no side effects Topiramate Dose:25 mg -- Patient reports suppression of her appetite and increase in satiety since starting. Remission of BED SE: paresthesia if dose increased CrCl cannot be calculated (Patient's most recent lab result is older than the maximum 180 days allowed.). PAST MEDICAL HISTORY Diagnosis Date Anxiety state Cysts of both ovaries 03/17/2019 Excessive sweating 03/21/2012 Exercise-induced asthma 01/30/2014 Family history of factor V Leiden mutation 06/19/2015 Polycystic ovarian syndrome 03/17/2019 suspected Post concussion syndrome 09/17/2014 Visual disturbance 09/17/2014 Current Outpatient Medications Medication Sig Dispense Refill buPROPion SR (WELLBUTRIN SR) 150 mg 12 hr tablet Take 1 tablet by mouth every morning. 90 tablet 1 topiramate (TOPAMAX) 25 mg tablet Take 1 tablet by mouth two times a day. 180 tablet 1 metFORMIN ER (GLUCOPHAGE XR) 750 mg 24 hr tablet Take 1 tablet by mouth two times a day with meals. 180 tablet 1 celecoxib (CELEBREX) 100 mg capsule Take 100 mg by mouth once daily. RHOFADE 1 % crea once daily. Drospirenone-Ethinyl Estradiol (ANNIA, 28,) 3-0.03 mg per tablet Take 1 tablet by mouth once daily. FOR CONTINUOUS USE. 112 tablet 5 loratadine (CLARITIN ORAL) Take by mouth. MULTI-VITAMIN TAB Take one(1) tablet daily. 0 No current facility-administered medications for this visit. Recent outside labs 05/30/2024 [facility] CBC , CMP eGFR 70, BUN 20 (7-18) creat 1.01 (0.55-1.02) Glucose 116 Total Chol 211: HDL (more content not included)... [facility] 12-20-2024 History of Present illness Narrative Some documentation from previous visit of 09/26/2024 was copied and pasted, documentation has been reviewed and edited as necessary for today's visit. Patient Summary: Jose Eduardo is a 24 year old Female who presents for follow-up evaluation of obesity/weight management to treat PCOS, BED, anxiety., depression and prevent related co-morbidities. In our previous visits we have discussed lifestyle intervention including a nutrition recommendations and physical activity optimization. Her last office visit was 3 months ago. Assessment/plan from last visit: - Metformin ER 750 mg twice a day - Phentermine 37.5 mg - sometimes takes 1/2 tablet - Topiramate 25 mg evening - Bupropion 150 mg -1 tablet in evening. Mood improved with no cravings is having some cravings now. - BED - no episodes with topiramate Interval History B - Usually protein powder 25 gm with 4-5 carb and 1 egg and sometimes Fairlife 30 gm protein shake S - occasionally TZ yogurt or rare vegetables and yogurt with Ranch or cottage cheese or Quest chips L - chicken or tuna packet and lettuce and Quest chips and usually a raw veg, occasional Triple Zero yogurt if she did not have it as a snack S - occasionally TZ yogurt or rare vegetables and yogurt with Ranch or cottage cheese or Quest chips D - protein, vegetables both low carb and starchy/zoodles or Bird's Eye Veggie Pasta with sauce. Sometimes portion of protein pasta/rice or turkey sticks with cheese crisps S - rare popcorn Fluids - Lemon water, [place] Current Barriers: emotional eating and stress eating She feels the medications help to control BED, increase fullness, decrease hunger. No SE. 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 Sleep: stable 7 hours, except for this week working some nights Weight loss since last vist: -2 lbs for total of 26 lbs weight loss Date: Weight: BMI: Medications: 12/20/2024 171 lb 29.19 09/26/2024 173 lb 29.54 Metformin ER 06/13/2024 169 lb 28.85 03/14/2024 172 lb 28.62 12/15/2023 183 lb phentermine 37.5 mg bupropion SAD 09/22/2023 187 lb 31.12 08/26/2023 195 lb Phentermine 37.5 mg , Metformin 06/30/2023 197 lb 32.82 WC 36 in Phentermine 15, Topiramate 5% weight loss = 187 lbs, 10% weight loss = 177 lbs Phentermine Start date: ?06/30/2023 Start weight: ?197 lbs. Dose: 15mg capsule, increased to 37.5 mg 12/15/2023 -- Patient reports suppression of her appetite and increase in satiety since starting -- Patient reports no side effects Topiramate Dose:25 mg -- Patient reports suppression of her appetite and increase in satiety since starting. Remission of BED SE: paresthesia if dose increased Estimated Creatinine Clearance: 108.5 mL/min (based on SCr of 0.8 mg/dL). PAST MEDICAL HISTORY Diagnosis Date Anxiety state Cysts of both ovaries 03/17/2019 Excessive sweating 03/21/2012 Exercise-induced asthma 01/30/2014 Family history of factor V Leiden mutation 06/19/2015 Polycystic ovarian syndrome 03/17/2019 suspected Post concussion syndrome 09/17/2014 Visual disturbance 09/17/2014 Current Outpatient Medications Medication Sig Dispense Refill buPROPion SR (WELLBUTRIN SR) 150 mg 12 hr tablet Take 1 tablet by mouth every morning. 90 tablet 1 topiramate (TOPAMAX) 25 mg tablet Take 1 tablet by mouth two times a day. 180 tablet 1 Phentermine HCl 37.5 mg tablet Take 1 tablet by mouth daily before breakfast for 90 days. 90 tablet 0 metFORMIN ER (GLUCOPHAGE XR) 750 mg 24 hr tablet Take 1 tablet by mouth two times a day with meals. 180 tablet 1 celecoxib (CELEBREX) 100 mg capsule Take 100 mg by mouth once daily. RHOFADE 1 % crea once daily. Drospirenone-Ethinyl Estradiol (ANNIA, 28,) 3-0.03 mg per tablet Take 1 tablet by mouth once daily. FOR CONTINUOUS USE. 112 tablet 5 loratadine (CLARITIN ORAL) Take by mouth. MULTI-VITAMIN TAB Take one(1) tablet daily. 0 PLAQUENIL 200 mg tablet two times a day. (Patient not taking: Reported on 09/26/2024) No current facility-administered medications for this visit. 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 1. Polycystic ovarian syndrome - ICD9: 256.4, ICD10: E28.2 (primary diagnosis) - Whole food balanced protein low-carb nutrition - METFORMIN ER 750 MG TABLET 2. Binge-eating disorder, in full remission, mild - ICD9: 307.1, ICD10: F50.81 - Topiramate 25 mg 1-2 times a day - PHENTERMINE 37.5 MG TABLET 3. Anxiety and depression - ICD9: 300.00, 311, ICD10: F41.9, F32.A - established with psychiatrist - Continue bupropion 4. Seasonal affective disorder (HCC) - ICD9: 296.99, ICD10: F33.8 - continue bupropion 5. History of obesity - ICD9: V12.29, ICD10: Z86.39 Weight decreasing - TOPIRAMATE 25 MG currently taking in evening. She may try taking a second dose or increasing to 50 mg at bedtime. - PHENTERMINE 37.5 MG TABLET - usually takes 1/2 tablet. Does not need refill at this time. Patient has met the weight loss requirement of 5% TBW in initial 3 months using phentermine without any adverse side effects. Pt has responded well and would like to continue use for weight management. 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 The patient is [...] filled. No suspicious activity was identified. - Continue METFORMIN ER 750 MG TABLET twice a day - continue Whole food balanced protein low-carb nutrition. Given personalized nutrition suggestions. - continue to include and increase exercise.to goal of 150-200 min/wk including cardio and resistance. Prescription instructions reviewed with patient as applicable. Potential red flag symptoms discussed with the patient. Reviewed appropriate action plan to take if red flag symptoms occur. Patient agreeable to treatment plan. Follow up in 3 months. Yaneli Dowling APRN.CNP Advanced Education from the Obesity [employer] Association I spent a total of 38 minutes on the date of the service which included preparing to see the patient, [id number] patient care, completing clinical documentation, obtaining and/or reviewing separately obtained history, performing a medically appropriate examination, and counseling and educating the patient/family/caregiver. documented in this encounter [facility] 12-20-2024 Note HNO ID: [id number] Author: YANELI DOWLING APRN.CNP Service: ? Author Type: Nurse Practitioner Type: Progress Notes Filed: 12/20/2024 12:55 Note Text: Some documentation from previous visit of 09/26/2024 was copied and pasted, documentation has been reviewed and edited as necessary for today's visit. Patient Summary: Jose Eduardo is a 24 year old Female who presents for follow-up evaluation of obesity/weight management to treat PCOS, BED, anxiety., depression and prevent related co-morbidities. In our previous visits we have discussed lifestyle intervention including a nutrition recommendations and physical activity optimization. Her last office visit was 3 months ago. Assessment/plan from last visit: - Metformin ER 750 mg twice a day - Phentermine 37.5 mg - sometimes takes 1/2 tablet - Topiramate 25 mg evening - Bupropion 150 mg -1 tablet in evening. Mood improved with no cravings is having some cravings now. - BED - no episodes with topiramate Interval History B - Usually protein powder 25 gm with 4-5 carb and 1 egg and sometimes Fairlife 30 gm protein shake S - occasionally TZ yogurt or rare vegetables and yogurt with Ranch or cottage cheese or Quest chips L - chicken or tuna packet and lettuce and Quest chips and usually a raw veg, occasional Triple Zero yogurt if she did not have it as a snack S - occasionally TZ yogurt or rare vegetables and yogurt with Ranch or cottage cheese or Quest chips D - protein, vegetables both low carb and starchy/zoodles or Bird's Eye Veggie Pasta with sauce. Sometimes portion of protein pasta/rice or turkey sticks with cheese crisps S - rare popcorn Fluids - Lemon water, [place] Current Barriers: emotional eating and stress eating She feels the medications help to control BED, increase fullness, decrease hunger. No SE. 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 Sleep: stable 7 hours, except for this week working some nights Weight loss since last vist: -2 lbs for total of 26 lbs weight loss Date: Weight: BMI: Medications: 12/20/2024 171 lb 29.19 09/26/2024 173 lb 29.54 Metformin ER 06/13/2024 169 lb 28.85 03/14/2024 172 lb 28.62 12/15/2023 183 lb phentermine 37.5 mg bupropion SAD 09/22/2023 187 lb 31.12 08/26/2023 195 lb Phentermine 37.5 mg , Metformin 06/30/2023 197 lb 32.82 WC 36 in Phentermine 15, Topiramate 5% weight loss = 187 lbs, 10% weight loss = 177 lbs Phentermine Start date: ?06/30/2023 Start weight: ?197 lbs. Dose: 15mg capsule, increased to 37.5 mg 12/15/2023 -- Patient reports suppression of her appetite and increase in satiety since starting -- Patient reports no side effects Topiramate Dose:25 mg -- Patient reports suppression of her appetite and increase in satiety since starting. Remission of BED SE: paresthesia if dose increased Estimated Creatinine Clearance: 108.5 mL/min (based on SCr of 0.8 mg/dL). PAST MEDICAL HISTORY Diagnosis Date Anxiety state Cysts of both ovaries 03/17/2019 Excessive sweating 03/21/2012 Exercise-induced asthma 01/30/2014 Family history of factor V Leiden mutation 06/19/2015 Polycystic ovarian syndrome 03/17/2019 suspected Post concussion syndrome 09/17/2014 Visual disturbance 09/17/2014 Current Outpatient Medications Medication Sig Dispense Refill buPROPion SR (WELLBUTRIN SR) 150 mg 12 hr tablet Take 1 tablet by mouth every morning. 90 tablet 1 topiramate (TOPAMAX) 25 mg tablet Take 1 tablet by mouth two times a day. 180 tablet 1 Phentermine HCl 37.5 mg tablet Take 1 tablet by mouth daily before breakfast for 90 days. 90 tablet 0 metFORMIN ER (GLUCOPHAGE XR) 750 mg 24 hr tablet Take 1 tablet by mouth two times a day with meals. 180 tablet 1 celecoxib (CELEBREX) 100 mg capsule Take 100 mg by mouth once daily. RHOFADE 1 % crea once daily. Drospirenone-Ethinyl Estradiol (ANNIA, 28,) 3-0.03 mg per tablet Take 1 tablet by mouth once daily. FOR CONTINUOUS USE. 112 tablet 5 loratadine (CLARITIN ORAL) Take by mouth. MULTI-VITAMIN TAB Take one(1) tablet daily. 0 PLAQUENIL 200 mg tablet two times a day. (Patient not taking: Reported on 09/26/2024) No current facility-administered medications for this visit. 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 Assessment/Plan: Jose Eduardo Prince is a 24 year old yo with Class I obesity who presented today for (more content not included)... [facility] 09-26-2024 Instructions Yaneli Dowling APRN.[facility] - 09/26/2024 10:11 AM EST - Eat primarily whole foods. Limit carbs, especially processed carbs. Eat - Meat, vegetables and fruits with skin on if possible, eggs, cheese. - Do not drink your calories - 30 grams of protein for your first meal of the day decreases your hunger during the day by up to 40 %. Options include: Premier Protein or generic 30 gm protein 1 gm sugar or 5 eggs or 2-3 eggs and some unbreaded meat and/or cheese. No fruit, vegetables, bread, grain, yogurt, Smoothies, etc. - Walk for 15 minutes immediately after meal - Whole food balanced protein, controlled carbohydrate nutrition plan - 30 g of protein 3 times a day and up to 30 g of carbs at lunch and dinner only. Breakfast - 30 gm protein with limit of 2 gm carbohydrates. Options include: Premier Protein or generic 30 gm protein 1 gm sugar or 5 eggs or 2-3 eggs and some unbreaded meat and/or cheese. No fruit, vegetables, bread, grain, yogurt, Smoothies, etc. Lunch and dinner - 30 gm protein is the goal with less than 30 gm carbohydrates Snacks - all protein or more protein than carbs Protein - no carbs Egg 1 large - 6g Egg white 1 large 3.6g 3 oz is approximately the size of a deck of cards and equals 21 g protein so 4 oz is 28 gm protein Beef, Chicken, Avon, Pork, Sylvester 1 oz 7g Fish, Tuna Fish 1 oz 7g (Starkist tuna packet 2.6 oz 17 gm protein) Seafood (Crabmeat, Shrimp, Lobster) 1 oz 6g Protein shakes (read labels) Premier Protein or generic [place] High Performance- 30g protein & 1g carb - meal replacement Premier Protein powder or generic- 30 gm protein, 1g carb Premier Protein plant protein powder - 25 gm protein, 0 sugar/2 carb Vanilla and chocolate (not a meal replacement) Fairlife 30 gram protein - 30g protein & 3g carb BOOST Glucose Control Max 30g Protein Nutritional Drink - 30g protein & 1 carb - meal replacement Slimfast High Protein - 20g protein & 1g carb Ensure Max Protein Nutrition Shake 30g protein & 2 carb Protein AND carbs Beef/Avon Jerky 1 oz dried 10-15g protein - check carb count, can be high if sugar added Slim Davy - 6 gm protein and 4 net carb Great Value original turkey sausage sticks - 7 gm protein and 2 gm carb Gurjit & Jake (at [facility]) Original smoked sausage sticks - 8 gm protein and 0 carb Imitation Crab Meat 1 oz - 2g protein & 4g carb Milk, skim 2% or 1% 8 oz - 8g protein & 12g carb Thai yogurt Full Fat Thai Yogurt 1 cup - 20.4g protein & 9.1g carb 2% Thai Yogurt 1 cup - 22.7g protein & 9.1g carb 0% (fat-free) Thai Yogurt - 1 cup 24g protein & 9.3g carb Aldi Protein Thai yogurt single svg - 15g protein & 7g carb Chobani Zero Sugar single svg: - 12g protein & 5g carb Dannon Thai Light + Fit 1 single svg - 12g protein & 9g carb Oikos Pro single svg - 20g protein & 8g carb Oikos Triple Zero Thai Nonfat Yogurt 1 single svg - 15g protein & 7g carb :ratio, KETO Friendly Dairy Snack 1 single svg - 15g protein & 2g carb :ratio Protein 1 single svg - 25g protein & 8g carb Two Good Lowfat Thai Yogurt, [place], Lower Sugar - 12g protein & 2g carb Yoplait Protein 1 single svg 15gm protein & 5gm carb Dairy Free - [place] unsweetened Thai almond/soy 15 gm protein & 3 gm carb Dairy Free - True Goodness by Harmony coconut-based yogurt alternative 1 gm protein 1 gm net carb 180 min Cheese each oz Brie 5.9g protein & 0.1g carb Cheddar 7g protein & 0.4g carb Gurdeep 6.7g protein & 0.7g carb Cream Cheese 1.7g protein & 1.2g carb Feta 4g protein & 1.2g carb Mozzarella 6.3g protein & 0.6g carb Parmesan 10g protein & 0.9g carb [place] 7.6g protein & 1.5g carb Cottage Cheese 1/2 c Breakstone 2% 13g protein 7g carb Dorina 2% 13g protein 5 g carb Good Culture 2% 14g protein 3g carb Velasquez s Low Fat 12g protein & 4g carb Legumes Lentils cup 9g protein & 20g carb Carrasco beans cup 7g protein & 20g carb Kidney, Black, [place], Cannellini beans cup 8g protein & 20g carb Soybeans 1/2 c 14g complete protein & 8.5g carb [place] milk, unsweetened 8 oz 1g protein & 2g carb Soy milk 8 oz 3.5g protein & 1.6g carb Tofu 1/2 cup 10g protein & 2.3g carb Peanut butter, natural 2 Tbsp 7-8g protein & 4g net carbs, 190 calories PB2 powder 2 Tbsp 6g protein & 5g carb Nuts and Seeds per oz Almonds - 5.9g protein & 6.1g carb [place] Nuts - 4.0g protein & 3.4g carb Cashews - 5.1g protein & 9.2g carb Hazelnuts - 4.2g protein & 4.7g carb Hemp seeds/hearts 3 T/30 gms - 9.5 gm complete protein and 2.5 gm carb Peanuts - 7g protein & 4.6g carb Pecans - 2.6g protein & 3.9g carb Pistachios - 5.8g protein & 7.8g carb Pumpkin Seeds - 6.9g protein & 5g carb Dent Seeds - 5.8g protein & 5.6g carb Walnuts - 4.3g protein & 3.8g carb Edamame Beans (soybean) snack 1 pack 11 gm complete protein 2 carb 5 (FIVE) gram carb vegetable options 1 cup raw OR cup cooked: Asparagus Sharp sprouts Beets Broccoli Brussel sprouts Cabbage Carrots Cauliflower Celery Crawford Eggplant Green beans Lettuce Peppers Snap peas Spaghetti squash Spinach Tomato Turnips Zucchini 15 gram carb vegetable options cup cooked corn or hominy corn on the cob, large (5 oz) cup cooked green peas 4.3 gm complete protein cup cooked carrasco beans 1 small potato or sweet potato cup cooked potato, plain cup cooked sweet potato, plain 1 cup winter squash (pumpkin, acorn, butternut) 1 cup marinara or pasta sauce - check label cup tomato juice cup tomato puree Beans, Seeds, Nuts cup cooked beans (kidney, turner, red, green, etc.) cup cooked lentils cup baked beans 4 tablespoons nut butter <15 gram carb fruit options Berries have the lowest sugar content 1/2 medium apple - 12.5 carbs 1/2 medium avocado - 6.5 gm carbs 1/2 medium banana - 15 carbs 1/2 cup blueberries - 11 carbs - may actually help you lose weight 1/2 cup fresh cherries -11 carbs 1 medium Elinor -9 carbs 1/2 cup fresh cranberries - 6.5 carbs 1/2 c grapes - 15 carbs 1/2 medium grapefruit - 10.5 carbs 1/2 cup diced honeydew melon - 8 carbs 1 medium kiwi without skin - 11 carbs 1/2 cup sliced latrell -14 carbs 1 medium nectarine - 15 carbs 1 medium orange -15.5 carbs 1 medium peach -14.5 carbs 1/2 cup fresh pineapple -11 carbs 1 medium plum -7.5 carbs 1 prune - 6 carbs 1/4 c raisins - 31.25 carbs 1/2 cup raspberries -7.5 carbs 1/2 c strawberries - 12.7 carbs 1 medium tangerine -12 carbs 1/2 cup diced watermelon - 6 carbs Grains Brown rice 1/2 c 5.5g protein 24 carb White long-grain rice 1/2 c 2g protein 22.5 carb Quinoa 1/2 c 4 gm complete protein 25 carb Oatmeal, old fashioned 1/2 c 5g protein 27g carb High Protein Snack Ideas 1. Jerky 2. [place] mix without dried fruit 3. Avon roll-ups 4. Thai yogurt 5. Veggies and yogurt dip 6. Tuna 7. Hard-boiled eggs 8. Peanut butter with celery 9. Cheese slices/ Cheese Stick 10. Handful of almonds, peanuts or walnuts 11. Cottage Cheese 12. Beef sticks 13. Protein bars 14. Canned [place] 15. Pumpkin seeds 16. Nut butter 17. Protein shakes 18. Avocado and chicken salad 19. Egg muffins 20. Leftover protein or lunch meat 21. 1/2 c blended cottage cheese or Thai yogurt with dry ranch/Mrs. Dash/herb seasoning mix to make protein dip 22. 1/2 c blended cottage cheese with 1 Tbsp sugar-free dry cheesecake pudding mix 12g protein 10 carb 23. Pudding - 1 30 gm protein shake with 1/2 pkg sugar-free pudding 4 svgs - 7.8 gm protein, 5 carb each svg 24. SF Sunkist or Root Beer with 1-2 Tablespoons heavy whipping cream 25. Mini frozen dessert bites - layer protein yogurt, skinny syrup and crushed nuts and freeze documented in this encounter [facility] 09-26-2024 History of Present illness Narrative Some documentation from previous visit of 06/13/2024 was copied and pasted, documentation has been reviewed and edited as necessary for today's visit. Patient Summary: Jose Eduardo is a 24 year old Female who presents for follow-up evaluation of obesity/weight management to treat PCOS, BED, anxiety., depression and prevent related co-morbidities. In our previous visits we have discussed lifestyle intervention including a nutrition recommendations and physical activity optimization. Her last office visit was 3 months ago. Assessment/plan from last visit: -Metformin 500 mg twice a day -Phentermine 37.5 mg - occasionally feels anxious so takes sometimes takes 1/2 tablet -Topiramate 25 mg evening -Bupropion 150 mg -1 tablet in morning. Mood improved with no cravings. - BED - no episodes with topiramate - increased anxiety, requests TSH Interval History Weight up 4 lbs but truly feels it is muscle B - Usually protein powder 25 gm with 4-5 carb and 1 egg and sometimes Fairlife 30 gm protein shake S - occasionally TZ yogurt L - chicken or tuna packet and lettuce and Quest chips and usually a raw veg, occasional Triple Zero yogurt if she did not have it as a snack S - rare vegetables and sometimes yogurt with Ranch or cottage cheese or Quest chips D - protein, vegetables both low carb and starchy/zoodles or Bird;s Eye Veggie Pasta with sauce. Sometimes portion of protein pasta/rice S - none Fluids - Lemon water, Zevia Current Barriers: weather changes and therefore, food preferences She feels the medications help to decrease appetite. 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 Dose: 15mg capsule, increased to 37.5 mg 12/15/2023 -- Patient reports suppression of her appetite and increase in satiety since starting -- Patient reports no side effects Topiramate Dose:25 mg am and afternoon; -- Patient reports suppression of her appetite and increase in satiety since starting. Remission of BED SE: paresthesia if dose increased CrCl cannot be calculated (Patient's most recent lab result is older than the maximum 180 days allowed.). PAST MEDICAL HISTORY Diagnosis Date Anxiety state Cysts of both ovaries 03/17/2019 Excessive sweating 03/21/2012 Exercise-induced asthma 01/30/2014 Family history of factor V Leiden mutation 06/19/2015 Polycystic ovarian syndrome 03/17/2019 suspected Post concussion syndrome 09/17/2014 Visual disturbance 09/17/2014 Current Outpatient Medications Medication Sig Dispense Refill PLAQUENIL 200 mg tablet two times a day. RHOFADE 1 % crea once daily. Drospirenone-Ethinyl Estradiol (ANNIA, 28,) 3-0.03 mg per tablet Take 1 tablet by mouth once daily. FOR CONTINUOUS USE. 112 tablet 5 topiramate (TOPAMAX) 25 mg tablet Take 1 tablet by mouth two times a day. 180 tablet 1 buPROPion SR (WELLBUTRIN SR) 150 mg 12 hr tablet Take 1 tablet by mouth every morning. 90 tablet 1 metFORMIN (GLUCOPHAGE) 500 mg tablet Take 2 tablets by mouth two times a day with meals. 360 tablet 1 loratadine (CLARITIN ORAL) Take by mouth. MULTI-VITAMIN TAB Take one(1) tablet daily. 0 No current facility-administered medications for this visit. 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 1. Polycystic ovarian syndrome - ICD9: 256.4, ICD10: E28.2 (primary diagnosis) - Whole food balanced protein low-carb nutrition - METFORMIN ER 750 MG TABLET 2. Binge-eating disorder, in full remission, mild - ICD9: 307.1, ICD10: F50.81 - Topiramate 25 mg twice a day - PHENTERMINE 37.5 MG TABLET 3. Anxiety and depression - ICD9: 300.00, 311, ICD10: F41.9, F32.A - follows with psychiatrist - Continue bupropion - TSH 4. Seasonal affective disorder (HCC) - ICD9: 296.99, ICD10: F33.8 - continue bupropion 5. History of obesity - ICD9: V12.29, ICD10: Z86.39 Weight decreasing - TOPIRAMATE 25 MG twice a day - PHENTERMINE 37.5 MG TABLET Patient has met the weight loss requirement of 5% TBW in initial 3 months using phentermine without any adverse side effects. Pt has responded well and would like to continue use for weight management. She understands that continued use is off label for longterm management of weight control. The patient is [...] No suspicious activity was identified. - METFORMIN ER 750 MG TABLET 1 gm twice a day - CMP - continue Whole food balanced protein low-carb nutrition. Given protein/whole food vegetable and fruit/high protein snack lists. - Discussed holiday eating strategies. - continue to include and increase exercise.to goal of 150-200 min/wk including cardio and resistance. Prescription instructions reviewed with patient as applicable. Potential red flag symptoms discussed with the patient. Reviewed appropriate action plan to take if red flag symptoms occur. Patient agreeable to treatment plan. Follow up in 3 months. Yaneli Dowling APRN.CNP Advanced Education from the [employer] Medical Decision Making: Problems: Moderate: 2+ stable chronic illnesses and 1+ chronic illnesses with change Risk: Moderate: Drug management and Moderate risk from testing/treatment Medical Decision Making Level: 4 - Moderate documented in this encounter [facility] 09-26-2024 Note HNO ID: [id number] Author: YANELI DOWLING APRN.CNP Service: ? Author Type: Nurse Practitioner Type: Progress Notes Filed: 09/27/2024 06:55 Note Text: Some documentation from previous visit of 06/13/2024 was copied and pasted, documentation has been reviewed and edited as necessary for today's visit. Patient Summary: Jose Eduardo is a 24 year old Female who presents for follow-up evaluation of obesity/weight management to treat PCOS, BED, anxiety., depression and prevent related co-morbidities. In our previous visits we have discussed lifestyle intervention including a nutrition recommendations and physical activity optimization. Her last office visit was 3 months ago. Assessment/plan from last visit: -Metformin 500 mg twice a day -Phentermine 37.5 mg - occasionally feels anxious so takes sometimes takes 1/2 tablet -Topiramate 25 mg evening -Bupropion 150 mg -1 tablet in morning. Mood improved with no cravings. - BED - no episodes with topiramate - increased anxiety, requests TSH Interval History Weight up 4 lbs but truly feels it is muscle B - Usually protein powder 25 gm with 4-5 carb and 1 egg and sometimes Fairlife 30 gm protein shake S - occasionally TZ yogurt L - chicken or tuna packet and lettuce and Quest chips and usually a raw veg, occasional Triple Zero yogurt if she did not have it as a snack S - rare vegetables and sometimes yogurt with Ranch or cottage cheese or Quest chips D - protein, vegetables both low carb and starchy/zoodles or Bird;s Eye Veggie Pasta with sauce. Sometimes portion of protein pasta/rice S - none Fluids - Lemon water, Zevia Current Barriers: weather changes and therefore, food preferences She feels the medications help to decrease appetite. 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 Dose: 15mg capsule, increased to 37.5 mg 12/15/2023 -- Patient reports suppression of her appetite and increase in satiety since starting -- Patient reports no side effects Topiramate Dose:25 mg -- Patient reports suppression of her appetite and increase in satiety since starting. Remission of BED SE: paresthesia if dose increased CrCl cannot be calculated (Patient's most recent lab result is older than the maximum 180 days allowed.). PAST MEDICAL HISTORY Diagnosis Date Anxiety state Cysts of both ovaries 03/17/2019 Excessive sweating 03/21/2012 Exercise-induced asthma 01/30/2014 Family history of factor V Leiden mutation 06/19/2015 Polycystic ovarian syndrome 03/17/2019 suspected Post concussion syndrome 09/17/2014 Visual disturbance 09/17/2014 Current Outpatient Medications Medication Sig Dispense Refill PLAQUENIL 200 mg tablet two times a day. RHOFADE 1 % crea once daily. Drospirenone-Ethinyl Estradiol (ANNIA, 28,) 3-0.03 mg per tablet Take 1 tablet by mouth once daily. FOR CONTINUOUS USE. 112 tablet 5 topiramate (TOPAMAX) 25 mg tablet Take 1 tablet by mouth two times a day. 180 tablet 1 buPROPion SR (WELLBUTRIN SR) 150 mg 12 hr tablet Take 1 tablet by mouth every morning. 90 tablet 1 metFORMIN (GLUCOPHAGE) 500 mg tablet Take 2 tablets by mouth two times a day with meals. 360 tablet 1 loratadine (CLARITIN ORAL) Take by mouth. MULTI-VITAMIN TAB Take one(1) tablet daily. 0 No current facility-administered medications for this visit. 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 Assessment/Plan: Jose Eduardo Prince is a 24 year old yo with Class I obesity who presented today for follow up for supervised weight loss to treat and prevent related co-morbidities. 1. Polycystic ovarian syndrome - ICD9: 256.4, ICD10: E28.2 (primary diagnosis) - Whole food balanced protein low-carb nutrition - METFORMIN ER 750 MG TABLET 2. Binge-eating disorder, in full remission, mild - ICD9: 307.1, ICD10: F50.81 - Topiramate 25 mg twice a day - PHE (more content not included)... [facility] 06-13-2024 History of Present illness Narrative Some documentation from previous visit of 03/14/2024 was copied and pasted, documentation has been reviewed and edited as necessary for today's visit. Patient Summary: Jose Eduardo is a 24 year old Female who presents for follow-up evaluation of obesity/weight management to treat PCOS, BED, anxiety., depression and prevent related co-morbidities. In our previous visits we have discussed lifestyle intervention including a nutrition recommendations and physical activity optimization. Her last office visit was 3 months ago. Assessment/plan from last visit: Metformin 500 mg at breakfast and/or lunch and 1 gm dinner Phentermine 37.5 mg - occasionally feels anxious so takes sometimes takes 1/2 tablet Topiramate 25 mg am and afternoon Bupropion 150 mg -1 tablet in morning. Mood improved with no cravings. BED - no episodes with topiramate Interval History B - Fairlife 30 gm protein shake S - none L - chicken tuna packet and lettuce and Quest chips, occasional Triple Zero yogurt S - Occasionally vegetables and sometimes yogurt with Ranch or cottage cheese D - protein, vegetables both low carb and starchy/zoodles or Bird;s Eye Veggie Pasta with sauce. Sometimes portion of protein pasta/rice S - none Fluids - Lemon water, Zevia Current barriers: current food aversion to eggs and chicken She feels the medications help to decrease appetite. Exercise: stable treadmill 3 days a week for 30 minutes Strength/resistance exercise:intermittently 2-3 days a week Activity Tracker: yes working 10,000 step daily with work or home Stress: stable work Sleep: decreased, 6 hours, unable to calm brain Weight loss since last vist: 3 lbs for total of 28 lbs weight loss 06/13/2024 169 lb BMI 28.85 phentermine, topiramate, Bupropion, Metformin 03/14/2024 172 lb BMI 28.62 12/15/2023 183 lb phentermine 37.5 mg bupropion SAD 09/22/2023 187 lb BMI 31.12 08/26/2022 195 lb Phentermine 37.5 mg , Metformin 06/30/2023 197 lb BMI 32.82 WC 36 in Phentermine 15, Topiramate 5% weight loss = 187 lbs, 10% weight loss = 177 lbs Phentermine Start date: ?06/30/2023 Start weight: ?197 lbs. Dose: 15mg capsule, increased to 37.5 mg 12/15/2023 -- Patient reports suppression of her appetite and increase in satiety since starting -- Patient reports no side effects Topiramate Dose:25 mg am and afternoon; -- Patient reports suppression of her appetite and increase in satiety since starting. Remission of BED SE: paresthesia if dose increased CrCl cannot be calculated (Patient's most recent lab result is older than the maximum 180 days allowed.). PAST MEDICAL HISTORY No date: Anxiety state 03/17/2019: Cysts of both ovaries 03/21/2012: Excessive sweating 01/30/2014: Exercise-induced asthma 06/19/2015: Family history of factor V Leiden mutation 03/17/2019: Polycystic ovarian syndrome Comment: suspected 09/17/2014: Post concussion syndrome 09/17/2014: Visual disturbance Current Outpatient Medications Medication Sig Dispense Refill PLAQUENIL 200 mg tablet two times a day. RHOFADE 1 % crea once daily. Drospirenone-Ethinyl Estradiol (ANNIA, 28,) 3-0.03 mg per tablet Take 1 tablet by mouth once daily. FOR CONTINUOUS USE. 112 tablet 5 topiramate (TOPAMAX) 25 mg tablet Take 1 tablet by mouth two times a day. 180 tablet 1 buPROPion SR (WELLBUTRIN SR) 150 mg 12 hr tablet Take 1 tablet by mouth every morning. 90 tablet 1 metFORMIN (GLUCOPHAGE) 500 mg tablet Take 2 tablets by mouth two times a day with meals. 360 tablet 1 loratadine (CLARITIN ORAL) Take by mouth. MULTI-VITAMIN TAB Take one(1) tablet daily. 0 No current facility-administered medications for this visit. 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 1. Polycystic ovarian syndrome - ICD9: 256.4, ICD10: E28.2 (primary diagnosis) - Whole food balanced protein low-carb nutrition - METFORMIN 500 MG TABLET 2. Binge-eating disorder, in full remission, mild - ICD9: 307.1, ICD10: F50.81 - Topiramate 25 mg twice a day - PHENTERMINE 37.5 MG TABLET 3. Anxiety and depression - ICD9: 300.00, 311, ICD10: F41.9, F32.A - follow with psychiatrist - Continue bupropion 4. Seasonal affective disorder (HCC) - ICD9: 296.99, ICD10: F33.8 - continue bupropion 5. History of obesity - ICD9: V12.29, ICD10: Z86.39 Weight decreasing - TOPIRAMATE 25 MG twice a day - PHENTERMINE 37.5 MG TABLET Patient has met the weight loss requirement of 5% TBW in initial 3 months using phentermine without any adverse side effects. Pt has responded well and would like to continue use for weight management. 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 The patient is [...] was identified. - METFORMIN 500 MG TABLET 1 gm twice a day - continue Whole food balanced protein low-carb nutrition - continue to include and increase exercise.to goal of 150-200 min/wk including cardio and resistance. Prescription instructions reviewed with patient as applicable. Potential red flag symptoms discussed with the patient. Reviewed appropriate action plan to take if red flag symptoms occur. Patient agreeable to treatment plan. Follow up in 3 months. 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 Jose Eduardo is a 24 year old who presents for an annual gynecologic exam without complaints. Menses: cycles every 3 months and 5 days of flow. Mild cramping. Recently had 2-3 weeks of spotting middle of 2nd pack of pills. Continued taking hormone pills during the spotting. Stopped bupropion because she also had spotting on Effexor and thought it may be the cause. Next menses was normal. Contraception: combined hormonal contraceptives HPV vaccine: Yes Last Pap: 06/03/2023 normal HPV: NA History of abnormal pap: No Last mammogram: never Sexually active: Not x 2.5 year History of STDS: None Patient concerns for STD exposure: No. Time with current partner: no current partner Some documentation from previous visit of 06/03/2023 was copied and pasted, documentation has been reviewed and edited as necessary for today's visit. OB History T0 L0 SAB0 IAB0 Ectopic0 Multiple0 Live Births0 Applications Scientist History LMP: 12/18/2023 (Within Days), Having periods Age at Menarche: Age at First : Age at Menopause: Applications Scientist History Comments: Sexual Activity: Not Currently; Male [...] Problem Relation Age of Onset Hypothyroidism Mother Obesity Mother other (overweight) Father Cancer Maternal Grandmother Thyroid CA Cancer Maternal Grandfather Thyroid CA Diabetes Maternal Grandfather other (factor V) Maternal Grandfather Obesity Maternal Grandfather Colon Cancer Paternal Grandmother Obesity Paternal Grandfather Asthma Maternal Aunt Asthma Paternal [...] Allergies and current medication updated:Yes EXAM: BP 112/74 Ht 5' 4.173" (1.63m) Wt 175 lb (79.4kg) LMP 05/20/2024 BMI 29.88 kg/(m^2). Weight loss of 25 lbs GENERAL: pleasant, female in no apparent distress [...] external genitalia normal, normal Bartholin's glands, urethra, Ozark's glands, no vulvar lesions, no cervical lesions, [...] exams reviewed. HPV vaccine: completed series 2. Breakthrough bleeding on control pills - ICD9: 626.6, ICD10: N92.1 - Recent weight loss of 25 lbs - discussed that increase in circulating estrogen may be contributing factor but that BTB on extended or continuous use RAPHAEL is common. She can restart bupropion. 3. Surveillance for control, oral contraceptives - ICD9: V25.41, ICD10: Z30.41 - DROSPIRENONE 3 MG-ETHINYL ESTRADIOL 0.03 MG TABLET 4) STD screening: Declined STD check. 5) Follow up one year or sooner as needed Yaneli Dowling APRN.JOHN documented in this encounter [facility] 03-14-2024 Instructions Yaneli Dowling APRN.JOHN - 03/14/2024 9:52 AM EDT Sleep Hygiene Practices 1. Try going to bed only when you are drowsy. 2. If you are unable to fall asleep or stay asleep, leave your bedroom and engage in a quiet activity elsewhere. Do not permit yourself to fall asleep outside the bedroom. Return to bed when and only when you are sleepy. Repeat this process as often as necessary throughout night. 3. Maintain regular wake-up time, even on days off work & weekends 4. Use your bedroom for sleep and sex 5. Avoid napping during the daytime. If daytime sleepiness becomes overwhelming, limit nap time to a single nap of less than 1 hr, no later than 3 pm. 6. Distract your mind. Avoid clock watching. Lying in bed unable to sleep and frustrated needs to be avoided. Try reading or watching a videotape or listening to books on tape. It may be necessary to go into another room to do these. 7. Avoid caffeine within 4-6 hrs of bedtime 8. Avoid use of nicotine close to bedtime 9. do not drink alcoholic beverages within 4-6 hrs of bedtime 10. While a light snack before bedtime can help promote sound sleep, avoid large meals. 11. Obtain regular exercise, but avoid strenuous exercise within 4 hrs of bedtime 12. Minimize light, noise, and extremes in temperature in the bedroom. * This information is provided had been directly obtained from the [place] [employer] wellness booklet on sleep hygiene. ([facility], [address] [place] [address]) documented in this encounter [facility] 03-14-2024 History of Present illness Narrative Images from the original note were not included. Some documentation from previous visit of 06/30/2023 and 12/15/2023 was copied and pasted, documentation has been reviewed and edited as necessary for today's visit. Patient Summary: Jose Eduardo is a 24 year old Female who presents for follow-up evaluation of obesity/weight management to treat PCOS, BED, anxiety., depression and prevent related co-morbidities. In our previous visits we have discussed lifestyle intervention including a nutrition recommendations and physical activity optimization. Her last office visit was 3 months ago. Assessment/plan from last visit: [facility] nutrition Metformin 500 mg at breakfast and/or lunch and 1 gm dinner Phentermine 37.5 mg - sometimes feels anxious so takes sometimes takes 1/2 tablet Topiramate 50 mg am and afternoon caused paraesthesia so would like to decrease back to 25 mg twice a day. Bupropion 150 mg - waited 2 weeks to start. When increased to twice a day, had increased cravings. Stopped it and restarted at 1 tablet a day. Mood improved with no cravings. BED - no episodes with topiramate Interval History B - Fairlife 30 gm protein shake or 3 eggs with 1/2 shake S - none or meat stick L - chicken tuna packet and lettuce and Triple Zero yogurt S - vegetables and sometimes yogurt with Ranch or cottage cheese D - protein, vegetables both low carb and starchy. Sometimes portion of protein pasta/rice S - none Fluids - Lemon water, Zevia She feels the medications is helping to decreases appetite. 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 Dose: 15mg capsule, increased to 37.5 mg 12/15/2023 -- Patient reports suppression of her appetite and increase in satiety since starting -- Patient reports no side effects Topiramate Dose:25 mg am and afternoon; -- Patient reports suppression of her appetite and increase in satiety since starting. Remission of BED SE: paresthesia if dose increased CrCl cannot be calculated (Patient's most recent lab result is older than the maximum 180 days allowed.). PAST MEDICAL HISTORY Diagnosis Date Anxiety state Cysts of both ovaries 03/17/2019 Excessive sweating 03/21/2012 Exercise-induced asthma 01/30/2014 Family history of factor V Leiden mutation 06/19/2015 Polycystic ovarian syndrome 03/17/2019 suspected Post concussion syndrome 09/17/2014 Visual disturbance 09/17/2014 Current Outpatient Medications Medication Sig Dispense Refill topiramate (TOPAMAX) 50 mg tablet Take 1 tablet by mouth two times a day. 180 tablet 0 buPROPion SR (WELLBUTRIN SR) 150 mg 12 hr tablet Take 1 tablet by mouth two times a day. 180 tablet 0 Phentermine HCl 37.5 mg tablet Take 1 tablet by mouth daily before breakfast for 90 days. 90 tablet 0 metFORMIN (GLUCOPHAGE) 500 mg tablet Take 2 tablets by mouth two times a day with meals. 360 tablet 1 flaxseed oil (OMEGA 3 ORAL) Take by mouth. loratadine (CLARITIN ORAL) Take by mouth. Drospirenone-Ethinyl Estradiol (ANNIA, 28,) 3-0.03 mg per tablet Take 1 tablet by mouth once daily. 84 tablet 4 MULTI-VITAMIN TAB Take one(1) tablet daily. 0 No current facility-administered medications for this visit. 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 ASSESSMENT/PLAN: 1. Polycystic ovarian syndrome - ICD9: 256.4, ICD10: E28.2 (primary diagnosis) - Whole food balanced protein low-carb nutrition - METFORMIN 500 MG TABLET 2. Binge-eating disorder, in full remission, mild - ICD9: 307.1, ICD10: F50.81 - Topiramate 25 mg twice a day - PHENTERMINE 37.5 MG TABLET 3. Anxiety and depression - ICD9: 300.00, 311, ICD10: F41.9, F32.A - follow with psychiatrist - Continue bupropion 4. Seasonal affective disorder (HCC) - ICD9: 296.99, ICD10: F33.8 - continue bupropion 5. Class 1 obesity with body mass index (BMI) of 31.0 to 31.9 in adult, unspecified obesity type, unspecified whether serious comorbidity present - ICD9: 278.00, V85.31, ICD10: E66.9, Z68.31 Weight decreasing - TOPIRAMATE 25 MG twice a day - PHENTERMINE 37.5 MG TABLET Patient has met the weight loss requirement of 5% TBW in initial 3 months using phentermine without any adverse side effects. Pt has responded well and would like to continue use for weight management. She understands that continued use is off label for longterm management of weight control. The patient is [...] was identified. - METFORMIN 500 MG TABLET 1 gm twice a day - Decreased sleep "unable to turn off brain" - she is unsure if it is due to increased stress or a side effect to phentermine or topiramate. Encouraged to hold each medication individually to try and determine if a side effect. 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 - continue Whole food balanced protein low-carb nutrition - continue to include and increase exercise.to goal of 150-200 min/wk Prescription instructions reviewed with patient as applicable. Potential red flag symptoms discussed with the patient. Reviewed appropriate action plan to take if red flag symptoms occur. Patient agreeable to treatment plan. Follow up in 3 months. Yaneli Dowling APRN.CNP Advanced Education from the Obesity Medicine Association Medical Decision Making: Problems: Moderate: 1+ chronic illnesses with change Risk: Moderate: Drug management and Moderate risk from testing/treatment Medical Decision Making Level: 4 - Moderate documented in this encounter [facility] 02-14-2024 Discharge summary Note Date/Time February 14, 2024 10:14am [facility] [address] [place] [address]. [address] [place] [address] / REHABILITATION SERVICES DISCHARGE SUMMARY MR#: [id number] Acct: [id number] Name: JOSE EDUARDO PRINCE Rep #: [id number] 15 : 2000 24 From: Vidal RODRIGUEZ T Referring DrRigo: Self Referred Status: REG RCR Insurance: SELF PAY INSURANCE Patient Information Patient Information: JOSE EDUARDO PRINCE was seen in my office for initial evaluation on . The following Plan of Care was established for this patient: Last Seen Last Seen: This patient was last seen in our office 09/20/23. Pertinent comments regardingtheir Physical therapy will appear below: Pt. was seen for self pay DN. Pt. has not been back in several months and will be DC at this point in time. At this point I will be discontinuing this patient from physical therapy. I would be happy to see this patient again in the future if found appropriate by the physician. Thank you! Vidal Nuñez DPT <Electronically signed by Vidal Nuñez DPT> 02/14/24 1014 CC: Dr. Augustina Abraham MD; Self Referred ~ CLS Signed [facility] Work Phone: [phone]) 958-483402-08-2024 Instructions* Patient Instructions* Yaneli Dowling APRN.DICE TABLE PERSON - 12/15/2023 11:09 AM EST AM PM [...] sports-drinks, etc) and be aware of the stimulanteffects of inhalers, decongestants, etc. -- Take 1 [...] the only antidepressant associated with weight loss (Karime, 2019). Healthcare providers noticed that mostly pleasant side effect, and today bupropion is sometimes prescribed as part of amedication for weight loss (naltrexone/bupropion, brand name Contrave), as well as a stop- smoking aid (brand name Zyban). As far as the evidence that bupropion by itself causes weight loss: A 2016 study that analyzed the long-term weight loss effect of various antidepressant medications found that non-smokers who took bupropion lost 7.1 pounds over two years. (This effect was not seen in smokers). Users of the other antidepressants in the study gained weight (Arterburn, 2016). Bupropion seems to be effective for [...] is associated with weight loss (Karime, 2019). https://AmpliSense.co/health-guide/dtvxsmicft-riv-qswypd-loss/ Bupropion: Patient drug information Access [employer] Online for additional drug information, tools, and databases. Copyright 5231-3280 [employer]. All rights reserved. Contributor Disclosures (For additional information see "Bupropion: Drug information" and see "Bupropion: Pediatric drug information") You must carefully read the "Consumer Information Use and Disclaimer" below in order to understand and correctly [...] or change the dose of any drug withoutchecking with your doctor. What are some things I need to know or do while I take this drug? For all patients taking this drug: Tell all of your health care providers that you take this drug. This includes your doctors, nurses,pharmacists, and dentists. Avoid driving and doing other tasks or actions that call for you to be alert or have clear eyesightuntil you see how this drug affects you. This drug may affect certain lab tests. Tell all of your health care providers and lab workers thatyou take this drug. Do not stop taking [...] be higher in people who take higher doses,have certain health problems, or take certain other [...] , plan on getting , or are breast- feeding. You will need to talk about the [...] right away if you have any of thefollowing signs or symptoms that may be related to a very bad side effect: Signs of an allergic reaction, like rash; hives; itching; red, swollen, blistered, or peeling skin with or without fever; wheezing; tightness in the chest or throat; trouble breathing, swallowing, ortalking; unusual hoarseness; or swelling of the mouth, [...] these eye problems. Call your doctor right awayif you have eye pain, change in eyesight, [...] no side effects or only have minor sideeffects. Call your doctor or get medical help [...] all information given to you. Follow all instructionsclosely. For all uses of this drug: Do [...] many signs of nicotine withdrawal. Rarely depression andsuicidal thoughts have happened in people trying to [...] If you have any questions about this drug,please talk with your doctor, nurse, pharmacist, or other health care provider. If you think there has been an overdose, call your poison control center or get medical care right away. Be ready to tell or show what was taken, how much, and when it happened. Last Reviewed [id number] Consumer Information Use and Disclaimer This generalized [...] that may apply to a specific patient. Itis not intended to be medical advice or [...] or approved for treating a specific patient. [employer]. and its affiliatesdisclaim any warranty or liability relating to this information or the use thereof. The use of thisinformation is governed by the Terms of Use, available at https://www.Car[employer] Rob[employer]er.com/en/know/yvkahylg-huowwiaeqjfby-zzsdw. 2021 [employer]. and its affiliates and/or licensors. All rights reserved. [facility] History of Present illness Narrative* Yaneli Dowling APRN.JOHN - 12/15/2023 10:30 AM EST Some documentation from previous visit of 09/22/2023 [...] 3 month ago. Assessment/plan from last visit: [facility] nutrition - seeing every 3 months [...] daily before breakfast for 30 days. 30 tablet0 metFORMIN (GLUCOPHAGE) 500 mg tablet Take 1 tablet by mouth two times a day with meals. 180 tablet 0 topiramate (TOPAMAX) 50 mg tablet Take 0.5 tablets by mouth twice daily. 90 tablet 0 Drospirenone-Ethinyl Estradiol (ANNIA, 28,) 3-0.03 mg per tablet Take 1 tablet by mouth once daily. 84 tablet 4 MULTI-VITAMIN TAB Take one(1) tablet daily. 0 No current facility-administered medications for this visit. 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 Pt has responded well and would like to continue use for weight management. She understands that continued use is off label for longterm management of weight control. The patient is [...] 30 g of carbs at lunch and dinneronly. Given tracking log. - Given 15 gram carb whole food and protein suggestion list. - Given protein snack ideas - continue to include and increase exercise. Prescription instructions reviewed with patient as applicable. Potential red flag symptoms discussed with the patient. Reviewed appropriate action plan to take ifred flag symptoms occur. Patient agreeable to treatment plan. Follow up in 3 months. Yaneli Dowling APRN.CNP Advanced Education from the Obesity Medicine Association Medical Decision Making: Problems: Moderate: 1+ chronic illnesses with change Risk: Moderate: Drug management and Moderate risk from testing/treatment Medical Decision Making Level: 4 - Moderate [facility] History of Present illness Narrative* Yaneli Dowling APRN.CNP - 09/22/2023 8:30 AM EST Some documentation from previous visit of 08/26/2023 [...] 1 month ago. Assessment/plan from last visit: [facility] nutrition has had 2 visits Phentermine [...] daily before breakfast for 30 days. 30 tablet0 metFORMIN (GLUCOPHAGE) 500 mg tablet Take 1 tablet by mouth two times a day with meals. 180 tablet 0 topiramate (TOPAMAX) 50 mg tablet Take 0.5 tablets by mouth twice daily. 90 tablet 0 Drospirenone-Ethinyl Estradiol (ANNIA, 28,) 3-0.03 mg per tablet Take 1 tablet by mouth once daily. 84 tablet 4 MULTI-VITAMIN TAB Take one(1) tablet daily. 0 No current facility-administered medications for this visit. 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 Pt has responded well and would like to continue use for weight management. 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 The patient is [...] 30 g of carbs at lunch and dinneronly. Given tracking log. - Given 15 gram carb whole food and protein suggestion list. - Given protein snack ideas - continue to include and increase exercise. Prescription instructions reviewed with patient as applicable. Potential red flag symptoms discussed with the patient. Reviewed appropriate action plan to take ifred flag symptoms occur. Patient agreeable to treatment plan. Follow up in 3 months. Yaneli Dowling APRN.CNP Advanced Education from the Obesity Medicine Association Medical Decision Making: Problems: Moderate: 1+ chronic illnesses with change Risk: Moderate: Drug management and Moderate risk from testing/treatment Medical Decision Making Level: 4 - Moderate [facility] Instructions* Patient Instructions* Yaneli Dowling APRN.CNP - 08/26/2023 8:34 AM EDT - Whole food low-carb diet with 30 g of protein 3 times a day and 30 g of carbs at lunch and dinneronly. Meals - protein is a goal and [...] and equals 21 g protein Beef, Chicken, Avon, Pork, Sylvester 1 oz 7g Fish, Tuna Fish 1 oz 7g Seafood (Crabmeat, Shrimp, Lobster) 1 oz 6g Protein shakes (read labels) Premier Protein or generic [employer] Equate, Aldi Elevate, Meijer High Performance- 30g protein &1g carb - meal replacement Premier Protein plant [...] protein & 2 carb Protein AND carbs Beef/Avon Jerky 1 oz dried 10-15g protein - [...] oz - 8g protein & 12g carb Thai yogurt Full Fat Thai Yogurt 1 cup - 20.4g protein & 9.1g carb 2% Thai Yogurt 1 cup - 22.7g protein & 9.1g carb 0% (fat-free) Thai Yogurt - 1 cup 24g protein & 9.3g carb :ratio, KETO Friendly Dairy Snack 1 single svg - 15g protein & 2g carb :ratio Protein 1 single svg - 25g protein & 8g carb Dannon Light + Fit 1 single csvg - 12g protein & 9g carb Two Good Lowfat Thai Yogurt, [place], Lower Sugar - 12g protein & 2g carb Oikos Triple Zero Thai Nonfat Yogurt 1 single svg - 15g protein & 7g carb Cheese each oz Brie 5.9g protein & 0.1g carb Cheddar Cheese 7g protein & 0.4g carb Mozzarella Cheese 6.3g protein & 0.6g carb Gurdeep Cheese 6.7g protein & 0.7g carb Parmesan Cheese 10g protein & 0.9g carb Cream Cheese 1.7g protein & 1.2g carb Feta 4g protein & 1.2g carb [place] Cheese 7.6g protein & 1.5g carb Velasquez s Low Fat Cottage Cheese 1/2cup 12g protein & 4g carb Legumes Lentils cup 9g protein & 20g carb Carrasco beans cup 7g protein & 20g carb Kidney, Black, [place], Cannellini beans cup 8g protein & 20g carb Soybeans 1/2 c 14g protein & 8.5g carb Peanut butter, natural 2 Tbsp 7-8g protein & 4g net carbs, 190 calories [place] milk, unsweetened 8 oz 1g protein & 2g carb Soy milk 8 oz 3.5g protein & 1.6g carb Tofu 1/2 cup 10g protein & 2.3g carb Nuts and Seeds per oz Pumpkin Seeds - 6.9g protein & 5g carb Almonds - 5.9g protein & 6.1g carb Dent Seeds - 5.8g protein & 5.6g carb Pistachios - 5.8g protein & 7.8g carb Cashews - 5.1g protein & 9.2g carb Walnuts - 4.3g protein & 3.8g carb Hazelnuts - 4.2g protein & 4.7g carb [place] Nuts - 4.0g protein & 3.4g carb Pecans - 2.6g protein & 3.9g carb Peanuts - 7g protein & 4.6g carb 30 High Protein Snack Ideas 1. Jerky 2. [place] mix without or minimal dried fruit 3. Avon roll-ups 4. Thai yogurt 5. Veggies and yogurt dip 6. Tuna 7. Hard-boiled eggs 8. Peanut butter celery sticks 9. No-bake energy bites 10. Cheese slices/ Cheese Stick 11. Handful of almonds 12. Roasted chickpeas 13. Hummus and veggies 14. Cottage Cheese 15. Celery/fruit with peanut butter 16. Beef sticks (Grass-fed, natural ingredients) 17. Protein bars 18. Canned [place] 19. Aidan pudding 20. Homemade granola - [...] medium tangerine -12 carbs 1/2 cup sliced latrlel -14 carbs 1/2 medium banana 1/2 c grapes 1/2 medium apple - 12.5 carbs 1/2 c strawberries - 12.7 carbs 5 (FIVE) gram carb vegetable options 1 cup raw OR cup cooked: Asparagus Cabbage Spinach Peppers Green beans Carrots Tomato Crawford Sharp sprouts Cauliflower Lettuce Snap peas Broccoli [...] are tolerating the medication you can try increasingit again. -- we can discuss increasing the [...] (nih.gov) Is metformin a wonder drug? - [facility] Common side effects of this medication include nausea, changes in bowel habits, abdominal discomfort, and flatulence. Taking the medication with food will help. Side effects also typically get betterwith time. Rarely, a severe side effect called lactic acidosis can occur. If you experience malaise, muscle aches, difficulty breathing, or severe abdominal pain, please seek immediate medical attention. Metformin: Patient drug information Warning Rarely, metformin may cause too much lactic acid in the blood (lactic acidosis). The risk is higherin people who have kidney problems, liver problems, heart failure, use alcohol, or take other drugslike topiramate. The risk is also higher in people who are 65 or older and in people who are havingsurgery, an exam or test with contrast, or [...] that does not feel normal, very bad upsetstomach or throwing up, feeling very sleepy, shortness [...] one within the past 48 hours, talk withyour doctor. This is not a list of [...] or change the dose of any drug withoutchecking with your doctor. What are some things I need to know or do while I take this drug? All products: Tell all of your health care providers that you take this drug. This includes your doctors, nurses,pharmacists, and dentists. Talk with your doctor before [...] of stress such as fever, infection, injury, orsurgery. A change in physical activity, exercise, or diet may also affect blood sugar. Follow the diet and workout plan that your doctor told you about. If diarrhea happens or you are throwing up, call your doctor. You will need to drink more fluids tokeep from losing too much fluid. Be careful [...] , plan on getting , or are breast- feeding. You will need to talk about the [...] right away if you have any of thefollowing signs or symptoms that may be related to a very bad side effect: Signs of an allergic reaction, like rash; hives; itching; red, swollen, blistered, or peeling skin with or without fever; wheezing; tightness in the chest or throat; trouble breathing, swallowing, ortalking; unusual hoarseness; or swelling of the mouth, [...] no side effects or only have minor sideeffects. Call your doctor or get medical help [...] all information given to you. Follow all instructionsclosely. All products: Take with meals. Keep taking this drug as you have been told by your doctor or other health care provider, even if you feel well. documented in this encounterMercy Health [facility]10-20-[facility]23 History of Present illness Narrative* Yaneli Dowling APRN.DICE TABLE PERSON - 08/26/2023 8:00 AM EDT Images from the original note [...] 2 months ago. Assessment/plan from last visit: [facility] nutrition Phentermine 15 mg Topiramate 25 [...] soup or if home - vegetables, meat andcheese S - none Fluids - Lemon water, [...] twice daily. 90 tablet 0 Drospirenone-Ethinyl Estradiol (ANNIA, 28,) 3-0.03 mg per tablet Take 1 tablet by mouth once daily. 84 tablet 4 MULTI-VITAMIN TAB Take one(1) tablet daily. 0 Phentermine HCl 37.5 mg tablet Take 1 tablet by mouth daily before breakfast for 30 days. 30 tablet0 metFORMIN (GLUCOPHAGE) 500 mg tablet Take 1 tablet by mouth two times a day with meals. 180 tablet 0 No current facility-administered medications for this visit. 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 [employer] Current Contraception: combined hormonal contraceptives Obesity ROS/ FHx GEN: Fatigue:yes Symptoms of PCOS: yes BP 112/76 Pulse 90 Wt 195 lb (88.5 kg) LMP 08/21/2023 (Exact Date) SpO2 98% BMI 32.45 kg/m Office Visit on 06/03/2023 Component Date Value Ref Range Status Case Report 06/03/2023 Final Value:Gynecologic Cytology Report Case: [id number] Authorizing Provider: Yaneli Dowling APRN.DICE TABLE PERSON Collected: 06/03/2023 11:57 AM Ordering Location: OB/Gynecology Received: 06/03/2023 12:27 PM First Screen: Kiya Ulrich CT, ASCP Specimen: Pap Test, ThinPrep, Cervix Specimen Adequacy 06/03/2023 Satisfactory for interpretation Final Interpretation 06/03/2023 Negative for intraepithelial lesion or malignancy. Final Clinical History 06/03/2023 Routine Exam Final LMP 06/03/2023 Final Value:03/18/2023 HPV Reflex 06/03/2023 HPV if Atypical Final Pap Disclaimer 06/03/2023 Final Value:This result contains rich text formatting which cannot be displayed here. PAP Forest Nursery Supervisor Comment 06/03/2023 Final Value:This result contains rich [...] given. Further instructed that if she experiences malaise,muscle aches, difficulty breathing, or severe abdominal pain [...] patient. Reviewed appropriate action plan to take ifred flag symptoms occur. Patient agreeable to treatment plan. Follow up in 4 weeks. Yaneli Dowling APRN.CNP Medical Decision Making: Problems: Moderate: 1+ chronic illnesses with change Risk: Moderate: Drug management and Moderate risk from testing/treatment Medical Decision Making Level: 4 - Moderate documented in this encounterMercy Health Tiff[facility]09-26-2023 Miscellaneous Notes* Telephone Encounter - Kandice Okeefe LPN - 08/02/2023 11:37 AM EDT Pt called and d/t scheduling conflict she had to cancel her appointment and had to reschedule. Pt will be out of medication prior to her appointment. See pending order below and further advise. Kandice Okeefe LPN documented in this encounterMercy Health Tiffin Hospital08-24-2023 History of Present illness Narrative* Yaneli Dowling APRN.CNP - 06/30/2023 1:00 PM EDT Images from the original note were [...] , reduced physical activity, and consumption of unhealthyfoods. - Last Wt 06/03/23 : 189 lb 6.4 oz (85.9 kg) 5% weight loss = 180 lbs, 10% weight loss = 170 lbs WEIGHT GRAPH: Diet/Nutrition overview: Awake - 0530 or 0830 B - IF S - none L - [id number] Salad with vegetables, cheese, chicken, HB with Ranch dressing OR Avon club and rawvegetables and grapes at work; leftovers if at home Water or Diet Coke S - sometimes a granola bar D - 2000 Large variance- spaghetti, burgers/bun, green sharp casserole, Big Mac salad with sweet corn/veg and fruit. Water S - none Fluids - Water, Diet Coke 0 min carbonated drinks Quality of diet: 24hr recall suggests fairly healthy diet. Characterization of diet:Structured. 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 Recurrent [...] may have a deviated septum to be evaluatedby PCP. ISRRAEL NO ; CPAP NO Stress: [...] loss History: Past weight loss attempts? . Street Sprinkler and Low Carbohydrate diet, Qsymia - lost [...] PE BP 108/70 Pulse 94 Ht 5' 5" (1.651 m) Wt 197 lb 3.2 oz [...] Report 06/03/2023 Final Value:Gynecologic Cytology Report Case: [id number] Authorizing Provider: Yaneli Dowling APRN.DICE TABLE PERSON Collected: 06/03/2023 11:57 AM Ordering Location: OB/Gynecology [...] formatting which cannot be displayed here. PAP Forest Nursery Supervisor Comment 06/03/2023 Final Value:This result contains rich [...] by weight gain . The causes of herobesity are multifactorial, biological, psychological and social and [...] few behavioral contributors ; her physical activity issuboptimal. 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 May need to resume fluoxetinewhich was discontinued by the psychiatrist. Topiramate. Discussed [...] pressure. I have asked the patient to monitorblood pressure and avoid any stimulants (in the form of caffeinated beverages like coffee, tea, sports drinks) initially. Patient denies history of arrhythmias, coronary artery disease (atherosclerosis), heart failure, pulmonary hypertension, stroke, valvular heart disease (prolapse, regurgitation,stenosis). The patient is currently enrolled in a [...] identified. - CONSULT TO NUTRITION THERAPY -consult [facility] nutrition Whole food balanced protein low-carb nutrition -- Based on the severity and resistance of the obesity/overweight with co- morbidities, I believe a combination of behavioral and pharmacological intervention is the best and most appropriate longterm therapeutic option. -- We discussed several strategies [...] discussed healthy muscle from a combination of resistancetraining and cardiovascular exercise is the best longterm plan. An overall goal of 150-200 minutesper week of exercise has been effective in weight loss and maintenance. -- Reviewed that monitoring weight daily and food intake can have a positive impact on overall weight loss and maintenance of weight loss. Activity tracking can be used to stay on target for exercisehowever should not be used to reward oneself [...] weeks for management of above interventions Yaneli Dowling APRN.CNP I spent a total of 75 minutes on the date of the service which included preparing to see the patient, [id number] patient care, completing clinical documentation, obtaining and/or reviewing separately obtained history, performing a medically appropriate examination, counseling and educating the pat ient/family/caregiver, and ordering medications, tests, or procedures. documented in this encounterMercy Health Tiffin [facility]08-24-2023 Instructions* Patient Instructions* Yaneli Dowling APRN.CNP - 06/30/2023 7:04 AM EDT Images [...] time you will have triumphs, setbacks and plateaus-your body will fight against you but we [...] it adds only a little benefit for longterm weight loss success. However, exercise can have many other benefits including improving mental health and cardiovascular health. Do not feel overwhelmed- we will discuss this moreat your visits. Our time will be limited with each visit but we will try to touch on factors that are important to you and to your overall goals. We will try to set a goal at the end of each visit and then decide onwhat we want to accomplish with your upcoming [...] factor. There are medications that work well forsome and not for others- so it may [...] that affects nearly one-third of the adult [place] population (approximately 60 million). The number of overweight and obese Americans has continued to increase since 1960, a trend that is not slowing down. Today, 64.5 percent of adult Americans (about 127 million) are categorized as being overweight or obese. Each year, obesity causes at least 300,000 excess deaths in the [place] and healthcare costs of [place] adults with obesity amount to approximately $100 [...] many calories while not getting enough exercise) andpsychological components. It is the second leading cause of preventable in the [place] Behavioral changes brought on by economic development, modernization and urbanization have been linked to therise in global obesity. Calculating BMI Body Mass [...] found to increase concurrently with higher BMI. Prematuredeath, a 20-year shorter life span, has also [...] the gallbladder, breast, uterus, cervix, or ovaries https://.[facility]/health/diseases/28167-ukegtv-wfbhuiegoh-mjusspe-e ducation Nutrition - Eat primarily whole foods. Limit [...] Sincerely, Gillian Miller MD, FACOG & Yaneli Dowling, DICE TABLE PERSON TOPIRAMATE -- Take one tablet (25mg) every night for 2 weeks -- Then increase to 2 tablets at bedtime (50 mg) if there is no change in your appetite, cravings or weight. Or can move them up to dinner time- or you can do 25 mg in the am and 25 mg in the eveningif it doesn't make you tired. -- You can take the tablet it at night at first (because of potential sleepiness side effects), butthen you can take earlier around dinner after [...] possible decrease in contraceptive efficacy when using estrogen- containing control with topiramate, please use a back [...] understood. Topiramate affects body mass index, fasting pgmqtza-vm-stancvu ratio, and serum leptin and cortisol levels. It has shown to improve hypothalamic insulin and leptin signaling and action and reduce obesity inmice. These changes may be nguyễn factors in [...] at or call local emergency services at [phone]. What other information should I know? Keep all appointments with your doctor and the laboratory. Do not let anyone else take your medication. Topiramate use needs to be monitored closely. Prescriptions may be refilled only a limited number of times. Keep a written list of all of your prescription and nonprescription (hmng-cyg-orkaikk) medicines, in addition to vitamins, minerals, or [...] make up for a missed one. Sources [facility]: http://www.ncbi.nlm.nih.gov/pubmedhealth/VHP8475122/ Drugs.com http://www.drugs.com/pro/topiramate.html PHENTERMINE -- Please take tablet or capsule as directed. May need to decrease dose or stop if uncontrolled BP or sustained elevated pulse. -- Please monitor your blood pressure (either purchase BP cuff, or go to pharmacy to check your BP at a local pharmacy). Please avoid any stimulants (in the form of caffeinated beverages like coffee,tea, sports drinks) and caution with decongestants. We will require an updated blood pressure and heart rate at follow up visits (this includes virtual visits). -- Please monitor for , if at any point you become please stop the medication. THIS IS A SUMMARY OF OUR DISCUSSION ABOUT THIS MEDICATION. PLEASE READ IT IS IMPORTANT FOR YOUR WEIGHT LOSS PLAN Per updated [place] state rules, initially, a one month supply [...] aware of the following statements per the [facility] pharmacy board rules. 1. Timely refills are [...] at or call local emergency services at [phone]. What other information should I know? Keep all appointments with your doctor and the laboratory. Do not let anyone else take your medication. Phentermine is a controlled substance. It is FDA approved for up to 3 months. Prescriptions may be refilled only a limited number of times. Keep a written list of all of your prescription and nonprescription (bzbo-fkr-zgcxiht) medicines, in addition to vitamins, minerals, or [...] (twice a week in the first 2 weeks).If the BP is over 140/90 (either one), [...] 30 minutes prior to meals. If the effectseems to wear off by dinner time, try [...] make up for a missed one. Sources [facility] Consumer Medication Info: http://www.ncbi.nlm.nih.gov/pubmedhealth/TRL0174153/ AMA patient handouts: http://www.amaassn.org/ama1/pub/upload/mm/433/phrxsurgery.pdf Drugs.com: http://www.drugs.com/pro/phentermine.html documented in this encounterMercy Health Tiffin Hospital01-24-2023 Miscellaneous Notes* Telephone Encounter - Clarisa Duron RN - 11/30/2022 11:49 AM EST Last annual with AG 05/19/22. Needs mail order pharmacy now for insurance. Requested Prescriptions Pending Prescriptions Disp Refills ENSKYCE 0.15-0.03 mg per tablet 84 tablet 1 Sig: Take 1 tablet by mouth once daily. RX INSTRUCTIONS: Patient aware RX will be sent to pharmacy. No need to notify patient. Clarisa Duron RN documented in this encounterMercy Health Tiffin Hospital07-13-2022 Miscellaneous Notes* Telephone Encounter - Yaneli Dowling APRN.CNP - 05/19/2022 12:31 PM EDT Noted. 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 * Telephone Encounter - Ebonie Jordan RN - 05/19/2022 10:19 AM EDT Patient called and states she always got her prescription through [facility] previously. Patient is going to call [facility] and find out the singh difference and will then call us back and let us know how she would like to proceed. Ebonie Jordan RN * Telephone Encounter - Yaneli Dowling APRN.CNP - 05/19/2022 10:04 AM EDT Please clarify with pt. The prescription was marked LUCIO, I asked her if this what she wanted and she said yes. But please explain about the difference in singh. Yaneli Dowling APRN.CNP * Telephone Encounter - Clarisa Duron RN - 05/19/2022 9:26 AM EDT Henrry from [facility] calling about Enskyce rx today. Asking if that really was meant to be LUCIO? Patient was previously on Apri and Enskyce is a lot more expensive for patient. Call pharmacyback at [phone]. Clarisa Duron RN documented in this encounterMercy Health Tiffin Hospital07-13-2022 History of Present illness Narrative* Yaneli Dowling APRN.[facility] - 05/19/2022 7:53 AM EDT Jose Eduardo is a 22 year old who presents for an annual gynecologic exam without complaints. 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 Menses: cycles every [...] L0 SAB0 IAB0 Ectopic0 Multiple0 Live Births0 Applications Scientist History LMP: 05/19/2022, Having periods Age at Menarche: Age at First : Age at Menopause: Applications Scientist History Comments: Sexual Activity: Yes; Male Contraception: [...] medication updated:Yes EXAM: BP 120/70 Ht 5' 4" (1.63m) Wt 181 lb 3.2 oz (82.2kg) [...] external genitalia normal, normal Bartholin's glands, urethra, Ozark's glands, no vulvar lesions, no cervical lesions, [...] one year or sooner as needed Yaneli Dowling APRN.JOHN documented in this encounterMercy Health Tiffin Hospital07-05-2022 Miscellaneous Notes* Telephone Encounter - Kandice Okeefe LPN - 05/11/2022 11:32 AM EDT rx sent to pharmacy listed. Kandice Okeefe LPN * Telephone Encounter - Kandice Okeefe LPN - 05/07/2022 3:16 PM EDT Pt calling and stated that she has an appt for her yearly exam on 05/19/22 but is needing to start anew pack of pills this weekend. Pt asking to have an rx sent to pharmacy listed. Kandice Okeefe LPN documented in this encounterMercy Health Tiffin Hospital04-08-2022 Miscellaneous Notes* Telephone Encounter - Jessi Kim LPN - 2022 9:39 AM EDT Patient has yearly exam scheduled ob 03/02/2022. Will need 1 pack of ocp to get her through to appointment. documented in this encounterMercy Health [facility]iffin [facility]08-02-2018 History of Past illness Narrative* Problem [...] of this encounter (statuses as of 2022) [facility] of Past illness Narrative* Problem [...] of this encounter (statuses as of 05/11/2022) [facility] of Past illness Narrative* Problem [...] of this encounter (statuses as of 05/19/2022) [facility] of Past illness Narrative* Problem [...] of this encounter (statuses as of 05/19/2022) [facility] of Past illness Narrative* Problem [...] of this encounter (statuses as of 11/30/2022) [facility] of Past illness Narrative* Problem [...] of this encounter (statuses as of 07/01/2023) [facility] of Past illness Narrative* Problem [...] of this encounter (statuses as of 08/06/2023) [facility] of Past illness Narrative* Problem [...] of this encounter (statuses as of 08/27/2023) [facility] of Past illness Narrative* Problem [...] of this encounter (statuses as of 09/22/2023) [facility] of Past illness Narrative* Problem [...] of this encounter (statuses as of 12/16/2023) [facility] HospitalEvaludelaware hospital for [facility] ill noteNo assessment information availableWSelect Medical Specialty [facility] Work Phone: Evaluation note* Diagnosis Surveillance for control, oral contraceptives Surveillance of previously prescribed contraceptive pill documented in this encounter [facility] HospitalEvaludelaware [facility] note* Diagnosis Surveillance for control, oral contraceptives Surveillance of previously prescribed contraceptive pill documented in this encounter [facility] HospitalEvaludelaware [facility] note* Diagnosis Encounter for gynecological examination (general) (routine) without abnormal findings- Primary Surveillance for control, oral contraceptives Surveillance of previously prescribed contraceptive pill Screen for STD (sexually transmitted disease) Screening examination for venereal disease documented in this encounter [facility] HospitalEvaludelaware [facility] note* Diagnosis Surveillance for control, oral contraceptives Surveillance of previously prescribed contraceptive pill [facility]* Diagnosis Polycystic ovarian syndrome- Primary Polycystic [...] serious comorbidity present documented [facility]* Diagnosis Class 1 obesity with body mass index (BMI) of 31.0 to 31.9 in adult, unspecified obesity type, unspecified whether serious comorbidity present documented [facility] this encounter [facility]* Diagnosis Polycystic ovarian syndrome- Primary Polycystic ovaries Binge-eating disorder, in full remission, mild Anxiety and depression Dysthymic disorder Class 1 obesity with body mass index (BMI) of 31.0 to 31.9 in adult, unspecified obesity type, unspecified whether serious comorbidity present [facility]* Diagnosis Polycystic ovarian syndrome- Primary Polycystic ovaries Binge-eating disorder, in full remission, mild Anxiety and depression Dysthymic disorder Class 1 obesity with body mass index (BMI) of 31.0 to 31.9 in adult, unspecified obesity type, unspecified whether serious comorbidity present [facility]* Diagnosis Polycystic ovarian syndrome- Primary Polycystic ovaries Binge-eating disorder, in full remission, mild Anxiety and depression Dysthymic disorder Seasonal affective disorder (HCC) Other specified episodic mood disorder Class 1 obesity with body mass index (BMI) of 31.0 to 31.9 in adult, unspecified obesity type, unspecified whether serious comorbidity present [facility] encounter [facility]* Diagnosis Onset Date Resolution Status Contusion of left foot acute [facility] Work Phone: Evaluation note* Diagnosis Polycystic ovarian syndrome- Primary Polycystic ovaries Binge-eating disorder, in full remission, mild Anxiety and depression Dysthymic disorder Seasonal affective disorder (HCC) Other specified episodic mood disorder Class 1 obesity with body mass index (BMI) of 31.0 to 31.9 in adult, unspecified obesity type, unspecified whether serious comorbidity present documented in this encounter [facility] HospitalEvaludelaware [facility] for the chronically ill note* Diagnosis Encounter for gynecological examination (general) (routine) without abnormal findings- Primary Breakthrough bleeding on control pills Metrorrhagia Surveillance for control, oral contraceptives Surveillance of previously prescribed contraceptive pill [facility] Diagnosis Polycystic ovarian syndrome- Primary Polycystic ovaries Binge-eating disorder, in full remission, mild Anxiety and depression Dysthymic disorder Seasonal affective disorder (HCC) Other specified episodic mood disorder History of obesity Personal history of other specified diseases [facility] Diagnosis Polycystic ovarian syndrome- Primary Polycystic ovaries Binge-eating disorder, in full remission, mild Anxiety and depression Dysthymic disorder Seasonal affective disorder (HCC) Other specified episodic mood disorder Encounter for long-term (current) use of medications Encounter for long-term (current) use of other medications History of obesity Personal history of other specified diseases [facility] Diagnosis Polycystic ovarian syndrome- Primary Polycystic ovaries Binge-eating disorder, in full remission, mild Anxiety and depression Dysthymic disorder Seasonal affective disorder (HCC) Other specified episodic mood disorder History of obesity Personal history of other specified diseases [facility] Diagnosis Polycystic ovarian syndrome- Primary Polycystic ovaries Binge-eating disorder, in full remission, mild Anxiety and depression Dysthymic disorder Seasonal affective disorder Other specified episodic mood disorder History of obesity Personal history of other specified diseases [facility] Diagnosis Vaginal discharge- Primary Leukorrhea, not specified as infective Dysuria Vaginal odor Unspecified symptom associated with female genital organs Vaginal itching Pruritus of genital organs LLQ pain Abdominal pain, left lower quadrant [facility] Diagnosis Pelvic pain- Primary [facility] Diagnosis LLQ pain- Primary Abdominal pain, left lower quadrant Encounter for gynecological examination (general) (routine) without abnormal findings Surveillance for control, oral contraceptives Surveillance of previously prescribed contraceptive pill documented in this encounter [facility] for referral (narrative)No reason for referral information availableWSelect [facility] Work Phone: Chief Complaint and Reason for Visit Chief Complaint SP Chief Complaint LABS PCOS, OBESITY Chief Complaint LABS PCOS, OBESITY PCOS, OBESITY NECK DRY NEEDLE Chief Complaint PCOS, OBESITY NECK DRY NEEDLE [facility] URINE Chief Complaint NECK DRY NEEDLE [facility] URINE left foot injury L FOOT INJURY/CRUSH TYPE INJURY/[facility] EM[facility] Reason for Visit Contusion of left fo ot Chief Complaint [facility] ABS URINE left foot injury L FOOT INJURY/CRUSH TYPE INJURY/[facility] EM[facility] NECK/JAW DRY NEEDLE Reason for Visit Contusion of left fo ot Chief Complaint Admit Date NECK, SHLDS/SELF REF October 23, 2024 11:30am Reason for Referral Specialty Diagnoses / Procedures Referred By Contjovanni t Referred To Contact Nutrition Diagnoses Polycystic ovarian syndrome Anxiety and depression Class 1 obesity with body mass index (BMI) of 31.0 to 31.9 in adult, unspecified obesity type, unspecified whether serious comorbidity present Procedures CONSULT TO NUTRITION THERAPY MEDICAL NUTRITION ASSMT&IVNTJ INDIV EACH 15 NM MEDICAL NUTRITION ASSMT&IVNTJ INDIV EACH 15 NM MEDICAL NUTRITION ASSMT&IVNTJ INDIV EACH 15 NM MEDICAL NUTRITION ASSMT&IVNTJ INDIV EACH 15 NM Yaneli Dowling, JALEN.DICE TABLE PERSON [address] [place] [address] Referral ID Status Reason Start Date Expiration Date Visits Requested Visits Authorized [id number] Authorized PCP Requested Referral 06/30/2023 06/29/2024 1 1 Summary Purpose Family History No Family History Records FoundNo Family History Records Found Advance Directives No Advanced Directives Records FoundNo Advanced Directives Records Found Additional Source Comments Goals (unrecognized section and content) Goals may be documented in a n alternate sectionGoals may be documented in an alternate sectionGoals may be documented in an alternate sectionGoals may be documented in an alternate sectionGoals may be documented in an alternate sectionGoals may be documented in an alternate sectionGoals may be documented in an alternate sectionGoals may be documented in an alternate sectionGoals may be documented in an alternate section Source Comments (unrecognize d section and content) In the event this informatio n is protected by the Federal Confidentiality of Alcohol and Drug Abuse Patient Records regulations: The Federal rules restrict any use of the information to criminally investigate or prosecute any alcohol or drug abuse patient.[facility] the event this information is protected by the Federal Confidentiality of Alcohol and Drug Abuse Patient Records regulations: The Federal rules restrict any use of the information to criminally investigate or prosecute any alcohol or drug abuse patient.[facility] the event this information is protected by the Federal Confidentiality of Alcohol and Drug Abuse Patient Records regulations: The Federal rules restrict any use of the information to criminally investigate or prosecute any alcohol or drug abuse patient.[facility] Hospital[facility] the event this information is protected by the Federal Confidentiality of Alcohol and Drug Abuse Patient Records regulations: The Federal rules restrict any use of the information to criminally investigate or prosecute any alcohol or drug abuse patient.[facility] HospitalIn the event this information is protected by the Federal Confidentiality of Alcohol and Drug Abuse Patient Records regulations: The Federal rules restrict any use of the information to criminally investigate or prosecute any alcohol or drug abuse patient.[facility] HospitalIn the event this information is protected by the Federal Confidentiality of Alcohol and Drug Abuse Patient Records regulations: The Federal rules restrict any use of the information to criminally investigate or prosecute any alcohol or drug abuse patient.[facility] HospitalIn the event this information is protected by the Federal Confidentiality of Alcohol and Drug Abuse Patient Records regulations: The Federal rules restrict any use of the information to criminally investigate or prosecute any alcohol or drug abuse patient.[facility] HospitalIn the event this information is protected by the Federal Confidentiality of Alcohol and Drug Abuse Patient Records regulations: The Federal rules restrict any use of the information to criminally investigate or prosecute any alcohol or drug abuse patient.[facility] HospitalIn the event this information is protected by the Federal Confidentiality of Alcohol and Drug Abuse Patient Records regulations: The Federal rules restrict any use of the information to criminally investigate or prosecute any alcohol or drug abuse patient.[facility] HospitalIn the event this information is protected by the Federal Confidentiality of Alcohol and Drug Abuse Patient Records regulations: The Federal rules restrict any use of the information to criminally investigate or prosecute any alcohol or drug abuse patient.[facility] HospitalIn the event this information is protected by the Federal Confidentiality of Alcohol and Drug Abuse Patient Records regulations: The Federal rules restrict any use of the information to criminally investigate or prosecute any alcohol or drug abuse patient.[facility] HospitalIn the event this information is protected by the Federal Confidentiality of Alcohol and Drug Abuse Patient Records regulations: The Federal rules restrict any use of the information to criminally investigate or prosecute any alcohol or drug abuse patient.[facility] HospitalIn the event this information is protected by the Federal Confidentiality of Alcohol and Drug Abuse Patient Records regulations: The Federal rules restrict any use of the information to criminally investigate or prosecute any alcohol or drug abuse patient.[facility] HospitalIn the event this information is protected by the Federal Confidentiality of Alcohol and Drug Abuse Patient Records regulations: The Federal rules restrict any use of the information to criminally investigate or prosecute any alcohol or drug abuse patient.[facility] HospitalIn the event this information is protected by the Federal Confidentiality of Alcohol and Drug Abuse Patient Records regulations: The Federal rules restrict any use of the information to criminally investigate or prosecute any alcohol or drug abuse patient.[facility] HospitalIn the event this information is protected by the Federal Confidentiality of Alcohol and Drug Abuse Patient Records regulations: The Federal rules restrict any use of the information to criminally investigate or prosecute any alcohol or drug abuse patient.[facility] HospitalIn the event this information is protected by the Federal Confidentiality of Alcohol and Drug Abuse Patient Records regulations: The Federal rules restrict any use of the information to criminally investigate or prosecute any alcohol or drug abuse patient.[facility] HospitalIn the event this information is protected by the Federal Confidentiality of Alcohol and Drug Abuse Patient Records regulations: The Federal rules restrict any use of the information to criminally investigate or prosecute any alcohol or drug abuse patient.[facility] HospitalIn the event this information is protected by the Federal Confidentiality of Alcohol and Drug Abuse Patient Records regulations: The Federal rules restrict any use of the information to criminally investigate or prosecute any alcohol or drug abuse patient.[facility] HospitalIn the event this information is protected by the Federal Confidentiality of Alcohol and Drug Abuse Patient Records regulations: The Federal rules restrict any use of the information to criminally investigate or prosecute any alcohol or drug abuse patient.[facility] HospitalIn the event this information is protected by the Federal Confidentiality of Alcohol and Drug Abuse Patient Records regulations: The Federal rules restrict any use of the information to criminally investigate or prosecute any alcohol or drug abuse patient.[facility] Reason for Visit (unrecogniz ed section and content) Reason Onset Date Comments Refill Request 2022 Reason Onset Date Comments Refill Request 05/07/2022 Refill Request 05/11/2022 Reason Comments Well Woman Specialty Diagnoses / Procedures Referred By Nellie t Referred To Contact 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 Diagnoses Annual exam Procedures OFFICE/OUTPATIENT ESTABLISHED HIGH MDM 40-54 MIN Ashlie Olson MD Athletic Agent [employer] [address] [place] [address] Referral ID Status Reason Start Date Expiration Date Visits Re quested Visits Authorized [id number] Closed 05/07/2022 11/06/2022 1 1 Reason Comments Medication Question Reason Onset Date Comments Refill Request 11/30/2022 Reason Onset Date Comments Weight Management 06/30/2023 Reason Onset Date Comments Refill Request 08/02/2023 Refill Request 08/05/2023 Reason Comments Weight Management Follow up Reason Comments Weight Management Reason Comments Vaginal Problem Reason Comments Orders Care Teams (unrecognized sec tion and content) Ball Points Inspector Relationship Specialty Start Date End Date Augustina Abraham MD [address] [address] PCP - General Family Medicine 06/30/23 Ball Points Inspector Relationship Specialty Start Date End Date Augustina Abraham MD [address] [facility] [address] [place], [place] [address] PCP - [facility] Medicine 06/30/23 Team Status: Active Member Role Status Dates Dr. Nahid Fernandez III, MD Family Provider Active Dr. Augustina Abraham MD Primary Care Provider Active Team Status: Active Member Role Status Dates Dr. Augustina Abraham MD Primary Care Provider Active Health Risk Assessment Attending Provider Active Team Status: Inactive Member Role Status Dates Dr. Augustina Abraham MD Primary Care Provider Active Yaneli Dowling NP, CAR WORKER-C Attending Provider, Referring Pro vider Active Team Status: Inactive Member Role Status Dates Dr. Augustina Abraham MD Primary Care Provider Active Yaneli Dowling NP, CAR WORKER-C Attending Provider Active Ball Points Inspector Relationship Specialty Start Date End Date Augustina Abraham MD [address] [facility] [address] [place], [place] [address] PCP - [facility] Medicine 06/30/23 Ball Points Inspector Relationship Specialty Start Date End Date Augustina Abraham MD [address] [facility] [address] [place], [place] [address] PCP - [facility] 06/30/23 Team Status: Inactive Member Role Status Dates Dr. Augustina Abraham MD Primary Care Provider Active Yanelis Ambrose CAR WORKER-C Attending Provider Active Team Status: Active Member Role Status Dates Dr. Augustina Abraham MD Primary Care Provider Active Self Referred Attending Provider, Referring Provider A ctive Team Status: Active Member Role Status Dates Dr. Augustina Abraham MD Primary Care Provider Active Dr. Stefanie Vidal MD Attending Provider, Referring Provider Active Team Status: Inactive Member Role Status Dates Dr. Augustina Abraham MD Primary Care Provider Active Dr. Stefanie Vidal MD Attending Provider, Referring Provider Active Ball Points Inspector Relationship Specialty Start Date End Date Augustina Abraham MD [address] [facility] [address] [place], [place] [id number] PCP - General Family Medicine 06/30/23 Team Status: Inactive Member Role Status Dates Dr. Augustina Abraham MD Primary Care Provider, Referr ing Provider Active Gerry FAYE PA Attending Provider Active Team Status: Inactive Member Role Status Dates Dr. Augustina Abraham MD Primary Care Provider Active Gerry FAYE, PA Attending Provider, Referring Pr ovider Active Team Status: Inactive Member Role Status Dates Dr. Augustina Abraham MD Primary Care Provider Active Self Referred Attending Provider, Referring Provider A ctive Ball Points Inspector Relationship Specialty Start Date End Date Augustina Abraham MD [address] [place] [address] PCP - General Family Medicine 06/30/23 Ball Points Inspector Relationship Specialty Start Date End Date Augustina Abraham MD [address] [facility] [address] [place] [address] PCP - General Family Medicine 06/30/23 Ball Points Inspector Relationship Specialty Start Date End Date Augustina Abraham MD [address] [facility] [address] [place] [address] PCP - General Family Medicine 06/30/23 Ball Points Inspector Relationship Specialty Start Date End Date Augustina Abraham MD [address] [facility] [address] [place] [address] PCP - General Family Medicine 06/30/23 Team Status: Inactive Member Role Status Dates Dr. Augustina Abraham MD Primary Care Provider Active Start: October 23, 2024 End: October 23, 2024 Self Referred Attending Provider Active Start: 2023 End: October 23, 2024 Self Referred Referring Provider Active Start: 2023 End: October 23, 2024 Ball Points Inspector Relationship Specialty Start Date End Date Augustina Abraham MD [address] [place] [address] PCP - General Family Medicine 06/30/23 Ball Points Inspector Relationship Specialty Start Date End Date Augustina Abraham MD [address] [place], [place] [id number] PCP - General Family Medicine 06/30/23 Ball Points Inspector Relationship Specialty Start Date End Date Augustina Abraham MD [address] [place], [place] [address] PCP - General Family Medicine 06/30/23 Ball Points Inspector Relationship Specialty Start Date End Date Augustina Abraham MD [address] [place], [place] [address] PCP - General Family Medicine 06/30/23 Team Status: Active Member Role/Relationship Status Dates Dr. Nahid Fernandez III, MD Primary care physician Activ e Dr. Augustina Abraham MD Primary care physician Active Team Status: Active Member Role/Relationship Status Dates Dr. Augustina Abraham MD Primary care physician Active Start: July 01, 2025 Health Risk Assessment Attending physician Active Start: July 01, 2025 Team Status: Inactive Member Role/Relationship Status Dates Dr. Augustina Abraham MD Primary care physician Active Start: August 07, 2025 End: August 07, 2025 Seble Fleming CAR WORKER, CAR WORKER-C Attending physician Active Start: August 07, 2025 End: August 07, 2025 INFORMATION SOURCE (unrecogn ized section and content) DATE CREATED AUTHOR 06/23/2025 [facility] DATE CREATED AUTHOR 'S PACO SULLIVAN 08/16/2025 [facility] FOR RECORDS PERTAINING TO PATIENTS WHO ARE [...] BE BASED ON THE PRIMARY CLINICAL RECORDS. [facility] [employer] [facility]. provides no warranty or guarantee of the accuracy or completeness of information in this document.
--- OUTSIDE RECORDS SUMMARY | 2025-09-22 13:12 | XMS RPT_ITS | CCD ---
Author Organization [facility] CliniSyoh Care Team Providers Care Branch Coordinator Name Role Phone Kayley Winter LPN Unavailable Unavailab le Kayley Winter LPN Unavailable Unavailab le Shelton EMPLOYEE COMMUNICATIONS SPECIALIST, Dianna N Unavailable Kayley Winter LPN Unavailable Unavailab le Unavailable Primary Care Provider Unavailnatividad eryes Unavailable Primary Care Provider UnavailAugustina Bateman MD Primary Care Provider Dr. Augustina Abraham Primary Care Provider Dr. Augustina Abraham Referring Provider YUNIER Genao Attending Provider Dr. Augustina Abraham Primary Care Provider Dr. Augustina Abraham Referring Provider YUNIER Genao Attending Provider Augustina Abraham MD Primary Care Provider Dr. Augustina Abraham MD Primary Care Provider [phone] Referred, Self Attending Provider Unavailable Referred, Self [...] Health Risk Attending Physician Unav ailable Bernadette PULMONARY FUNCTION TECHNOLOGIST-C, Seble Attending Physician Referred, Self Attending Unavailable Referred, Self Referring Unavailable Augustina Abraham Primary Care Unavailable Seble Fleming NP Attending Unavailable Augustina Abraham Primary Care Unavailable Assessment, Health Risk Attending Unavaila ble Augustina Abraham Primary Care Unavailable Allergies Allergy Classification Reported Allergen(s) Allergy Type Date of Onset Reaction(s) Facility (4 sources) acetaminophen / HYDROcodone drug allergy 7 [facility] Work Phone: (4 sources) STINGING INSECTS; Translations: [STINGING INSECTS] allergy to substance 7 [facility] Work Phone: (9 sources) Acetaminophen Drug Allergy 1 Unknown [facility] (9 sources) HYDROcodone Drug Allergy 1 Unknown [facility] (20 sources) Acetaminophen / HYDROcodone; Translations: [HYDROCODONE-ACETA MINOPHEN] Drug Allergy 3 Vomiting [facility] Work Phone: (20 sources) [place] pollen extract; Translations: [TREE POLLEN-KYRGYZ ELM] Drug Allergy 8 Unknown [facility] (20 sources) Cat; Translations: [CATS] Allergy to substance 8 [facility] (20 sources) Dust; Translations: [DUST] Allergy to substance 8 Unknown [facility] (20 sources) Feather; Translations: [FEATHERS] Drug Allergy 8 Unknown [facility] (20 sources) [place] pollen; Translations: [WEED POLLEN] Drug Allergy 8 Unknown [facility] (20 sources) Bees; Translations: [BEES] Allergy to substance 8 Swelling [facility] (20 sources) [place]; Translations: [OAK] Drug Allergy 8 Unknown [facility] (1 source) Acetaminophen Drug Allergy 4 [facility] Repository (1 source) HYDROcodone Drug Allergy 4 [facility] Repository Medications Current Medications Medication [...] on above: Take one(1) tablet d aily. Ezel (Nk) (6 sources) Start: 04-21-2021 Ezel (Nk) A ctive April 21, 2021 12:00am Start: 04-21-2021 Ezel (Nk) A ctive April 20, 2021 11:00pm [...] Drug Class(es) Dates Sig (Normalized) Sig (Original) [id number] 200 actuat albuterol 0.09 mg/actuat metered dose [...] 1 pill q 12 hours AMOXICILLIN-POT CLAVULANATE [id number] Celestine Hilton PA-C Start: 08-06-2017 AUGMENTIN 875- 125 MG TABS 1 pill q 12 hours AMOXICILLIN-POT CLAVULANATE [id number] Celestine Hilton PA-C azithromycin 250 mg oral [...] MG TABS 1 pill as needed FLUCONAZOLE [id number] Celestine Hilton PA-C FLUoxetine 20 mg oral [...] on above: Take 1 capsule by mo [facility] once daily for 30 days. Do not start before January 31, 2021. Take 1 capsule by mo [facility] once daily for 30 days. Do not start before March 01, 2021. Take 1 capsule by mo [facility] once daily for 30 days. Do not start before April 30, 2021. Take 1 capsule by [facility] once daily for 30 days. Do not start before March 31, 2021. PROBIOTIC PRODUCT (1 source) Start: 08-06-20 17 PROBIOTIC DAILY CAPS as directed PROBIOTIC PRODUCT [id number] Kayley N Moy EMPLOYEE COMMUNICATIONS SPECIALIST PROBIOTIC PRODUCT (3 sources) Start: 08-06-20 17 PROBIOTIC DAILY CAPS as directed PROBIOTIC PRODUCT [id number] Kayley N Moy EMPLOYEE COMMUNICATIONS SPECIALIST Start: 08-06-2017 PROBIOTIC MAEVE Y CAPS as directed PROBIOTIC PRODUCT [id number] Kayley N Moy EMPLOYEE COMMUNICATIONS SPECIALIST venlafaxine 100 mg oral tablet (3 sources) [...] current use of drug therapy; Translations: [Other intermediate teacher (current) drug therapy] 09-25-2024 Episodic Other endocrine [...] 06-19-2015 Episodic Other aftercare (1 source) Other fci (current) drug therapy; Translations: [Encounter for long-term [...] Auto (Unsp spec) [#/Vol] 2.60 10*3/uL 0.83-4.51 [facility] Absolute neutrophil countOrd ered By: Seblestu Fleming on 08-07-2025 Neutrophils (Bld) [#/Vol] 8.0 10*3/uL High 2.0-7.7 [facility] Anion gap in Serum or Plasma Ordered By: Seblestu Fleming on 08-07-2025 Anion gap [Moles/Vol] 12 mmol/L 5- [facility] Automated lymphocyte count a s percentage of total leukocytesOrdered By: Seble Fleming on 08-07-2025 Lymphocytes/100 WBC Auto (Unsp spec) 23.1 % 19- [facility] BUN/creatinine ratioOrdered By: [facility] on 08-07-2025 Urea nitrogen/Creatinine [Mass ratio] 10.7 mg/mg 10- [facility] Basophil percentageOrdered B y: Seble Fleming on 08-07-2025 Basophils/100 WBC (Bld) 0.3 % 0-1 [facility] Bilirubin, totalOrdered By: Seblestu Fleming on 08-07-2025 Bilirubin [Mass/Vol] 0.25 mg/dL 0.00-1.30 [facility] CBC W/Diff, Automatedon Absolute Lymph 2.60 X10 3/uL Normal 0.83-4.51 [facility] Comment on above: Order Comment: Order Date: 08/07/25 Order Info: 0184-1 - CBCD Performed By: #### L 500.4050, L100.0100, L501.5200, L501.9520 #### [facility] Laboratory [facility] [place], [address] Absolute Neut 8.0 X10 3/uL High 2.0-7.7 [facility] Comment on above: Order Comment: Order Date: 08/07/25 Order Info: 0184-1 - CBCD Performed By: #### L 500.4050, L100.0100, L501.5200, L501.9520 #### [facility] Laboratory [address] [place], [address] Basophils/100 WBC (Bld) 0.3 % Normal 0-1 [facility] Comment on above: Order Comment: Order Date: 08/07/25 Order Info: 0184-1 - CBCD Performed By: #### L 500.4050, L100.0100, L501.5200, L501.9520 #### [facility] Laboratory [address] [place], [address] Eosinophils/100 WBC (Bld) 0.2 % Normal 0-5 [facility] Comment on above: Order Comment: Order Date: 08/07/25 Order Info: 0184-1 - CBCD Performed By: #### L 500.4050, L100.0100, L501.5200, L501.9520 #### [facility] Laboratory [address] [place], [address] Erythrocyte distribution width (RBC) [Ratio] 13.2 % Normal 11.6-14.6 [facility] Comment on above: Order Comment: Order Date: 08/07/25 Order Info: 0184-1 - CBCD Performed By: #### L 500.4050, L100.0100, L501.5200, L501.9520 #### [facility] Laboratory [address] [place], [address] Hematocrit (Bld) [Volume fraction] 37.9 % Normal 37-47 [facility] Comment on above: Order Comment: Order Date: 08/07/25 Order Info: 0184-1 - CBCD Performed By: #### L 500.4050, L100.0100, L501.5200, L501.9520 #### [facility] Laboratory [address] [place], [address] Hemoglobin (Bld) [Mass/Vol] 12.4 g/dL Normal 12.0-15.0 [facility] Comment on above: Order Comment: Order Date: 08/07/25 Order Info: 0184-1 - CBCD Performed By: #### L 500.4050, L100.0100, L501.5200, L501.9520 #### [facility] Laboratory [address] [place], [address] IG% 0.400 Normal 0.0-0.9 [facility] Comment on above: Order Comment: Order Date: 08/07/25 Order Info: [id number]- - CBCD Result Comment: IG% - Immature Granulocytes (promyelocytes, myelocytes and metamyelocytes) > 1% indicates that a LEFT SHIFT is Present. Performed By: #### L 500.4050, L100.0100, L501.5200, L501.9520 #### [facility] Laboratory [address] [place], [address] Lymphocytes/100 WBC (Bld) 23.1 % Normal 19-41 [facility] Comment on above: Order Comment: Order Date: 08/07/25 Order Info: 0184-1 - CBCD Performed By: #### L 500.4050, L100.0100, L501.5200, [id number] #### [facility] Laboratory [address] [place], [address] MCH (RBC) [Entitic mass] 29.9 pg Normal 27.0-32.0 [facility] Comment on above: Order Comment: Order Date: 08/07/25 Order Info: 0184-1 - CBCD Performed By: #### L 500.4050, L100.0100, L501.5200, [id number] #### [facility] Laboratory [address] [place], [address] MCHC (RBC) [Mass/Vol] 32.7 g/dL Normal 32-36 [facility] Comment on above: Order Comment: Order Date: 08/07/25 Order Info: 0184-1 - CBCD Performed By: #### L 500.4050, L100.0100, L501.5200, L501.9520 #### [facility] Laboratory [address] [place], [address] MCV (RBC) [Entitic vol] 91.3 fL Normal 81-99 [facility] Comment on above: Order Comment: Order Date: 08/07/25 Order Info: 0184-1 - CBCD Performed By: #### L 500.4050, L100.0100, L501.5200, L501.9520 #### [facility] Laboratory [address] [place], [address] Monocytes/100 WBC (Bld) 5.2 % Normal 0-10 [facility] Comment on above: Order Comment: Order Date: 08/07/25 Order Info: 0184-1 - CBCD Performed By: #### L 500.4050, L100.0100, L501.5200, [id number] #### [facility] Laboratory [address] [place], [address] Neutrophils/100 WBC (Bld) 70.8 % High 47-70 [facility] Comment on above: Order Comment: Order Date: 08/07/25 Order Info: 0184-1 - CBCD Performed By: #### L 500.4050, L100.0100, L501.5200, [id number] #### [facility] Laboratory [address] [place], [address] Nucleated RBC (Bld) [#/Vol] 0 10*3/uL Normal 0-5 [facility] Comment on above: Order Comment: Order Date: 08/07/25 Order Info: 0184-1 - CBCD Performed By: #### L 500.4050, L100.0100, L501.5200, [id number] #### [facility] Laboratory [address] [place], [address] Platelet mean volume (Bld) [Entitic vol] 10.1 fL Normal 6.2-12.0 [facility] Comment on above: Order Comment: Order Date: 08/07/25 Order Info: 0184-1 - CBCD Performed By: #### L 500.4050, L100.0100, L501.5200, L501.9520 #### [facility] Laboratory [address] [place], [address] Platelets (Bld) [#/Vol] 332 10*3/uL Normal 150-450 [facility] Comment on above: Order Comment: Order Date: 08/07/25 Order Info: 0184-1 - CBCD Performed By: #### L 500.4050, L100.0100, L501.5200, [id number] #### [facility] Laboratory [address] [place], [address] RBC (Bld) [#/Vol] 4.15 10*6/uL Low 4.2-5.4 [facility] Comment on above: Order Comment: Order Date: 08/07/25 Order Info: 0184-1 - CBCD Performed By: #### L 500.4050, L100.0100, L501.5200, [id number] #### [facility] Laboratory [address] [place], [address] RDW SD 43.8 fl Normal 35.1-43.9 [facility] Comment on above: Order Comment: Order Date: 08/07/25 Order Info: 0184-1 - CBCD Performed By: #### L 500.4050, L100.0100, L501.5200, L501.9520 #### [facility] Laboratory [address] [place], [address] WBC (Bld) [#/Vol] 11.3 10*3/uL High 4.4-11.0 [facility] Comment on above: Order Comment: Order Date: 08/07/25 Order Info: 0184-1 - CBCD Performed By: #### L 500.4050, L100.0100, L501.5200, L501.9520 #### [facility] Laboratory [address] [place], [address] Carbon dioxide, total [Moles /volume] in Central venous bloodOrdered By: Seble Fleming on 08-07-2025 CO2 [Moles/Vol] 20.5 mmol/L Low 21.0-32.0 [facility] Chloride assayOrdered By: Mitchell Fleming on 08-07-2025 Chloride [Moles/Vol] 105 mmol/L 98-108 [facility] Comprehensive Metabolic Prof ilon 08-07-2025 Albumin [Mass/Vol] 4.3 g/dL Normal 3.5-5.0 [facility] Comment on above: Order Comment: Order Date: 08/07/25 Order Info: 0786-1 - CMP Order Info: [id number] - MG Order Info: 3016-3 - TSH Performed By: #### L 500.4050, L100.0100, L501.5200, L501.9520 #### [facility] Laboratory [address] [place], [address] Albumin/Globulin [Mass ratio] 1.6 {ratio} Normal 0.9-2.4 [facility] Comment on above: Order Comment: Order Date: 08/07/25 Order Info: 0786-1 - CMP Order Info: [id number] - MG Order Info: 3016-3 - TSH Performed By: #### L 500.4050, L100.0100, L501.5200, L501.9520 #### [facility] Laboratory [address] [place], [address] ALK PHOS 48 U/L Normal 35-104 [facility] Comment on above: Order Comment: Order Date: 08/07/25 Order Info: 0786-1 - CMP Order Info: [id number] - MG Order Info: 3016-3 - TSH Performed By: #### L 500.4050, L100.0100, L501.5200, L501.9520 #### [facility] Laboratory [address] [place], [address] ALT [Catalytic activity/Vol] 17 U/L Normal <=34 [facility] Comment on above: Order Comment: Order Date: 08/07/25 Order Info: 0786-1 - CMP Order Info: [id number] - MG Order Info: 3016-3 - TSH Performed By: #### L 500.4050, L100.0100, L501.5200, L501.9520 #### [facility] Laboratory [address] [place], [place], [id number] AST [Catalytic activity/Vol] 21 U/L Normal <=31 [facility] Comment on above: Order Comment: Order Date: 08/07/25 Order Info: 0786-1 - CMP Order Info: [id number] - MG Order Info: 3016-3 - TSH Performed By: #### L 500.4050, L100.0100, L501.5200, L501.9520 #### [facility] Laboratory [address] [place], [address] Bilirubin [Mass/Vol] 0.25 mg/dL Normal 0.00-1.30 [facility] Comment on above: Order Comment: Order Date: 08/07/25 Order Info: 0786-1 - CMP Order Info: [id number] - MG Order Info: 3016-3 - TSH Performed By: #### L 500.4050, L100.0100, L501.5200, L501.9520 #### [facility] Laboratory [address] [place], [address] BUN/CRE 10.7 RATIO Normal 10-20 [facility] Comment on above: Order Comment: Order Date: 08/07/25 Order Info: 0786-1 - CMP Order Info: [id number] - MG Order Info: [id number] - TSH Performed By: #### L 500.4050, L100.0100, L501.5200, L501.9520 #### [facility] Laboratory [address] [place], [address] Calcium [Mass/Vol] 9.3 mg/dL Normal 7.6-11.0 [facility] Comment on above: Order Comment: Order Date: 08/07/25 Order Info: 0786-1 - CMP Order Info: [id number] - MG Order Info: 3 - TSH Performed By: #### L 500.4050, L100.0100, L501.5200, L501.9520 #### [facility] Laboratory [address] [place], [address] Chloride [Moles/Vol] 105 mmol/L Normal 98-108 [facility] Comment on above: Order Comment: Order Date: 08/07/25 Order Info: 0786-1 - CMP Order Info: [id number] - MG Order Info: 3013 - TSH Performed By: #### L 500.4050, L100.0100, L501.5200, L501.9520 #### [facility] Laboratory [address] [place], [address] CO2 [Moles/Vol] 20.5 mmol/L Low 21.0-32.0 [facility] Comment on above: Order Comment: Order Date: 08/07/25 Order Info: 0786-1 - CMP Order Info: [id number] - MG Order Info: 301-3 - TSH Performed By: #### L 500.4050, L100.0100, L501.5200, L501.9520 #### [facility] Laboratory [address] [place], [address] Creatinine [Mass/Vol] 0.86 mg/dL Normal 0.70-1.20 [facility] Comment on above: Order Comment: Order Date: 08/07/25 Order Info: 0786-1 - CMP Order Info: [id number] - MG Order Info: 3016-3 - TSH Performed By: #### L 500.4050, L100.0100, L501.5200, L501.9520 #### [facility] Laboratory [address] [place], [address] GAP 12 Normal 5-15 [facility] Comment on above: Order Comment: Order Date: 08/07/25 Order Info: 0786-1 - CMP Order Info: [id number] - MG Order Info: [id number] - TSH Performed By: #### L 500.4050, L100.0100, L501.5200, L501.9520 #### [facility] Laboratory [address] [place], [address] GFR/1.73 sq M.predicted among non-blacks MDRD (S/P/Bld) [Vol rate/Area] 95 mL/min/{1.73_m2} Normal >60 [facility] Comment on above: Order Comment: Order Date: 08/07/25 Order Info: 0786-1 - CMP Order Info: [id number] - MG Order Info: [id number] - TSH Result Comment: mL/m in/1.73m2 CKD-EPI Creatinine Equation (2020) Performed By: #### L 500.4050, L100.0100, L501.5200, L501.9520 #### [facility] Laboratory [address] [place], [address] Globulin (S) [Mass/Vol] 2.8 g/dL Normal 2.2-4.2 [facility] Comment on above: Order Comment: Order Date: 08/07/25 Order Info: 0786-1 - CMP Order Info: [id number] - MG Order Info: 3016-3 - TSH Performed By: #### L 500.4050, L100.0100, L501.5200, L501.9520 #### [facility] Laboratory [address] [place], [address] Glucose [Mass/Vol] 76 mg/dL Normal 70-99 [facility] Comment on above: Order Comment: Order Date: 08/07/25 Order Info: 0786-1 - CMP Order Info: [id number] - MG Order Info: 3015-3 - TSH Performed By: #### L 500.4050, L100.0100, L501.5200, L501.9520 #### [facility] Laboratory [address] [place], [address] Potassium [Moles/Vol] 4.3 mmol/L Normal 3.3-5.1 [facility] Comment on above: Order Comment: Order Date: 08/07/25 Order Info: 0786-1 - CMP Order Info: [id number] - MG Order Info: 3 - TSH Performed By: #### L 500.4050, L100.0100, L501.5200, L501.9520 #### [facility] Laboratory [address] [place], [address] Sodium [Moles/Vol] 137 mmol/L Normal 133-145 [facility] Comment on above: Order Comment: Order Date: 08/07/25 Order Info: 0786-1 - CMP Order Info: [id number] - MG Order Info: 3 - TSH Performed By: #### L 500.4050, L100.0100, L501.5200, L501.9520 #### [facility] Laboratory [address] [place], [address] T PROT 7.1 g/dL Normal 5.9-8.4 [facility] Comment on above: Order Comment: Order Date: 08/07/25 Order Info: 0786-1 - CMP Order Info: [id number] - MG Order Info: 3 - TSH Performed By: #### L 500.4050, L100.0100, L501.5200, L501.9520 #### [facility] Laboratory [address] [place], [address] Urea nitrogen [Mass/Vol] 9 mg/dL Normal 4-19 [facility] Comment on above: Order Comment: Order Date: 08/07/25 Order Info: 0786-1 - CMP Order Info: [id number] - MG Order Info: [id number] - TSH Performed By: #### L 500.4050, L100.0100, L501.5200, L501.9520 #### [facility] Laboratory [address] [place], [address] Eosinophil percentageOrdered By: Seble Fleming on 08-07-2025 Eosinophils/100 WBC (Bld) 0.2 % 0-5 [facility] Erythrocyte distribution wid th ratioOrdered By: Seblestu Fleming on 08-07-2025 Erythrocyte distribution width (RBC) [Ratio] 13.2 % 11.6-14.6 [facility] Erythrocyte distribution wid th standard deviationOrdered By: Comfort Bernadette on 08-07-2025 Erythrocyte distribution width (RBC) [Ratio] 43.8 fl 35.1-43.9 [facility] Glomerular filtration rate ( GFR) estimation/1.73 sq m using serum, plasma, or whole bOrdered By: Seblestu Fleming on 08-07-2025 GFR/1.73 sq M.predicted among non-blacks MDRD (S/P/Bld) [Vol rate/Area] 95 mL/min/{1.73_m2} >60 [facility] Comment on above: mL/min/1.73m2 CKD-EP I Creatinine Equation (2020) Hematocrit Auto (Bld) [Volum e fraction]Ordered By: Seble Fleming on 08-07-2025 Hematocrit (Bld) [Volume fraction] 37.9 % 37-47 [facility] Hemoglobin measurementOrdere d By: Seblestu Fleming on 08-07-2025 Hemoglobin (Bld) [Mass/Vol] 12.4 g/dL 12.0-15.0 [facility] Immature granulocytes/100 WB C Auto (Bld)Ordered By: Seble Fleming on 08-07-2025 Immature granulocytes/100 WBC (Bld) 0.400 % 0.0-0.9 [facility] Comment on above: IG% - Immature Granu locytes (promyelocytes, myelocytes and metamyelocytes) > 1% indicates that a LEFT SHIFT is Present. Laboratory - Chemistry and C hemistry - challengeOrdered By: Seble Fleming on 08-07-2025 AST [Catalytic activity/Vol] 21 U/L <32 [facility] MCV (mean corpuscular volume ) determinationOrdered By: Seble Fleming on 08-07-2025 MCV (RBC) [Entitic vol] 91.3 fL 81-99 [facility] Magnesiumon 08-07-2025 Magnesium [Mass/Vol] 2.2 mg/dL Normal 1.5-2.2 [facility] Comment on above: Order Comment: Order Date: 08/07/25 Order Info: [id number] - CMP Order Info: [id number] - MG Order Info: [id number] - TSH Performed By: #### L 500.4050, L100.0100, L501.5200, L501.9520 #### [facility] Laboratory [address] [place] [address], [address] Magnesium measurement (mass/ volume)Ordered By: Seble Fleming on 08-07-2025 Magnesium (Unsp spec) [Mass/Vol] 2.2 mg/dL 1.5-2.2 [facility] Mean corpuscular hemoglobin (MCH) determinationOrdered By: Seble Fleming on 08-07-2025 MCH (RBC) [Entitic mass] 29.9 pg 27.0-32.0 [facility] Mean corpuscular hemoglobin concentration (MCHC) determinationOrdered By: Seble Fleming on 08-07-2025 MCHC (RBC) [Mass/Vol] 32.7 g/dL 32-36 [facility] Mean platelet volume determi nationOrdered By: Seble Fleming on 08-07-2025 Platelet mean volume (Bld) [Entitic vol] 10.1 fL 6.2-12.0 [facility] Monocyte percentageOrdered B y: Seble Fleming on 08-07-2025 Monocytes/100 WBC (Bld) 5.2 % 0-10 [facility] Neutrophil percentageOrdered By: Seble Fleming on 08-07-2025 Neutrophils/100 WBC (Bld) 70.8 % High 47-70 [facility] Nucleated red blood cell per centageOrdered By: Seble Fleming on 08-07-2025 Nucleated RBC/100 WBC (Bld) [Ratio] 0 % 0-5 [facility] Platelet countOrdered By: Mitchell Fleming on 08-07-2025 Platelets (Bld) [#/Vol] 332 10*3/uL 150-450 [facility] Potassium measurement (mass/ volume)Ordered By: Seble Fleming on 08-07-2025 Potassium (Unsp spec) [Mass/Vol] 4.3 mmol/L 3.3-5.1 [facility] RBC Auto (Bld) [#/Vol]Ordere d By: Seble Fleming on 08-07-2025 RBC (Bld) [#/Vol] 4.15 10*6/uL Low 4.2-5.4 [facility] [place] Serum creatinine measurement (mass/volume)Ordered By: Seble Fleming on 08-07-2025 Creatinine [Mass/Vol] 0.86 mg/dL 0.70-1.20 [facility] Serum globulin measurementOr dered By: Seble Fleming on 08-07-2025 Globulin (S) [Mass/Vol] 2.8 g/dL 2.2-4.2 [facility] Serum glucose measurement (m ass/volume)Ordered By: Seble Fleming on 08-07-2025 Glucose [Mass/Vol] 76 mg/dL 70-99 [facility] Serum or plasma alanine palma otransferase (ALT) measurementOrdered By: Seble Fleming on 08-07-2025 ALT [Catalytic activity/Vol] 17 U/L <35 [facility] Serum or plasma albumin iveth urement (mass/volume)Ordered By: Seble Fleming on 08-07-2025 Albumin [Mass/Vol] 4.3 g/dL 3.5-5.0 [facility] Serum or plasma albumin/glob ulin mass ratioOrdered By: Seble Fleming on 08-07-2025 Albumin/Globulin [Mass ratio] 1.6 {ratio} 0.9-2.4 [facility] Serum or plasma alkaline tiffanie sphatase measurementOrdered By: Seble Fleming on 08-07-2025 ALP [Catalytic activity/Vol] 48 U/L 35-104 [facility] Serum or plasma calcium iveth urement (mass/volume)Ordered By: Seble Fleming on 08-07-2025 Calcium [Mass/Vol] 9.3 mg/dL 7.6-11.0 [facility] Serum or plasma urea nitroge n measurement (mass/volume)Ordered By: Seble Fleming on 08-07-2025 Urea nitrogen [Mass/Vol] 9 mg/dL 4-19 [facility] Sodium levelOrdered By: Seble Fleming on 08-07-2025 Sodium [Moles/Vol] 137 mmol/L 133-145 [facility] TSH DL <= 0.005 mIU/L QnOrde red By: Seble Fleming on 08-07-2025 TSH Qn 1.760 uIU/mL 0.300-4.200 [facility] Thyroid Stim Hormone (TSH)on 08-07-2025 TSH 1.760 uIU/mL Normal 0.300-4.200 [facility] Comment on above: Order Comment: Order Date: 08/07/25 Order Info: [id number] - CMP Order Info: [id number] - MG Order Info: [id number] - TSH Performed By: #### L 500.4050, L100.0100, L501.5200, L501.9520 #### [facility] Laboratory [facility] [address], [address] Total proteinOrdered By: Nena Fleming on 08-07-2025 Protein [Mass/Vol] 7.1 g/dL 5.9-8.4 [facility] White blood cell (WBC) count Ordered By: Seble Fleming on 08-07-2025 WBC (Bld) [#/Vol] 11.3 10*3/uL High 4.4-11.0 [facility] Absolute lymphocyte countOrd ered By: HEALTH ASSESSMENT on 07-01-2025 Lymphocytes Auto (Unsp spec) [#/Vol] 2.32 10*3/uL 0.83-4.51 [facility] Absolute neutrophil countOrd ered By: HEALTH ASSESSMENT on 07-01-2025 Neutrophils (Bld) [#/Vol] 5.2 10*3/uL 2.0-7.7 [facility] Absolute nucleated red blood cell countOrdered By: HEALTH ASSESSMENT on 07-01-2025 Nucleated RBC (Bld) [#/Vol] 0.00 10*3/uL 0-5 [facility] Anion gap in Serum or Plasma Ordered By: HEALTH ASSESSMENT on 07-01-2025 Anion gap [Moles/Vol] 12 mmol/L 5- [facility] BUN/creatinine ratioOrdered By: HEALTH ASSESSMENT on 07-01-2025 Urea nitrogen/Creatinine [Mass ratio] 14.8 mg/mg 10- [facility] Bilirubin directOrdered By: HEALTH ASSESSMENT on 07-01-2025 Bilirubin.direct [Mass/Vol] 0.10 mg/dL 0.00-0.30 [facility] Bilirubin, totalOrdered By: HEALTH ASSESSMENT on 07-01-2025 Bilirubin [Mass/Vol] 0.25 mg/dL 0.00-1.30 [facility] CBC, Employeeon 07-01-2025 Absolute Lymph 2.32 X10 3/uL Normal 0.83-4.51 [facility] Comment on above: Performed By: #### L 100.0200, L400.0100, L500.2900 #### [facility] Laboratory [address] [place], [address] Absolute Neut 5.2 X10 3/uL Normal 2.0-7.7 [facility] Comment on above: Performed By: #### L 100.0200, L400.0100, L500.2900 #### [facility] Laboratory [address] [place], [address] Basophils/100 WBC (Bld) 0.4 % Normal 0-1 [facility] Comment on above: Performed By: #### L 100.0200, L400.0100, L500.2900 #### [facility] [address] [place], [address] Eosinophils/100 WBC (Bld) 0.6 % Normal 0-5 [facility] Comment on above: Performed By: #### L 100.0200, L400.0100, L500.2900 #### [facility] Laboratory [address] [place], [address] Erythrocyte distribution width (RBC) [Ratio] 12.5 % Normal 11.6-14.6 [facility] Comment on above: Performed By: #### L 100.0200, L400.0100, L500.2900 #### [facility] Laboratory [address] [place], [address] Hematocrit (Bld) [Volume fraction] 39.0 % Normal 37-47 [facility] Comment on above: Performed By: #### L 100.0200, L400.0100, L500.2900 #### [facility] Laboratory [address] [place], [address] Hemoglobin (Bld) [Mass/Vol] 12.9 g/dL Normal 12.0-15.0 [facility] Comment on above: Performed By: #### L 100.0200, L400.0100, L500.2900 #### [facility] Laboratory [address] [place], [address] Lymphocytes/100 WBC (Bld) 28.6 % Normal 19-41 [facility] Comment on above: Performed By: #### L 100.0200, L400.0100, L500.2900 #### [facility] Laboratory [address] [place], [address] MCH (RBC) [Entitic mass] 30.1 pg Normal 27.0-32.0 [facility] Comment on above: Performed By: #### L 100.0200, L400.0100, L500.2900 #### [facility] Laboratory [address] [place], [address] MCHC (RBC) [Mass/Vol] 33.1 g/dL Normal 32-36 [facility] Comment on above: Performed By: #### L 100.0200, L400.0100, L500.2900 #### [facility] Laboratory [address] [place], [address] MCV (RBC) [Entitic vol] 91.1 fL Normal 81-99 [facility] Comment on above: Performed By: #### L 100.0200, L400.0100, L500.2900 #### [facility] [address] [place], [address] Monocytes/100 WBC (Bld) 6.5 % Normal 0-10 [facility] Comment on above: Performed By: #### L 100.0200, L400.0100, L500.2900 #### [facility] [address] [place], [address] Neutrophils/100 WBC (Bld) 63.7 % Normal 47-70 [facility] Comment on above: Performed By: #### L 100.0200, L400.0100, L500.2900 #### [facility] [address] [place], [address] NRBC # 0.00 10 3/uL Normal 0-5 [facility] Comment on above: Performed By: #### L 100.0200, L400.0100, L500.2900 #### [facility] Laboratory [address] [place], [address] Nucleated RBC (Bld) [#/Vol] 0 10*3/uL Normal 0-5 [facility] Comment on above: Performed By: #### L 100.0200, L400.0100, L500.2900 #### [facility] Laboratory [address] [place], [address] Platelet mean volume (Bld) [Entitic vol] 10.3 fL Normal 6.2-12.0 [facility] Comment on above: Performed By: #### L 100.0200, L400.0100, L500.2900 #### [facility] Laboratory [address] [place], [address] Platelets (Bld) [#/Vol] 284 10*3/uL Normal 150-450 [facility] Comment on above: Performed By: #### L 100.0200, L400.0100, L500.2900 #### [facility] Laboratory [address] [place], [address] RBC (Bld) [#/Vol] 4.28 10*6/uL Normal 4.2-5.4 [facility] Comment on above: Performed By: #### L 100.0200, L400.0100, L500.2900 #### [facility] Laboratory [address] [place], [address] RDW SD 41.4 fl Normal 35.1-43.9 [facility] Comment on above: Performed By: #### L 100.0200, L400.0100, L500.2900 #### [facility] [address] [place], [address] WBC (Bld) [#/Vol] 8.1 10*3/uL Normal 4.4-11.0 [facility] Comment on above: Performed By: #### L 100.0200, L400.0100, L500.2900 #### [facility] [address] [place], [address] Calculated very low density lipoprotein (VLDL) cholesterol measurementOrdered By: HEALTH ASSESSMENT on 07-01-2025 Calculated very low density lipoprotein (VLDL) cholesterol measurement 20 mg/dL 5-40 [facility] Carbon dioxide, total [Moles /volume] in Central venous bloodOrdered By: HEALTH ASSESSMENT on 07-01-2025 CO2 [Moles/Vol] 21.9 mmol/L 21.0-32.0 [facility] Chloride assayOrdered By: ALTH ASSESSMENT on 07-01-2025 Chloride [Moles/Vol] 106 mmol/L 98-108 [facility] Employee Profileon LDH 133 U/L Normal 84-246 [facility] Comment on above: Performed By: #### L 100.0200, L400.0100, L500.2900 #### [facility] Laboratory [address] [place], [address] Phosphate [Mass/Vol] 2.7 mg/dL Normal 2.7-4.5 [facility] Comment on above: Performed By: #### L 100.0200, L400.0100, L500.2900 #### [facility] [address] [place], [address] URIC 3.5 mg/dL Normal 2.6-6.0 [facility] Comment on above: Result Comment: The drugs N-Acetylcysteine and Metamizole may falsely depress this assay. Performed By: #### L 100.0200, L400.0100, L500.2900 #### [facility] [address] [place], [address] Erythrocyte distribution wid th ratioOrdered By: HEALTH ASSESSMENT on 07-01-2025 Erythrocyte distribution width (RBC) [Ratio] 12.5 % 11.6-14.6 [facility] Erythrocyte distribution wid th standard deviationOrdered By: HEALTH ASSESSMENT on 07-01-2025 Erythrocyte distribution width (RBC) [Ratio] 41.4 fl 35.1-43.9 [facility] Glomerular filtration rate ( GFR) estimation/1.73 sq m using serum, plasma, or whole bOrdered By: HEALTH ASSESSMENT on 07-01-2025 GFR/1.73 sq M.predicted among non-blacks MDRD (S/P/Bld) [Vol rate/Area] 98 mL/min/{1.73_m2} >60 [facility] Comment on above: mL/min/1.73m2 CKD-EP I Creatinine Equation (2020) Hematocrit Auto (Bld) [Volum e fraction]Ordered By: HEALTH ASSESSMENT on 07-01-2025 Hematocrit (Bld) [Volume fraction] 39.0 % 37-47 [facility] Hemoglobin measurementOrdere d By: HEALTH ASSESSMENT on 07-01-2025 Hemoglobin (Bld) [Mass/Vol] 12.9 g/dL 12.0-15.0 [facility] LDL calc ser/plasOrdered By: HEALTH ASSESSMENT on 07-01-2025 Cholesterol in LDL [Mass/Vol] 80 mg/dL [facility] Comment on above: Vaojcarygz=489-709 m g/dL & Higher Xhzd=121 mg/dL or greaterFriedwald Equation for LDL-C Laboratory - Chemistry and C hemistry - challengeOrdered By: HEALTH ASSESSMENT on 07-01-2025 AST [Catalytic activity/Vol] 17 U/L <32 [facility] Lactate dehydrogenase (LDH) measurementOrdered By: HEALTH ASSESSMENT on 07-01-2025 LDH [Catalytic activity/Vol] 133 U/L 84-246 [facility] MCV (mean corpuscular volume ) determinationOrdered By: HEALTH ASSESSMENT on 07-01-2025 MCV (RBC) [Entitic vol] 91.1 fL 81-99 [facility] Mean corpuscular hemoglobin (MCH) determinationOrdered By: HEALTH ASSESSMENT on 07-01-2025 MCH (RBC) [Entitic mass] 30.1 pg 27.0-32.0 [facility] Mean corpuscular hemoglobin concentration (MCHC) determinationOrdered By: HEALTH ASSESSMENT on 07-01-2025 MCHC (RBC) [Mass/Vol] 33.1 g/dL 32-36 [facility] Mean platelet volume determi nationOrdered By: HEALTH ASSESSMENT on 07-01-2025 Platelet mean volume (Bld) [Entitic vol] 10.3 fL 6.2-12.0 [facility] Neutrophil percentageOrdered By: HEALTH ASSESSMENT on 07-01-2025 Neutrophils/100 WBC (Bld) 63.7 % 47-70 [facility] Nucleated red blood cell per centageOrdered By: HEALTH ASSESSMENT on 07-01-2025 Nucleated RBC/100 WBC (Bld) [Ratio] 0 % 0-5 [facility] Platelet countOrdered By: HE ALTH ASSESSMENT on 07-01-2025 Platelets (Bld) [#/Vol] 284 10*3/uL 150-450 [facility] Potassium measurement (mass/ volume)Ordered By: HEALTH ASSESSMENT on 07-01-2025 Potassium (Unsp spec) [Mass/Vol] 4.2 mmol/L 3.3-5.1 [facility] RBC Auto (Bld) [#/Vol]Ordere d By: HEALTH ASSESSMENT on 07-01-2025 RBC (Bld) [#/Vol] 4.28 10*6/uL 4.2-5.4 [facility] Screening total cholesterol/ high density lipoprotein (HDL) cholesterol ratioOrdered By: HEALTH ASSESSMENT on 07-01-2025 Cholesterol.total/Karina sterol in HDL [Mass ratio] 2.62 {ratio} [facility] Serum creatinine measurement (mass/volume)Ordered By: HEALTH ASSESSMENT on 07-01-2025 Creatinine [Mass/Vol] 0.84 mg/dL 0.70-1.20 [facility] Serum globulin measurementOr dered By: HEALTH ASSESSMENT on 07-01-2025 Globulin (S) [Mass/Vol] 2.9 g/dL 2.2-4.2 [facility] Serum glucose measurement (m ass/volume)Ordered By: HEALTH ASSESSMENT on 07-01-2025 Glucose [Mass/Vol] 79 mg/dL 70-99 [facility] Serum or plasma alanine palma otransferase (ALT) measurementOrdered By: HEALTH ASSESSMENT on 07-01-2025 ALT [Catalytic activity/Vol] 15 U/L <35 [facility] Serum or plasma albumin iveth urement (mass/volume)Ordered By: HEALTH ASSESSMENT on 07-01-2025 Albumin [Mass/Vol] 4.3 g/dL 3.5-5.0 [facility] Serum or plasma albumin/glob ulin mass ratioOrdered By: HEALTH ASSESSMENT on 07-01-2025 Albumin/Globulin [Mass ratio] 1.4 {ratio} 0.9-2.4 [facility] Serum or plasma alkaline tiffanie sphatase measurementOrdered By: HEALTH ASSESSMENT on 07-01-2025 ALP [Catalytic activity/Vol] 51 U/L 35-104 [facility] Serum or plasma calcium iveth urement (mass/volume)Ordered By: HEALTH ASSESSMENT on 07-01-2025 Calcium [Mass/Vol] 9.3 mg/dL 7.6-11.0 [facility] Serum or plasma cholesterol in HDL measurement (mass/volume)Ordered By: HEALTH ASSESSMENT on 07-01-2025 Cholesterol in HDL [Mass/Vol] 62 mg/dL >40 [facility] Comment on above: National Cholesterol Education Program (NCEP) guidelines:<40 mg/dL: Low HDL-cholesterol (major risk factor for CHD)>= 60 mg/dL: High HDL-cholesterol (negative risk factor for CHD)HDL-cholesterol is affected by a number of factors, e.g. smoking, exercise, hormones, sex and age. Serum or plasma cholesterol measurement (mass/volume)Ordered By: HEALTH ASSESSMENT on 07-01-2025 Cholesterol [Mass/Vol] 162 mg/dL <201 [facility] Comment on above: Cholesterol level, D esirable <200 mg/dLBorderline high cholesterol 200-239 mg/dLHigh cholesterol >=240 mg/dLRecommendations of the NCEP Adult Treatment Panel for the following risk-cutoff thresholds for the [place] population. Serum or plasma urea nitroge n measurement (mass/volume)Ordered By: HEALTH ASSESSMENT on 07-01-2025 Urea nitrogen [Mass/Vol] 12 mg/dL 4-19 [facility] Serum or plasma uric acid me asurement (mass/volume)Ordered By: [facility] ASSESSMENT on 07-01-2025 Urate [Mass/Vol] 3.5 mg/dL 2.6-6.0 [facility] Comment on above: The drugs N-Acetylcy steine and Metamizole may falsely depress this assay. Sodium levelOrdered By: [facility] ASSESSMENT on 07-01-2025 Sodium [Moles/Vol] 140 mmol/L 133-145 [facility] Total proteinOrdered By: [facility] ASSESSMENT on 07-01-2025 Protein [Mass/Vol] 7.2 g/dL 5.9-8.4 [facility] Triglycerides measurementOrd ered By: HEALTH ASSESSMENT on 07-01-2025 Triglyceride [Mass/Vol] 100 mg/dL <199 [facility] Comment on above: The drugs N-Acetylcy steine and Metamizole may falsely depress this assay. Normal range: <150 mg/dLBorderline High: 150-199 mg/dLHigh: 200-499 mg/dLVery High: >500 mg/dL Urinalysis, Employeeon 07-01 BILIRUBIN URINE Normal Negative [facility] Comment on above: Order Comment: Urine , Random Result Comment: UTO Performed By: #### L 100.0200, L400.0100, L500.2900 #### [facility] Laboratory [address] [place], [address] Clarity (U) Normal Clear [facility] Comment on above: Order Comment: Urine , Random Result Comment: UTO Performed By: #### L 100.0200, L400.0100, L500.2900 #### [facility] [address] [place], [address] Color (U) Normal Yellow [facility] Comment on above: Order Comment: Urine , Random Result Comment: UTO Performed By: #### L 100.0200, L400.0100, L500.2900 #### [facility] [address] [place], [address] GLUCOSE, UR Normal Normal [facility] Comment on above: Order Comment: Urine , Random Result Comment: UTO Performed By: #### L 100.0200, L400.0100, L500.2900 #### [facility] [address] [place], [address] KETONE UR Normal Negative [facility] Comment on above: Order Comment: Urine , Random Result Comment: UTO Performed By: #### L 100.0200, L400.0100, L500.2900 #### [facility] [address] [place], [address] LEUK ESTERASE Normal Negative [facility] Comment on above: Order Comment: Urine , Random Result Comment: UTO Performed By: #### L 100.0200, L400.0100, L500.2900 #### [facility] [address] [place], [address] Nitrite Ql (U) Normal Negative [facility] Comment on above: Order Comment: Urine , Random Result Comment: UTO Performed By: #### L 100.0200, L400.0100, L500.2900 #### [facility] [address] [place], [address] OCCULT BLOOD-UR Normal Negative [facility] Comment on above: Order Comment: Urine , Random Result Comment: UTO Performed By: #### L 100.0200, L400.0100, L500.2900 #### [facility] [address] [place], [address] pH UR Normal 5.0 - 8.0 [facility] Comment on above: Order Comment: Urine , Random Result Comment: UTO Performed By: #### L 100.0200, L400.0100, L500.2900 #### [facility] [address] [place], [address] PROT DIPSTX Normal Negative [facility] Comment on above: Order Comment: Urine , Random Result Comment: UTO Performed By: #### L 100.0200, L400.0100, L500.2900 #### [facility] [address] [place], [address] SP.GR. DIPSTX Normal 1.002-1.030 [facility] Comment on above: Order Comment: Urine , Random Result Comment: UTO Performed By: #### L 100.0200, L400.0100, L500.2900 #### [facility] [address] [place], [address] UR Preservative Normal [facility] Comment on above: Order Comment: Urine , Random Result Comment: UTO Performed By: #### L 100.0200, L400.0100, L500.2900 #### [facility] [address] [place], [address] UROBILI Normal Normal [facility] Comment on above: Order Comment: Urine , Random Result Comment: UTO Performed By: #### L 100.0200, L400.0100, L500.2900 #### [facility] [place], [address] White blood cell (WBC) count Ordered By: HEALTH ASSESSMENT on 07-01-2025 WBC (Bld) [#/Vol] 8.1 10*3/uL 4.4-11.0 [facility] CNOVon 06-21-2025 CNOV Office Visit (BILL) JOSE EDUARDO PRINCE ([id number]) 2000 F Date Time Provider Department 06/21/25 9:30 AM YANELI DOWLING During your visit today, we recorded the following information about you: Pulse Blood pressure Weight 94/minute 115/78 74.4 kg Yaneli Dowling APRN.ELECTRICIAN MANAGER 06/21/2025 9:17 AM Signed - Whole food [...] protein AND 2g carb Two Good Lowfat Indian Yogurt, Lower Sugar - 12g protein AND [...] oz is 28 gm protein Beef, Chicken, [place], Pork, [place] 1 oz 7g Fish, Tuna [...] 30g protein <1 carb Protein AND carbs Beef/[place] Jerky 1 oz dried 10-15g protein - [...] 8 oz -13g protein AND 6g carb Indian yogurt Full Fat Indian Yogurt 1 cup - 20.4g protein AND 9.1g carb 2% Indian Yogurt 1 cup - 22.7g protein AND 9.1g carb 0% (fat-free) Indian Yogurt - 1 cup 24g protein AND 9.3g carb Aldi Protein Indian yogurt single svg - 13/g15g protein AND 7g carb Chobani Zero Sugar single svg: - 12g protein AND 5g carb Dannon Indian Light + Fit 1 single svg - 12g protein AND 9g carb Oikos Pro single svg - 20g protein AND 8g carb Oikos Triple Zero Indian Nonfat Yogurt 1 single svg - 15g protein AND 7g carb :ratio, KETO Friendly Dairy Snack 1 single svg - 15g protein AND 2g carb :ratio Protein 1 single svg - 25g protein AND 8g carb Two Good Lowfat Indian Yogurt, [place], Lower Sugar - 12g protein AND 2g carb Yoplait Protein 1 single svg 15g protein AND 5g carb Dairy Free - [place] unsweetened Indian almond/soy 15g protein AND 3g carb Dairy [...] Cream Cheese 1.7g protein AND 1.2g carb [place] Farms whipped Indian cream cheese (WM) 2 T 3g protein 2g carb Feta 4g protein AND 1.2g carb Mozzarella 6.3g protein AND 0.6g carb Parmesan 10g protein AND 0.9g carb [place] Citizen 7.6g protein AND 1.5g carb Cottage Cheese 1/2 c [place] 2% 13g protein 7g carb Dorina 2% 13g protein 5 g carb Good Culture 2% 14g protein 3g carb Lactaid 13g protein 5g carb Velasquez?s Low Fat 12g protein AND 4g carb Legumes Lentils ? cup 9g protein AND 20g carb Carrasco beans ? cup 7g protein AND 20g carb Kidney, Black, [place], Cannellini beans ? cup 8g protein AND 20g carb Chickpeas 1/2 c 6g protein AND 15g carb Soybeans 1/2 c 14g complete protein AND 8.5g carb [place] milk, unsweetened 8 oz 1g protein AND 2g carb Soy milk 8 oz 3.5g protein AND 1.6g carb Tofu 1/2 cup 10g protein AND 2.3g carb Peanut butter, natural 2 Tbsp 7-8g protein AND 4g ne (more content not included)... Normal [facility] Bacteria Ur Culton 5 Bacteria identified Cx Nom (U) ORGANISM ID: 1 10,000 -<50,000 CFU/ml Normal urogenital angela Normal [facility] Comment on above: Performed By: #### 6 30-4 ####[facility] LABCL[facility] [id number] [address] CNOVon 06-06-2025 CNOV Office Visit (OBPARISHWPrashanth) JOSE EDUARDO PRINCE ([id number]) 2000 F Date Time Provider Department 06/06/25 1:00 PM YANELI DOWLING During your visit today, we recorded the following information about you: Blood pressure Weight Height 126/84 76.2 kg 1.62 m Yaneli Dowling APRN.ELECTRICIAN MANAGER 06/06/2025 6:43 PM Signed Clerk Specialist offered: Patient declines. Zamudio is a 25 [...] was ordered - needs order faxed to [facility]. 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 As applicable, any other physician, advance practice provider, medical student, or other health professional student that will be observing or involved in the sensitive examination for educational or training purposes was discussed with the Patient or Authorized Rn House Supervisor. The Patient or Authorized Rn House Supervisor has agreed to proceed with the sensitive [...] external genitalia normal, normal Bartholin's glands, urethra, Raven's glands, no vulvar lesions, no cervical lesions, good vaginal support, physiologic discharge present, normal appearing perine (more content not included)... Normal [facility] Urinalysis complete panel (U )on 06-06-2025 Bacteria LM.HPF (Urine sed) [#/Area] Negative Negative /HPF [facility] Bilirubin Ql (U) Negative Negative [facility] Clarity (Unsp spec) Clear [facility] Color (U) Yellow Yellow [facility] Epithelial cells LM.HPF (Urine sed) [#/Area] None Seen /HPF [facility] Glucose Test strip (U) [Mass/Vol] Negative Negative [facility] Hemoglobin Ql (U) Negative Negative [facility] Hyaline casts (Urine sed) [#/Area] 0 /[LPF] 0 /LPF [facility] Ketones Ql (U) Negative Negative [facility] Leukocyte esterase Test strip Ql (U) Negative Negative [facility] Nitrite Ql (U) Negative Negative [facility] pH (U) 6.5 [pH] 5.0 - 8.[address] [facility] Protein (U) [Mass/Vol] Negative Negative Cl [facility] RBC LM.HPF (Urine sed) [#/Area] 0-2 /HPF 0-2 /HPF [facility] Specific gravity (U) [Rel density] 1.019 1.005 - 1.030 [facility] Urobilinogen Ql (U) 0.2 EU/dL 0.2-1.0 EU/dL [facility] WBC LM.HPF (Urine sed) [#/Area] 0-5 /HPF 0-5 /HPF [facility] This test was developed and its performance characteristics determined by [facility]'s [facility] Pathology and Laboratory Medicine [place] ([facility]). It has not been cleared or approved by the FDA. [facility] is regulated under CLIA as qualified to perform high-complexity testing. This test is used for clinical purposes. It should not be regarded as investigational or for research. [facility] Bacteria LM.HPF (Urine sed) [#/Area] Negative Normal Negative [facility] Comment on above: Order Comment: Speci men Type: URINE SPECIMENOrdering Facility: [facility] Address: [address] [place] [address] Performed By: #### 2 4356-8 ####[facility] LABIA [id number] [place] [address] [place] Bilirubin Ql (U) Negative Normal Negative [facility] Comment on above: Order Comment: Speci men Type: URINE SPECIMENOrdering Facility: [facility] Address: [address] [place] [address] Performed By: #### 2 4356-8 ####[facility] LABIA [id number] [place] [id number] [place] Clarity (Unsp spec) Clear Normal Clear [facility] Comment on above: Order Comment: Speci men Type: URINE SPECIMENOrdering Facility: [facility] Address: [address] [place] [address] Performed By: #### 2 4356-8 ####[facility] LABIA [id number] [place] [address] [place] Color (U) Yellow Normal Yellow [facility] Comment on above: Order Comment: Speci men Type: URINE SPECIMENOrdering Facility: [facility] Address: [address] [place] [address] Performed By: #### 2 4356-8 ####[facility] LABCLIA [id number] [address] [place] Epithelial cells LM.HPF (Urine sed) [#/Area] None Seen Normal [facility] Comment on above: Order Comment: Speci men Type: URINE SPECIMENOrdering Facility: [facility] Address: [address] [place] [address] Performed By: #### 2 4356-8 ####[facility] LABCLIA [id number] [address] [place] Glucose Test strip (U) [Mass/Vol] Negative Normal Negative [facility] Comment on above: Order Comment: Speci men Type: URINE SPECIMENOrdering Facility: [facility] Address: [address] [place] [address] Performed By: #### 2 4356-8 ####[facility] LABCLIA [id number] [address] [place] Hemoglobin Ql (U) Negative Normal Negative [facility] Comment on above: Order Comment: Speci men Type: URINE SPECIMENOrdering Facility: [facility] Address: [address] [place] [address] Performed By: #### 2 4356-8 ####[facility] LABCLIA [id number] [place] [address] [place] Hyaline casts (Urine sed) [#/Area] 0 /[LPF] Normal 0 /LPF [facility] Comment on above: Order Comment: Speci men Type: URINE SPECIMENOrdering Facility: [facility] Address: [address] [place] [address] Performed By: #### 2 4356-8 ####[facility] LABCLIA [id number] [address] [place] [address] [place] Ketones Ql (U) Negative Normal Negative [facility] Comment on above: Order Comment: Speci men Type: URINE SPECIMENOrdering Facility: [facility] Address: [address] [place] [address] Performed By: #### 2 4356-8 ####[facility] LABCLIA [id number] [address], [place] [address] [place] Leukocyte esterase Test strip Ql (U) Negative Normal Negative [facility] Comment on above: Order Comment: Speci men Type: URINE SPECIMENOrdering Facility: [facility] Address: [address] [place] [address] Performed By: #### 2 4356-8 ####[facility] LABCLIA [id number] [place] [address] [place] Nitrite Ql (U) Negative Normal Negative [facility] Comment on above: Order Comment: Speci men Type: URINE SPECIMENOrdering Facility: [facility] Address: [address] [place] [address] Performed By: #### 2 4356-8 ####[facility] LABCLIA [id number] [place] [address] [place] pH (U) 6.5 [pH] Normal 5.0-8.0 [facility] Comment on above: Order Comment: Speci men Type: URINE SPECIMENOrdering Facility: [facility] Address: [address] [place] [address] Performed By: #### 2 4356-8 ####[facility] LABCLIA [id number] [place] [address] [place] Protein (U) [Mass/Vol] Negative Normal Negative [facility] Comment on above: Order Comment: Speci men Type: URINE SPECIMENOrdering Facility: [facility] Address: [address] [place] [address] Performed By: #### 2 4356-8 ####[facility] LABCLIA [id number] [place] [address] [place] RBC LM.HPF (Urine sed) [#/Area] 0-2 /HPF Normal 0-2 /HPF [facility] Comment on above: Order Comment: Speci men Type: URINE SPECIMENOrdering Facility: [facility] Address: [address] [place] [address] Performed By: #### 2 4356-8 ####[facility] LABIA [id number] [place] [address] [place] Specific gravity (U) [Rel density] 1.019 Normal 1.005-1.030 [facility] Comment on above: Order Comment: Speci men Type: URINE SPECIMENOrdering Facility: [facility] Address: [address] [place] [address] Performed By: #### 2 4356-8 ####[facility] LABIA [id number] [place] [address] [place] Urobilinogen Ql (U) 0.2 EU/dL Normal 0.2-1.0 EU/dL [facility] Comment on above: Order Comment: Speci men Type: URINE SPECIMENOrdering Facility: [facility] Address: [address] [place] [address] Performed By: #### 2 4356-8 ####[facility] LABIA [id number] [place] [address] [place] WBC LM.HPF (Urine sed) [#/Area] 0-5 /HPF Normal 0-5 /HPF [facility] Comment on above: Order Comment: Speci men Type: URINE SPECIMENOrdering Facility: [facility] Address: [address] [place] [address] Performed By: #### 2 4356-8 ####[facility] LABIA [id number] [place] [id number] [facility] [place] 05-21-2025 CNPN Telephone (OBGYWM) PRINCEJOSE EDUARDO ([id number]) 2000 F Date Time Provider Department 05/21/25 GINA CARRILLO OBGYWPrashanth During your visit today, we recorded the following information about you: Allergies As of Date: 05/21/2025 Noted Allergy Reaction BEES 01/17/2018 7 - Swelling CATS 06/08/2018 16 - Unknown Comments: Had allergy testing done DUST 06/08/2018 16 - Unknown FEATHERS 06/08/2018 16 - Unknown OAK 06/08/2018 16 - Unknown TREE POLLEN-KYRGYZ ELM 06/08/2018 16 - Unknown VICODIN (HYDROCODONE-ACETAMI NOPHE*02/20/2013 11 - Vomiting WEED POLLEN 06/08/2018 16 - Unknown Date Reviewed: 05/20/2025 Reviewed by: Gina Carrillo MD - Fully Assessed Reason for Visit: Orders [681] Primary Visit Diagnosis:Pelvic pain [R10.2] Order(s):URINALYSIS, WITH MICROSCOPIC [SQUAWMIC] Order #: [id number] FUTURE BACTERIAL CULTURE, URINE [SQURCUL] Order #: [id number] FUTURE Prescriptions as of 05/21/2025 - topiramate [...] Status:Closed by GINA CARRILLO on 05/21/25 Normal [facility] BACTERIAL VAGINOSIS NAATon 0 05-20-2025 Lactobacillus crispatus+gasseri+jense bianca + Gardnerella vaginalis + Atopobium vaginae rRNA SANJEEV+probe Ql (Vag fld) Not detected Normal Not detected [facility] Comment on above: Order Comment: Speci men Type: SWABOrdering Facility: [facility] Address: [address] [place] [address] Performed By: #### 3 6902-5, BVAMP ####[facility] LABCLIA [id number] [address] [place] C. trachomatis+N. gonorrhoea e DNA SANJEEV+probe Ql (Unsp spec)on 05-20-2025 C. trachomatis rRNA SANJEEV+probe Ql (Unsp spec) Not detected Normal Not detected [facility] Comment on above: Order Comment: Speci men Type: SWABOrdering Facility: [facility] Address: [address] [place] [address] Performed By: #### 3 6902-5, BVAMP ####[facility] LABCLIA [id number] [place] [address] [place] N. gonorrhoeae rRNA SANJEEV+probe Ql (Unsp spec) Not detected Normal Not detected [facility] Comment on above: Order Comment: Speci men Type: SWABOrdering Facility: [facility] Address: [address] [place] [address] Performed By: #### 3 6902-5, BVAMP ####[facility] LABCLIA [id number] [place] [address] [place] DILCIA/TRICHOMONAS NAATon 0 05-20-2025 C. glabrata RNA SANJEEV+probe Ql (Vag fld) Not detected Normal Not detected [facility] Comment on above: Order Comment: Speci men Type: SWABOrdering Facility: [facility] Address: [address] [place] [address] Performed By: #### C VTV ####[facility] LABCLIA [id number] [address] [place] Dilcia sp DNA SANJEEV+probe Ql (Vag fld) Not detected Normal Not detected [facility] Comment on above: Order Comment: Speci men Type: SWABOrdering Facility: [facility] Address: [address] [place] [address] Result Comment: The Dilcia species group target includes C. albicans, C. tropicalis, C. parapsilosis, and C. dubliniensis. Performed By: #### C VTV ####[facility] LABCLIA [id number] [address] [place] T. vaginalis DNA SANJEEV+probe Ql (Unsp spec) Not detected Normal Not detected [facility] Comment on above: Order Comment: Speci men Type: SWABOrdering Facility: [facility] Address: [address] [place] [address] Performed By: #### C VTV ####[facility] LABCLIA [id number] [address] [place] CNOVon 05-20-2025 CNOV Office Visit (OBGYWM) JOSE EDUARDO PRINCE ([id number]) 2000 F Date Time Provider Department 05/20/25 9:00 AM GINA CARRILLO OBROCIO During your visit today, we recorded the following information about you: Blood pressure Weight Last Period 120/78 75.7 kg 04/03/25 Gina Carrillo MD 05/20/2025 9:29 AM Signed Clerk Specialist offered: Patient declines. 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 As applicable, any other physician, advance practice provider, medical student, or other health professional student that will be observing or involved in the sensitive examination for educational or training purposes was discussed with the Patient or Authorized Rn House Supervisor. The Patient or Authorized Rn House Supervisor has agreed to proceed with the sensitive [...] external genitalia normal, normal Bartholin's glands, urethra, Raven's glands, no vulvar lesions, no cervical lesions, good vaginal support, physiologic discharge present, normal appearing perineal body and perianal region BIMANUAL: uterus normal size, shape and consistency, no adnexal masses, non-tender, and no cervical motion tenderness NEURO: exam grossly non-focal EXTREMITIES: normal ASSESSMENT AND PLAN: Assessment AND Plan Vaginal discharge Orders: BACTERIAL VAGINOSIS NAAT DILCIA/TRICHOMONAS NAAT GO (more content not included)... Normal [facility] UA DIP, URINE (POC)on 2024 BILIRUBIN UA (POCT) Negative Negative [facility] CLARITY UA (POCT) Clear [facility] COLOR UA (POCT) Yellow [facility] GLUCOSE UA (POCT) Negative Negative mg/dL [facility] Hemoglobin Ql (U) Trace-intact Abnormal Negative [facility] Interpretation and review of laboratory results Abnormal [facility] KETONE UA (POCT) Negative Negative mg/dL [facility] LEUKOCYTES UA (POCT) Negative Negative [facility] NITRITE UA (POCT) Negative Negative [facility] PH UA (POCT) 7 4.5 - 8.0 [facility] Protein Ql (U) Negative Negative mg/dL [facility] SPECIFIC GRAVITY UA (POCT) 1.01 1.005 - 1.030 [facility] UROBILINOGEN UA (POCT) 0.2 Normal E.U./d L [facility] Location:[facility], [address], [place], [place], [id number] [place] [address] POINT OF CARE [facility] CNOVon 04-05-2025 CNOV Office Visit (OBGYWM) SURESHGRAYJOSE EDUARDO L ([id number]) 2000 F Date Time Provider Department 04/05/25 11:00 AM YANELI DOWLING During your visit today, we recorded the following information about you: Pulse Blood pressure Weight Last Period 90/minute 118/79 78.5 kg 02/01/25 Yaneli Dowling APRN.ELECTRICIAN MANAGER 04/05/2025 7:57 PM Signed Some documentation from [...] occasionally TZ yogurt or rare vegetables and Indian yogurt with Ranch or cottage cheese or [...] (CLARITIN OR (more content not included)... Normal [facility] CNOVon 12-20-2024 CNOV Office Visit (OBGYWM) JOSE EDAURDO PRINCE ([id number]) 2000 F Date Time Provider Department 12/20/24 [...] for this visit. 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 Normal [facility] CNOVon 09-26-2024 JASENOV Office Visit (OBGYWPrashanth) JOSE EDUARDO PRINCE ([id number]) 2000 F Date Time Provider Department 09/26/24 [...] for this visit. 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 Normal [facility] Comprehensive metabolic 2000 panelOrdered By: Bernie Jackson on 09-26-2024 Albumin [Mass/Vol] 4.7 g/dL 3.9 - 4.9 g/dL [facility] ALP [Catalytic activity/Vol] 57 U/L 34 - 123 U/L [facility] ALT [Catalytic activity/Vol] 12 U/L 7 - 38 U/L [facility] Anion gap [Moles/Vol] 17 mmol/L High 8 - 15 mmol/L [facility] AST [Catalytic activity/Vol] 17 U/L 13 - 35 U/L [facility] Bilirubin [Mass/Vol] 0.2 mg/dL 0.2 - 1 .3 mg/dL [facility] Calcium [Mass/Vol] 10.1 mg/dL 8.5 - 10. 2 mg/dL [facility] Chloride [Moles/Vol] 101 mmol/L 98 - 10 7 mmol/L [facility] CO2 [Moles/Vol] 15 mmol/L Low 22 - 30 mmol/L [facility] Creatinine [Mass/Vol] 0.80 mg/dL 0.58 - 0.96 mg/dL [facility] GFR/1.73 sq M.predicted among non-blacks MDRD (S/P/Bld) [Vol rate/Area] 104 mL/min/{1.73_m2} - PINF [facility] Comment on above: Estimated Glomerular Filtration Rate [...] [Mass/Vol] 81 mg/dL 74 - 99 mg/dL [facility] Comment on above: The [place] Diabete s Association (ADA) provides guidance for [...] Standards of Medical Care in Diabetes 2016, [place] Diabetes Association. Diabetes Care. 2016.39(Suppl 1). Interpretation and review of laboratory results Abnormal [facility] Potassium [Moles/Vol] 4.1 mmol/L 3.7 - 5.1 mmol/L [facility] Protein [Mass/Vol] 8.0 g/dL 6.3 - 8.0 g/dL Cl [facility] Sodium [Moles/Vol] 133 mmol/L Low 136 - 144 mmol/L [facility] Urea nitrogen [Mass/Vol] 16 mg/dL 7 - 21 mg/dL [facility] Comprehensive metabolic 2000 panelon 09-26-2024 Albumin [Mass/Vol] 4.7 g/dL Normal 3.9-4.9 [facility] Comment on above: Order Comment: Speci men Type: BLOOD SPECIMENOrdering Facility: [facility] Address: [address] [place] [address] Performed By: #### 2 4323-8 ####[facility] [id number] [place] [address] [place] ALP [Catalytic activity/Vol] 57 U/L Normal 34-123 [facility] Comment on above: Order Comment: Speci men Type: BLOOD SPECIMENOrdering Facility: [facility] Address: [address] [place] [address] Performed By: #### 2 4323-8 ####[facility] [id number] [place] [address] [place] ALT [Catalytic activity/Vol] 12 U/L Normal 7-38 [facility] Comment on above: Order Comment: Speci men Type: BLOOD SPECIMENOrdering Facility: [facility] Address: [address] [place] [address] Performed By: #### 2 4323-8 ####[facility] MIGDALIA MILLTOWNCLIA [id number] [place] [address] [place] Anion gap [Moles/Vol] 17 mmol/L High 8-15 [facility] Comment on above: Order Comment: Speci men Type: BLOOD SPECIMENOrdering Facility: [facility] Address: [address] [place] [address] Performed By: #### 2 4323-8 ####[facility] MILLWNCLIA [id number] [place] [address] [place] AST [Catalytic activity/Vol] 17 U/L Normal 13-35 [facility] Comment on above: Order Comment: Speci men Type: BLOOD SPECIMENOrdering Facility: [facility] Address: [address] [place] [address] Performed By: #### 2 4323-8 ####[facility]OWNCLIA [id number] [place] [address] [place] Bilirubin [Mass/Vol] 0.2 mg/dL Normal 0.2-1.3 [facility] Comment on above: Order Comment: Speci men Type: BLOOD SPECIMENOrdering Facility: [facility] Address: [address] [place] [address] Performed By: #### 2 4323-8 ####[facility] MIGDALIA MILLTOWNCLIA [id number] [place] [address] [place] Calcium [Mass/Vol] 10.1 mg/dL Normal 8.5-10.2 [facility] Comment on above: Order Comment: Speci men Type: BLOOD SPECIMENOrdering Facility: [facility] Address: [address] [place] [address] Performed By: #### 2 4323-8 ####[facility] TIMWNCLIA [id number] [place] [address] [place] Chloride [Moles/Vol] 101 mmol/L Normal 98-107 [facility] Comment on above: Order Comment: Speci men Type: BLOOD SPECIMENOrdering Facility: [facility] Address: [address] [place] [address] Performed By: #### 2 4323-8 ####[facility] [id number] [place] [address] [place] CO2 [Moles/Vol] 15 mmol/L Low 22-30 [facility] Comment on above: Order Comment: Speci men Type: BLOOD SPECIMENOrdering Facility: [facility] Address: [address] [place] [address] Performed By: #### 2 4323-8 ####[facility]ITAL[facility]IA [id number] [place] [address] [place] Creatinine [Mass/Vol] 0.80 mg/dL Normal 0.58-0.96 [facility] Comment on above: Order Comment: Speci men Type: BLOOD SPECIMENOrdering Facility: [facility] Address: [address] [place] [address] Performed By: #### 2 4323-8 ####[facility]ITAL[facility]CLIA [id number] [place] [address] [facility] [place] Creatinine and Glomerular filtration rate.predicted panel (S/P/Bld) 104 mL/min/1.73m??? Normal >=60 [facility] Comment on above: Order Comment: Speci men Type: BLOOD SPECIMENOrdering Facility: [facility] Address: [address] [place] [address] Result Comment: Elysia mated Glomerular Filtration Rate [...] actual GFR. Performed By: #### 2 4323-8 ####[facility] [id number] [place] [address] [place] Glucose [Mass/Vol] 81 mg/dL Normal 74-99 [facility] Comment on above: Order Comment: Remi tijerina Type: BLOOD SPECIMENOrdering Facility: [facility] Address: [address] [place] [address] Result Comment: The [place] Diabetes Association (ADA) provides guidance for cutoff [...] Standards of Medical Care in Diabetes 2016, [place] [employer]. Diabetes Care. 2016.39(Suppl 1). Performed By: #### 2 4323-8 ####[facility] [id number] [place] [address] [place] Potassium [Moles/Vol] 4.1 mmol/L Normal 3.7-5.1 [facility] Comment on above: Order Comment: Remi tijerina Type: BLOOD SPECIMENOrdering Facility: [facility] Address: [address] [place] [address] Performed By: #### 2 4323-8 ####[facility] [id number] [place] [address] [place] Protein [Mass/Vol] 8.0 g/dL Normal 6.3-8.0 [facility] Comment on above: Order Comment: Speci men Type: BLOOD SPECIMENOrdering Facility: [facility] Address: [address] [place] [address] Performed By: #### 2 4323-8 ####[facility] MILLWNCLIA [id number] [place] [address] [place] Sodium [Moles/Vol] 133 mmol/L Low 136-144 [facility] Comment on above: Order Comment: Speci men Type: BLOOD SPECIMENOrdering Facility: [facility] Address: [address] [place] [address] Performed By: #### 2 4323-8 ####[facility] [id number] [place] [address] [place] Urea nitrogen [Mass/Vol] 16 mg/dL Normal 7-21 [facility] Comment on above: Order Comment: Speci men Type: BLOOD SPECIMENOrdering Facility: [facility] Address: [address] [place] [address] Performed By: #### 2 4323-8 ####[facility] [id number] [place] [address] [place] THYROID STIMULATING HORMONEo n 09-26-2024 TSH Qn 1.740 m[IU]/L [facility] Comment on above: If the patient is [...] E, et al. 2017 Guidelines of the [place] [employer] for the Diagnosis and Management of Thyroid Disease during and the . Thyroid, 2017:27:3:315-389. TSH Qnon 09-26-2024 Interpretation and review of laboratory results Normal [facility] TSH SerPl-aCncon 09-26-2024 TSH Qn 1.740 m[IU]/L Normal 0.270-4.200 [facility] Comment on above: Order Comment: Speci men Type: BLOOD SPECIMENOrdering Facility: [facility] Address: [address] [place] [address] Result Comment: If t he patient is [...] Reyes et al. 2017 Guidelines of the [place] [employer] for the Diagnosis and Management of Thyroid Disease during and the . Thyroid, 2017:27:3:315-389. Performed By: #### 3 016-3 ####[facility] [id number] [place] [address] [place] Bilirubin Test strip Ql (U)O rdered By: Stefanie Vidal on 12-09-2023 Bilirubin Ql (U) Negative Negative [facility] Ketones Test strip Ql (U)Ord ered By: Stefanie Vidal on 12-09-2023 Ketones Ql (U) Negative Negative [facility] Nitrite Test strip Ql (U)Ord ered By: Stefanie Vidal on 12-09-2023 Nitrite Ql (U) Negative Negative [facility] Protein Test strip Ql (U)Ord ered By: Stefanie Vidal on 12-09-2023 Protein Ql (U) Negative Negative [facility] Thin prep Papanicolaou smear with manual screeningOrdered By: Stefanie Vidal on 12-09-2023 Protein (U) [Mass/Vol] 15.8 mg/dL 0.0-11.8 [facility] Urine blood detectionOrdered By: Stefanie Vidal on 12-09-2023 RBC Ql (U) Negative Negative [facility] Urine clarityOrdered By: Werner Vidal on 12-09-2023 Clarity (U) Sl. Cloudy Clear [facility] Urine color determinationOrd ered By: Stefanie Vidal on 12-09-2023 Color (U) Yellow Yellow [facility] Urine creatinine measurement (mass/volume)Ordered By: Stefanie Vidal on 12-09-2023 Creatinine (U) [Mass/Vol] 137.00 mg/dL NO RANGE EST. [facility] Urine glucose detectionOrder ed By: Stefanie Vidal on 12-09-2023 Glucose Ql (U) Normal mg/dl Normal [facility] Urine leukocyte esterase det ection by dipstickOrdered By: Stefanie Vidal on 12-09-2023 Leukocyte esterase Test strip Ql (U) 25 /ul Negative [facility] Urine pHOrdered By: Stefanie beck on 12-09-2023 pH (U) 6.0 [pH] 5.0 - 8.0 [facility] Urine protein/creatinine mas s ratioOrdered By: Stefanie Vidal on 12-09-2023 Protein/Creatinine (U) [Mass ratio] 115 mg/g CRE 0-200 [facility] Urine specific gravity measu rementOrdered By: Stefanie Vidal on 12-09-2023 Specific gravity (U) [Rel density] 1.020 1.002-1.030 [facility] Urine urobilinogen measureme ntOrdered By: Stefanie Vidal on 12-09-2023 Urobilinogen Ql (U) Normal mg/dl Normal [facility] Absolute lymphocyte countOrd ered By: Stefanie Vidal on 12-06-2023 Lymphocytes Auto (Unsp spec) [#/Vol] 2.87 10*3/uL 0.83-4.51 [facility] Activated partial thrombopla stin time (aPTT) in platelet poor plasma by coagulation aOrdered By: Stefanie Viadl on 12-06-2023 aPTT Coag (PPP) [Time] 28.4 s 24.1-36.2 [facility] Automated lymphocyte count a s percentage of total leukocytesOrdered By: Stefanie Vidal on 12-06-2023 Lymphocytes/100 WBC Auto (Unsp spec) 27.3 % 19-41 [facility] Basophil percentageOrdered B y: Stefanie Vidal on 12-06-2023 Basophils/100 WBC (Bld) 0.3 % 0-1 [facility] Bilirubin [Mass/Vol] 0.30 mg/dL 0.20-1.00 [facility] Comment on above: For patients on eltr ombopag therapy, use of Dimension [place] TBIL is not recommended. Chloride [Moles/Vol] 109 mmol/L 98-107 [facility] Eosinophils/100 WBC (Bld) 1.2 % 0-5 [facility] Glucose [Mass/Vol] 90 mg/dL 74-106 [facility] Hemoglobin (Bld) [Mass/Vol] 12.9 g/dL 12.0-15.0 [facility] Monocytes/100 WBC (Bld) 5.7 % 0-10 [facility] Neutrophils (Bld) [#/Vol] 6.9 10*3/uL 2.0-7.7 [facility] Neutrophils/100 WBC (Bld) 65.2 % 47-70 [facility] Potassium [Moles/Vol] 3.8 mmol/L 3.5-5.1 [facility] Protein [Mass/Vol] 8.1 g/dL 6.4-8.2 [facility] Sodium [Moles/Vol] 136 mmol/L 136-145 [facility] WBC (Bld) [#/Vol] 10.5 10*3/uL 4.4-11.0 [facility] Determination of erythrocyte mean corpuscular volume (MCV)Ordered By: Stefanie Vidal on 12-06-2023 MCV (RBC) [Entitic vol] 89.0 fL 81-99 [facility] Dilute John's viper venom timeOrdered By: Stefanie Vidal on 12-06-2023 dRVVT Coag (PPP) [Time] 34.3 s 0.0-47.0 [facility] Erythrocyte distribution wid th ratioOrdered By: Stefanie Vidal on 12-06-2023 Erythrocyte distribution width (RBC) [Ratio] 13.0 % 11.6-14.6 [facility] Erythrocyte distribution wid th standard deviationOrdered By: Stefanie Vidal on 12-06-2023 Erythrocyte distribution width (RBC) [Entitic vol] 42.3 fL 35.1-43.9 [facility] Erythrocyte sedimentation ra teOrdered By: Stefanie Vidal on 12-06-2023 ESR (Bld) [Velocity] 27 mm/h 0-30 [facility] Hematocrit Auto (Bld) [Volum e fraction]Ordered By: Stefanie Vidal on 12-06-2023 Hematocrit (Bld) [Volume fraction] 39.6 % 37-47 [facility] Immature granulocytes/100 WB C Auto (Bld)Ordered By: Stefanie Vidal on 12-06-2023 Immature granulocytes/100 WBC (Bld) 0.300 % 0.0-0.9 [facility] Comment on above: IG% - Immature Granu locytes (promyelocytes, myelocytes and metamyelocytes) > 1% indicates that a LEFT SHIFT is Present. International normalized rat io (INR) calculationOrdered By: Stefanie Vidal on 12-06-2023 INR Coag (PPP) [Relative time] 0.9 {INR} [facility] Laboratory - Chemistry and C hemistry - challengeOrdered By: Stefaniegregory Vidal 12-06-2023 Albumin/Globulin [Mass ratio] 0.9 {ratio} 0.9-2.4 [facility] ALP [Catalytic activity/Vol] 60 U/L 45-117 [facility] ALT [Catalytic activity/Vol] 22 U/L 13-56 [facility] CO2 [Moles/Vol] 20.0 mmol/L 21.0-32.0 [facility] Globulin (S) [Mass/Vol] 4.2 g/dL 2.2-4.2 [facility] Urea nitrogen/Creatinine [Mass ratio] 17.4 mg/mg 10-20 [facility] Laboratory - CoagulationOrde red By: Stefanie Vidal on 12-06-2023 PT Coag (PPP) [Time] 12.4 s 11.7-14.9 [facility] Laboratory - Hematology and Cell countsOrdered By: Stefanie Vidal on 12-06-2023 MCH (RBC) [Entitic mass] 29.0 pg 27.0-32.0 [facility] MCHC (RBC) [Mass/Vol] 32.6 g/dL 32-36 [facility] Nucleated RBC/100 WBC (Bld) [Ratio] 0 % 0-5 [facility] Platelets (Bld) [#/Vol] 299 10*3/uL 150-450 [facility] Laboratory - Miscellaneous t estsOrdered By: Stefanie Vidal on 12-06-2023 Service comment (Unsp spec) [Interp] Comment . [facility] Comment on above: Results do not indic ate the presence of a LupusAnticoagulant: abnormal high screening results (PTT-LA,dRVVT, mixing studies), may be due to medication (heparin,warfarin, aspirin), Factor inhibitors, anticardiolipinantibodies, or poor specimen integrity.Performed at: [address] [facility] [id number] Director: Alden Morales MD, Phone: [phone] No Panel InformationOrdered By: Stefanie Vidal on 12-06-2023 C-Reactive Protein Extended Range 10.20 mg/L 0.0-3.0 [facility] Comment on above: C-Reactive Protein ( CRP) provides useful information for thediagnosis, therapy and monitoring of inflammatory processesand associated diseases. For the evaluation of Relative Riskfor Cardiovascular Disease, a High Sensitivity CRP (HSCRP)should be ordered. Estimated GFR (MDRD) Amer 111 mL/min >60 [facility] Comment on above: GFR Calc Estimated GFR (MDRD) Non-Af Amer 92 mL/min >60 [facility] Comment on above: Non- GFR Calc Hepatitis B Surface Antigen Non-Reactive Nonreactive [facility] Hepatitis C Antibody Non-Reactive Nonreactive [facility] Comment on above: Non Reactive: < 0.8 Equivocal: >/= 0.8 to < 1.0 Reactive: >/= 1.0The CDC recommends that a reactive/equivocal HCV antibody result be followed up by the HCV Nucleic Acid Amplificationtest ([id number]) Miscellaneous Test Comment MAILED SPECIMEN [facility] Platelet mean volume Ulises-Ec ker (Bld) [Entitic vol]Ordered By: Stefanie Vidal on 12-06-2023 Platelet mean volume (Bld) [Entitic vol] 10.7 fL 6.2-12.0 [facility] RBC Auto (Bld) [#/Vol]Ordere d By: Stefanie Vidal on 12-06-2023 RBC (Bld) [#/Vol] 4.45 10*6/uL 4.2-5.4 [facility] Serum hepatitis B virus surf jamie antibody IgG detectionOrdered By: Stefanie Vidal on 12-06-2023 HBV surface IgG Ql (S) Reactive [facility] Comment on above: Non Reactive: Incons istent with immunity less than <10 mIU/mL Reactive: Consistent with immunity greater than or equal to 10 mIU/mL Serum or plasma calcium iveth urement (mass/volume)Ordered By: Stefanie Vidal on 12-06-2023 Calcium [Mass/Vol] 10.0 mg/dL 8.5-10.1 [facility] Serum or plasma creatinine m easurement (mass/volume)Ordered By: Stefanie Vidal on 12-06-2023 Creatinine [Mass/Vol] 0.80 mg/dL 0.55-1.02 [facility] Comment on above: The validity of the calculated GFR & GFRAA in patients over 70 years has not been determined. Clinical correlation is essential. Serum or plasma urea nitroge n measurement (mass/volume)Ordered By: Stefanie Vidal on 12-06-2023 Urea nitrogen [Mass/Vol] 14 mg/dL 7-18 [facility] Thin prep Papanicolaou smear with manual screeningOrdered By: Stefanie Vidal on 12-06-2023 Thin prep Papanicolaou smear with manual screening 3.9 g/dL 3.2-5.0 [facility] Thin prep Papanicolaou smear with manual screening 13 U/L 15-37 [facility] Thin prep Papanicolaou smear with manual screening 7 5-15 [facility] Thin prep Papanicolaou smear with manual screening 40.3 sec 0.0-47.6 [facility] Thin prep Papanicolaou smear with manual screening 1.79 Ratio 0.00-1.34 [facility] Thin prep Papanicolaou smear with manual screening 33.5 sec 0.0-43.5 [facility] Thin prep Papanicolaou smear with manual screening Comment: . [facility] Comment on above: The dPT [...] time Coag (PPP) [Time] 23.7 sec 0.0-23.0 [facility] Erythrocyte sedimentation ra teOrdered By: Yanelis Ambrose on 09-21-2023 ESR (Bld) [Velocity] 25 mm/h 030 [facility] No Panel InformationOrdered By: Yanelis Ambrose on 09-21-2023 Anti-Nuclear Antibody Screen Positive Negative [facility] Comment on above: Performed at: [address] [id number] Director: Cornel Arias PhD, Phone: [phone] CSF Lyme Disease IgM Antibody Not Reportable [facility] Lyme Disease IgG Antibody Not Reportable [facility] Serum rheumatoid factor dete ctionOrdered By: Yanelis Ambrose on 09-21-2023 Rheumatoid factor Ql (S) < 10.0 IU/mL <15 [facility] Thin prep Papanicolaou smear with manual screeningOrdered By: Yanelis Ambrose on 09-21-2023 Thin prep Papanicolaou smear with manual screening Negative Negative [facility] Comment on above: Lyme antibodies not detected. Reflex testing is notindicated.No laboratory evidence of infection with B. burgdorferi(Lyme disease). Negative results may occur in patientsrecently infected (less than or equal to 14 days) with B.burgdorferi. If recent infection is suspected, repeattesting on a new sample collected in 7 to 14 days isrecommended.Performed at: - [facility] [id number] Director: Cornel Arias PhD, Phone: [phone] Absolute lymphocyte countOrd ered By: HEALTH ASSESSMENT on 07-07-2023 Lymphocytes Auto (Unsp spec) [#/Vol] 2.49 10*3/uL 0.83-4.51 [facility] Absolute reticulocyte countO rdered By: HEALTH ASSESSMENT on 07-07-2023 Reticulocytes (Bld) [#/Vol] 0.00 10*3/uL 0-5 [facility] Basophil percentageOrdered B y: Yaneli Dowling on 07-07-2023 Bilirubin [Mass/Vol] 0.30 mg/dL 0.20-1.00 [facility] Comment on above: For patients on eltr ombopag therapy, use of Dimension [place] TBIL is not recommended. Chloride [Moles/Vol] 110 mmol/L 98-107 [facility] Cholesterol [Mass/Vol] 174 mg/dL <200 [facility] Comment on above: <200 mg/dL Desirable 200-240 mg/dL Borderline >240 mg/dL High Risk Glucose [Mass/Vol] 90 mg/dL 74-106 [facility] Potassium [Moles/Vol] 3.6 mmol/L 3.5-5.1 [facility] Protein [Mass/Vol] 7.8 g/dL 6.4-8.2 [facility] Sodium [Moles/Vol] 136 mmol/L 136-145 [facility] Triglyceride [Mass/Vol] 116 mg/dL <199 [facility] Comment on above: The drugs N-Acetylcy steine and Metamizole may falsely depress this assay.Serum Triglycerides Reference Interval Normal <150 mg/dL Borderline high 150 - 199 mg/dL High 200 - 499 mg/dL Very High > or = 500 mg/dL WBC (Bld) [#/Vol] 7.9 10*3/uL 4.4-11.0 [facility] Basophil percentageOrdered B y: HEALTH ASSESSMENT on 07-07-2023 Basophil percentage 2.5 mg/dL 2.5-4.9 [facility] Bilirubin [Mass/Vol] 0.40 mg/dL 0.20-1.00 [facility] Comment on above: For patients on eltr ombopag therapy, use of Dimension [place] TBIL is not recommended. Chloride [Moles/Vol] 110 mmol/L 98-107 [facility] Cholesterol [Mass/Vol] 180 mg/dL <200 [facility] Comment on above: <200 mg/dL Desirable 200-240 mg/dL Borderline >240 mg/dL High Risk Glucose [Mass/Vol] 89 mg/dL 74-106 [facility] LDH [Catalytic activity/Vol] 127 U/L 84-246 [facility] Neutrophils (Bld) [#/Vol] 4.7 10*3/uL 2.0-7.7 [facility] Potassium [Moles/Vol] 3.5 mmol/L 3.5-5.1 [facility] Protein [Mass/Vol] 7.6 g/dL 6.4-8.2 [facility] Sodium [Moles/Vol] 136 mmol/L 136-145 [facility] Triglyceride [Mass/Vol] 124 mg/dL <199 [facility] Comment on above: The drugs N-Acetylcy steine and Metamizole may falsely depress this assay.Serum Triglycerides Reference Interval Normal <150 mg/dL Borderline high 150 - 199 mg/dL High 200 - 499 mg/dL Very High > or = 500 mg/dL WBC (Bld) [#/Vol] 7.8 10*3/uL 4.4-11.0 [facility] Blood erythrocytes count (nu mber/volume)Ordered By: Yaneli Dowling on 07-07-2023 RBC (Bld) [#/Vol] 4.17 10*6/uL 4.2-5.4 [facility] Blood erythrocytes count (nu mber/volume)Ordered By: HEALTH ASSESSMENT on 07-07-2023 RBC (Bld) [#/Vol] 4.14 10*6/uL 4.2-5.4 [facility] Blood hemoglobin measurement (mass/volume)Ordered By: Yaneli Dowling on 07-07-2023 Hemoglobin (Bld) [Mass/Vol] 12.5 g/dL 12.0-15.0 [facility] Blood hemoglobin measurement (mass/volume)Ordered By: HEALTH ASSESSMENT on 07-07-2023 Hemoglobin (Bld) [Mass/Vol] 12.4 g/dL 12.0-15.0 [facility] Blood leukocytes count corre cted for nucleated erythrocytes (number/volume)Ordered By: HEALTH ASSESSMENT on 07-07-2023 WBC corrected for nucl RBC (Bld) [#/Vol] PULMONARY FUNCTION TECHNOLOGIST [facility] Blood platelet mean volumeOr dered By: Yaneli Dowling on 07-07-2023 Platelet mean volume (Bld) [Entitic vol] 10.5 fL 6.2-12.0 [facility] Blood platelet mean volumeOr dered By: HEALTH ASSESSMENT on 07-07-2023 Platelet mean volume (Bld) [Entitic vol] 10.3 fL 6.2-12.0 [facility] Determination of erythrocyte mean corpuscular volume (MCV)Ordered By: Yaneli Dowling on 07-07-2023 MCV (RBC) [Entitic vol] 92.6 fL 81-99 [facility] Determination of erythrocyte mean corpuscular volume (MCV)Ordered By: HEALTH ASSESSMENT on 07-07-2023 MCV (RBC) [Entitic vol] 90.8 fL 81-99 [facility] Direct bilirubinOrdered By: HEALTH ASSESSMENT on 07-07-2023 Bilirubin.direct [Mass/Vol] 0.08 mg/dL 0.00-0.30 [facility] Hematocrit Auto (Bld) [Volum e fraction]Ordered By: Yaneli Dowling on 07-07-2023 Hematocrit (Bld) [Volume fraction] 38.6 % 37-47 [facility] Hematocrit Auto (Bld) [Volum e fraction]Ordered By: HEALTH ASSESSMENT on 07-07-2023 Hematocrit (Bld) [Volume fraction] 37.6 % 37-47 [facility] Laboratory - Chemistry and C hemistry - challengeOrdered By: Yaneli Dowling on 07-07-2023 ALP [Catalytic activity/Vol] 61 U/L 45-117 [facility] ALT [Catalytic activity/Vol] 24 U/L 13-56 [facility] CO2 [Moles/Vol] 17.0 mmol/L 21.0-32.0 [facility] Globulin (S) [Mass/Vol] 3.9 g/dL 2.2-4.2 [facility] Urea nitrogen/Creatinine [Mass ratio] 15.9 mg/mg 08-26 [facility] Laboratory - Chemistry and C hemistry - challengeOrdered By: HEALTH ASSESSMENT on 07-07-2023 ALP [Catalytic activity/Vol] 62 U/L 45-117 [facility] ALT [Catalytic activity/Vol] 23 U/L 13-56 [facility] Cholesterol.total/Karina sterol in HDL [Mass ratio] 3.20 {ratio} [facility] CO2 [Moles/Vol] 17.0 mmol/L 21.0-32.0 [facility] Globulin (S) [Mass/Vol] 3.8 g/dL 2.2-4.2 [facility] Urea nitrogen/Creatinine [Mass ratio] 15.1 mg/mg 08-26 [facility] Laboratory - Hematology and Cell countsOrdered By: Yaneli Dowling on 07-07-2023 Erythrocyte distribution width (RBC) [Entitic vol] 43.1 fL 35.1-43.9 [facility] Erythrocyte distribution width (RBC) [Ratio] 12.7 % 11.6-14.6 [facility] MCH (RBC) [Entitic mass] 30.0 pg 27.0-32.0 [facility] Laboratory - Hematology and Cell countsOrdered By: HEALTH ASSESSMENT on 07-07-2023 Erythrocyte distribution width (RBC) [Entitic vol] 42.3 fL 35.1-43.9 [facility] Erythrocyte distribution width (RBC) [Ratio] 12.8 % 11.6-14.6 [facility] MCH (RBC) [Entitic mass] 30.0 pg 27.0-32.0 [facility] Nucleated RBC/100 WBC (Bld) [Ratio] 0 % 0-5 [facility] MCHC Auto (RBC) [Mass/Vol]Or dered By: Yaneli Dowling on 07-07-2023 MCHC (RBC) [Mass/Vol] 32.4 g/dL [facility] MCHC Auto (RBC) [Mass/Vol]Or dered By: HEALTH ASSESSMENT on 07-07-2023 MCHC (RBC) [Mass/Vol] 33.0 g/dL - [facility] No Panel InformationOrdered By: Yaneli Dowling on 07-07-2023 Estimated GFR (MDRD) Amer 109 mL/min >60 [facility] Comment on above: GFR Calc Estimated GFR (MDRD) Non-Af Amer 90 mL/min >60 [facility] Comment on above: Non- GFR Calc Insulin Level 23.7 mU/L 2.6-37.6 [facility] Thyroid Stimulating Hormone (TSH) 1.99 uIU/mL 0.358-3.74 [facility] Vitamin D 25-Hydroxy 52.2 ng/mL [facility] Comment on above: Vitamin D 25(OH) Sta tus Range Deficiency <20 ng/mL (50nmol/L) Insufficiency 20 - 30 ng/mL (50 - 75 nmol/L) Sufficiency 30 - 100 ng/mL (75 - 250 nmol/L) Toxicity >100 ng/mL (>250 nmol/L) No Panel InformationOrdered By: HEALTH ASSESSMENT on 07-07-2023 Estimated Creatinine Clearance Calc PULMONARY FUNCTION TECHNOLOGIST [facility] Estimated GFR (MDRD) Amer 103 mL/min >60 [facility] Comment on above: GFR Calc Estimated GFR (MDRD) Non-Af Amer 85 mL/min >60 [facility] Comment on above: Non- GFR Calc Immature Granulocyte % (Auto) PULMONARY FUNCTION TECHNOLOGIST [facility] Platelets bldOrdered By: Yaneli Dowling on 07-07-2023 Platelets (Bld) [#/Vol] 297 10*3/uL 150-450 [facility] Platelets bldOrdered By: XIAO [facility] ASSESSMENT on 07-07-2023 Platelets (Bld) [#/Vol] 289 10*3/uL 150-450 [facility] Review by pathologistOrdered By: HEALTH ASSESSMENT on 07-07-2023 Pathologist review Jaquan (Unsp spec) [Interp] PULMONARY FUNCTION TECHNOLOGIST [facility] Segmented neutrophils/100 WB C Auto (Bld)Ordered By: HEALTH ASSESSMENT on 07-07-2023 Segmented neutrophils/100 WBC (Bld) 60.4 % 47-70 [facility] Serum or plasma albumin iveth urement (mass/volume)Ordered By: Yaneli Dowling on 07-07-2023 Albumin [Mass/Vol] 3.9 g/dL 3.2-5.0 [facility] Serum or plasma albumin iveth urement (mass/volume)Ordered By: HEALTH ASSESSMENT on 07-07-2023 Albumin [Mass/Vol] 3.8 g/dL 3.2-5.0 [facility] Serum or plasma albumin/glob ulin mass ratioOrdered By: Yaneli Dowling on 07-07-2023 Albumin/Globulin [Mass ratio] 1.0 {ratio} 0.9-2.4 [facility] Serum or plasma albumin/glob ulin mass ratioOrdered By: HEALTH ASSESSMENT on 07-07-2023 Albumin/Globulin [Mass ratio] 1.0 {ratio} 0.9-2.4 [facility] Serum or plasma calcium iveth urement (mass/volume)Ordered By: Yaneli Dowling on 07-07-2023 Calcium [Mass/Vol] 9.0 mg/dL 8.5-10.1 [facility] Serum or plasma calcium iveth urement (mass/volume)Ordered By: HEALTH ASSESSMENT on 07-07-2023 Calcium [Mass/Vol] 9.0 mg/dL 8.5-10.1 [facility] Serum or plasma cholesterol in HDL measurement (mass/volume)Ordered By: Yaneli Dowling on 07-07-2023 Cholesterol in HDL [Mass/Vol] 55 mg/dL >40 [facility] Comment on above: The drugs N-Acetylcy steine and Metamizole may falsely depress this assay. Reference Range HDL <40 mg/dL Low HDL Cholesterol HDL >or= 60 mg/dL High HDL Cholesterol Serum or plasma cholesterol in HDL measurement (mass/volume)Ordered By: HEALTH ASSESSMENT on 07-07-2023 Cholesterol in HDL [Mass/Vol] 56 mg/dL >40 [facility] Comment on above: The drugs N-Acetylcy steine and Metamizole may falsely depress this assay. Reference Range HDL <40 mg/dL Low HDL Cholesterol HDL >or= 60 mg/dL High HDL Cholesterol Serum or plasma cholesterol in VLDL measurement (mass/volume)Ordered By: Yaneli Dowling on 07-07-2023 Cholesterol in VLDL [Mass/Vol] 23 mg/dL 5-40 [facility] Serum or plasma cholesterol in VLDL measurement (mass/volume)Ordered By: HEALTH ASSESSMENT on 07-07-2023 Cholesterol in VLDL [Mass/Vol] 25 mg/dL 5-40 [facility] Serum or plasma creatinine m easurement (mass/volume)Ordered By: Yaneli Dowling on 07-07-2023 Creatinine [Mass/Vol] 0.82 mg/dL 0.55-1.02 [facility] Comment on above: The validity of the calculated GFR & GFRAA in patients over 70 years has not been determined. Clinical correlation is essential. Serum or plasma creatinine m easurement (mass/volume)Ordered By: HEALTH ASSESSMENT on 07-07-2023 Creatinine [Mass/Vol] 0.86 mg/dL 0.55-1.02 [facility] Comment on above: The validity of the calculated GFR & GFRAA in patients over 70 years has not been determined. Clinical correlation is essential. Serum or plasma low density lipoprotein (LDL) cholesterol measurement (mass/volume)Ordered By: Yaneli Dowling on 07-07-2023 Cholesterol in LDL [Mass/Vol] 96 mg/dL 0-130 [facility] Serum or plasma low density lipoprotein (LDL) cholesterol measurement (mass/volume)Ordered By: HEALTH ASSESSMENT on 07-07-2023 Cholesterol in LDL [Mass/Vol] 99 mg/dL 0-130 [facility] Serum or plasma urea nitroge n measurement (mass/volume)Ordered By: Yaneli Dowling on 07-07-2023 Urea nitrogen [Mass/Vol] 13 mg/dL 7-18 [facility] Serum or plasma urea nitroge n measurement (mass/volume)Ordered By: [facility] ASSESSMENT on 07-07-2023 Urea nitrogen [Mass/Vol] 13 mg/dL 7-18 [facility] Serum or plasma uric acid me asurement (mass/volume)Ordered By: [facility] ASSESSMENT on 07-07-2023 Urate [Mass/Vol] 4.1 mg/dL 2.6-6.0 [facility] Comment on above: The drugs N-Acetylcy steine and Metamizole may falsely depress this assay. Thin prep Papanicolaou smear with manual screeningOrdered By: Yaneli Dowling on 07-07-2023 Thin prep Papanicolaou smear with manual screening 18 U/L 15-37 [facility] Thin prep Papanicolaou smear with manual screening 9 5-15 [facility] Thin prep Papanicolaou smear with manual screeningOrdered By: HEALTH ASSESSMENT on 07-07-2023 Thin prep Papanicolaou smear with manual screening 20 U/L 15-37 [facility] Thin prep Papanicolaou smear with manual screening 9 5-15 [facility] Whole blood hemoglobin A1c/t otal hemoglobin ratio (mass fraction)Ordered By: Yaneli Dowling on 07-07-2023 HbA1c (Bld) [Mass fraction] 4.9 % 3.8-5.6 [facility] Comment on above: Normal < 5.7 % Predi abetic 5.7 - 6.4 % Diabetic >or= 6.5 % Please note range changes. Office Visit: UC: sinusitis, earacheon 08-06-2017 Documentation of current medications (procedure) Done Invalid Interpretation Code [facility] Work Phone: Fall risk assessment No Invalid Interpretation Code [facility] Work Phone: Protein mass conc Done Invalid Interpretation Code [facility] Work Phone: Tobacco smoking status NHIS Never smoker Invalid Interpretation Code [facility] Work Phone: Tobacco use CPHS Never smoker Invalid Interpretation Code [facility] Work Phone: Vital Signs Date Time Vital Sign Value Performing Clinician Cyndie benoit 06-21-2025 09:18-0400 Body mass index (BMI) [Ratio] 28.35 kg/m2 Yaneli Dowling APRN.ELECTRICIAN MANAGER Work Phone: [facility] 06-21-2025 09:18-0400 Body weight 74.39 kg Yaneli Dowling APRN.ELECTRICIAN MANAGER Work Phone: [facility] 06-21-2025 09:18-0400 Diastolic blood pressure 78 mm[Hg] Yaneli Dowling APRN.ELECTRICIAN MANAGER Work Phone: [facility] 06-21-2025 09:18-0400 Heart rate 94 /min Yaneli Dowling APRN.ELECTRICIAN MANAGER Work Phone: [facility] 06-21-2025 09:18-0400 SaO2% (BldA) [Mass fraction] 100 % Yaneli Dowling APRN.ELECTRICIAN MANAGER Work Phone: [facility] 06-21-2025 09:18-0400 Systolic blood pressure 115 mm[Hg] Yaneli Adamshrie ROBOTIC TECHNICIAN.ELECTRICIAN MANAGER Work Phone: [facility] 06-06-2025 13:00-0400 Body height 162 cm Yaneli Dowling APRN.ELECTRICIAN MANAGER Work Phone: [facility] 06-06-2025 13:00-0400 Body mass index (BMI) [Ratio] 29.04 kg/m2 Yaneli Dowling ROBOTIC TECHNICIAN.ELECTRICIAN MANAGER Work Phone: [facility] 06-06-2025 13:00-0400 Body weight 76.2 kg Yaneli Dowling ROBOTIC TECHNICIAN.ELECTRICIAN MANAGER Work Phone: [facility] 06-06-2025 13:00-0400 Diastolic blood pressure 84 mm[Hg] Yaneli Adamshrie ROBOTIC TECHNICIAN.ELECTRICIAN MANAGER Work Phone: [facility] 06-06-2025 13:00-0400 Systolic blood pressure 126 mm[Hg] Yaneli Dowling ROBOTIC TECHNICIAN.ELECTRICIAN MANAGER Work Phone: [facility] 05-20-2025 09:06-0400 Body mass index (BMI) [Ratio] 28.48 kg/m2 Gina Carrillo MD Work Phone: [facility] 05-20-2025 09:06-0400 Body weight 75.66 kg Gina Carrillo MD Work Phone: [facility] 05-20-2025 09:06-0400 Diastolic blood pressure 78 mm[Hg] Gina Carrillo MD Work Phone: [facility] 05-20-2025 09:06-0400 Systolic blood pressure 120 mm[Hg] Gina Carrillo MD Work Phone: [facility] 04-05-2025 10:54-0400 Body mass index (BMI) [Ratio] 29.54 kg/m2 Yaneli Adamshrie ROBOTIC TECHNICIAN.ELECTRICIAN MANAGER Work Phone: [facility] 04-05-2025 10:54-0400 Body weight 78.47 kg Yaneli Dowling ROBOTIC TECHNICIAN.ELECTRICIAN MANAGER Work Phone: [facility] 04-05-2025 10:54-0400 Diastolic blood pressure 79 mm[Hg] Yaneli Dowling APRN.ELECTRICIAN MANAGER Work Phone: [facility] 04-05-2025 10:54-0400 Heart rate 90 /min Yaneli Dowling APRN.ELECTRICIAN MANAGER Work Phone: [facility] 04-05-2025 10:54-0400 SaO2% (BldA) [Mass fraction] 99 % Yaneli Dowling APRN.ELECTRICIAN MANAGER Work Phone: [facility] 04-05-2025 10:54-0400 Systolic blood pressure 118 mm[Hg] Yaneli Dowling APRN.ELECTRICIAN MANAGER Work Phone: [facility] 12-20-2024 09:56-0500 Body mass index (BMI) [Ratio] 29.19 kg/m2 Yaneli Dowling APRN.ELECTRICIAN MANAGER Work Phone: [facility] 12-20-2024 09:56-0500 Body weight 77.56 kg Yaneli Dowling APRN.ELECTRICIAN MANAGER Work Phone: [facility] 12-20-2024 09:56-0500 Diastolic blood pressure 84 mm[Hg] Yaneli Dowling APRN.ELECTRICIAN MANAGER Work Phone: [facility] 12-20-2024 09:56-0500 Heart rate 100 /min Yaneli Dowling APRN.ELECTRICIAN MANAGER Work Phone: [facility] 12-20-2024 09:56-0500 SaO2% (BldA) [Mass fraction] 100 % Yaneli Dowling APRN.ELECTRICIAN MANAGER Work Phone: [facility] 12-20-2024 09:56-0500 Systolic blood pressure 124 mm[Hg] Yaneli Dowling APRN.ELECTRICIAN MANAGER Work Phone: [facility] 09-26-2024 09:33-0500 Body mass index (BMI) [Ratio] 29.54 kg/m2 Yaneli Dowling APRN.ELECTRICIAN MANAGER Work Phone: [facility] 09-26-2024 09:33-0500 Body weight 78.47 kg Yaneli Dowling APRN.ELECTRICIAN MANAGER Work Phone: [facility] 09-26-2024 09:33-0500 Diastolic blood pressure 64 mm[Hg] Yaneli Dowling APRN.ELECTRICIAN MANAGER Work Phone: [facility] 09-26-2024 09:33-0500 Heart rate 108 /min Yaneli Dowling APRN.ELECTRICIAN MANAGER Work Phone: [facility] 09-26-2024 09:33-0500 SaO2% (BldA) [Mass fraction] 98 % Yaneli Dowling APRN.ELECTRICIAN MANAGER Work Phone: [facility] 09-26-2024 09:33-0500 Systolic blood pressure 122 mm[Hg] Yaneli Dowling APRN.ELECTRICIAN MANAGER Work Phone: [facility] 06-13-2024 09:32-0400 Body mass index (BMI) [Ratio] 28.85 kg/m2 Yaneli Dowling APRN.ELECTRICIAN MANAGER Work Phone: [facility] 06-13-2024 09:32-0400 Body weight 76.66 kg Yaneli Dowling APRN.ELECTRICIAN MANAGER Work Phone: [facility] 06-13-2024 09:32-0400 Diastolic blood pressure 70 mm[Hg] Yaneli Dowling APRN.ELECTRICIAN MANAGER Work Phone: [facility] 06-13-2024 09:32-0400 Heart rate 93 /min Yaneli Dowling APRN.ELECTRICIAN MANAGER Work Phone: [facility] 06-13-2024 09:32-0400 SaO2% (BldA) [Mass fraction] 99 % Yaneli Dowling APRN.ELECTRICIAN MANAGER Work Phone: [facility] 06-13-2024 09:32-0400 Systolic blood pressure 120 mm[Hg] Yaneli Dowling APRN.ELECTRICIAN MANAGER Work Phone: [facility] 06-05-2024 14:03-0400 Body height 163 cm Yaneli Dowling APRN.ELECTRICIAN MANAGER Work Phone: [facility] 06-05-2024 14:03-0400 Body mass index (BMI) [Ratio] 29.88 kg/m2 Yaneli Dowling APRN.ELECTRICIAN MANAGER Work Phone: [facility] 06-05-2024 14:03-0400 Body weight 79.38 kg Yaneli Dowling APRN.ELECTRICIAN MANAGER Work Phone: [facility] 06-05-2024 14:03-0400 Diastolic blood pressure 74 mm[Hg] Yaneli Dowling APRN.ELECTRICIAN MANAGER Work Phone: [facility] 06-05-2024 14:03-0400 Systolic blood pressure 112 mm[Hg] Yaneli Dowling APRN.ELECTRICIAN MANAGER Work Phone: [facility] 03-14-2024 09:09-0400 Body mass index (BMI) [Ratio] 28.62 kg/m2 Yaneli Dowling APRN.ELECTRICIAN MANAGER Work Phone: [facility] 03-14-2024 09:09-0400 Body weight 78.02 kg Yaneli Dowling APRN.ELECTRICIAN MANAGER Work Phone: [facility] 03-14-2024 09:09-0400 Diastolic blood pressure 70 mm[Hg] Yaenli Dowling APRN.ELECTRICIAN MANAGER Work Phone: [facility] 03-14-2024 09:09-0400 Heart rate 100 /min Yaneli Dowling APRN.ELECTRICIAN MANAGER Work Phone: [facility] 03-14-2024 09:09-0400 Systolic blood pressure 110 mm[Hg] Yaneli Dowling APRN.ELECTRICIAN MANAGER Work Phone: [facility] 01-03-2024 12:13-0500 Body height 165.[address] Augustina Abraham Work Phone: [facility] 01-03-2024 12:13-0500 Body mass index (BMI) [Ratio] 29.9 kg/m2 Dr. Augustina Abraham Work Phone: [facility] 01-03-2024 12:13-0500 Body temperature 98.7 [degF] Dr. Augustina Abraham Work Phone: [facility] 01-03-2024 12:13-0500 Body weight 81.[address] Augustina Abraham Work Phone: [facility] 01-03-2024 12:13-0500 Diastolic blood pressure 78 mm[Hg] Dr. Augustina Abraham Work Phone: [facility] 01-03-2024 12:13-0500 Heart rate 109 /min Dr. Augustina Abraham Work Phone: [facility] 01-03-2024 12:13-0500 Respiratory rate 12 /min Dr. Augustina Abraham Work Phone: [facility] 01-03-2024 12:13-0500 SaO2% (BldA) [Mass fraction] 100 % Dr. Augustina Abraham Work Phone: [facility] 01-03-2024 12:13-0500 Systolic blood pressure 114 mm[Hg] Dr. Augustina Abraham Work Phone: [facility] 12-15-2023 10:33-0500 Body weight 83.1 kg Yaneli Dowling APRN.ELECTRICIAN MANAGER Work Phone: [facility] 12-15-2023 10:33-0500 Diastolic blood pressure 66 mm[Hg] Yaneli Dowling APRN.ELECTRICIAN MANAGER Work Phone: [facility] 12-15-2023 10:33-0500 Heart rate 95 /min Yaneli Dowling APRN.ELECTRICIAN MANAGER Work Phone: [facility] 12-15-2023 10:33-0500 SaO2% (BldA) [Mass fraction] 98 % Yaneli Dowling APRN.ELECTRICIAN MANAGER Work Phone: [facility] 12-15-2023 10:33-0500 Systolic blood pressure 108 mm[Hg] Yaneli Dowling APRN.ELECTRICIAN MANAGER Work Phone: [facility] 09-22-2023 08:24-0500 Body weight 84.82 kg Yaneli Dowling APRN.ELECTRICIAN MANAGER Work Phone: [facility] 09-22-2023 08:24-0500 Diastolic blood pressure 64 mm[Hg] Yaneli Dowling APRN.ELECTRICIAN MANAGER Work Phone: [facility] 09-22-2023 08:24-0500 Heart rate 95 /min Yaneli Dowling APRN.ELECTRICIAN MANAGER Work Phone: [facility] 09-22-2023 08:24-0500 SaO2% (BldA) [Mass fraction] 99 % Yaneli Dowling APRN.ELECTRICIAN MANAGER Work Phone: [facility] 09-22-2023 08:24-0500 Systolic blood pressure 106 mm[Hg] Yaneli Dowling APRN.ELECTRICIAN MANAGER Work Phone: [facility] 08-29-2023 10:30-0400 Body height 165.1 cm [facility] 08-29-2023 10:30-0400 Body weight 89.08 kg [facility] 08-26-2023 07:59-0400 Body weight 88.45 kg Yaneli Dowling APRN.ELECTRICIAN MANAGER Work Phone: [facility] 08-26-2023 07:59-0400 Diastolic blood pressure 76 mm[Hg] Yaneli Dowling APRN.ELECTRICIAN MANAGER Work Phone: [facility] 08-26-2023 07:59-0400 Heart rate 90 /min Yaneli Dowling APRN.ELECTRICIAN MANAGER Work Phone: [facility] 08-26-2023 07:59-0400 SaO2% (BldA) [Mass fraction] 98 % Yaneli Dowling APRN.ELECTRICIAN MANAGER Work Phone: [facility] 08-26-2023 07:59-0400 Systolic blood pressure 112 mm[Hg] Yaneli Dowling APRN.ELECTRICIAN MANAGER Work Phone: [facility] 08-02-2023 09:00-0400 Body height 165.1 cm [facility] 08-02-2023 09:00-0400 Body weight 88.08 kg [facility] 06-30-2023 13:05-0400 Body height 165.1 cm Yaneli Dowling APRN.ELECTRICIAN MANAGER Work Phone: [facility] 06-30-2023 13:05-0400 Body weight 89.45 kg Yaneli Dowling APRN.ELECTRICIAN MANAGER Work Phone: [facility] 06-30-2023 13:05-0400 Diastolic blood pressure 70 mm[Hg] Yaneli Dowling APRN.ELECTRICIAN MANAGER Work Phone: [facility] 06-30-2023 13:05-0400 Heart rate 94 /min Yaneli Dowling APRN.ELECTRICIAN MANAGER Work Phone: [facility] 06-30-2023 13:05-0400 SaO2% (BldA) [Mass fraction] 96 % Yaneli Dowling APRN.ELECTRICIAN MANAGER Work Phone: [facility] 06-30-2023 13:05-0400 Systolic blood pressure 108 mm[Hg] Yaneli Dowling APRN.ELECTRICIAN MANAGER Work Phone: [facility] 05-19-2022 07:57-0400 Body height 162.6 cm Yaneli Dowling APRN.ELECTRICIAN MANAGER Work Phone: [facility] 05-19-2022 07:57-0400 Body weight 82.19 kg Yaneli Dowling APRN.ELECTRICIAN MANAGER Work Phone: [facility] 05-19-2022 07:57-0400 Diastolic blood pressure 70 mm[Hg] Yaneli Dowling APRN.ELECTRICIAN MANAGER Work Phone: [facility] 05-19-2022 07:57-0400 Systolic blood pressure 120 mm[Hg] Yaneli Dowling APRN.ELECTRICIAN MANAGER Work Phone: [facility] 04-02-2020 12:48-0400 Body mass index (BMI) [Ratio] 31.9 kg/m2 [facility] Work Phone: 08-06-2017 10:44-0400 BMI (Body Mass Index) 30.55 kg/m2 Kayley Winter LPN [facility] Work Phone: 08-06-2017 10:44-0400 Body Temperature 98.1 [degF] Kayley Winter LPN [facility] Work Phone: 08-06-2017 10:44-0400 BP Diastolic 68 mm[Hg] Kayley Winter LPN [facility] Work Phone: 08-06-2017 10:44-0400 BP Systolic 102 mm[Hg] Kayley Winter LPN [facility] Work Phone: 08-06-2017 10:44-0400 Height 165.1 cm Kayley Winter LPN [facility] Work Phone: 08-06-2017 10:44-0400 Pulse (Heart Rate) 101 /min Kayley Winter LPN [facility] Work Phone: 08-06-2017 10:44-0400 Respiratory Rate 16 /min Kayley Winter LPN [facility] Work Phone: 08-06-2017 10:44-0400 Weight 83.28 kg Kayley Winter LPN [facility] Work Phone: Encounters Encounter Date Encounter Type Care Provider Facility Start: 08-07-2025 End: 08-07-[address] Augustina Abraham MD Work Phone: -Laboratory [facility] Start: 08-07-2025 End: 08-07-2025 Patient encounter procedure Seble Fleming PULMONARY FUNCTION TECHNOLOGIST-C -Laboratory [facility] Start: 08-07-2025 End: 08-07-2025 ambulatory Seble Fleming NP Facility:[facility] Start: 07-01-2025 Registered Referred HEALTH RIS K ASSESSMENT -Laboratory Work Phone: Start: 07-01-2025 ambulatory Health Risk Assessment Facility:[facility] Start: 06-21-2025 End: 06-21-2025 Patient encounter procedure Yaneli Dowling APRN.ELECTRICIAN MANAGER Work Phone: OB/Gynecology Comment on above: Polycystic ovarian s yndrome (Primary Dx); Binge-eating disorder, in full remission, mild; Anxiety and depression; Seasonal affective disorder; History of obesity Start: 06-21-2025 End: 06-21-2025 ambulatory YANELI DOWLING Facility:[facility] Start: 06-06-2025 End: 06-06-2025 Patient encounter procedure Yaneli Dowling APRN.CNP Work Phone: OB/Gynecology Comment on above: LLQ pain (Primary Dx ); Encounter for gynecological examination (general) (routine) without abnormal findings; Surveillance for control, oral contraceptives Start: 06-06-2025 End: 06-06-2025 Patient encounter status Yaneli Dowling APRN.ELECTRICIAN MANAGER Work Phone: [facility] Work Phone: Start: 06-06-2025 End: 06-06-2025 ambulatory YANELI DOWLING Facility:[facility] Start: 06-06-2025 Encounter for gynecological examination (general) (routine) without abnormal findings YANELI DOWLING [facility] Start: 05-21-2025 End: 07-21-2025 Follow-up encounter Gina Carrillo MD Work Phone: OB/Gynecology Start: 05-21-2025 End: 05-21-2025 Telephone encounter Gina Carrillo MD Work Phone: OB/Gynecology Comment on above: Orders Start: 05-20-2025 End: 05-20-2025 Patient encounter procedure Gina Carrillo MD Work Phone: OB/Gynecology Comment on above: Vaginal discharge (P rimary Dx); Dysuria; Vaginal odor; Vaginal itching; LLQ pain Start: 05-20-2025 End: 05-20-2025 ambulatory AUGUSTINA ABRAHAM Facility:[facility] Start: 04-05-2025 End: 04-05-2025 Patient encounter procedure Yaneil Dowling APRN.ELECTRICIAN MANAGER Work Phone: OB/Gynecology Comment on above: Polycystic ovarian s yndrome (Primary Dx); Binge-eating disorder, in full remission, mild; Anxiety and depression; Seasonal affective disorder; History of obesity Start: 04-05-2025 End: 04-05-2025 ambulatory YANELI DOWLING Facility:[facility] Start: 12-20-2024 End: 12-20-2024 ambulatory YANELI DOWLING Facility:[facility] Start: 12-20-2024 End: 12-20-2024 Patient encounter procedure Yaneli Dowling APRN.CNP Work Phone: OB/Gynecology Comment on above: Polycystic ovarian s yndrome (Primary Dx); Binge-eating disorder, in full remission, mild; Anxiety and depression; Seasonal affective disorder (HCC); History of obesity Start: 10-23-2024 End: 10-23-[address] Augustina Abraham MD Work Phone: [facility] Work Phone: Start: 10-23-2024 End: 10-23-2024 Discharged Recurring Self [facility] -Physical Therapy Work Phone: Start: 09-26-2024 End: 09-26-2024 ambulatory YANELI DOWLING Facility:[facility] Start: 09-26-2024 End: 09-26-2024 Patient encounter procedure [...] encounter status Yaneli Dowling APRN.CNP Work Phone: [facility] Start: 03-14-2024 End: 03-14-2024 Office outpatient visit 25 minutes Yaneli Dowling APRN.ELECTRICIAN MANAGER Work Phone: OB/Gynecology Comment on above: Polycystic ovarian s yndrome (Primary Dx); Binge-eating disorder, in full remission, mild; Anxiety and depression; Seasonal affective disorder (HCC); Class 1 obesity with body mass index (BMI) of 31.0 to 31.9 in adult, unspecified obesity type, unspecified whether serious comorbidity present Start: 02-16-2024 End: 02-16-[address] Augustina Abraham Work Phone: [facility] Work Phone: Start: 02-16-2024 End: 02-16-[address] Augustina Abraham Work Phone: [facility]-Physical Therapy Work Phone: Start: 01-03-2024 End: 01-03-[address] Augustina Abraham Work Phone: [facility] Work Phone: Start: 01-03-2024 End: 01-03-[address] Augustina Abraham Work Phone: [facility] Work Phone: Start: 12-15-2023 End: 12-15-2023 Patient encounter procedure Yaneli Dowling APRN.ELECTRICIAN MANAGER Work Phone: OB/Gynecology Comment on above: Polycystic ovarian s yndrome (Primary Dx); Binge-eating disorder, in full remission, mild; Anxiety and depression; Seasonal affective disorder (HCC); Class 1 obesity with body mass index (BMI) of 31.0 to 31.9 in adult, unspecified obesity type, unspecified whether serious comorbidity present Start: 12-09-2023 End: 12-09-2023 Patient encounter procedure [facility] Work Phone: Start: 12-06-2023 End: 12-06-2023 ambulatory [facility] Work Phone: Start: 12-06-2023 End: 12-06-2023 Patient encounter procedure [facility] Work Phone: Start: 09-22-2023 End: 09-22-2023 Patient encounter procedure Yaneli Dowling APRN.ELECTRICIAN MANAGER Work Phone: OB/Gynecology Comment on above: Polycystic ovarian s yndrome (Primary Dx); Binge-eating disorder, in full remission, mild; Anxiety and depression; Class 1 obesity with body mass index (BMI) of 31.0 to 31.9 in adult, unspecified obesity type, unspecified whether serious comorbidity present Start: 09-21-2023 End: 09-21-2023 ambulatory [facility] Work Phone: Start: 09-21-2023 End: 09-21-2023 Patient encounter procedure [facility] Start: 09-20-2023 Registered Recurring [facility]-Physical Therapy Work Phone: Start: 08-29-2023 End: 09-06-[address] [facility] Start: 08-26-2023 End: 08-26-2023 Patient encounter procedure Yaneli Dowling APRN.ELECTRICIAN MANAGER Work Phone: OB/Gynecology Comment on above: Polycystic ovarian s yndrome (Primary Dx); Binge-eating disorder, in full remission, mild; Anxiety and depression; Class 1 obesity with body mass index (BMI) of 31.0 to 31.9 in adult, unspecified obesity type, unspecified whether serious comorbidity present Start: 08-02-2023 End: 08-06-2023 Refill Yaneli Dowling APRN.ELECTRICIAN MANAGER Work Phone: OB/Gynecology Comment on above: Refill Request; Refi ll Request Start: 08-02-2023 End: 08-06-[address] [facility] Start: 07-07-2023 Registered Referred [facility] Start: 07-07-2023 End: 07-07-2023 Patient encounter procedure [facility] [place] Work Phone: Start: 06-30-2023 End: 06-30-2023 Patient encounter procedure Yaneli Dowling APRN.[facility] Work Phone: OB/Gynecology Comment on above: [...] comorbidity present Start: 11-30-2022 Refill Yaneli LEWIS RN.[facility] Work Phone: OB/Gynecology Comment on above: Refill Request Start: 05-19-2022 Telephone encounter Yaneli reyes APRN.ELECTRICIAN MANAGER Work Phone: OB/Gynecology Comment on above: Medication Question Start: 05-19-2022 End: 05-19-2022 Patient encounter procedure Yaneli Dowling APRN.ELECTRICIAN MANAGER Work Phone: OB/Gynecology Comment on above: Encounter for gyneco logical examination (general) (routine) without abnormal findings (Primary Dx); Surveillance for control, oral contraceptives; Screen for STD (sexually transmitted disease) Start: 05-19-2022 End: 05-19-2022 Patient encounter status Yaneli Dowling APRN.ELECTRICIAN MANAGER Work Phone: OB/Gynecology Start: 05-07-2022 Refill Yaneli LEWIS RN.ELECTRICIAN MANAGER Work Phone: OB/Gynecology Comment on above: Refill Request; Refi ll Request Start: 2022 Refill Yaneli LEWIS RN.ELECTRICIAN MANAGER Work Phone: OB/Gynecology Comment on above: Refill Request Start: 12-29-2021 End: 12-29-2021 Discharged Recurring [facility], [facility] Start: 12-27-2013 Patient encounter status Yaneli workman APRN.[facility] Work Phone: [facility] Procedures Date Procedure Procedure Detail Performing Clinician [...] Adult depression scr eening assessment Yaneli Dowling APRN.ELECTRICIAN MANAGER Work Phone: Plan of Treatment Date Care Activity Detail Author Start: 06-20-2028 Urine microalbumin profile [facility] Start: 06-13-2026 End: 06-13-2026 Patient encounter procedure 06/13/2026 9:30 AM EDT Office Visit OB/Gynecology [address] [place] [address] Yaneli Dowling APRN.ELECTRICIAN MANAGER [address] [place] [address] Annual OB/Gynecology Comment on above: Annual Start: 06-03-2026 PAP TESTING PAP TESTING [facility] Start: 06-03-2026 Screening for malign ant neoplasm of cervix [facility] Start: 09-20-2025 End: 09-20-2025 Patient encounter procedure 09/20/2025 7:30 AM EST Office Visit OB/Gynecology [address] [place] [address] Yaneli Dowling APRN.ELECTRICIAN MANAGER [address] [place] [address] weight mgmt OB/Gynecology Comment on above: weight mgmt Start: 07-12-2025 End: 07-12-2025 Patient encounter procedure 07/12/2025 7:30 AM EDT Office Visit OB/Gynecology [address] [place] [address] Yaneli Dowling APRN.ELECTRICIAN MANAGER [address] [place] [address] (Fax) weight mgmt OB/Gynecology Comment on above: weight mgmt Start: 07-08-2025 Influenza vaccination Influenza Vacc ine (#1) [facility] Start: 06-21-2025 End: 06-21-2025 Patient encounter procedure 06/21/2025 9:30 AM EDT Office Visit OB/Gynecology [address] [place] [address] Yaneli Dowling APRN.ELECTRICIAN MANAGER [address] [place] [address] (Fax) WT MGT OB/Gynecology Comment on above: WT MGT Start: 06-06-2025 End: 06-06-2025 Patient encounter procedure 06/06/2025 1:00 PM EDT Office Visit OB/Gynecology [address] [place] [address] Yaneli Dowling APRN.ELECTRICIAN MANAGER [address] [place] [address] (Fax) Annual OB/Gynecology Comment on above: Annual Start: 05-30-2025 End: 05-30-2025 ambulatory 05/30/2025 9:00 AM EDT Procedure OB/Gynecology [address] [place] [address] [facility], [employer] And [employer] Dis[employer] [facility] [address] [place] [address] : LLQ pain [R10.32] OB/Gynecology Comment on above: : LLQ pain [R10.32] Start: 05-21-2025 End: 08-20-2025 Bacteria identified in Urine by Culture BACTERIAL CULTURE, URINE Microbiology Routine Pelvic pain Expected: 05/21/2025, Expires: 08/20/2025 [facility] Comment on above: Expected: 05/21/2025 , Expires: 08/20/2025 Start: 05-21-2025 End: 08-20-2025 Urinalysis complete panel - Urine URINALYSIS, WITH MICROSCOPIC Lab Routine Pelvic pain Expected: 05/21/2025, Expires: 08/20/2025 [facility] Work Phone: Comment on above: Expected: 05/21/2025 , Expires: 08/20/2025 Start: 05-20-2025 End: 05-20-2026 US Pelvis PELVIC US [facility]I Anc Imaging Routine LLQ pain Expected: 05/20/2025, Expires: 05/20/2026 [facility] Work Phone: Comment on above: Expected: 05/20/2025 , Expires: 05/20/2026 Start: 03-15-2025 End: 03-15-2025 Patient encounter procedure 03/15/2025 7:00 AM EDT Office Visit OB/Gynecology [address] [place] [address] Yaneli Dowling ROBOTIC TECHNICIAN.ELECTRICIAN MANAGER [address] [place] [address] Wt mgmt f/u OB/Gynecology Comment on above: Wt mgmt f/u Start: 12-20-2024 End: 12-20-2024 Patient encounter procedure 12/20/2024 10:00 AM EST Office Visit OB/Gynecology [address] [place] [address] Yaneli Dowling ROBOTIC TECHNICIAN.ELECTRICIAN MANAGER [address] [place] [address] wt mgmt f/u/ OK per AG OB/Gynecology Comment on above: wt mgmt f/u/ OK per AG Start: 09-26-2024 End: 09-26-2024 Patient encounter procedure 09/26/2024 9:30 AM EST Office Visit OB/Gynecology [address] [place] [address] Yaneli Dowling APRN.ELECTRICIAN MANAGER [address] [place] [address] wt mgmt f/u OB/Gynecology Comment on above: wt mgmt f/u Start: 07-08-2024 Covid-19 Vaccine ( season) Covid-19 Vaccine ( season) [facility] Start: 07-08-2024 Influenza vaccination Influenza Vacc ine (#1) [facility] Start: 06-13-2024 End: 06-13-2024 Patient encounter procedure 06/13/2024 9:30 AM EDT Office Visit OB/Gynecology [address] [place] [address] Yaneli Dowling, ROBOTIC TECHNICIAN.ELECTRICIAN MANAGER [address] [place] [address] wt mgt F/up. OB/Gynecology Comment on above: wt mgt F/up. Start: 06-05-2024 End: 06-05-2024 Patient encounter procedure 06/05/2024 2:00 PM EDT Office Visit OB/Gynecology [address] [place] [address] Yaneli Dowling, ROBOTIC TECHNICIAN.ELECTRICIAN MANAGER [address] [place] [address] annual OB/Gynecology Comment on above: annual Start: 12-06-2023 Lupus anticoagulant assay [facility] Start: 07-08-2023 Covid-19 Vaccine ( season) Covid-19 Vaccine ( season) [facility] Start: 07-08-2023 Influenza vaccination [facility] Start: 06-10-2023 PAP TESTING PAP TESTING [facility] Start: 07-08-2022 Influenza vaccination [facility] Start: 02-24-2022 ANNUAL PCP TEAM LUMP MAKER PHI DISEASE VISIT ANNUAL PCP TEAM CHRONIC DISEASE VISIT [facility] Start: 06-10-2021 CHLAMYDIA SCREENING (18-24) CHLAMYDIA SCREENING (18-24) [facility] Start: 06-10-2021 GC (GONORRHEA) SCREE MICHAEL (18-24) GC (GONORRHEA) SCREENING (18-24) [facility] Start: 11-20-2020 ANNUAL PCP TEAM LUMP MAKER PHI DISEASE VISIT ANNUAL PCP TEAM CHRONIC DISEASE VISIT [facility] Start: 08-21-2020 Adult depression screening assessment DEPRESSION SCREENING [facility] Start: 08-06-2017 End: 08-06-2017 Appointment Appointment [facility] Work Phone: Start: 2017 ONE PNEUMOVAX PRIOR TO AGE 65 ONE PNEUMOVAX PRIOR TO AGE 65 [facility] Start: 02-13-2016 HEPATITIS C SCREENING HEPATITIS C [facility] Start: 02-13-2016 Hepatitis C screening Hepatitis C [facility] Start: 02-13-2016 HIV SCREENING HIV SCREENING [facility] Start: 02-13-2016 HIV screening HIV Screening [facility] Start: 02-13-2012 PEDS TO ADULT TRANSI TION ANNUAL ASSESSMENT PEDS TO ADULT TRANSITION ANNUAL ASSESSMENT [facility] Start: 2010 PEDS TO ADULT TRANSI TION INITIAL DISCUSSION PEDS TO ADULT TRANSITION INITIAL DISCUSSION [facility] Start: 02-13-2008 MENINGOCOCCAL B: Consider based on risk (1 of 2 - Risk Bexsero 2-dose series) MENINGOCOCCAL B: Consider based on risk (1 of 2 - Risk Bexsero 2-dose series) [facility] Start: 02-13-2004 PNEUMOCOCCAL (1 - PCV) PNEUMOCOCCAL (1 - PCV) [facility] Start: 02-13-2004 Pneumococcal vaccination [facility] Start: 2003 COVID-19 VACCINE (1) COVID-19 VACCIN E (1) [facility] Start: 1998 COVID-19 VACCINE (#1) COVID-19 VACCI NE (#1) [facility] Bacteria identified in Urine by Culture BACTERIAL CULTURE, URINE Microbiology Routine LLQ pain 06/06/2025 1:47 PM EDT [facility] Work Phone: BACTERIAL VAGINOSIS NAAT BACTERI AL VAGINOSIS NAAT Lab Routine Vaginal discharge 05/20/2025 9:35 AM EDT [facility] DILCIA/TRICHOMONAS NAAT DILCIA /TRICHOMONAS NAAT Lab Routine Vaginal discharge 05/20/2025 9:35 AM EDT [facility] Chlamydia trachomatis+Neisseria gonorrhoeae DNA [Presence] in Unspecified specimen by SANJEEV with probe detection GC/CHLAMYDIA DNA DET Lab Routine Screen for STD (sexually transmitted disease) Ordered: 05/19/2022 [facility] Work Phone: Comment on above: Ordered: 05/19/2022 Chlamydia trachomatis+Neisseria gonorrhoeae DNA [Presence] in Unspecified specimen by SANJEEV with probe detection GONORRHEA/CHLAMYDIA NAAT Lab Routine Vaginal discharge 05/20/2025 9:35 AM EDT [facility] Patient Education SINUSITIS [facility] [employer] Work Phone: Thrombin time [facility] Immunizations Immunization Date Immunization Notes Care Provider [facility] 09-13-2024 influenza, seasonal, injectable, preservative free Dr. Augustina Abraham MD Work Phone: [facility] 09-13-2024 influenza virus vacc ine, unspecified formulation Gina Carrillo MD Work Phone: [facility] 09-07-2023 influenza, injectabl e, quadrivalent, preservative free [facility] 09-07-2023 influenza virus vacc ine, unspecified formulation Yaneli Dowling APRN.ELECTRICIAN MANAGER Work Phone: [facility] 09-13-2022 influenza, injectabl e, quadrivalent, preservative free [facility] 09-13-2022 influenza, seasonal, injectable [facility] 09-13-2022 influenza virus vacc ine, unspecified formulation Yaneli Dowling APRN.ELECTRICIAN MANAGER Work Phone: [facility] 08-04-2021 hepatitis B vaccine, adult dosage [facility] 03-06-2021 hepatitis B vaccine, adult dosage [facility] 01-28-2021 hepatitis B vaccine, adult dosage [facility] 08-16-2020 influenza, injectable,quadrivalent, preservative free, pediatric [facility] 08-22-2019 influenza, seasonal, injectable Yaneli Dowling APRN.ELECTRICIAN MANAGER Work Phone: [facility] 06-20-2018 tetanus toxoid, redu pati diphtheria toxoid, and acellular pertussis vaccine, adsorbed [facility] 07-02-2016 meningococcal polysaccharide (groups A, C, Y and W-135) diphtheria toxoid conjugate vaccine (MCV4P) Yaneli Dowling APRN.[facility] Work Phone: [facility] 06-19-2015 human papilloma viru s vaccine, quadrivalent Yaneli Dowling APRN.ELECTRICIAN MANAGER Work Phone: [facility] 06-11-2014 human papilloma viru s vaccine, quadrivalent Yaneli Dowling APRN.ELECTRICIAN MANAGER Work Phone: [facility] Work Phone: 12-27-2013 human papilloma viru s vaccine, quadrivalent Yaneli Dowling APRN.ELECTRICIAN MANAGER Work Phone: [facility] 12-27-2013 varicella virus vaccine Yaneli Dowling APRN.ELECTRICIAN MANAGER Work Phone: [facility] 09-25-2013 influenza virus vacc ine, live, attenuated, for intranasal use Yaneli Dowling APRN.ELECTRICIAN MANAGER Work Phone: [facility] 10-25-2011 influenza virus vacc ine, unspecified formulation Yaneli Dowling APRN.ELECTRICIAN MANAGER Work Phone: [facility] 08-26-2010 influenza virus vacc ine, live, attenuated, for intranasal use Yaneli Dowling APRN.ELECTRICIAN MANAGER Work Phone: [facility] Work Phone: 04-20-2010 meningococcal polysaccharide vaccine (MPSV4) Yaneli Dowling APRN.ELECTRICIAN MANAGER Work Phone: [facility] 04-20-2010 tetanus toxoid, redu pati diphtheria toxoid, and acellular pertussis vaccine, adsorbed Yaneli Dowling APRN.ELECTRICIAN MANAGER Work Phone: [facility] 09-23-2009 influenza virus vacc ine, unspecified formulation Yaneli Dowling APRN.ELECTRICIAN MANAGER Work Phone: [facility] Work Phone: 08-27-2008 influenza virus vacc ine, unspecified formulation Yaneli Dowling APRN.ELECTRICIAN MANAGER Work Phone: [facility] 03-25-2005 haemophilus influenz ae type b vaccine, HbOC conjugate Yaneli Dowling APRN.ELECTRICIAN MANAGER Work Phone: [facility] 10-15-2003 influenza virus vacc ine, whole virus Yaneli Dowling APRN.ELECTRICIAN MANAGER Work Phone: [facility] 06-17-2003 diphtheria, tetanus toxoids and acellular pertussis vaccine Yaneli Dowling APRN.ELECTRICIAN MANAGER Work Phone: [facility] 06-17-2003 measles, mumps and rubella virus vaccine Yaneli Dowling APRN.ELECTRICIAN MANAGER Work Phone: [facility] 06-17-2003 poliovirus vaccine, inactivated Yaneli Dowling APRN.ELECTRICIAN MANAGER Work Phone: [facility] 05-16-2002 pneumococcal conjuga te vaccine, 7 valent Yaneli Dowling APRN.ELECTRICIAN MANAGER Work Phone: [facility] 08-21-1999 diphtheria, tetanus toxoids and acellular pertussis vaccine Yaneli Dowling APRN.ELECTRICIAN MANAGER Work Phone: [facility] 08-21-1999 poliovirus vaccine, inactivated Yaneli Dowling APRN.ELECTRICIAN MANAGER Work Phone: [facility] 06-01-1999 measles, mumps and rubella virus vaccine Yaneli Dowling APRN.ELECTRICIAN MANAGER Work Phone: [facility] 06-01-1999 varicella virus vaccine Yaneli Dowling APRN.ELECTRICIAN MANAGER Work Phone: [facility] 1998 diphtheria, tetanus toxoids and acellular pertussis vaccine Yaneli Dowling APRN.ELECTRICIAN MANAGER Work Phone: [facility] 1998 haemophilus influenz ae type b vaccine, HbOC conjugate Yaneli Dowling APRN.ELECTRICIAN MANAGER Work Phone: [facility] 1998 hepatitis B vaccine, pediatric or pediatric/adolescent dosage Yaneli Dowling APRN.ELECTRICIAN MANAGER Work Phone: [facility] 1998 diphtheria, tetanus toxoids and acellular pertussis vaccine Yaneli Dowling ROBOTIC TECHNICIAN.ELECTRICIAN MANAGER Work Phone: [facility] 1998 haemophilus influenz ae type b vaccine, HbOC conjugate Yaneli Dowling ROBOTIC TECHNICIAN.ELECTRICIAN MANAGER Work Phone: [facility] 1998 poliovirus vaccine, inactivated Yaneli Dowling ROBOTIC TECHNICIAN.ELECTRICIAN MANAGER Work Phone: [facility] 1998 diphtheria, tetanus toxoids and acellular pertussis vaccine Yaneli Dowling ROBOTIC TECHNICIAN.ELECTRICIAN MANAGER Work Phone: [facility] 1998 haemophilus influenz ae type b vaccine, HbOC conjugate Yaneli Dowling ROBOTIC TECHNICIAN.ELECTRICIAN MANAGER Work Phone: [facility] 1998 hepatitis B vaccine, pediatric or pediatric/adolescent dosage Yaneli Dowling ROBOTIC TECHNICIAN.ELECTRICIAN MANAGER Work Phone: [facility] 1998 poliovirus vaccine, inactivated Yaneli Dowling ROBOTIC TECHNICIAN.ELECTRICIAN MANAGER Work Phone: [facility] 1998 hepatitis B vaccine, pediatric or pediatric/adolescent dosage Yaneli Dowling ROBOTIC TECHNICIAN.ELECTRICIAN MANAGER Work Phone: [facility] Payers Date Payer Category Payer Self-pay [id number] 2022 Private Health Insurance [id number] 2022 Unknown [id number] 2021 Unknown MMO MMO TPA [id number] 2021-Present [address] [place] [address] PPO [id number] 2016 Unknown MMO MMO [employer] [id number] 2016-Present [phone] [address] [place] [address] [facility] [id number] 2016 Unknown [id number] 2011 Unknown [id number] Unknown [id number] Unknown [facility] [id number] [facility] [id number] Unknown [id number] Unknown [id number] Unknown [id number] Unknown [id number] Social History Date Type Detail Facility Start: 09-27-2021 End: 01-03-2024 Tobacco smoking status MTIS Unknown if ever smoked [facility] Start: 2000 Sex Assigned At Female W [facility] Start: 03-26-2011 End: 01-03-2024 Tobacco smoking status NHIS Never smoked tobacco [facility] Work Phone: Start: 06-10-2020 End: 05-20-2025 Alcohol intake Current non-drinker of alcohol (finding) [facility] Start: 05-02-2020 End: 06-10-2020 History SDOH Alcohol Frequency 2 [facility] Start: 05-02-2020 End: 06-10-2020 History SDOH Alcohol Std Drinks 1 [facility] Start: 06-10-2020 History SDOH Social Connections Phone 5 [facility] Start: 06-10-2020 History SDOH Social Connections Living 7 [facility] Start: 06-10-2020 History SDOH Physica l Activity DPW 4 [facility] Start: 06-10-2020 Education 17 [facility] Start: 1998 Sex Assigned At Not on file [facility] Start: 03-26-2011 End: 06-03-2023 Tobacco use and exposure Smokeless tobacco non-user [facility] Work Phone: Start: 06-10-2020 End: 06-30-2023 History of Social function [facility] phi Work Phone: Start: 06-10-2020 End: 06-30-2023 Social connection and isolation panel [facility] Work Phone: Do you belong to any clubs or organizations such as scientologist groups, unions, fraternal or athletic groups, or school groups? Yes [facility] Work Phone: Are you now , , , , never or living with a partner? Never [facility] Work Phone: How often to you hav e a drink containing alcohol? Monthly or less [facility] Work Phone: How many standard dr inks containing alcohol do you have on a typical day? 1 or 2 [facility] Work Phone: How often do you hav e 6 or more drinks on 1 occasion? Never [facility] Work Phone: Start: 10-08-2012 How hard is it for y ou to pay for the very basics like food, housing, medical care, and heating Not hard at all [facility] Work Phone: Do you feel stress - tense, restless, nervous, or anxious, or unable to sleep at night because your mind is troubled all the time - these days [OSQ] Not at all [facility] Work Phone: (I/We) worried wheth er (my/our) food would run out before (I/we) got money to buy more. Never true [facility] Work Phone: In the past 12 month s, was there a time when you were not able to pay the mortgage or rent on time? No [facility] Start: 02-20-2025 Sex Female (finding) [facility] Functional Status Date Assessment Result Facility 03-05-2015 Are you deaf, or do you have serious difficulty hearing No 03/05/2015 6:17 PM EDT Stephany Purvis MA No [facility] 03-05-2015 Are you blind, or do you have serious difficulty seeing, even when wearing glasses No 03/05/2015 6:17 PM EDT Stephany Purvis MA No [facility] 03-05-2015 Do you have serious difficulty walking or climbing stairs No 03/05/2015 6:17 PM EDT Stephany Purvis MA No [facility] 03-05-2015 Do you have difficul ty dressing or bathing No 03/05/2015 6:17 PM EDT Stephany Purvis MA [facility] 03-05-2015 Because of a physica l, mental, or emotional condition, do you have difficulty doing errands alone such as visiting a physician's office or shopping No 03/05/2015 6:17 PM EDT Stephany Purvis MA [facility] Mental Status Date Assessment Result Facility 03-05-2015 Because of a physica l, mental, or emotional condition, do you have serious difficulty concentrating, remembering, or making decisions No 03/05/2015 6:17 PM EDT Stephany Purvis MA [facility] Clinical Notes 06-08-2018 to 06-21-2025 Yaneli Dowling APRN.ELECTRICIAN MANAGER - 06/21/2025 9:30 AM EDTPatient InstructionsYaneli Dowling [...] occasionally TZ yogurt or rare vegetables and Indian yogurt with Ranch or cottage cheese or [...] that continued use is off label for fci management of weight control. The patient is [...] 4 - Moderate documented in this encounter [facility] 06-21-2025 Note HNO ID: [id number] Author: YANELI DOWLING APRN.CNP Service: ? Author [...] occasionally TZ yogurt or rare vegetables and Indian yogurt with Ranch or cottage cheese or [...] for 90 days (more content not included)... [facility] 06-20-2025 Instructions Yaneli Dowling APRN.[facility] - 06/20/2025 5:18 PM EDT - [...] protein & 2g carb Two Good Lowfat Indian Yogurt, Lower Sugar - 12g protein & [...] oz is 28 gm protein Beef, Chicken, [place], Pork, Sylvester 1 oz 7g Fish, Tuna [...] 30g protein <1 carb Protein AND carbs Beef/[place] Jerky 1 oz dried 10-15g protein - check carb count, can be high if sugar added Slim Davy - 6 gm protein and 4 net carb Great Value original turkey sausage sticks - 7 gm protein and 2 gm carb Gurjit [employer] Jake (at [facility]) Original smoked sausage sticks - 8 gm protein and 0 carb Imitation Crab Meat 1 oz - 2g protein & 4g carb Milk, skim 2% or 1% 8 oz - 8g protein & 12g carb Fairlife 2% milk 8 oz -13g protein & 6g carb Indian yogurt Full Fat Indian Yogurt 1 cup - 20.4g protein & 9.1g carb 2% Indian Yogurt 1 cup - 22.7g protein & 9.1g carb 0% (fat-free) Indian Yogurt - 1 cup 24g protein & 9.3g carb Aldi Protein Indian yogurt single svg - 13/g15g protein & 7g carb Chobani Zero Sugar single svg: - 12g protein & 5g carb Dannon Indian Light + Fit 1 single svg - 12g protein & 9g carb Oikos Pro single svg - 20g protein & 8g carb Oikos Triple Zero Indian Nonfat Yogurt 1 single svg - 15g protein & 7g carb :ratio, KETO Friendly Dairy Snack 1 single svg - 15g protein & 2g carb :ratio Protein 1 single svg - 25g protein & 8g carb Two Good Lowfat Indian Yogurt, [place], Lower Sugar - 12g protein & 2g carb Yoplait Protein 1 single svg 15g protein & 5g carb Dairy Free - [place] unsweetened Indian almond/soy 15g protein & 3g carb Dairy [...] Cream Cheese 1.7g protein & 1.2g carb RentWiki whipped Indian cream cheese (WM) 2 T 3g protein 2g carb Feta 4g protein & 1.2g carb Mozzarella 6.3g protein & 0.6g carb Parmesan 10g protein & 0.9g carb [place] Citizen 7.6g protein & 1.5g carb Cottage Cheese 1/2 c Breakstone 2% 13g protein 7g carb Dorina 2% 13g protein 5 g carb Good Culture 2% 14g protein 3g carb Lactaid 13g protein 5g carb Velasquez s Low Fat 12g protein & 4g carb Legumes Lentils cup 9g protein & 20g carb [place]co beans cup 7g protein & 20g carb Kidney, Black, [place], Cannellini beans cup 8g protein & 20g carb Chickpeas 1/2 c 6g protein & 15g carb Soybeans 1/2 c 14g complete protein & 8.5g carb [place] milk, unsweetened 8 oz 1g protein & 2g carb Soy milk 8 oz 3.5g protein & 1.6g carb Tofu 1/2 cup 10g protein & 2.3g carb Peanut butter, natural 2 Tbsp 7-8g protein & 4g net carbs, 190 calories PB2 powder 2 Tbsp 6g protein & 5g carb Nuts and Seeds per oz Almonds - 5.9g protein & 6.1g carb [place] Nuts - 4.0g protein & 3.4g carb [...] Seeds - 6.9g protein & 5g carb Mitchell Seeds - 5.8g protein & 5.6g carb Walnuts - 4.3g protein & 3.8g carb Edamame Beans (soybean) snack 1 pack 11 gm complete protein 2 carb 5 (FIVE) gram carb vegetable options 1 cup raw OR cup cooked: Asparagus Sharp sprouts Beets Broccoli Brussel sprouts Cabbage Carrots Cauliflower Celery [place] Eggplant Green beans Lettuce Peppers Snap peas [...] High Protein Snack Ideas 1. Jerky 2. Ackerly mix without dried fruit 3. [place] roll-ups 4. Indian yogurt 5. Veggies and yogurt dip 6. Tuna 7. Hard-boiled eggs 8. Peanut butter with celery 9. Cheese slices/ Cheese Stick 10. Handful of almonds, peanuts or walnuts 11. Cottage Cheese 12. Beef sticks 13. Protein bars 14. Canned [place] 15. Pumpkin seeds 16. Nut butter 17. Protein shake or protein bar 18. Avocado and chicken salad 19. Egg muffins 20. Leftover protein or lunch meat 21. 1/2 c blended cottage cheese or Indian yogurt with dry ranch/Mrs. Dash/herb seasoning mix [...] protein 2 carb documented in this encounter [facility] 06-06-2025 Note HNO ID: [id number] Author: YANELI DOWLING APRN.JOHN Service: ? Author Type: Nurse Practitioner Type: Progress Notes Filed: 06/06/2025 18:43 Note Text: Clerk Specialist offered: Patient declines. Jose Eduardo is a [...] was ordered - needs order faxed to [facility]. 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 As applicable, any other physician, advance practice provider, medical student, or other health professional student that will be observing or involved in the sensitive examination for educational or training purposes was discussed with the Patient or Authorized Rn House Supervisor. The Patient or Authorized Rn House Supervisor has agreed to proceed with the sensitive [...] external genitalia normal, normal Bartholin's glands, urethra, Raven's glands, no vulvar lesions, no cervical lesions, good vaginal support, physiologic discharge present, normal appearing perineal body and perianal region BIMANUAL: uterus normal size, shape and consistency, no adnexal masses, and non-tender RECTOVAGINAL: deferred. NEURO: alert and oriented x3,exam grossly non-focal EXTREMITIES: normal ASSESSMEN (more content not included)... [facility] 06-06-2025 History of Present illness Narrative Clerk Specialist offered: Patient declines. Jose Eduardo is a [...] was ordered - needs order faxed to [facility]. 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 As applicable, any other physician, advance practice provider, medical student, or other health professional student that will be observing or involved in the sensitive examination for educational or training purposes was discussed with the Patient or Authorized Rn House Supervisor. The Patient or Authorized Rn House Supervisor has agreed to proceed with the sensitive [...] external genitalia normal, normal Bartholin's glands, urethra, Raven's glands, no vulvar lesions, no cervical lesions, [...] pathology per Dr. Carrillo. Order faxed to [facility] per patient request - Urinalysis and urine culture ordered to assess for hematuria and other urinary pathology. 3) Contraception: combined hormonal contraceptives. Contraceptive options reviewed and information provided. 4) STD screening: Declined STI check. Negative testing 05/20/2025 5) Follow up one year or sooner as needed Yaneli Dowling APRN.ELECTRICIAN MANAGER documented in this encounter [facility] 05-20-2025 Note HNO ID: [id number] Author: GINA CARRILLO MD Service: ? Author Type: Physician Type: Progress Notes Filed: 05/20/2025 09:29 Note Text: Clerk Specialist offered: Patient declines. Jose Eduardo Prince is [...] Living0 SAB0 IAB0 Ectopic0 Multiple0 Live Births0 Acid Pump Operator History LMP: 04/03/2025 (Approximate), Having periods Age at Menarche: Age at First : Age at Menopause: Acid Pump Operator History Comments: Sexual Activity: Not Currently; Male [...] FEATHERS 06/08/2018 Unknown OAK 06/08/2018 Unknown TREE POLLEN-KYRGYZ [place] 06/08/2018 Unknown VICODIN [HYDROCODONE-ACETAMINOPHE* 013 Vomiting WEED POLLEN 06/08/2018 Unknown Fully Assessed 05/20/2025 REVIEW OF SYSTEMS Expanded ROS: See HPi Allergies and current medication updated:Yes SENSITIVE EXAM: The sensitive examination was discussed with the Patient or Patient's Authorized Rn House Supervisor. As applicable, any other physician, advance practice provider, medical student, or other health professional student that will be observing or involved in the sensitive examination for educational or training purposes was discussed with the Patient or Authorized Rn House Supervisor. The Patient or Authorized Rn House Supervisor has agreed to proceed with the sensitive [...] external genitalia normal, normal Bartholin's glands, urethra, Raven's glands, no vulvar lesions, no cervical lesions, [...] DO Prashanth Nelson (more content not included)... [facility] 05-20-2025 History of Present illness Narrative Clerk Specialist offered: Patient declines. Jose Eduardo Prince is [...] Living0 SAB0 IAB0 Ectopic0 Multiple0 Live Births0 Acid Pump Operator History LMP: 04/03/2025 (Approximate), Having periods Age at Menarche: Age at First : Age at Menopause: Acid Pump Operator History Comments: Sexual Activity: Not Currently; Male [...] FEATHERS 06/08/2018 Unknown [place] 06/08/2018 Unknown TREE POLLEN-KYRGYZ [place] 06/08/2018 Unknown VICODIN [HYDROCODONE-ACETAMINOPHE* 013 Vomiting WEED POLLEN 06/08/2018 Unknown Fully Assessed 05/20/2025 REVIEW OF SYSTEMS Expanded ROS: See HPi Allergies and current medication updated:Yes SENSITIVE EXAM: The sensitive examination was discussed with the Patient or Patient's Authorized Rn House Supervisor. As applicable, any other physician, advance practice provider, medical student, or other health professional student that will be observing or involved in the sensitive examination for educational or training purposes was discussed with the Patient or Authorized Rn House Supervisor. The Patient or Authorized Rn House Supervisor has agreed to proceed with the sensitive [...] external genitalia normal, normal Bartholin's glands, urethra, Raven's glands, no vulvar lesions, no cervical lesions, [...] 3 - Low documented in this encounter [facility] 04-05-2025 Instructions Yaneli Dowling APRN.[facility] - 04/05/2025 11:35 AM EDT Bryce [...] protein & 2g carb Two Good Lowfat Indian Yogurt, Lower Sugar - 12g protein & [...] oz is 28 gm protein Beef, Chicken, [place], Pork, Sylvester 1 oz 7g Fish, Tuna [...] (not a meal replacement) Protein AND carbs Beef/[place] Jerky 1 oz dried 10-15g protein - check carb count, can be high if sugar added Slim Davy - 6 gm protein and 4 net carb Great Value original turkey sausage sticks - 7 gm protein and 2 gm carb Gurjit & Jake (at [facility]) Original smoked sausage sticks - 8 gm protein and 0 carb Imitation Crab Meat 1 oz - 2g protein & 4g carb Milk, skim 2% or 1% 8 oz - 8g protein & 12g carb Fairlife 2% milk 8 oz -13g protein & 6g car Indian yogurt Full Fat Indian Yogurt 1 cup - 20.4g protein & 9.1g carb 2% Indian Yogurt 1 cup - 22.7g protein & 9.1g carb 0% (fat-free) Indian Yogurt - 1 cup 24g protein & 9.3g carb Aldi Protein Indian yogurt single svg - 13/g15g protein & 7g carb Chobani Zero Sugar single svg: - 12g protein & 5g carb Dannon Indian Light + Fit 1 single svg - 12g protein & 9g carb Oikos Pro single svg - 20g protein & 8g carb Oikos Triple Zero Indian Nonfat Yogurt 1 single svg - 15g protein & 7g carb :ratio, KETO Friendly Dairy Snack 1 single svg - 15g protein & 2g carb :ratio Protein 1 single svg - 25g protein & 8g carb Two Good Lowfat Indian Yogurt, [place], Lower Sugar - 12g protein & 2g carb Yoplait Protein 1 single svg 15g protein & 5g carb Dairy Free - [place] unsweetened Indian almond/soy 15g protein & 3g carb Dairy Free - True Goodness by [facility] coconut-based yogurt alternative 1 g protein 1 [...] Cream Cheese 1.7g protein & 1.2g carb [place] Farms whipped Indian cream cheese (WM) 2 T 3g protein 2g carb Feta 4g protein & 1.2g carb Mozzarella 6.3g protein & 0.6g carb Parmesan 10g protein & 0.9g carb [place] Citizen 7.6g protein & 1.5g carb Cottage Cheese 1/2 c Breakstone 2% 13g protein 7g carb Dorina 2% 13g protein 5 g carb Good Culture 2% 14g protein 3g carb Lactaid 13g protein 5g carb Velasquez s Low Fat 12g protein & 4g carb Legumes Lentils cup 9g protein & 20g carb Carrasco beans cup 7g protein & 20g carb Kidney, Black, [place], Cannellini beans cup 8g protein & 20g carb Chickpeas 1/2 c 6g protein & 15g carb Soybeans 1/2 c 14g complete protein & 8.5g carb [place] milk, unsweetened 8 oz 1g protein & 2g carb Soy milk 8 oz 3.5g protein & 1.6g carb Tofu 1/2 cup 10g protein & 2.3g carb Peanut butter, natural 2 Tbsp 7-8g protein & 4g net carbs, 190 calories PB2 powder 2 Tbsp 6g protein & 5g carb Nuts and Seeds per oz Almonds - 5.9g protein & 6.1g carb [place] Nuts - 4.0g protein & 3.4g carb [...] Seeds - 6.9g protein & 5g carb Mitchell Seeds - 5.8g protein & 5.6g carb Walnuts - 4.3g protein & 3.8g carb Edamame Beans (soybean) snack 1 pack 11 gm complete protein 2 carb 5 (FIVE) gram carb vegetable options 1 cup raw OR cup cooked: Asparagus Sharp sprouts Beets Broccoli Brussel sprouts Cabbage Carrots Cauliflower Celery [place] Eggplant Green beans Lettuce Peppers Snap peas [...] High Protein Snack Ideas 1. Jerky 2. Ackerly mix without dried fruit 3. [place] roll-ups 4. Indian yogurt 5. Veggies and yogurt dip 6. Tuna 7. Hard-boiled eggs 8. Peanut butter with celery 9. Cheese slices/ Cheese Stick 10. Handful of almonds, peanuts or walnuts 11. Cottage Cheese 12. Beef sticks 13. Protein bars 14. Canned [place] 15. Pumpkin seeds 16. Nut butter 17. Protein shake or protein bar 18. Avocado and chicken salad 19. Egg muffins 20. Leftover protein or lunch meat 21. 1/2 c blended cottage cheese or Indian yogurt with dry ranch/Mrs. 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 The patient is [...] 4 - Moderate documented in this encounter [facility] 04-05-2025 Note HNO ID: [id number] Author: YANELI DOWLING APRN.CNP Service: ? Author [...] occasionally TZ yogurt or rare vegetables and Indian yogurt with Ranch or cottage cheese or [...] for this visit. Recent outside labs 05/30/2024 [facility] CBC , CMP eGFR 70, BUN 20 (7-18) creat 1.01 (0.55-1.02) Glucose 116 Total Chol 211: HDL (more content not included)... 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 The patient is [...] which included preparing to see the patient, [id number] patient care, completing clinical documentation, obtaining and/or reviewing separately obtained history, performing a medically appropriate examination, and counseling and educating the patient/family/caregiver. documented in this encounter [facility] 12-20-2024 Note HNO ID: [id number] Author: YANELI DOWLING APRN.CNP Service: ? Author [...] for this visit. 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 Assessment/Plan: Jose Eduardo Prince is a 24 year old yo with Class I obesity who presented today for (more content not included)... [facility] 09-26-2024 Instructions Yaneli Dowling APRN.[facility] - 09/26/2024 10:11 AM EST - [...] oz is 28 gm protein Beef, Chicken, [place], Pork, Sylvester 1 oz 7g Fish, Tuna [...] protein & 2 carb Protein AND carbs Beef/[place] Jerky 1 oz dried 10-15g protein - check carb count, can be high if sugar added Slim Davy - 6 gm protein and 4 net carb Great Value original turkey sausage sticks - 7 gm protein and 2 gm carb [employer]ijt [employer] Jake (at [facility]) Original smoked sausage sticks - 8 gm protein and 0 carb Imitation Crab Meat 1 oz - 2g protein & 4g carb Milk, skim 2% or 1% 8 oz - 8g protein & 12g carb Indian yogurt Full Fat Indian Yogurt 1 cup - 20.4g protein & 9.1g carb 2% Indian Yogurt 1 cup - 22.7g protein & 9.1g carb 0% (fat-free) Indian Yogurt - 1 cup 24g protein & 9.3g carb Aldi Protein Indian yogurt single svg - 15g protein & 7g carb Chobani Zero Sugar single svg: - 12g protein & 5g carb Dannon Indian Light + Fit 1 single svg - 12g protein & 9g carb Oikos Pro single svg - 20g protein & 8g carb Oikos Triple Zero Indian Nonfat Yogurt 1 single svg - 15g protein & 7g carb :ratio, KETO Friendly Dairy Snack 1 single svg - 15g protein & 2g carb :ratio Protein 1 single svg - 25g protein & 8g carb Two Good Lowfat Indian Yogurt, [place], Lower Sugar - 12g protein & 2g carb Yoplait Protein 1 single svg 15gm protein & 5gm carb Dairy Free - [place] unsweetened Indian almond/soy 15 gm protein & 3 gm [...] carb Parmesan 10g protein & 0.9g carb [place] Citizen 7.6g protein & 1.5g carb Cottage Cheese 1/2 c Breakstone 2% 13g protein 7g carb Dorina 2% 13g protein 5 g carb Good Culture 2% 14g protein 3g carb Velasquez s Low Fat 12g protein & 4g carb Legumes Lentils cup 9g protein & 20g carb Carrasco beans cup 7g protein & 20g carb Kidney, Black, [place], Cannellini beans cup 8g protein & 20g carb Soybeans 1/2 c 14g complete protein & 8.5g carb [place] milk, unsweetened 8 oz 1g protein & 2g carb Soy milk 8 oz 3.5g protein & 1.6g carb Tofu 1/2 cup 10g protein & 2.3g carb Peanut butter, natural 2 Tbsp 7-8g protein & 4g net carbs, 190 calories PB2 powder 2 Tbsp 6g protein & 5g carb Nuts and Seeds per oz Almonds - 5.9g protein & 6.1g carb [place] Nuts - 4.0g protein & 3.4g carb [...] Seeds - 6.9g protein & 5g carb Mitchell Seeds - 5.8g protein & 5.6g carb Walnuts - 4.3g protein & 3.8g carb Edamame Beans (soybean) snack 1 pack 11 gm complete protein 2 carb 5 (FIVE) gram carb vegetable options 1 cup raw OR cup cooked: Asparagus Sharp sprouts Beets Broccoli Brussel sprouts Cabbage Carrots Cauliflower Celery [place] Eggplant Green beans Lettuce Peppers Snap peas [...] High Protein Snack Ideas 1. Jerky 2. Ackerly mix without dried fruit 3. [place] roll-ups 4. Indian yogurt 5. Veggies and yogurt dip 6. Tuna 7. Hard-boiled eggs 8. Peanut butter with celery 9. Cheese slices/ Cheese Stick 10. Handful of almonds, peanuts or walnuts 11. Cottage Cheese 12. Beef sticks 13. Protein bars 14. Canned [place] 15. Pumpkin seeds 16. Nut butter 17. Protein shakes 18. Avocado and chicken salad 19. Egg muffins 20. Leftover protein or lunch meat 21. 1/2 c blended cottage cheese or Indian yogurt with dry ranch/Mrs. Dash/herb seasoning mix [...] nuts and freeze documented in this encounter [facility] 09-26-2024 History of Present illness Narrative Some [...] for this visit. 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 The patient is [...] 4 - Moderate documented in this encounter [facility] 09-26-2024 Note HNO ID: [id number] Author: YANELI DOWLING APRN.CNP Service: ? Author [...] for this visit. 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 [facility] 06-13-2024 History of Present illness Narrative Some [...] visit. 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 The patient is [...] 4 - Moderate documented in this encounter [facility] 06-05-2024 History of Present illness Narrative Clerk Specialist offered: Patient declines. Jose Eduardo is a [...] L0 SAB0 IAB0 Ectopic0 Multiple0 Live Births0 Acid Pump Operator History LMP: 12/18/2023 (Within Days), Having periods Age at Menarche: Age at First : Age at Menopause: Acid Pump Operator History Comments: Sexual Activity: Not Currently; Male [...] external genitalia normal, normal Bartholin's glands, urethra, Raven's glands, no vulvar lesions, no cervical lesions, [...] Yaneli Dowling APRN.JOHN documented in this encounter [facility] 03-14-2024 Instructions Yaneli Dowling APRN.JOHN - 03/14/2024 [...] provided had been directly obtained from the [employer] wellness booklet on sleep hygiene. ([address], [address] [place] [address]) documented in this encounter [facility] 03-14-2024 History of Present illness Narrative Images [...] 3 months ago. Assessment/plan from last visit: [facility] nutrition Metformin 500 mg at [...] visit. 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 The patient is [...] 4 - Moderate documented in this encounter [facility] 02-14-2024 Discharge summary Note Date/Time February 14, 2024 10:14am [facility] Physical Therapy [facility] [address] [place] [address]. [address] [place] [address] / REHABILITATION SERVICES DISCHARGE SUMMARY MR#: [id number] Acct: [id number] Name: JOSE EDUARDO PRINCE Rep #: [id number] [...] Abraham MD; Self Referred ~ CLS Signed [facility] Work Phone: [phone]) 268-169902-08-2024 Instructions* Patient Instructions* Yaneli Dowling APRN.ELECTRICIAN MANAGER - 12/15/2023 11:09 AM EST AM PM [...] is associated with weight loss (Karime, 2019). https://GlySens.co/health-guide/rznkzbssjd-djb-ctkabl-loss/ Bupropion: Patient drug information Access [employer] for additional drug information, tools, and databases. Copyright 5830-8080 [employer]. All rights reserved. Contributor Disclosures (For additional [...] much, and when it happened. Last Reviewed [id number] Consumer Information Use and Disclaimer This generalized [...] or approved for treating a specific patient. [employer]. and its affiliatesdisclaim any warranty or liability relating to this information or the use thereof. The use of thisinformation is governed by the Terms of Use, available at https://www.LiveWire Mobileer.com/en/know/jinoujju-ezkihbsdnsagw-uokku. 2021 [employer]. and its affiliates and/or licensors. All rights reserved. [facility] History of Present illness Narrative* Yaneli Dowling [...] 3 month ago. 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 The patient is [...] Level: 4 - Moderate [facility] History of Present illness Narrative* Yaneli Dowling [...] 1 month ago. 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 The patient is [...] Level: 4 - Moderate [facility] Instructions* Patient Instructions* Yaneli Dowling APRN.CNP - [...] and equals 21 g protein Beef, Chicken, [place], Pork, Sylvester 1 oz 7g Fish, Tuna [...] protein & 2 carb Protein AND carbs Beef/[place] Jerky 1 oz dried 10-15g protein - [...] oz - 8g protein & 12g carb Indian yogurt Full Fat Indian Yogurt 1 cup - 20.4g protein & 9.1g carb 2% Indian Yogurt 1 cup - 22.7g protein & 9.1g carb 0% (fat-free) Indian Yogurt - 1 cup 24g protein & 9.3g carb :ratio, KETO Friendly Dairy Snack 1 single svg - 15g protein & 2g carb :ratio Protein 1 single svg - 25g protein & 8g carb Dannon Light + Fit 1 single csvg - 12g protein & 9g carb Two Good Lowfat Indian Yogurt, [place], Lower Sugar - 12g protein & 2g carb Oikos Triple Zero Indian Nonfat Yogurt 1 single svg - 15g protein & 7g carb Cheese each oz Brie 5.9g protein & 0.1g carb Cheddar Cheese 7g protein & 0.4g carb Mozzarella Cheese 6.3g protein & 0.6g carb Gurdeep Cheese 6.7g protein & 0.7g carb Parmesan Cheese 10g protein & 0.9g carb Cream Cheese 1.7g protein & 1.2g carb Feta 4g protein & 1.2g carb [place] Citizen Cheese 7.6g protein & 1.5g carb Velasquez s Low Fat Cottage Cheese 1/2cup 12g protein & 4g carb Legumes Lentils cup 9g protein & 20g carb Carrasco beans cup 7g protein & 20g carb Kidney, Black, [place], Cannellini beans cup 8g protein & 20g carb Soybeans 1/2 c 14g protein & 8.5g carb Peanut butter, natural 2 Tbsp 7-8g protein & 4g net carbs, 190 calories [place] milk, unsweetened 8 oz 1g protein & 2g carb Soy milk 8 oz 3.5g protein & 1.6g carb Tofu 1/2 cup 10g protein & 2.3g carb Nuts and Seeds per oz Pumpkin Seeds - 6.9g protein & 5g carb Almonds - 5.9g protein & 6.1g carb Mitchell Seeds - 5.8g protein & 5.6g carb Pistachios - 5.8g protein & 7.8g carb Cashews - 5.1g protein & 9.2g carb Walnuts - 4.3g protein & 3.8g carb Hazelnuts - 4.2g protein & 4.7g carb [place] Nuts - 4.0g protein & 3.4g carb Pecans - 2.6g protein & 3.9g carb Peanuts - 7g protein & 4.6g carb 30 High Protein Snack Ideas 1. Jerky 2. Ackerly mix without or minimal dried fruit 3. [place] roll-ups 4. Indian yogurt 5. Veggies and yogurt dip 6. Tuna 7. Hard-boiled eggs 8. Peanut butter celery sticks 9. No-bake energy bites 10. Cheese slices/ Cheese Stick 11. Handful of almonds 12. Roasted chickpeas 13. Hummus and veggies 14. Cottage Cheese 15. Celery/fruit with peanut butter 16. Beef sticks (Grass-fed, natural ingredients) 17. Protein bars 18. Canned [place] 19. Aidan pudding 20. Homemade granola - [...] Cabbage Spinach Peppers Green beans Carrots Tomato Wis[place]k Sharp sprouts Cauliflower Lettuce Snap peas Broccoli [...] (nih.gov) Is metformin a wonder drug? - [facility] Common side effects of this medication include [...] if you feel well. documented in this encounterOhiohealth [facility] Center10-20-2023 History of Present illness Narrative* Yaneli Dowling APRN.ELECTRICIAN MANAGER - 08/26/2023 8:00 AM EDT Images from [...] 2 months ago. 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 PAP Timber Supervisor Comment 06/03/2023 Final Value:This result contains [...] Level: 4 - Moderate documented in this encounterOhiohealth Grant Medical Center09-26-2023 Miscellaneous Notes* Telephone Encounter - Kandice Okeefe LPN - 08/02/2023 11:37 AM EDT Pt called and d/t scheduling conflict she had to cancel her appointment and had to reschedule. Pt will be out of medication prior to her appointment. See pending order below and further advise. Kandice Okeefe LPN documented in this encounterOhiohealth Grant Medical Center08-24-2023 History of Present illness Narrative* Yaneli Dowling [...] - IF S - none L - [id number] Salad with vegetables, cheese, chicken, HB with Ranch dressing OR [place] [employer] and rawvegetables and grapes at work; [...] suggests fairly healthy diet. Characterization of diet:Structured. Gang Knife Fish Chopper of impaired eating habits:excessive hunger, lack of satiety, mindlessness , boredom, emotion, and stress Craving: ice cream Eating Disorder binge eating - successfully treated with topiramate and fluoxetine by previous assistant women's tennis coach BINGE EATING ASSESSMENT: Before medications A. Recurrent [...] loss History: Past weight loss attempts? . Physician Non Invasive Cardiologist and Low Carbohydrate diet, Qsymia - lost [...] Report 06/03/2023 Final Value:Gynecologic Cytology Report Case: [id number] Authorizing Provider: Yaneli Dowling APRN.ELECTRICIAN MANAGER Collected: 06/03/2023 11:57 AM Ordering Location: OB/Gynecology [...] formatting which cannot be displayed here. PAP Timber Supervisor Comment 06/03/2023 Final Value:This result contains [...] - CONSULT TO NUTRITION THERAPY -Her psychiatric ROBOTIC TECHNICIAN is no longer practicing and she is [...] identified. - CONSULT TO NUTRITION THERAPY -consult [facility] nutrition Whole food balanced protein low-carb nutrition -- Based on the severity and resistance of the obesity/overweight with co- morbidities, I believe a combination of behavioral and pharmacological intervention is the best and most appropriate fci therapeutic option. -- We discussed several strategies [...] resistancetraining and cardiovascular exercise is the best fci plan. An overall goal of 150-200 minutesper [...] which included preparing to see the patient, qhqi-jk-bpet patient care, completing clinical documentation, obtaining and/or reviewing separately obtained history, performing a medically appropriate examination, counseling and educating the pat ient/family/caregiver, and ordering medications, tests, or procedures. documented in this encounterOhiohealth Grant Medical Center08-24-2023 Instructions* Patient Instructions* Yaneli Dowling APRN.CNP - [...] it adds only a little benefit for fci weight loss success. However, exercise can have [...] that affects nearly one-third of the adult [place] population (approximately 60 million). The number of overweight and obese Americans has continued to increase since 1960, a trend that is not slowing down. Today, 64.5 percent of adult Americans (about 127 million) are categorized as being overweight or obese. Each year, obesity causes at least 300,000 excess deaths in the [place] and healthcare costs of [place] adults with obesity amount to approximately $100 [...] the gallbladder, breast, uterus, cervix, or ovaries [email or web address].[facility]/health/diseases/65722-cptqfv-tzjseppoxw-olmruum-x ducation Nutrition - Eat primarily whole foods. [...] Gillian Miller MD, FACOG & Yaneli Dowling, ELECTRICIAN MANAGER TOPIRAMATE -- Take one tablet (25mg) every [...] understood. Topiramate affects body mass index, fasting aqlgnzb-yd-mehdcyq ratio, and serum leptin and cortisol levels. [...] at or call local emergency services at 007. What other information should I know? Keep all appointments with your doctor and the laboratory. Do not let anyone else take your medication. Topiramate use needs to be monitored closely. Prescriptions may be refilled only a limited number of times. Keep a written list of all of your prescription and nonprescription (vgam-gqx-bfzsjxd) medicines, in addition to vitamins, minerals, or [...] make up for a missed one. Sources [facility] Health: http://www.ncbi.nlm.nih.gov/pubmedhealth/BGQ4460106/ Drugs.com http://www.drugs.com/pro/topiramate.html PHENTERMINE -- Please take tablet [...] aware of the following statements per the [facility] pharmacy board rules. 1. Timely refills are [...] at or call local emergency services at 291. What other information should I know? Keep all appointments with your doctor and the laboratory. Do not let anyone else take your medication. Phentermine is a controlled substance. It is FDA approved for up to 3 months. Prescriptions may be refilled only a limited number of times. Keep a written list of all of your prescription and nonprescription (hloj-upx-xpiqoal) medicines, in addition to vitamins, minerals, or [...] make up for a missed one. Sources [facility] Consumer Medication Info: http://www.ncbi.nlm.nih.gov/pubmedhealth/TTN8966583/ AMA patient handouts: http://www.amaassn.org/ama1/pub/upload/mm/433/phrxsurgery.pdf Drugs.com: http://www.drugs.com/pro/phentermine.html documented in this encounterOhiohealth Grant Medical Center01-24-2023 Miscellaneous Notes* Telephone Encounter - Clarisa Duron [...] patient. Clarisa Duron RN documented in this encounterOhiohealth Grant Medical Center07-13-2022 Miscellaneous Notes* Telephone Encounter - Yaneli Dowling APRN.CNP - 05/19/2022 12:31 PM EDT Noted. Yaneli Dowling APRN.CNP * Telephone Encounter - Jessi Kim LPN - 05/19/2022 10:27 AM EDT Patient is going to pickle maker Rx as written at [facility]. * Telephone Encounter - Ebonie Jordan RN - 05/19/2022 10:19 AM EDT Patient called and states she always got her prescription through [facility] previously. Patient is going to call [facility] and find out the singh [...] - 05/19/2022 9:26 AM EDT Henrry from [facility] pharmacy calling about Enskyce rx today. Asking if that really was meant to be LUCIO? Patient was previously on Apri and Enskyce is a lot more expensive for patient. Call pharmacyback at [phone]. Clarisa Duron RN documented in this encounterOhiohealth Grant Medical Center07-13-2022 History of Present illness Narrative* Yaneli Dowling APRN.[facility] - 05/19/2022 7:53 AM EDT Jose Eduardo is a 22 year old who presents for an annual gynecologic exam without complaints. 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 Kandice Okeefe LPN documented in this encounterOhiohealth Grant Medical Center04-08-2022 Miscellaneous Notes* Telephone Encounter - Jessi Kim LPN - 2022 9:39 AM EDT Patient has yearly exam scheduled ob 03/02/2022. Will need 1 pack of ocp to get her through to appointment. documented in this encounterOhiohealth Grant Medical Center08-02-2018 History of Past illness Narrative* Problem Noted [...] of this encounter (statuses as of 2022) [facility] History of Past illness Narrative* Problem Noted [...] of this encounter (statuses as of 05/11/2022) [facility] History of Past illness Narrative* Problem Noted [...] of this encounter (statuses as of 05/19/2022) [facility] History of Past illness Narrative* Problem Noted [...] of this encounter (statuses as of 05/19/2022) [facility] History of Past illness Narrative* Problem Noted [...] of this encounter (statuses as of 11/30/2022) [facility] History of Past illness Narrative* Problem Noted [...] of this encounter (statuses as of 07/01/2023) [facility] History of Past illness Narrative* Problem Noted [...] of this encounter (statuses as of 08/06/2023) [facility] History of Past illness Narrative* Problem Noted [...] of this encounter (statuses as of 08/27/2023) [facility] History of Past illness Narrative* Problem Noted [...] of this encounter (statuses as of 09/22/2023) [facility] History of Past illness Narrative* Problem Noted [...] of this encounter (statuses as of 12/16/2023) [facility] CenterEvalubay[facility] noteNo assessment information availableWKettering Health [facility] Work Phone: Evaluation note* Diagnosis Surveillance for control, oral contraceptives Surveillance of previously prescribed contraceptive pill documented in this encounter [facility] CenterEval[facility]* Diagnosis Surveillance for control, oral contraceptives Surveillance of previously prescribed contraceptive pill documented in this encounter [facility]Eval[facility]* Diagnosis Encounter for gynecological examination (general) (routine) without abnormal findings- Primary Surveillance for control, oral contraceptives Surveillance of previously prescribed contraceptive pill Screen for STD (sexually transmitted disease) Screening examination for venereal disease documented in this encounter [facility]Eval[facility]* Diagnosis Surveillance for control, oral contraceptives Surveillance of previously prescribed contraceptive pill [facility]* Diagnosis Polycystic ovarian [...] serious comorbidity present documented [facility] this [facility]* Diagnosis Class 1 obesity with body mass index (BMI) of 31.0 to 31.9 in adult, unspecified obesity type, unspecified whether serious comorbidity present documented [facility] this encounter [facility]* Diagnosis Polycystic ovarian syndrome- Primary Polycystic ovaries Binge-eating disorder, in full remission, mild Anxiety and depression Dysthymic disorder Class 1 obesity with body mass index (BMI) of 31.0 to 31.9 in adult, unspecified obesity type, unspecified whether serious comorbidity present documented [facility]* Diagnosis Polycystic ovarian syndrome- Primary Polycystic ovaries Binge-eating disorder, in full remission, mild Anxiety and depression Dysthymic disorder Class 1 obesity with body mass index (BMI) of 31.0 to 31.9 in adult, unspecified obesity type, unspecified whether serious comorbidity present [facility]* Diagnosis Polycystic ovarian syndrome- Primary Polycystic ovaries Binge-eating disorder, in full remission, mild Anxiety and depression Dysthymic disorder Seasonal affective disorder (HCC) Other specified episodic mood disorder Class 1 obesity with body mass index (BMI) of 31.0 to 31.9 in adult, unspecified obesity type, unspecified whether serious comorbidity present documented [facility] encounter [facility]* Diagnosis Onset Date Resolution Status Contusion of left foot acute [facility] Work Phone: Evaluation note* Diagnosis Polycystic ovarian syndrome- Primary Polycystic ovaries Binge-eating disorder, in full remission, mild Anxiety and depression Dysthymic disorder Seasonal affective disorder (HCC) Other specified episodic mood disorder Class 1 obesity with body mass index (BMI) of 31.0 to 31.9 in adult, unspecified obesity type, unspecified whether serious comorbidity present documented in this encounter [facility]* Diagnosis Encounter for gynecological examination (general) (routine) without abnormal findings- Primary Breakthrough bleeding on control pills Metrorrhagia Surveillance for control, oral contraceptives Surveillance of previously prescribed contraceptive pill documented in this encounter [facility]* Diagnosis Polycystic ovarian syndrome- Primary Polycystic ovaries Binge-eating disorder, in full remission, mild Anxiety and depression Dysthymic disorder Seasonal affective disorder (HCC) Other specified episodic mood disorder History of obesity Personal history of other specified diseases documented in this encounter [facility]* Diagnosis Polycystic ovarian syndrome- Primary Polycystic ovaries Binge-eating disorder, in full remission, mild Anxiety and depression Dysthymic disorder Seasonal affective disorder (HCC) Other specified episodic mood disorder Encounter for long-term (current) use of medications Encounter for long-term (current) use of other medications History of obesity Personal history of other specified diseases [facility] Diagnosis Polycystic ovarian syndrome- Primary Polycystic ovaries Binge-eating disorder, in full remission, mild Anxiety and depression Dysthymic disorder Seasonal affective disorder (HCC) Other specified episodic mood disorder History of obesity Personal history of other specified diseases documented [facility]* Diagnosis Polycystic ovarian syndrome- Primary Polycystic ovaries Binge-eating disorder, in full remission, mild Anxiety and depression Dysthymic disorder Seasonal affective disorder Other specified episodic mood disorder History of obesity Personal history of other specified diseases documented in this encounter [facility]* Diagnosis Vaginal discharge- Primary Leukorrhea, not specified as infective Dysuria Vaginal odor Unspecified symptom associated with female genital organs Vaginal itching Pruritus of genital organs LLQ pain Abdominal pain, left lower quadrant documented in this encounter [facility]* Diagnosis Pelvic pain- Primary documented in this encounter [facility]* Diagnosis LLQ pain- Primary Abdominal pain, left lower quadrant Encounter for gynecological examination (general) (routine) without abnormal findings Surveillance for control, oral contraceptives Surveillance of previously prescribed contraceptive pill documented in this encounter [facility] for referral (narrative)No reason for referral information availableWKettering Health [facility] Work Phone: Chief Complaint and Reason for [...] THERAPY MEDICAL NUTRITION ASSMT&IVNTJ INDIV EACH 15 HI MEDICAL NUTRITION ASSMT&IVNTJ INDIV EACH 15 HI MEDICAL NUTRITION ASSMT&IVNTJ INDIV EACH 15 HI MEDICAL NUTRITION ASSMT&IVNTJ INDIV EACH 15 HI Yaneli Dowling, JALEN.ELECTRICIAN MANAGER [address] [place] [address] Referral ID Status Reason Start Date Expiration Date Visits Requested Visits Authorized [id number] Authorized PCP Requested Referral 06/30/2023 06/29/2024 1 [...] or prosecute any alcohol or drug abuse patient.[facility] Medical CenterIn the event this information is protected by the Federal Confidentiality of Alcohol and Drug Abuse Patient Records regulations: The Federal rules restrict any use of the information to criminally investigate or prosecute any alcohol or drug abuse patient.[facility] CenterIn the event this information is protected by the Federal Confidentiality of Alcohol and Drug Abuse Patient Records regulations: The Federal rules restrict any use of the information to criminally investigate or prosecute any alcohol or drug abuse patient.[facility] CenterIn the event this information is protected by the Federal Confidentiality of Alcohol and Drug Abuse Patient Records regulations: The Federal rules restrict any use of the information to criminally investigate or prosecute any alcohol or drug abuse patient.[facility] CenterIn the event this information is protected by the Federal Confidentiality of Alcohol and Drug Abuse Patient Records regulations: The Federal rules restrict any use of the information to criminally investigate or prosecute any alcohol or drug abuse patient.[facility] CenterIn the event this information is protected by the Federal Confidentiality of Alcohol and Drug Abuse Patient Records regulations: The Federal rules restrict any use of the information to criminally investigate or prosecute any alcohol or drug abuse patient.[facility] CenterIn the event this information is protected by the Federal Confidentiality of Alcohol and Drug Abuse Patient Records regulations: The Federal rules restrict any use of the information to criminally investigate or prosecute any alcohol or drug abuse patient.[facility] CenterIn the event this information is protected by the Federal Confidentiality of Alcohol and Drug Abuse Patient Records regulations: The Federal rules restrict any use of the information to criminally investigate or prosecute any alcohol or drug abuse patient.[facility] CenterIn the event this information is protected by the Federal Confidentiality of Alcohol and Drug Abuse Patient Records regulations: The Federal rules restrict any use of the information to criminally investigate or prosecute any alcohol or drug abuse patient.[facility] CenterIn the event this information is protected by the Federal Confidentiality of Alcohol and Drug Abuse Patient Records regulations: The Federal rules restrict any use of the information to criminally investigate or prosecute any alcohol or drug abuse patient.[facility] CenterIn the event this information is protected by the Federal Confidentiality of Alcohol and Drug Abuse Patient Records regulations: The Federal rules restrict any use of the information to criminally investigate or prosecute any alcohol or drug abuse patient.[facility] CenterIn the event this information is protected by the Federal Confidentiality of Alcohol and Drug Abuse Patient Records regulations: The Federal rules restrict any use of the information to criminally investigate or prosecute any alcohol or drug abuse patient.[facility] CenterIn the event this information is protected by the Federal Confidentiality of Alcohol and Drug Abuse Patient Records regulations: The Federal rules restrict any use of the information to criminally investigate or prosecute any alcohol or drug abuse patient.[facility] CenterIn the event this information is protected by the Federal Confidentiality of Alcohol and Drug Abuse Patient Records regulations: The Federal rules restrict any use of the information to criminally investigate or prosecute any alcohol or drug abuse patient.[facility] CenterIn the event this information is protected by the Federal Confidentiality of Alcohol and Drug Abuse Patient Records regulations: The Federal rules restrict any use of the information to criminally investigate or prosecute any alcohol or drug abuse patient.[facility] CenterIn the event this information is protected by the Federal Confidentiality of Alcohol and Drug Abuse Patient Records regulations: The Federal rules restrict any use of the information to criminally investigate or prosecute any alcohol or drug abuse patient.[facility] CenterIn the event this information is protected by the Federal Confidentiality of Alcohol and Drug Abuse Patient Records regulations: The Federal rules restrict any use of the information to criminally investigate or prosecute any alcohol or drug abuse patient.[facility] CenterIn the event this information is protected by the Federal Confidentiality of Alcohol and Drug Abuse Patient Records regulations: The Federal rules restrict any use of the information to criminally investigate or prosecute any alcohol or drug abuse patient.[facility] CenterIn the event this information is protected by the Federal Confidentiality of Alcohol and Drug Abuse Patient Records regulations: The Federal rules restrict any use of the information to criminally investigate or prosecute any alcohol or drug abuse patient.[facility] CenterIn the event this information is protected by the Federal Confidentiality of Alcohol and Drug Abuse Patient Records regulations: The Federal rules restrict any use of the information to criminally investigate or prosecute any alcohol or drug abuse patient.[facility] CenterIn the event this information is protected by the Federal Confidentiality of Alcohol and Drug Abuse Patient Records regulations: The Federal rules restrict any use of the information to criminally investigate or prosecute any alcohol or drug abuse patient.[facility] Reason for Visit (unrecogniz ed section and content) Reason Onset Date Comments Refill Request 2022 Reason Onset Date Comments Refill Request 05/07/2022 Refill Request 05/11/2022 Reason Comments Well [facility] Specialty Diagnoses / Procedures Referred By Nellie t 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 APPTS Diagnoses Annual exam Procedures OFFICE/OUTPATIENT ESTABLISHED HIGH MDM 40-54 MIN Ashlie Olson MD [employer] [address] [place] [address] Referral ID Status Reason Start Date Expiration Date Visits Re quested Visits Authorized [id number] Closed 05/07/2022 11/06/2022 1 1 Reason Comments Medication Question Reason Onset Date Comments Refill Request 11/30/2022 Reason Onset Date Comments Weight Management 06/30/2023 Reason Onset Date Comments Refill Request 08/02/2023 Refill Request 08/05/2023 Reason Comments Weight Management Follow up Reason Comments Weight Management Reason Comments Vaginal Problem Reason Comments Orders Care Teams (unrecognized sec tion and content) Branch Coordinator Relationship Specialty Start Date End Date Augustina Abraham MD [address] [address] PCP - General Family Medicine 06/30/23 Branch Coordinator Relationship Specialty Start Date End Date Augustina Abraham MD [address] [facility] [address] [place], [place] [id number] PCP - [facility] Medicine 06/30/23 Team Status: Active Member Role [...] Primary Care Provider Active Yaneli Dowling NP, PULMONARY FUNCTION TECHNOLOGIST-C Attending Provider, Referring Pro vider Active Team Status: Inactive Member Role Status Dates Dr. Augustina Abraahm MD Primary Care Provider Active Yaneli Dowling NP, PULMONARY FUNCTION TECHNOLOGIST-C Attending Provider Active Branch Coordinator Relationship Specialty Start Date End Date Augustina Abraham MD [address] [facility] [address] [place], [place] [address] PCP - [facility] Medicine 06/30/23 Branch Coordinator Relationship Specialty Start Date End Date Augustina Abraham MD [address] [facility] [address] [place], [place] [address] PCP - [facility] 06/30/23 Team Status: Inactive Member Role Status Dates Dr. Augustina Abraham MD Primary Care Provider Active Yanelis Ambrose PULMONARY FUNCTION TECHNOLOGIST-C Attending Provider Active Team Status: Active Member [...] Vidal MD Attending Provider, Referring Provider Active Branch Coordinator Relationship Specialty Start Date End Date Augustina Abraham MD [address] [facility] [address] [place], [place] [id number] PCP - General Family Medicine 06/30/23 Team [...] Referred Attending Provider, Referring Provider A ctive Branch Coordinator Relationship Specialty Start Date End Date Augustina Abraham MD [address] [place] [address] PCP - General Family Medicine 06/30/23 Branch Coordinator Relationship Specialty Start Date End Date Augustina Abraham MD [address] [facility] [address] [place] [address] PCP - General Family Medicine 06/30/23 Branch Coordinator Relationship Specialty Start Date End Date Augustina Abraham MD [address] [facility] [address] [place] [address] PCP - General Family Medicine 06/30/23 Branch Coordinator Relationship Specialty Start Date End Date Augustina Abraham MD [address] [facility] [address] [place] [address] PCP - General Family Medicine 06/30/23 Team Status: Inactive Member Role Status Dates Dr. Augustina Abraham MD Primary Care Provider Active Start: October 23, 2024 End: October 23, 2024 Self Referred Attending Provider Active Start: 2023 End: October 23, 2024 Self Referred Referring Provider Active Start: 2023 End: October 23, 2024 Branch Coordinator Relationship Specialty Start Date End Date Augustina Abraham MD [address] [place] [address] PCP - General Family Medicine 06/30/23 Branch Coordinator Relationship Specialty Start Date End Date Augustina Abraham MD [address] [place], [place] [address] PCP - General Family Medicine 06/30/23 Branch Coordinator Relationship Specialty Start Date End Date Augustina Abraham MD [address] [place], [place] [id number] PCP - General Family Medicine 06/30/23 Branch Coordinator Relationship Specialty Start Date End Date Augustina Abraham MD [address] [place], [place] [address] PCP - General Family Medicine 06/30/23 Team [...] 2025 End: August 07, 2025 Seble Fleming PULMONARY FUNCTION TECHNOLOGIST, PULMONARY FUNCTION TECHNOLOGIST-C Attending physician Active Start: August 07, 2025 End: August 07, 2025 INFORMATION SOURCE (unrecogn ized section and content) DATE CREATED AUTHOR 06/23/2025 [facility] DATE CREATED AUTHOR 'S PACO SULLIVAN 08/16/2025 [facility] FOR RECORDS PERTAINING TO PATIENTS WHO ARE [...] BE BASED ON THE PRIMARY CLINICAL RECORDS. [facility] [employer] [facility]. provides no warranty or guarantee of the accuracy or completeness of information in this document.
[2025-09-22 14:12] LABS: HIV Nonreactive (Nonreactive)
--- NOTE | 2025-09-22 15:33 | ED.RN ---
1300: THIS NURSE CONSULTED FEATURES REPORTER AND ED CHARGE NURSE Marj MAHER REGARDING ENTERING EXPOSURE PROTOCOL ON SOURCE PERSON UNDER NEW VISIT NUMBER. UNABLE TO PLACE ORDERS UNDER NEW VISIT NUMBER. THIS NURSE INFORMED ED ACCESS DOES NOT ALLOW THE ORDER TO BE PLACED AND MUST BE ENTERED BY MANAGEMENT THE FOLLOWING DAY. THIS NURSE INFORMED THAT A NOTE WOULD BE LEFT FOR MANAGEMENT.
[2025-09-22 17:31] LABS: Hepatitis B Surface Antigen Nonreactive (Nonreactive); Hepatitis C Antibody Nonreactive (Nonreactive)
== END | disposition home or self-care (01) ==
LOC: ED 11:19
PROVIDERS: PCP Family Medicine; Visit Provider Emergency Medicine
DX: Z20.6 Contact with and (suspected) exposure to human immunodeficiency virus [HIV] (principal); Z79.899 Other long term (current) drug therapy; Z13.9 Encounter for screening, unspecified
CPT/HCPCS: 86703; 86704; 86706; 86803; 87340

== ENCOUNTER → 2025-10-15 | Outpatient (CLI) | payer OTHER, SELFPAY ==
--- NOTE | 2025-10-15 08:01 | ECHOD_ITS ---
Reason For Study Reason For Study: PALPITATIONS Procedure This was a 2D Doppler, Color Flow transthoracic echocardiogram. Myocardial strain analysis was performed in this exam to aid in the assessment of cardiac function. The patient is in sinus rhythm. Exam performed in department. Left Ventricle Normal-sized left ventricle. Normal left ventricular wall thickness. The global longitudinal strain = -17.6 % (normal). Left ventricular EF by De Guzman's biplane: 61%. Normal diastolic function. Normal left ventricular wall motion. Right Ventricle Normal right ventricle. Normal systolic function. RVSP estimated at: 25 mmHg. Atria The left and right atria are normal. RA pressure estimated at: 3 mmHg. Normal atrial septum. Mitral Valve Normal mitral valve. Trace mitral regurgitation. No mitral stenosis. Tricuspid Valve Normal tricuspid valve. Trace tricuspid regurgitation. No tricuspid stenosis. Aortic Valve Normal trileaflet aortic valve. No hemodynamically significant aortic stenosis. No aortic regurgitation. Pulmonic Valve Normal pulmonic valve. Trace pulmonic regurgitation. No pulmonic stenosis. Great Vessels Normal sized aortic root. Pericardium/Pleural No pericardial effusion. MMode/2D Measurements & Calculations LVIDd: 4.8 cm IVSd: 0.76 cm LVOT diam: 2.0 cm LVIDs: 2.9 cm LVPWd: 0.64 cm LVOT area: 3.1 cm2 RVDd: 3.6 cm FS: 39.1 % Ao root diam: 2.4 cm asc Aorta Diam: 2.8 cm LAV(MOD- bp): 28.5 ml LAV(MOD- bp) Indexed: 15.6 ml/m2 LAV(MOD- sp2): 28.7 ml LAV(MOD- sp4): 27.8 ml SV(MOD- sp4): 33.5 ml LVAd ap4: 21.6 cm2 LVAd ap2: 22.4 cm2 LVLd ap4: 7.2 cm LVLd ap2: 7.5 cm SI(MOD- sp4): 18.3 ml/m2 EDV(MOD-sp4): 54.8 ml EDV(MOD-sp2): 57.4 ml EDV(sp4-el): 55.2 ml EDV(sp2-el): 56.5 ml LVAs ap4: 12.4 cm2 LVAs ap2: 13.0 cm2 LVLs ap4: 6.2 cm LVLs ap2: 6.5 cm ESV(MOD-sp4): 21.3 ml ESV(MOD-sp2): 24.6 ml ESV(sp4-el): 20.9 ml ESV(sp2-el): 22.3 ml EF(MOD-sp4): 61.2 % EF(MOD-sp2): 57.2 % EF(sp4-el): 62.2 % SV(MOD-sp2): 32.8 ml SV(sp4-el): 34.4 ml Ao sinus diam: 3.1 cm SI(MOD-sp2): 17.9 ml/m2 Ao ST Junction: 2.5 cm LA dimension(2D): 3.2 cm LA A4 area: 12.3 cm2 TAPSE: 1.8 cm RA A4 area: 10.5 cm2 Time Measurements MV dec time: 0.15 sec Doppler Measurements & Calculations MV E max og: 78.9 cm/sec Lat Peak E' Og: 14.2 cm/sec Med Peak E' Og: 12.1 cm/sec MV A max og: 61.7 cm/sec E/E' lat: 5.6 E/E' med: 6.5 MV E/A: 1.3 MV dec slope: 534.4 cm/sec2 Ao V2 max: 121.3 cm/sec LV V1 max: 98.7 cm/sec Ao max P.9 mmHg LV V1 max P.9 mmHg Ao V2 mean: 84.2 cm/sec LV V1 mean P.3 mmHg Ao mean P.2 mmHg LV V1 mean: 72.3 cm/sec Ao V2 VTI: 24.5 cm LV V1 VTI: 19.0 cm AV (velocity ratio): 0.77 GRABIEL(I,D): 2.4 cm2 GRABIEL(V,D): 2.5 cm2 SV(LVOT): 59.3 ml PA V2 max: 99.0 cm/sec TR max og: 223.5 cm/sec TR max P.0 mmHg ECHO/Echo Complete Interpretation Summary Normal left ventricular systolic function with EF: 61% by De Guzman's biplane Normal left ventricular diastolic function Normal left ventricular wall motion Normal right ventricular systolic function No hemodynamically significant valvular disease Ordering Physician: Seble Fleming Referring Physician: Arnoldo Cunningham Performed By: Melva Mckee RDCS
== END | disposition home or self-care (01) ==
LOC: CVS 07:54
PROVIDERS: PCP Family Medicine; Referring Provider Nurse Practitioner Family; Visit Provider Nurse Practitioner Family
DX: R00.2 Palpitations (principal)
CPT/HCPCS: 93306